=== PATIENT | male | born 1965 | race Caucasian/White ===

== ENCOUNTER 2017-08-07 13:47 | Inpatient (IN) | payer OTHER ==
[2017-08-07 13:54] VITALS: BMI 30.1
--- NOTE | 2017-08-07 14:32 | PDOC ---
History of Present Illness - General Chief Complaint: Wound Stated Complaint: LT LEG INFECTION (PRE-SURG) Time Seen by Provider: 08/07/17 14:30 - History of Present Illness Initial Comments: 08/07/17 14:42 The patient is a 51 year old male with a history of HTN, HLD, DM, PVD who presents for admission for a left foot wound. The patient reports a long history of a left heel wound for which he has been followed by Dr. Carmona. He notes that he was found to have severe PVD and Dr. Carmona sent the patient for admission prior to operative management of the foot. The patient reports pain and numbness to the left foot, but otherwise denies fevers, chills, SOB, chest pain, abdominal pain, nausea, vomiting, or changes with urination or bowel movements. Past History - Past Medical History Allergies/Adverse Reactions: Allergies Allergy/AdvReac Type Severity Reaction Status Date / Time codeine [Codeine] Allergy Verified 08/07/17 13:51 Home Medications: Ambulatory Orders Glipizide [Glucotrol Xl] 5 mg PO DAILY 06/19/12 metFORMIN HCL [Glucophage] 1,000 mg PO BID 06/19/12 Losartan/Hydrochlorothiazide [Losartan-Hctz 100-25 mg Tab] 1 tab PO DAILY Oxycodone HCl/Acetaminophen [Percocet 5-325 mg Tablet] 1 tab PO TID 07/24/17 Pantoprazole Sodium [Protonix] 1 tab PO DAILY 07/24/17 Silver Sulfadiazine [Silvadene] 1 applic TID 07/24/17 Nortriptyline HCl [Pamelor -] 1 cap PO DAILY 07/28/17 Atorvastatin Ca [Lipitor] 20 mg PO HS 08/07/17 Diclofenac Sodium [Voltaren -] 75 mg PO BID 08/07/17 Glipizide [Glucotrol -] 10 mg PO BID 08/07/17 Asthma: No Cardiac Disorders: Yes CVA: No COPD: No CHF: No Diabetes: Yes (niddm) HTN: Yes Hypercholesterolemia: Yes - Surgical History Orthopedic Surgery: Yes (Cervical spine sx, L. Rotator cuff) - Suicide/Smoking/Psychosocial Hx Smoking Status: Yes Smoking History: Current every day smoker Have you smoked in the past 12 months: Yes Number of Cigarettes Smoked Daily: 20 Information on smoking cessation initiated: Yes 'Breaking Loose' booklet given: 08/07/17 Hx Alcohol Use: No Drug/Substance Use Hx: No Substance Use Type: None Hx Substance Use Treatment: No Review of Systems - Review of Systems Comments:: 08/07/17 14:45 Constitutional: No fevers, chills, fatigue, malaise HEENT: No Rhinorrhea, nasal congestion, visual changes Cardiovascular: No chest pain, syncope, palpitations, lightheadedness Respiratory: No Cough, SOB, Hemoptysis, Gastrointestinal: No Abdominal pain, Nausea, Vomiting, Constipation, Diarrhea, Melena Genitourinary: No Dysuria, Frequency, Urgency, Hesitancy, Hematuria, Flank pain Musculoskeletal: Left Foot wound. No Myalgia, arthralgia Skin: No rashes, itching, bruising, pallor Neurologic: No Headache, Dizziness, Numbness, Weakness, or Tingling Psychiatric: No Hallucinations. No SI or HI *Physical Exam - Vital Signs Last Vital Signs Temp Pulse Resp BP Pulse Ox 97.3 F L 96 H 18 136/79 100 08/07/17 13:51 08/07/17 13:51 08/07/17 13:51 08/07/17 13:51 08/07/17 13:51 - Physical Exam Comments: 08/07/17 14:46 General Appearance: Nourished. No Apparent Distress HEENT: EOMI, FILIPE. No Pharyngeal Erythema, Tonsillar Exudate, Tonsillar Erythema Neck: No Cervical Lymphadenopathy Respiratory/Chest: Lungs Clear, Normal Breath Sounds. No Crackles, Rales, Rhonchi, Wheezing Cardiovascular: Regular Rhythm, Regular Rate. No Murmur, Gallops, Rubs Gastrointestinal/Abdominal: Normal Bowel Sounds, Soft. No Guarding, Rebound, Tenderness Musculoskeletal: No CVA Tenderness Extremity: Diminished dp pulses to the left foot with a wound to the medial aspect of the left heel with some purulent drainage. Normal Capillary Refill Integumentary: Normal Color, Dry, Warm Neurologic: Fully Oriented, Alert, Normal Mood/Affect, Normal Response, ED Treatment Course - LABORATORY CBC & Chemistry Diagram: 08/07/17 15:05 08/07/17 15:05 Medical Decision Making - Medical Decision Making 08/07/17 14:49 The patient is a 51 year old male with a history of HTN, HLD, DM, PVD who presents for admission for a left foot wound. Given the patient's history and physical exam, we will obtain a cbc, cmp, lactate, blood cultures, ekg, plain films of the foot to evaluate further. The patient will require admission for further management per Dr. Carmona. We will treat with vanc and zosyn here in the ED and continue to monitor and reassess. 08/07/17 18:28 CBC, cmp are unremarkable. Lactate is elevated to 4.3. We will treat the patient with iv fluids. We discussed the case with the hospitalist team who accepted the patient for admission. *DC/Admit/Observation/Transfer Diagnosis at time of Disposition: Diabetic foot ulcer Qualifiers: Diabetic foot ulcer location: heel Diabetes mellitus type: other specified ( including MACK) Laterality: left Non-pressure ulcer stage: unspecified non- pressure ulcer stage Qualified Code(s): E13.621 - Other specified diabetes mellitus with foot ulcer - Discharge Dispostion Condition at time of disposition: Stable Admit: Yes - Referrals - Patient Instructions - Post Discharge Activity
[2017-08-07] MEDS ORDERED: PIPERACILLIN/TAZOB 3.375 GM 3.375 GM in DEXTROSE 5%-WATER - 50 ML IVPB ONE ×2 (14:39→21:00)
[2017-08-07] MEDS ORDERED: VANCOMYCIN 1,000 MG in DEXTROSE 5%-WATER - 250 ML IVPB ONE (14:39)
[2017-08-07] MEDS ORDERED: VANCOMYCIN 1 GRAM (PRE-DOCKED) 1,000 MG/250 ML BAG IVPB ONE (15:15)
[2017-08-07 15:16] LABS: BASO % 1.1 % (0-2.0); EOS % 0.9 % (0-4.5); HEMATOCRIT 46.5 % (35.4-49); HEMOGLOBIN 16.2 GM/dL (11.7-16.9); LYMPH % 36.7 % (8-40); MCH 31.4 pg (25.7-33.7); MCHC 34.9 g/dl (32.0-35.9); MEAN CELL VOLUME 90.1 fl (80-96); MEAN PLT VOLUME 6.8 fl (7.5-11.1); MONO % 5.8 % (3.8-10.2); NEUT % 55.5 % (42.8-82.8); PLATELET COUNT 464 K/MM3 (134-434); RBC 5.16 M/mm3 (4.00-5.60); RDW 13.9 % (11.9-15.9); WHITE BLOOD COUNT 10.5 K/mm3 (4.0-10.0)
[2017-08-07] MEDS ORDERED: PIPERACILLIN/TAZOB 3.375 GM 3.375 GM/50 ML BAG IVPB ONE (15:16)
[2017-08-07 15:38] LABS: ALBUMIN 3.7 g/dl (3.4-5.0); ALK PHOS 96 U/L (45-117); ANION GAP 14 (8-16); BILIRUBIN,TOTAL 0.3 mg/dL (0.2-1.0); BLOOD UREA NITROGEN 16 mg/dL (7-18); CALCIUM 9.6 mg/dL (8.5-10.1); CHLORIDE 100 mmol/L (98-107); CO2 24 mmol/L (21-32); CREATININE 0.9 mg/dL (0.7-1.3); GLUCOSE,RANDOM 148 mg/dL (74-106); SGOT/AST 14 U/L (15-37); SGPT/ALT 23 U/L (12-78); SODIUM 138 mmol/L (136-145); TOT PROT 7.3 g/dl (6.4-8.2)
[2017-08-07] MEDS ORDERED: SODIUM CHLORIDE 1,000 ML IV STA (15:44)
--- NOTE | 2017-08-07 17:22 | HP ---
CHIEF COMPLAINT: PVD with non healing ulcer with discharge PCP: Dr valenzuela HISTORY OF PRESENT ILLNESS: The patient is a 51 year old male with a history of HTN, HLD, DM, PVD He reports that he was found to have severe PVD and Dr. Carmona sent the patient for admission prior to operative management of the foot. He states that two months ago he noticed a black discoloration on lateral aspect of his little toe, which was shaved by his bellows tester, which never got better and was started on antibiotics. One month ago he noticed a discharge from his old healed scar and was started on antibiotics, discharge is serous and no foul smell, didnt get better with antibiotics, till now has been treated on august antibiotics. He also reports increase in claudication from walking 300ft to pain during rest, also complaints numbness in left foot, also noticed a discoloration of foot one month ago and which is same since then. 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 Also reports his DM is uncontrolled Recently started walking with cane. Denies SOB, chest pain, abdominal pain, nausea, vomiting, or changes with urination or bowel movements. 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 Social History: Smokin pack year history, current smoker Alcohol: no Drugs: no Family History: not relevant Allergies codeine [Codeine] Allergy (Verified 08/07/17 13:51) HOME MEDICATIONS: Home Medications Medication Instructions Recorded Glipizide [Glucotrol Xl] 5 mg PO DAILY 06/19/12 Simvastatin [Zocor] 40 mg PO HS 06/19/12 metFORMIN HCL [Glucophage] 1,000 mg PO BID 06/19/12 Losartan/Hydrochlorothiazide 1 tab PO DAILY 07/24/17 [Losartan-Hctz 100-25 mg Tab] Oxycodone HCl/Acetaminophen 1 tab PO TID 07/24/17 [Percocet 5-325 mg Tablet] Pantoprazole Sodium [Protonix] 1 tab PO DAILY 07/24/17 Silver Sulfadiazine [Silvadene] 1 applic TID 07/24/17 Nortriptyline HCl [Pamelor -] 1 cap PO DAILY 07/28/17 REVIEW OF SYSTEMS CONSTITUTIONAL: Absent: fever, chills, diaphoresis, generalized weakness, malaise, loss of appetite, weight change HEENT: Absent: rhinorrhea, nasal congestion, throat pain, throat swelling, difficulty swallowing, CARDIOVASCULAR: Absent: chest pain, syncope, palpitations, irregular heart rate, lightheadedness , peripheral edema RESPIRATORY: Absent: cough, shortness of breath, dyspnea with exertion, orthopnea, wheezing, stridor, hemoptysis GASTROINTESTINAL: Absent: abdominal pain, abdominal distension, nausea, vomiting, diarrhea, GENITOURINARY: Absent: dysuria, frequency, urgency, hesitancy, hematuria, flank pain, genital pain MUSCULOSKELETAL: as above SKIN: as above HEMATOLOGIC/IMMUNOLOGIC: Absent: easy bleeding, easy bruising, lymphadenopathy, frequent infections ENDOCRINE: Absent: unexplained weight gain,heat intolerance, cold intolerance NEUROLOGIC: Absent: headache, focal weakness or paresthesias, dizziness, PSYCHIATRIC: Absent: anxiety, depression, PHYSICAL EXAMINATION Vital Signs - 24 hr 08/07/17 13:51 Temperature 97.3 F L Pulse Rate 96 H Respiratory 18 Rate Blood Pressure 136/79 O2 Sat by Pulse 100 Oximetry (%) GENERAL: Awake, alert, and fully oriented, in no acute distress. HEAD: Normal with no signs of trauma. EARS, NOSE, THROAT: Moist mucous membranes. NECK: Normal range of motion, supple without lymphadenopathy, JVD, or masses. LUNGS: Breath sounds equal, clear to auscultation bilaterally. No wheezes, and no crackles. No accessory muscle use. HEART: Regular rate and rhythm, normal S1 and S2 without murmur, ABDOMEN: Soft, nontender, not distended, normoactive bowel sounds, no guarding, no rebound, no masses. . UPPER EXTREMITIES: 2+ pulses, warm, well-perfused. No cyanosis. No clubbing. No peripheral edema. LOWER EXTREMITIES:b/l calf muscle atrophy ( congenital), mild skin discoloration of left foot as compare to right, dry ulcer on lateral aspect of little toe, met skin with degloving between 4th and 5th toe, crusted serous discharge presnt in helaed scar on medial aspect of foot, temp b/l equal, pulses not palpable, decreases sensations to touch on left side, capillary refill normal, loss hair both legs, NEUROLOGICAL: Cranial nerves II-XII intact. Normal speech. PSYCHIATRIC: Cooperative. Good eye contact. Appropriate mood and affect. SKIN: Warm, dry, Laboratory Results - last 24 hr 08/07/17 08/07/17 08/07/17 14:42 15:05 15:05 WBC 10.5 H RBC 5.16 Hgb 16.2 Hct 46.5 MCV 90.1 MCH 31.4 MCHC 34.9 RDW 13.9 Plt Count 464 H MPV 6.8 L Neutrophils % 55.5 Lymphocytes % 36.7 Monocytes % 5.8 Eosinophils % 0.9 Basophils % 1.1 Sodium 138 Potassium 4.0 Chloride 100 Carbon Dioxide 24 Anion Gap 14 BUN 16 Creatinine 0.9 Creat Clearance w eGFR > 60 Random Glucose 148 H Lactic Acid 4.3 H* Calcium 9.6 Total Bilirubin 0.3 AST 14 L ALT 23 D Alkaline Phosphatase 96 Creatine Kinase Troponin I C-Reactive Protein Total Protein 7.3 Albumin 3.7 08/07/17 08/07/17 15:05 16:14 WBC RBC Hgb Hct MCV MCH MCHC RDW Plt Count MPV Neutrophils % Lymphocytes % Monocytes % Eosinophils % Basophils % Sodium Potassium Chloride Carbon Dioxide Anion Gap BUN Creatinine Creat Clearance w eGFR Random Glucose Lactic Acid Calcium Total Bilirubin AST ALT Alkaline Phosphatase Creatine Kinase 67 Troponin I < 0.02 C-Reactive Protein 0.9 H Total Protein Albumin ASSESSMENT/PLAN: The patient is a 51 year old male with a history of HTN, HLD, DM, PVD came for non healing ulcer and discharge on left foot. PVD with non healing ulcer with discharge. IV antibiotics zosyn and vanco. daily dressing of wound' keep area between fingers dry. CRP 0.9, ESR pending XRay pending. Follow wound and blood culture. arterial doppler from 07/25 severe arterial insufficiency on left side. Vascular surgery and ID consult. continue nortriptiline has been treated on levaquin last week, on augmentin since 08/05 avoid scd and limb elevation. Latic acidosis: likely type b from metformin. Doesn't meet criteria for sepsis. Trend lactic acid. hold metformin IV fluid HTN continue losartan hold hydrochlorthiazide HLD atorvastatin 20 home dose DM BGM novalog sliding scale HBa1c diabetic diet hold oral hypoglycemic Smoking needs to be counseled for smoking cessation. start nicotine patch. fluid: NS 100ml/hr electrolyte: repeat in am nutrition: diabetic diet dvt pro: heparin sq, will get one dose at 10pm. Start him back depending upon a plan from vascular surgery. gi pro: pantoprazole 40 daily home dose dispo: med surg Visit type - Emergency Visit Emergency Visit: Yes ED Registration Date: 08/07/17 Care time: The patient presented to the Emergency Department on the above date and was hospitalized for further evaluation of their emergent condition. - New Patient This patient is new to me today: Yes Date on this admission: 08/07/17 - Critical Care Critical Care patient: No
[2017-08-07] MEDS ORDERED: ENOXAPARIN NA (PORCINE) 40 MG/0.4 ML DISP.SYRIN SQ SCH (17:59)
--- NOTE | 2017-08-07 18:12 | HP ---
CHIEF COMPLAINT: Pain in the foot PCP: Dr. Dalton HISTORY OF PRESENT ILLNESS: The patient is a 51 yo m w/ PMH HTN, DM, PVD who was ent to the ED by Dr. Carmona for pre-op management of a nonhealing, infected left foot ulcer. The patient states that he has experienced pain, numbness and drainage from 2 sites on his foot over the past few months. He went to see a french weaver several times while experiencing this and has tried multiple antibiotics (augmentin, levaquin) as well as silvedine cream which did not help. His french weaver referred him to Dr. Carmona, who sent him to the ED. The patient also endorses worsening pain in both legs over the same period of time. The pain was originally only when walking, but became progressively worse to the point where he feels this pain even at rest. The patient endorses subjective fevers and chills over the past few weeks. Patient also endorses dysuria as well as burning around the head of his penis while urinating. The patient washed the area well while in the shower, but states that the inside of his foreskin sometimes brakes down because he urinates so frequently. Patient denies chest pain, SOB, abdominal pain, sick contacts. ER course was notable for: (1) Lactic acid 4.3 (2) Vancomycin, zosyn (3) XR of the foot Recent Travel: none PAST MEDICAL HISTORY: HLD, HTN, DM, PVD PAST SURGICAL HISTORY: 2010- cervical spine surgery s/p trauma at work - Left rotator cuff surgery Social History: Smoking: Smokes 20 cigarettes/day for the past 40 yrs Alcohol: denies Drugs: denies Family History: non-contributory Allergies codeine [Codeine] Allergy (Verified 08/07/17 13:51) HOME MEDICATIONS: Home Medications Medication Instructions Recorded Glipizide [Glucotrol Xl] 5 mg PO DAILY 06/19/12 metFORMIN HCL [Glucophage] 1,000 mg PO BID 06/19/12 Losartan/Hydrochlorothiazide 1 tab PO DAILY 07/24/17 [Losartan-Hctz 100-25 mg Tab] Oxycodone HCl/Acetaminophen 1 tab PO TID 07/24/17 [Percocet 5-325 mg Tablet] Pantoprazole Sodium [Protonix] 1 tab PO DAILY 07/24/17 Silver Sulfadiazine [Silvadene] 1 applic TID 07/24/17 Nortriptyline HCl [Pamelor -] 1 cap PO DAILY 07/28/17 Atorvastatin Ca [Lipitor] 20 mg PO HS 08/07/17 Diclofenac Sodium [Voltaren -] 75 mg PO BID 08/07/17 Glipizide [Glucotrol -] 10 mg PO BID 08/07/17 REVIEW OF SYSTEMS CONSTITUTIONAL: Absent: diaphoresis, generalized weakness, malaise, loss of appetite, weight change HEENT: Absent: rhinorrhea, nasal congestion, throat pain, throat swelling, difficulty swallowing, mouth swelling, ear pain, eye pain, visual changes CARDIOVASCULAR: Absent: chest pain, syncope, palpitations, irregular heart rate, lightheadedness , peripheral edema RESPIRATORY: Absent: cough, shortness of breath, dyspnea with exertion, orthopnea, wheezing, stridor, hemoptysis GASTROINTESTINAL: Absent: abdominal pain, abdominal distension, nausea, vomiting, diarrhea, constipation, melena, hematochezia GENITOURINARY: Absent: frequency, urgency, hesitancy, hematuria, flank pain, genital pain MUSCULOSKELETAL: Absent: myalgia, arthralgia, joint swelling, back pain, neck pain SKIN: Absent: rash, itching HEMATOLOGIC/IMMUNOLOGIC: Absent: easy bleeding, easy bruising, lymphadenopathy, frequent infections ENDOCRINE: Absent: unexplained weight gain, unexplained weight loss, heat intolerance, cold intolerance NEUROLOGIC: Absent: headache, focal weakness, dizziness, unsteady gait, seizure, mental status changes, bladder or bowel incontinence PSYCHIATRIC: Absent: anxiety, depression, suicidal or homicidal ideation, hallucinations. PHYSICAL EXAMINATION Vital Signs - 24 hr 08/07/17 08/07/17 13:51 17:36 Temperature 97.3 F L 97.8 F Pulse Rate 96 H Pulse Rate [ 92 H Radial] Respiratory 18 18 Rate Blood Pressure 136/79 Blood Pressure 135/74 [Left Arm] O2 Sat by Pulse 100 97 Oximetry (%) GENERAL: Awake, alert, and fully oriented, in no acute distress. HEAD: Normal with no signs of trauma. EYES: Pupils equal, round and reactive to light, extraocular movements intact, sclera anicteric, conjunctiva clear. No lid lag. EARS, NOSE, THROAT: nares patent, oropharynx clear without exudates. Moist mucous membranes. NECK: Normal range of motion, supple without lymphadenopathy, JVD, or masses. LUNGS: Breath sounds equal, clear to auscultation bilaterally. No wheezes, and no crackles. No accessory muscle use. HEART: Regular rate and rhythm, normal S1 and S2 without murmur, rub or gallop. ABDOMEN: Soft, nontender, not distended, normoactive bowel sounds, no guarding, no rebound, no masses. No hepatomegaly or splenomegaly. MUSCULOSKELETAL: Normal range of motion at all joints. No bony deformities or tenderness. No CVA tenderness. LOWER EXTREMITIES: Pulses absent b/l, warm. No calf tenderness. No peripheral edema. The left foot is of abnormal shape with an ulcer on the pad of the pinkie toe and an area of abnormal healing on the medial side. Both areas are tender to palpation. There is evidence of dried serous drainage on the medial wound. The pinkie toe wound is dry. The left foot is slightly more erythematous than the right foot. Both lower extremities are of equal temperature. NEUROLOGICAL: Cranial nerves II-X intact. Normal speech. Normal gait. Sensation is diminished over the dorsum and planar surface of the foot. Sensation is also diminished over the lateral aspect of the lower leg. Pressure sense intact throughout. PSYCHIATRIC: Cooperative. Good eye contact. Appropriate mood and affect. SKIN: Warm, dry, normal turgor, normal capillary refill. GENITALIA: The patient is uncircumcised. There are areas at the tip of the foreskin where there is a white substance. The head of the penis is retracted behind the foreskin and is erythematous. No tenderness to palpation. no signs or symptoms of phimosis Laboratory Results - last 24 hr 08/07/17 08/07/17 08/07/17 14:42 15:05 15:05 WBC 10.5 H RBC 5.16 Hgb 16.2 Hct 46.5 MCV 90.1 MCH 31.4 MCHC 34.9 RDW 13.9 Plt Count 464 H MPV 6.8 L Neutrophils % 55.5 Lymphocytes % 36.7 Monocytes % 5.8 Eosinophils % 0.9 Basophils % 1.1 ESR Sodium 138 Potassium 4.0 Chloride 100 Carbon Dioxide 24 Anion Gap 14 BUN 16 Creatinine 0.9 Creat Clearance w eGFR > 60 Random Glucose 148 H Lactic Acid 4.3 H* Calcium 9.6 Total Bilirubin 0.3 AST 14 L ALT 23 D Alkaline Phosphatase 96 Creatine Kinase Troponin I C-Reactive Protein Total Protein 7.3 Albumin 3.7 08/07/17 08/07/17 08/07/17 15:05 16:14 16:14 WBC RBC Hgb Hct MCV MCH MCHC RDW Plt Count MPV Neutrophils % Lymphocytes % Monocytes % Eosinophils % Basophils % ESR 14 Sodium Potassium Chloride Carbon Dioxide Anion Gap BUN Creatinine Creat Clearance w eGFR Random Glucose Lactic Acid Calcium Total Bilirubin AST ALT Alkaline Phosphatase Creatine Kinase 67 Troponin I < 0.02 C-Reactive Protein 0.9 H Total Protein Albumin ASSESSMENT/PLAN: The patient is a 51 yo m w/ PMH DM, HTN, HLD, PVD who is admitted for further workup and management of a non-healing foot wound. #Foot wound 2/2 uncontrolled DM vs PVD -Patient describes claudication symptoms -Vascular surgery consult -NS @ 100 -Vancomycin 1g daily -Zosyn 3.375g IV Q6H -ESR, CRP -AM preop labs -Pt has lactic acidosis to 4.3, will trend q2 -MRI of left foot r/o osteo -ID consult -f/u foot XR from ED #Dysuria -UA r/o UTI as source -patient uncircumcised. -neosporin cream after washing with lukewarm water. #HTN -will hold home HCTZ -c/w home losartan 100mg daily #DM -holding home oral hypoglycemics -BGM ACHS -ISS ACHS -A1c in AM #HLD -c/w home atorvastatin 20mg daily #Prophylaxis -Hep SQ 5ku TID (1 dose, held for possible surgery in AM) #FEN -NS @ 100 -monitor lytes -Diabetic diet; NPO past midnight #Dispo -admit to inpatient med surg -possible surgery in AM Visit type - Emergency Visit Emergency Visit: Yes ED Registration Date: 08/07/17 Care time: The patient presented to the Emergency Department on the above date and was hospitalized for further evaluation of their emergent condition. - New Patient This patient is new to me today: Yes Date on this admission: 08/07/17 - Critical Care Critical Care patient: No Hospitalist Screening - Colonoscopy Questionnaire Colonoscopy Questionnaire: Colonoscopy Questionnaire - Patient: 50 - 75 years old and never had a screening colonoscopy: Unknown History of colon or rectal polyps, or CA: Unknown History of IBD, Crohn's disease or UC: Unknown History of abdominal radiation therapy as a child: Unknown - Relative: 1 with colon or rectal CA, or polyps at age 60 or younger: Unknown Colon or rectal CA diagnosed at age 45 or younger: Unknown Multiple relatives with colon or rectal CA: Unknown - Outcome: Screening Result: Negative Screen
[2017-08-07] MEDS: SODIUM CHLORIDE 1,000 ML IV SCH (18:57)
[2017-08-07] MEDS ORDERED: DEXTROSE 5%-WATER - 50 ML IVPB ONE (21:14)
[2017-08-07] MEDS ORDERED: PIPERACILLIN/TAZOBACTAM 3.375 GM VIAL IVPB ONE (21:14)
[2017-08-07 21:17] LABS: URINE APPEARANCE CLEAR; URINE BILIRUBIN NEGATIVE (<2.0 mg/dL); URINE COLOR STRAW; URINE GLUCOSE (UA) 3+ (NEGATIVE); URINE KETONE NEGATIVE (NEGATIVE); URINE LEUK ESTERASE NEGATIVE (NEGATIVE); URINE NITRITE NEGATIVE (NEGATIVE); URINE PROTEIN NEGATIVE (NEGATIVE)
[2017-08-07] MEDS: NICOTINE 21 MG/24 HOURS TOPICAL PATCH TD SCH (21:31)
[2017-08-07] MEDS: PIPERACILLIN/TAZOB 3.375 GM 3.375 GM in DEXTROSE 5%-WATER - 50 ML IVPB SCH (21:31)
[2017-08-07] MEDS: INSULIN SLIDING SCALE (NOVOLOG) 1 VIAL SQ SCH (21:32)
[2017-08-07] MEDS: NEOMYCIN/POLYMYXIN/BACITRACIN (TRIPLE ANTIBIOTIC) 28 GM OINTMENT TP SCH (21:36)
[2017-08-07] MEDS: ACETAMINOPHEN 325 MG TABLET (FP) PO PRN (21:42)
[2017-08-07] MEDS ORDERED: ATORVASTATIN CA 20 MG TABLET (FP) PO SCH (22:00)
[2017-08-07] MEDS ORDERED: HEPARIN NA (PORCINE) 5,000 UNITS/ML 1ML VIAL SQ SCH ×2 (22:00)
[2017-08-08] MEDS ORDERED: PIPERACILLIN/TAZOBACTAM 3.375 GM VIAL IVPB ONE ×2 (02:34→09:59)
[2017-08-08] MEDS ORDERED: DEXTROSE 5%-WATER - 50 ML IVPB ONE ×2 (02:35→10:00)
[2017-08-08] MEDS ORDERED: PIPERACILLIN/TAZOB 3.375 GM 3.375 GM in DEXTROSE 5%-WATER - 50 ML IVPB ONE ×2 (03:00→09:00)
[2017-08-08] MEDS: PIPERACILLIN/TAZOB 3.375 GM 3.375 GM in DEXTROSE 5%-WATER - 50 ML IVPB SCH ×2 (03:00→10:16)
[2017-08-08] MEDS: SODIUM CHLORIDE 1,000 ML IV SCH ×2 (05:55→17:29)
[2017-08-08] MEDS: INSULIN SLIDING SCALE (NOVOLOG) 1 VIAL SQ SCH ×4 (06:13→21:47)
[2017-08-08] MEDS: ACETAMINOPHEN 325 MG TABLET (FP) PO PRN ×2 (06:33→18:58)
[2017-08-08 07:51] LABS: BASO % 0.7 % (0-2.0); EOS % 1.7 % (0-4.5); HEMATOCRIT 44.6 % (35.4-49); HEMOGLOBIN 15.2 GM/dL (11.7-16.9); LYMPH % 40.3 % (8-40); MCH 30.8 pg (25.7-33.7); MCHC 34.1 g/dl (32.0-35.9); MEAN CELL VOLUME 90.3 fl (80-96); MEAN PLT VOLUME 6.7 fl (7.5-11.1); MONO % 6.9 % (3.8-10.2); NEUT % 50.4 % (42.8-82.8); PLATELET COUNT 406 K/MM3 (134-434); RBC 4.94 M/mm3 (4.00-5.60); RDW 13.9 % (11.9-15.9); WHITE BLOOD COUNT 7.7 K/mm3 (4.0-10.0)
[2017-08-08] MEDS ORDERED: VANCOMYCIN 1,000 MG in DEXTROSE 5%-WATER - 250 ML IVPB ONE ×2 (07:54→10:00)
--- NOTE | 2017-08-08 07:56 | PN ---
Teaching Attending Note Name of Resident: Yoni Jhaveri ATTENDING PHYSICIAN STATEMENT I saw and evaluated the patient. I reviewed the resident's note and discussed the case with the resident. I agree with the resident's findings and plan as documented. CC: L foot drainage and pain HPI: 51 y/o man with h/o uncontrolled DM, HLP, HTN, PVD, foot deformities s/p multiple sx, polio , who presented with drainage of L foot wound. 3 weeks ago he started having occasional chills at night. last week he felt very warm to touch but did not check his temp. 2.5 months ago, he developed black discoloration of L 5th toe which was debrided by his motion picture set grip , and since then he received multiple courses of Abx including levaquin ( other unknown Abx ). 3 days ago, he developed drainage form L foot an openig on medial aspect of L heel near a skin flap. with pain in that area. he saw hispodiatrist and was prescribed Augmentin for it. recently he was refered by his motion picture set grip to see Dr. esqueda for vascular evaluation and arterial doppler was done ( mild arterial insufficiency in R, and severe arterial insufficiency in L. ocluded mid L superficial femoral artery, 20-49 % stenosis of mid/distal popliteal , and possible infra popliteal disease present ) He reports severe dysuria x 3 days . but was told his UA( taken on Monday ) was clean today ( by PCP ). he reports poor diabetes control with A1c of 10 as out pt. OBJECTIVE: NAD , AAOx3. dry MM. no JVD. EOMI, round equal pupils . no facial droop. CV: RRR, no MRG Lungs: CTAB Abd: soft, NT, ND , NL BS , no renal artery bruits. Ext: muscle atrophy in both legs , loss of leg hair in lower legs . R foot with noedema , has no erythema , and DP 2+ , PT 2+ L foot with mild edema on dorsal aspect. deformities. L 5th toe with a dry ulcer but wet medial aspect, no discharge seen . tenderness over 5th toe. medial heal skin flap with dry greenish secretions . no secretions expressed when squeezed. DP on left side 1+ , PT 2+ . slight increase in warmth over L dorsal foot. no crepitus felt Neuro : EOMI, round equal pupils , no facial droop. strength 5/5 in upper nad lwoer ext proximally and distally, . sensation to light touch decreased in L leg and foot . ASSESSMENT AND PLAN: 51 y/o man with h/o uncontrolled DM, HLP, HTN, PVD, foot deformities s/p multiple sx, polio , who presented with drainage of L foot woundx 3 days . with subjective fever /chills 3 weeks . He was found to have lactic acidosis . 1- L foot infection: need to r/o deep collection and OM. I do not suspect acute ischemia but vascular disease might be contributing - wound cx - blood cx - given zosyn and vanco in ER , might be reasonable to continue, as there is no previous cx in out system. Will d/w ID the possibility of resistant organism due to multiple Abx use. ? meropenem - foot MRI - arterial doppler on 07/28 ( mild arterial insufficiency in R, and severe arterial insufficiency in L. ocluded mid L superficial femoral artery, 20-49 % stenosis of mid/distal popliteal , and possible infra popliteal disease present ) - Dr. esqueda consult. - IVF - repeat lactic 2- dysuria : need UA and if positive Urine cx, as UTI coulld be the cause of his lactic acidosis , and fever /chills 3- Dm : per him last A1c 10 . - will repeat a1c . - if > 10 will d/w him the need for out pt insulin - SSI here 4- HTN: cont ARB . hold HCTZ while hydrating. 5- HLP , cont statin and check Lipid panel . last LDL in 2012 above goal dispo : HLOC
[2017-08-08 08:02] LABS: INR 0.93 (0.82-1.09); PROTHROMBIN TIME (PATIENT) 10.5 SEC (9.7-13.0)
[2017-08-08 08:10] LABS: CHLORIDE 106 mmol/L (98-107); POTASSIUM 4.2 mmol/L (3.5-5.1); SODIUM 140 mmol/L (136-145)
[2017-08-08 08:19] LABS: ALBUMIN 3.3 g/dl (3.4-5.0); ALK PHOS 79 U/L (45-117); ANION GAP 10 (8-16); BILIRUBIN,TOTAL 0.3 mg/dL (0.2-1.0); BLOOD UREA NITROGEN 14 mg/dL (7-18); CALCIUM 8.9 mg/dL (8.5-10.1); CO2 24 mmol/L (21-32); CREATININE 0.6 mg/dL (0.7-1.3); GLUCOSE,RANDOM 127 mg/dL (74-106); MAGNESIUM 2.3 mg/dL (1.8-2.4); PHOSPHOROUS 3.5 mg/dL (2.5-4.9); SGOT/AST 12 U/L (15-37); SGPT/ALT 18 U/L (12-78); TOT PROT 6.5 g/dl (6.4-8.2)
--- NOTE | 2017-08-08 09:47 | PN ---
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 s/p surgery to both feet in [facility] as a child the left foot got infected and he spent 7 months int hospital in [facility] at age 10 he ended up with a flap on the heel of the left foot and a chronic plantar callus he has been seeing Dr Kumar for podiatry for last 5 years the callus is periodically shaved as well as an area near the flap 2 months ago he developed a painful fifth toe -treated by concrete crusher loader operator- ?drainage , now dry last weekend he had some drainage from near the flap no fevers still smokes PMD dr phillips Kitchen Stewardess- dr kumar diabetic foot infection r/o osteomyelitis of the fifth toe multiple outpt abx PAD left leg agree with MRI vanco/zosyn podiatry/vascular to see Problem List - Problems (1) Diabetic foot ulcer Code(s): E11.621 - TYPE 2 DIABETES MELLITUS WITH FOOT ULCER; L97.509 - NON- PRESSURE CHRONIC ULCER OTH PRT UNSP FOOT W UNSP SEVERITY Qualifiers: Diabetic foot ulcer location: heel Diabetes mellitus type: other specified (including MACK) Laterality: left Non-pressure ulcer stage: unspecified non- pressure ulcer stage Qualified Code(s): E13.621 - Other specified diabetes mellitus with foot ulcer; L97.429 - Non-pressure chronic ulcer of left heel and midfoot with unspecified severity; L97.429 - Non-pressure chronic ulcer of left heel and midfoot with unspecified severity; L97.429 - Non-pressure chronic ulcer of left heel and midfoot with unspecified severity; L97.429 - Non- pressure chronic ulcer of left heel and midfoot with unspecified severity (2) PAD (peripheral artery disease) Code(s): I73.9 - PERIPHERAL VASCULAR DISEASE, UNSPECIFIED
[2017-08-08] MEDS ORDERED: NORTRIPTYLINE HCL 25 MG CAPSULE PO SCH (10:00)
[2017-08-08] MEDS ORDERED: VANCOMYCIN 1 GM PREMIX - 1 GM/200 ML BAG IVPB ONE (10:00)
[2017-08-08] MEDS ORDERED: PANTOPRAZOLE 40 MG TABLET (FP) PO SCH (10:00)
--- NOTE | 2017-08-08 10:18 | EKG ---
Test Reason : Blood Pressure : / mmHG Vent. Rate : 093 BPM Atrial Rate : 093 BPM P-R Int : 192 ms QRS Dur : 086 ms QT Int : 358 ms P-R-T Axes : 045 201 023 degrees QTc Int : 445 ms NORMAL SINUS RHYTHM RIGHT SUPERIOR AXIS DEVIATION INFERIOR INFARCT (CITED ON OR BEFORE 19-JUN-2012) ABNORMAL ECG WHEN COMPARED WITH ECG OF 20-JUN-2012 08:23, NO SIGNIFICANT CHANGE WAS FOUND Confirmed by MD DEJON, MARLEN ([id number]) on 08/08/2017 10:17:59 AM Referred By: Confirmed By:MARLEN ASHFORD MD
[2017-08-08] MEDS ORDERED: DEXTROSE 5%-WATER 100 ML IVPB ONE ×2 (10:21→18:29)
[2017-08-08] MEDS ORDERED: PIPERACILLIN/TAZOBACTAM 4.5 GM VIAL IVPB ONE ×2 (10:21→18:29)
--- NOTE | 2017-08-08 10:31 | CONS ---
INFECTIOUS DISEASE CONSULTATION DATE OF CONSULTATION: DATE OF DICTATION: 08/08/2017 REQUESTING PHYSICIAN: The hospitalist service. This is a 51-year-old man with a 10-year history of diabetes. As well, he had clubbed feet as a child and had surgery as a child in [place]. Subsequently , the left foot got infected. He was hospitalized for 7 months in [place], [place] , at the age of 10, requiring a flap for the heel of his left foot. About 2 months ago, he developed a left 5th digit infection. It was drained by the camp dining room attendant, which apparently he had some pus drained from that area. Subsequently, it has been dry. He has been on a variety of antibiotics including Augmentin and Levaquin. He subsequently, over the weekend, noted he had some drainage from near the edge of the flap on his foot. He has been seen by Dr. Carmona as an outpatient as well and undergone studies of his leg, that show severe arterial insufficiency in the left lower extremity. Given the new drainage from near the flap, he was advised admission for further evaluation. He ambulates with a cane. He actively smokes, and he has been on a variety of oral antibiotics including Augmentin and Levaquin. There has been no history of fevers or chills. ALLERGIES: He is allergic to CODEINE. There has been no recent travel. PAST MEDICAL HISTORY: Notable for hyperlipidemia, hypertension, diabetes, and PAD (peripheral arterial disease). SURGICAL HISTORY: In 2009, he had a cervical spine surgery. He has had left rotator cuff surgery, and he has had surgery on his feet as a child for clubbed foot. FAMILY HISTORY: Noncontributory. SOCIAL HISTORY: He is . He lives at home with his . He is not working. He ambulates with a cane. He smokes 20 cigarettes a day. There is no history of any alcohol or substance use. MEDICATIONS AT HOME: Include glipizide, metformin, losartan/hydrochlorothiazide , Percocet, Protonix, Pamelor, Lipitor, and Voltaren. REVIEW OF SYSTEMS: He notes that he has not had drainage from the 5th toe. It is dry. He has a plantar callus on his foot, that he says he has had since the surgery at age 10, and he says that the drainage, which is currently dry, from near the flap towards the heel of his left foot is new and started on Monday. Currently, it is dry and crusted. There is no cough. There is no nausea or vomiting, diarrhea, or dysuria. He denies abdominal pain, chest pain. He has had no fevers or chills. PHYSICAL EXAMINATION: General: He is awake and alert. Vital Signs: Temperature is 97.9. Pulse is 77. Blood pressure 136/73. Respiratory rate is 20. He is saturating 98%. HEENT: Normocephalic. His eyes are anicteric. Neck: Supple. Lungs: Clear to auscultation. Heart: Regular rate and rhythm. Abdomen: Soft, nontender. Extremities: Notable for a dry callus and misshapened 5th little toe. There is no erythema. There is an open area on that toe. He has a dry callus on the plantar surface. His foot is misshapen, and he has an area of what looks like a prior flap towards the heel with dried serous drainage at the edge. LABORATORY DATA: His labs are notable for a white count on admission of 10.5, today 7.7; hemoglobin is 15.2; platelets are 406. Sedimentation rate is 14. INR is 0.93. BUN is 14 and creatinine 0.6. Glucose 127. CRP is 0.9. Urinalysis is negative. Blood cultures, cultures from the heel of the foot are pending. X-ray shows mild hallux valgus of the 1st metatarsal joint. He has suggestion of a flat foot and suggestion of a fusion of the cuboid with the cuneiform bones. There is no gross bony destruction noted, with some mild soft tissue swelling. In summary, this is a 51-year-old man with prior club foot, prior surgery to the left foot as a child, admitted with diabetic foot infection, possible osteomyelitis of the 5th toe, multiple outpatient antibiotics, and severe peripheral arterial disease of the left leg. Would agree with MRI, vancomycin with Zosyn, and Podiatry and Vascular to see for further evaluation. Further recommendations to follow. Nahid [id number] MTDRaji
[2017-08-08] MEDS: PANTOPRAZOLE 40 MG TABLET (FP) PO SCH (10:35)
[2017-08-08] MEDS: LOSARTAN POTASSIUM 50 MG TABLET (FP) PO SCH (10:36)
[2017-08-08] MEDS: NICOTINE 21 MG/24 HOURS TOPICAL PATCH TD SCH (10:37)
[2017-08-08] MEDS: NORTRIPTYLINE HCL 25 MG CAPSULE PO SCH (10:38)
[2017-08-08] MEDS: PIPERACILLIN/TAZOB 4.5 GM 4.5 GM in DEXTROSE 5%-WATER 100 ML IVPB SCH ×2 (10:39→18:57)
[2017-08-08] MEDS: NEOMYCIN/POLYMYXIN/BACITRACIN (TRIPLE ANTIBIOTIC) 28 GM OINTMENT TP SCH ×2 (10:45→21:11)
[2017-08-08] MEDS: SILVER SULFADIAZINE 1% TOP CREAM 50 GM JAR TP SCH (11:55)
[2017-08-08 13:18] LABS: CHOLESTEROL 134 mg/dL (50-200)
[2017-08-08 13:21] LABS: HDL CHOLESTEROL 25 mg/dL (40-60); TRIGLYCERIDES 241 mg/dL (35-160)
--- NOTE | 2017-08-08 13:22 | CONSULT ---
- Consultation REQUESTING PROVIDER: CONSULT REQUEST: We have been asked to surgically evaluate this patient for left fot wound. PCP:Hamzah Hammond HISTORY OF PRESENT ILLNESS: The patient is a 51 yo male with a who has been followed by Dr. Bazzi for his left foot care. He recently had the callous to his left foot shaved and there was concern that it might be infected because of some pus that was draining. He has been treated with several oral antiotics for his foot. He was also seeing Dr. Carmona as an outpt and had a angiogram schedule for this week as an outpt of his LLE. He was admitted to the hospital for infection of his left foot. PMHx: HLD, HTN, DM, PVD PAST SURGICAL HISTORY: 2009- cervical spine surgery s/p trauma at work - Left rotator cuff surgery, b/l club foot as child with operations including a left foot flap. Home Medications Medication Instructions Recorded Glipizide [Glucotrol Xl] 5 mg PO DAILY 06/19/12 metFORMIN HCL [Glucophage] 1,000 mg PO BID 06/19/12 Losartan/Hydrochlorothiazide 1 tab PO DAILY 07/24/17 [Losartan-Hctz 100-25 mg Tab] Oxycodone HCl/Acetaminophen 1 tab PO TID 07/24/17 [Percocet 5-325 mg Tablet] Pantoprazole Sodium [Protonix] 1 tab PO DAILY 07/24/17 Silver Sulfadiazine [Silvadene] 1 applic TID 07/24/17 Nortriptyline HCl [Pamelor -] 1 cap PO DAILY 07/28/17 Atorvastatin Ca [Lipitor] 20 mg PO HS 08/07/17 Diclofenac Sodium [Voltaren -] 75 mg PO BID 08/07/17 Glipizide [Glucotrol -] 10 mg PO BID 08/07/17 Allergies Allergy/AdvReac Type Severity Reaction Status Date / Time codeine [Codeine] Allergy Verified 08/07/17 13:51 REVIEW OF SYSTEMS: CONSTITUTIONAL: Present: fever, chills CARDIOVASCULAR: Absent: chest pain, syncope, palpitations RESPIRATORY: Absent: cough, shortness of breath GASTROINTESTINAL: Absent: abdominal pain, abdominal distension GENITOURINARY: Present: dysuria PHYSICAL EXAM: GENERAL: Awake, alert, and fully oriented, in no acute distress. HEAD: Normal with no signs of trauma. LOWER EXTREMITIES: warm to touch b/l, left leg with foot contracture, medial aspect of heel with linear callous, no erythema or drainage. No plantar surface pain with palpation. Left 5th toe without erythema/drainage. Dry callous. NEUROLOGICAL: Normal speech, gait not observed. PSYCH: Cooperative. Good eye contact. Appropriate mood and affect. Vital Signs Temperature 97.9 F 08/08/17 06:00 Pulse Rate 77 08/08/17 06:00 Respiratory Rate 20 08/08/17 06:00 Blood Pressure 136/73 08/08/17 06:00 O2 Sat by Pulse Oximetry (%) 98 08/07/17 21:00 Lab Results WBC 7.7 K/mm3 (4.0-10.0) 08/08/17 06:30 RBC 4.94 M/mm3 (4.00-5.60) 08/08/17 06:30 Hgb 15.2 GM/dL (11.7-16.9) 08/08/17 06:30 Hct 44.6 % (35.4-49) 08/08/17 06:30 MCV 90.3 fl (80-96) 08/08/17 06:30 MCHC 34.1 g/dl (32.0-35.9) 08/08/17 06:30 RDW 13.9 % (11.9-15.9) 08/08/17 06:30 Plt Count 406 K/MM3 (134-434) 08/08/17 06:30 Sodium 140 mmol/L (136-145) 08/08/17 06:30 Potassium 4.2 mmol/L (3.5-5.1) 08/08/17 06:30 Chloride 106 mmol/L (98-107) 08/08/17 06:30 Carbon Dioxide 24 mmol/L (21-32) 08/08/17 06:30 Anion Gap 10 (8-16) 08/08/17 06:30 BUN 14 mg/dL (7-18) 08/08/17 06:30 Creatinine 0.6 mg/dL (0.7-1.3) L D 08/08/17 06:30 Random Glucose 127 mg/dL (74-106) H 08/08/17 06:30 Calcium 8.9 mg/dL (8.5-10.1) 08/08/17 06:30 INR 0.93 (0.82-1.09) 08/08/17 06:30 Problem List - Problems (1) Diabetic foot ulcer Assessment/Plan: Plan for MRI to r/o chronic infection IV antibiotics vanco/zosyn Will continue to follow the patient, please clear the patient for an angio on thrusday Local wound care ordered, will continue kathy D/w Dr. Carmona Code(s): E11.621 - TYPE 2 DIABETES MELLITUS WITH FOOT ULCER; L97.509 - NON- PRESSURE CHRONIC ULCER OTH PRT UNSP FOOT W UNSP SEVERITY Qualifiers: Diabetic foot ulcer location: heel Diabetes mellitus type: other specified (including MACK) Laterality: left Non-pressure ulcer stage: unspecified non- pressure ulcer stage Qualified Code(s): E13.621 - Other specified diabetes mellitus with foot ulcer; L97.429 - Non-pressure chronic ulcer of left heel and midfoot with unspecified severity; L97.429 - Non-pressure chronic ulcer of left heel and midfoot with unspecified severity; L97.429 - Non-pressure chronic ulcer of left heel and midfoot with unspecified severity; L97.429 - Non- pressure chronic ulcer of left heel and midfoot with unspecified severity Visit type - Case Type Case Type: ED Admission - Emergency Emergency Visit: Yes ED Registration Date: 08/07/17 Care time: The patient presented to the Emergency Department on the above date and was hospitalized for further evaluation of their emergent condition. - New patient This patient is new to me today: Yes Date on this admission: 08/08/17
--- NOTE | 2017-08-08 13:22 | CONSULT ---
- Consultation REQUESTING PROVIDER: CONSULT REQUEST: We have been asked to surgically evaluate this patient for ( specify). PCP:Hamzah Hammond HISTORY OF PRESENT ILLNESS: PMHx: PSHx: Home Medications Medication Instructions Recorded Glipizide [Glucotrol Xl] 5 mg PO DAILY 06/19/12 metFORMIN HCL [Glucophage] 1,000 mg PO BID 06/19/12 Losartan/Hydrochlorothiazide 1 tab PO DAILY 07/24/17 [Losartan-Hctz 100-25 mg Tab] Oxycodone HCl/Acetaminophen 1 tab PO TID 07/24/17 [Percocet 5-325 mg Tablet] Pantoprazole Sodium [Protonix] 1 tab PO DAILY 07/24/17 Silver Sulfadiazine [Silvadene] 1 applic TID 07/24/17 Nortriptyline HCl [Pamelor -] 1 cap PO DAILY 07/28/17 Atorvastatin Ca [Lipitor] 20 mg PO HS 08/07/17 Diclofenac Sodium [Voltaren -] 75 mg PO BID 08/07/17 Glipizide [Glucotrol -] 10 mg PO BID 08/07/17 Allergies Allergy/AdvReac Type Severity Reaction Status Date / Time codeine [Codeine] Allergy Verified 08/07/17 13:51 REVIEW OF SYSTEMS: CONSTITUTIONAL: Absent: fever, chills, diaphoresis, generalized weakness, malaise, loss of appetite, weight change CARDIOVASCULAR: Absent: chest pain, syncope, palpitations, irregular heart rate, lightheadedness , peripheral edema RESPIRATORY: Absent: cough, shortness of breath, dyspnea with exertion, wheezing, stridor, hemoptysis GASTROINTESTINAL: Absent: abdominal pain, abdominal distension, nausea, vomiting, diarrhea, constipation, melena, hematochezia GENITOURINARY: Absent: dysuria, frequency, urgency, hesitancy, hematuria, flank pain, genital pain MUSCULOSKELETAL: Absent: myalgia, arthralgia, joint swelling, back pain, neck pain SKIN: Absent: rash, itching, pallor HEMATOLOGIC/IMMUNOLOGIC: Absent: easy bleeding, easy bruising, lymphadenopathy NEUROLOGIC: Absent: headache, focal weakness, paresthesias, dizziness, unsteady gait, seizure, mental status changes, bladder or bowel incontinence PSYCHIATRIC: Absent: anxiety, depression, suicidal or homicidal ideation, hallucinations. PHYSICAL EXAM: GENERAL: Awake, alert, and fully oriented, in no acute distress. HEAD: Normal with no signs of trauma. EYES: PERRL, sclera anicteric, conjunctiva clear. NECK: Normal ROM, supple without lymphadenopathy, JVD, or masses. LUNGS: Clear to auscultation bilat anteriorly. No wheezes, and no crackles. No accessory muscle use. HEART: Regular rate and rhythm. No murmurs ABDOMEN: Soft, nontender, not distended, normoactive bowel sounds, no guarding, no rebound, no masses. No organomegaly. MUSCULOSKELETAL: Normal ROM at all joints. No bony deformities or tenderness. No CVA tenderness. UPPER EXTREMITIES: 2+ pulses, warm, well-perfused. No cyanosis. Cap refill <2 seconds. No peripheral edema. LOWER EXTREMITIES: 2+ pulses, warm, well-perfused. No calf tenderness. No peripheral edema. NEUROLOGICAL: Normal speech, gait not observed. PSYCH: Cooperative. Good eye contact. Appropriate mood and affect. SKIN: Warm, dry, normal turgor, no rashes or lesions noted. Vital Signs Temperature 97.9 F 08/08/17 06:00 Pulse Rate 77 08/08/17 06:00 Respiratory Rate 20 08/08/17 06:00 Blood Pressure 136/73 08/08/17 06:00 O2 Sat by Pulse Oximetry (%) 98 08/07/17 21:00 Lab Results WBC 7.7 K/mm3 (4.0-10.0) 08/08/17 06:30 RBC 4.94 M/mm3 (4.00-5.60) 08/08/17 06:30 Hgb 15.2 GM/dL (11.7-16.9) 08/08/17 06:30 Hct 44.6 % (35.4-49) 08/08/17 06:30 MCV 90.3 fl (80-96) 08/08/17 06:30 MCHC 34.1 g/dl (32.0-35.9) 08/08/17 06:30 RDW 13.9 % (11.9-15.9) 08/08/17 06:30 Plt Count 406 K/MM3 (134-434) 08/08/17 06:30 Sodium 140 mmol/L (136-145) 08/08/17 06:30 Potassium 4.2 mmol/L (3.5-5.1) 08/08/17 06:30 Chloride 106 mmol/L (98-107) 08/08/17 06:30 Carbon Dioxide 24 mmol/L (21-32) 08/08/17 06:30 Anion Gap 10 (8-16) 08/08/17 06:30 BUN 14 mg/dL (7-18) 08/08/17 06:30 Creatinine 0.6 mg/dL (0.7-1.3) L D 08/08/17 06:30 Random Glucose 127 mg/dL (74-106) H 08/08/17 06:30 Calcium 8.9 mg/dL (8.5-10.1) 08/08/17 06:30 INR 0.93 (0.82-1.09) 08/08/17 06:30
--- NOTE | 2017-08-08 18:27 | PN ---
Teaching Attending Note Name of Resident: Yoni Jhaveri ATTENDING PHYSICIAN STATEMENT I saw and evaluated the patient. I reviewed the resident's note and discussed the case with the resident. I agree with the resident's findings and plan as documented. SUBJECTIVE: No fever or chills. pain in foot is better today. no SOB or CP. OBJECTIVE: NAD, AAOx3. CV: RRR, no MRG Lungs: CTAB Ext: muscle atrophy in both legs, loss of leg hair in lower legs. R foot with no edema , has no erythema , and DP 2+ , PT 2+ L foot with mild edema on dorsal aspect. deformities. L 5th toe with a dry ulcer but wet medial aspect, no discharge seen. tenderness over 5th toe. medial heal skin flap with dry yellow secretions. no secretions expressed when squeezed. DP on left side 1+, PT 2+ . ASSESSMENT AND PLAN: 51 y/o man with h/o uncontrolled DM, HLP, HTN, PVD, foot deformities s/p multiple sx, polio , who presented with drainage of L foot woundx 3 days . with subjective fever /chills 3 weeks . He was found to have lactic acidosis . 1- L foot infection: - wound cx and blood cx pending - cont Abx , vanc and zosyn - foot MRI - arterial doppler on 07/28 severe arterial insufficiency in L side. For angiogram on . - IVF . Lactic normalized - repeat lactic 2- DM : A1c 9.5 . due to the severe PVD , tighter control of sugar is required. will offer pt insulin treatment as outpt. if he agrees will start , otherwise will adjust out pt regimen 4- HTN: cont ARB . hold HCTZ while hydrating. 5- HLP ,LDL above goal. increase lipitor dispo : HLOC
--- NOTE | 2017-08-08 20:13 | PN ---
Physical Exam: SUBJECTIVE: Patient seen and examined at bedside. No new complaints. He states that his pain is better today. OBJECTIVE: Vital Signs Period Temp Pulse Resp BP Sys/Mills Pulse Ox Last 24 Hr 97.8 F-99.1 F 73-89 18-21 106-140/73-80 95-98 GENERAL: Awake, alert, and fully oriented, in no acute distress. HEAD: Normal with no signs of trauma. NECK: Normal range of motion, supple without lymphadenopathy, JVD, or masses. LUNGS: Breath sounds equal, clear to auscultation bilaterally. No wheezes, and no crackles. No accessory muscle use. HEART: Regular rate and rhythm, normal S1 and S2 without murmur, rub or gallop. ABDOMEN: Soft, nontender, not distended, normoactive bowel sounds, no guarding, no rebound, no masses. No hepatomegaly or splenomegaly. MUSCULOSKELETAL: Normal range of motion at all joints. No bony deformities or tenderness. No CVA tenderness. LOWER EXTREMITIES: 1+ pulses felt b/l, warm. No calf tenderness. No peripheral edema. Erythema of left foot improved today. no active drainage seen. NEUROLOGICAL: Cranial nerves II-X intact. Normal speech. Normal gait. Sensation is diminished over the dorsum and planar surface of the foot. Sensation is also diminished over the lateral aspect of the lower leg. Pressure sense intact throughout. PSYCHIATRIC: Cooperative. Good eye contact. Appropriate mood and affect. SKIN: Warm, dry, normal turgor, normal capillary refill. GENITALIA: The patient is uncircumcised. The head of the penis is more eythematous today. There is more white exudate seen between the foreskin and the head of the penis. No discharge from the urethra. Laboratory Results - last 24 hr 08/07/17 08/07/17 08/07/17 18:30 20:54 21:00 WBC RBC Hgb Hct MCV MCH MCHC RDW Plt Count MPV Neutrophils % Lymphocytes % Monocytes % Eosinophils % Basophils % PT with INR INR PTT (Actin FS) Sodium Potassium Chloride Carbon Dioxide Anion Gap BUN Creatinine Creat Clearance w eGFR POC Glucometer 168 Random Glucose Hemoglobin A1c % Lactic Acid 2.0 Calcium Phosphorus Magnesium Total Bilirubin AST ALT Alkaline Phosphatase Total Protein Albumin Triglycerides Cholesterol Total LDL Cholesterol HDL Cholesterol Urine Color Straw Urine Appearance Clear Urine pH 5.0 Ur Specific [place] 1.021 Urine Protein Negative Urine Glucose (UA) 3+ H Urine Ketones Negative Urine Blood Negative Urine Nitrite Negative Urine Bilirubin Negative Urine Urobilinogen 2.0 Ur Leukocyte Esterase Negative 08/08/17 08/08/17 08/08/17 05:57 06:30 06:30 WBC 7.7 RBC 4.94 Hgb 15.2 Hct 44.6 MCV 90.3 MCH 30.8 MCHC 34.1 RDW 13.9 Plt Count 406 MPV 6.7 L Neutrophils % 50.4 Lymphocytes % 40.3 H Monocytes % 6.9 Eosinophils % 1.7 D Basophils % 0.7 PT with INR 10.50 INR 0.93 PTT (Actin FS) 34.0 Sodium Potassium Chloride Carbon Dioxide Anion Gap BUN Creatinine Creat Clearance w eGFR POC Glucometer 212 Random Glucose Hemoglobin A1c % Lactic Acid Calcium Phosphorus Magnesium Total Bilirubin AST ALT Alkaline Phosphatase Total Protein Albumin Triglycerides Cholesterol Total LDL Cholesterol HDL Cholesterol Urine Color Urine Appearance Urine pH Ur Specific [place] Urine Protein Urine Glucose (UA) Urine Ketones Urine Blood Urine Nitrite Urine Bilirubin Urine Urobilinogen Ur Leukocyte Esterase 08/08/17 08/08/17 08/08/17 06:30 06:30 06:30 WBC RBC Hgb Hct MCV MCH MCHC RDW Plt Count MPV Neutrophils % Lymphocytes % Monocytes % Eosinophils % Basophils % PT with INR INR PTT (Actin FS) Sodium 140 Potassium 4.2 Chloride 106 Carbon Dioxide 24 Anion Gap 10 BUN 14 Creatinine 0.6 L D Creat Clearance w eGFR > 60 POC Glucometer Random Glucose 127 H Hemoglobin A1c % 9.5 H Lactic Acid Calcium 8.9 Phosphorus 3.5 Magnesium 2.3 Total Bilirubin 0.3 AST 12 L ALT 18 D Alkaline Phosphatase 79 Total Protein 6.5 Albumin 3.3 L Triglycerides 241 H D Cholesterol 134 D Total LDL Cholesterol 89 HDL Cholesterol 25 L Urine Color Urine Appearance Urine pH Ur Specific [place] Urine Protein Urine Glucose (UA) Urine Ketones Urine Blood Urine Nitrite Urine Bilirubin Urine Urobilinogen Ur Leukocyte Esterase 08/08/17 08/08/17 11:54 17:23 WBC RBC Hgb Hct MCV MCH MCHC RDW Plt Count MPV Neutrophils % Lymphocytes % Monocytes % Eosinophils % Basophils % PT with INR INR PTT (Actin FS) Sodium Potassium Chloride Carbon Dioxide Anion Gap BUN Creatinine Creat Clearance w eGFR POC Glucometer 132 231 Random Glucose Hemoglobin A1c % Lactic Acid Calcium Phosphorus Magnesium Total Bilirubin AST ALT Alkaline Phosphatase Total Protein Albumin Triglycerides Cholesterol Total LDL Cholesterol HDL Cholesterol Urine Color Urine Appearance Urine pH Ur Specific [place] Urine Protein Urine Glucose (UA) Urine Ketones Urine Blood Urine Nitrite Urine Bilirubin Urine Urobilinogen Ur Leukocyte Esterase Active Medications Generic Name Dose Route Start Last Admin Trade Name Nathanielq PRN Reason Stop Dose Admin Acetaminophen 650 mg 08/07/17 17:15 08/08/17 18:58 Tylenol - PO 650 mg Q4H PRN Administration PAIN LEVEL 6-10 Atorvastatin Calcium 40 mg 08/08/17 22:00 Lipitor - PO HS PATTI Sodium Chloride 1,000 mls @ 100 mls/hr 08/07/17 17:15 08/08/17 17:29 Normal Saline - IV Not Given ASDIR PATTI Piperacillin Sod/Tazobactam 100 mls @ 200 mls/hr 08/08/17 10:15 08/08/17 18: 57 Sod 4.5 gm/ Dextrose IVPB 200 mls/hr Q8H-IV PATTI Administration Protocol Vancomycin HCl 1 gm in 200 mls @ 133.333 mls/hr 08/08/17 22:00 Vancomycin 1 Gm Premix - IVPB BID PATTI Protocol Insulin Aspart 1 vial 08/07/17 22:00 08/08/17 17:28 Novolog Vial Sliding Scale - SQ 4 units ACHS PATTI Administration Protocol Losartan Potassium 100 mg 08/08/17 10:00 08/08/17 10:36 Cozaar - PO 100 mg DAILY PATTI Administration Neomycin/Polymyxin/Bacitracin 1 applic 08/07/17 22:00 08/08/17 10:45 Neosporin Topical Ointment - TP 1 applic BID PATTI Administration Nicotine 21 mg 08/07/17 18:45 08/08/17 10:37 Nicoderm Patch - TD 21 mg DAILY PATTI Administration Nortriptyline HCl 25 mg 08/08/17 10:00 08/08/17 10:38 Pamelor - PO 25 mg DAILY PATTI Administration Nystatin 1 applic 08/08/17 22:00 Mycostatin Cream - TP BID PATTI Pantoprazole Sodium 40 mg 08/08/17 10:00 08/08/17 10:35 Protonix - PO 40 mg DAILY PATTI Administration Silver Sulfadiazine 1 applic 08/08/17 10:49 08/08/17 11:55 Silvadene - TP 1 applic DAILY PATTI Administration ASSESSMENT/PLAN: The patient is a 51 yo m w/ PMH DM, HTN, HLD, PVD who is admitted for further workup and management of a non-healing foot wound. #Foot wound 2/2 uncontrolled DM vs PVD -Patient for angio 06/12 -IVF -ESR WNL -CRP elevated to .9 -lactic acidosis resolved -MRI of left foot r/o osteo -ID consult -Vancomycin 1g daily (day 2) -Zosyn 3.375g IV Q6H (day 2) -f/u foot XR shows chronic changes, no gas and no evidence of OM #Dysuria likley 2/2 candidiasis of the penis and foreskin. -UA WNL -patient uncircumcised. -neosporin cream after washing with lukewarm water. -Added topical nystatin #HTN -will hold home HCTZ -c/w home losartan 100mg daily #DM -holding home oral hypoglycemics -BGM ACHS -ISS ACHS -A1c in AM #HLD -c/w home atorvastatin 20mg daily #Prophylaxis -Hep SQ 5ku TID (will hold past midnight ) #FEN -NS @ 100 -monitor lytes -Diabetic diet; NPO past midnight #Dispo -admit to inpatient med surg -possible surgery in AM Visit type - Emergency Visit Emergency Visit: Yes ED Registration Date: 08/07/17 Care time: The patient presented to the Emergency Department on the above date and was hospitalized for further evaluation of their emergent condition. - New Patient This patient is new to me today: No - Critical Care Critical Care patient: No
[2017-08-08] MEDS: VANCOMYCIN 1 GM PREMIX - 1 GM/200 ML BAG IVPB SCH (21:10)
[2017-08-08] MEDS: HEPARIN NA (PORCINE) 5,000 UNITS/ML 1ML VIAL SQ SCH (21:10)
[2017-08-08] MEDS: ATORVASTATIN CA 40 MG TABLET (FP) PO SCH (21:10)
[2017-08-08] MEDS: NYSTATIN 100,000 UNIT/GM TOPICAL CREAM 15 GM TUBE TP SCH (21:46)
[2017-08-08] MEDS ORDERED: HEPARIN NA (PORCINE) 5,000 UNITS/ML 1ML VIAL SQ SCH (22:00)
[2017-08-09] MEDS: PIPERACILLIN/TAZOB 4.5 GM 4.5 GM in DEXTROSE 5%-WATER 100 ML IVPB SCH ×3 (02:41→17:40)
[2017-08-09] MEDS: HEPARIN NA (PORCINE) 5,000 UNITS/ML 1ML VIAL SQ SCH ×3 (06:00→21:42)
[2017-08-09] MEDS: ACETAMINOPHEN 325 MG TABLET (FP) PO PRN ×3 (06:07→21:44)
[2017-08-09] MEDS: INSULIN SLIDING SCALE (NOVOLOG) 1 VIAL SQ SCH ×4 (06:08→21:42)
[2017-08-09 08:05] LABS: MCH 30.6 pg (25.7-33.7); MEAN PLT VOLUME 6.6 fl (7.5-11.1); PLATELET COUNT 413 K/MM3 (134-434); RDW 13.9 % (11.9-15.9); WHITE BLOOD COUNT 7.4 K/mm3 (4.0-10.0)
[2017-08-09 08:24] LABS: ANION GAP 10 (8-16); BLOOD UREA NITROGEN 11 mg/dL (7-18); CALCIUM 8.8 mg/dL (8.5-10.1); CHLORIDE 106 mmol/L (98-107); CO2 24 mmol/L (21-32); CREATININE 0.7 mg/dL (0.7-1.3); GLUCOSE,RANDOM 122 mg/dL (74-106); POTASSIUM 4.4 mmol/L (3.5-5.1); SODIUM 140 mmol/L (136-145)
[2017-08-09] MEDS ORDERED: PIPERACILLIN/TAZOBACTAM 4.5 GM VIAL IVPB ONE ×2 (09:17→16:45)
[2017-08-09] MEDS ORDERED: DEXTROSE 5%-WATER 100 ML IVPB ONE ×2 (09:17→16:45)
--- NOTE | 2017-08-09 09:24 | PN ---
Progress Note (short form) - Note Progress Note: Vascular surgery Pt for left lower ext angiogram teresa. NPO past midngiht. Sonido Carmona DO
[2017-08-09] MEDS: NICOTINE 21 MG/24 HOURS TOPICAL PATCH TD SCH (09:25)
[2017-08-09] MEDS: LOSARTAN POTASSIUM 50 MG TABLET (FP) PO SCH (09:25)
[2017-08-09] MEDS: PANTOPRAZOLE 40 MG TABLET (FP) PO SCH (09:25)
[2017-08-09] MEDS: NORTRIPTYLINE HCL 25 MG CAPSULE PO SCH (09:26)
[2017-08-09] MEDS: VANCOMYCIN 1 GM PREMIX - 1 GM/200 ML BAG IVPB SCH ×2 (09:26→21:42)
[2017-08-09] MEDS: NYSTATIN 100,000 UNIT/GM TOPICAL CREAM 15 GM TUBE TP SCH ×2 (09:29→21:50)
[2017-08-09] MEDS: SILVER SULFADIAZINE 1% TOP CREAM 50 GM JAR TP SCH (09:29)
[2017-08-09] MEDS: NEOMYCIN/POLYMYXIN/BACITRACIN (TRIPLE ANTIBIOTIC) 28 GM OINTMENT TP SCH ×2 (09:29→21:49)
[2017-08-09] MEDS ORDERED: INSULIN (NOVOLOG) ASPART 100 UNITS/ML 10ML VIAL ONE ×2 (11:00→21:37)
--- NOTE | 2017-08-09 12:58 | PN ---
Teaching Attending Note Name of Resident: Yoni Jhaveri ATTENDING PHYSICIAN STATEMENT I saw and evaluated the patient. I reviewed the resident's note and discussed the case with the resident. I agree with the resident's findings and plan as documented. SUBJECTIVE: No complaints. OBJECTIVE: Vital Signs Period Temp Pulse Resp BP Sys/Mills Pulse Ox Last 24 Hr 97.8 F-98.5 F 73-89 20-21 106-123/73-78 95-97 HEART: S1S2, RRR LUNGS: Clear ABDOMEN: Soft, non-tender, non-distended, normal BS EXTREMITIES: No edema. No erythema or drainage from left foot Laboratory Results - last 24 hr 08/08/17 08/08/17 08/08/17 06:30 17:23 21:36 WBC RBC Hgb Hct MCV MCH MCHC RDW Plt Count MPV Sodium Potassium Chloride Carbon Dioxide Anion Gap BUN Creatinine POC Glucometer 231 210 Random Glucose Calcium Triglycerides 241 H D Cholesterol 134 D Total LDL Cholesterol 89 HDL Cholesterol 25 L 08/09/17 08/09/17 08/09/17 05:51 07:40 07:40 WBC 7.4 RBC 4.90 Hgb 15.0 Hct 44.0 MCV 90.0 MCH 30.6 MCHC 34.0 RDW 13.9 Plt Count 413 MPV 6.6 L Sodium 140 Potassium 4.4 Chloride 106 Carbon Dioxide 24 Anion Gap 10 BUN 11 D Creatinine 0.7 POC Glucometer 159 Random Glucose 122 H Calcium 8.8 Triglycerides Cholesterol Total LDL Cholesterol HDL Cholesterol 08/09/17 10:11 WBC RBC Hgb Hct MCV MCH MCHC RDW Plt Count MPV Sodium Potassium Chloride Carbon Dioxide Anion Gap BUN Creatinine POC Glucometer 238 Random Glucose Calcium Triglycerides Cholesterol Total LDL Cholesterol HDL Cholesterol Current Medications Generic Name Dose Route Start Last Admin Trade Name Freq PRN Reason Stop Dose Admin Acetaminophen 650 mg 08/07/17 17:15 08/09/17 06:07 Tylenol - PO 650 mg Q4H PRN Administration PAIN LEVEL 6-10 Atorvastatin Calcium 40 mg 08/08/17 22:00 08/08/17 21:10 Lipitor - PO 40 mg HS PATTI Administration Heparin Sodium (Porcine) 5,000 unit 08/08/17 20:02 08/09/17 06:00 Heparin - SQ 5,000 unit TID PATTI Administration Sodium Chloride 1,000 mls @ 100 mls/hr 08/07/17 17:15 04/24/18 17:29 Normal Saline - IV Not Given ASDIR PATTI Piperacillin Sod/Tazobactam 100 mls @ 200 mls/hr 08/08/17 10:15 08/09/17 09: 25 Sod 4.5 gm/ Dextrose IVPB 200 mls/hr Q8H-IV PATTI Administration Protocol Vancomycin HCl 1 gm in 200 mls @ 133.333 mls/hr 08/08/17 22:00 08/09/17 09:26 Vancomycin 1 Gm Premix - IVPB 133.333 mls/hr BID PATTI Administration Protocol Insulin Aspart 1 vial 08/07/17 22:00 08/09/17 11:10 Novolog Vial Sliding Scale - SQ 4 units ACHS PATTI Administration Protocol Losartan Potassium 100 mg 08/08/17 10:00 08/09/17 09:25 Cozaar - PO 100 mg DAILY PATTI Administration Neomycin/Polymyxin/Bacitracin 1 applic 08/07/17 22:00 08/09/17 09:29 Neosporin Topical Ointment - TP 1 applic BID PATTI Administration Nicotine 21 mg 08/07/17 18:45 08/09/17 09:25 Nicoderm Patch - TD 21 mg DAILY PATTI Administration Nortriptyline HCl 25 mg 08/08/17 10:00 08/09/17 09:26 Pamelor - PO 25 mg DAILY PATTI Administration Nystatin 1 applic 08/08/17 22:00 08/09/17 09:29 Mycostatin Cream - TP 1 applic BID PATTI Administration Pantoprazole Sodium 40 mg 08/08/17 10:00 08/09/17 09:25 Protonix - PO 40 mg DAILY PATTI Administration Silver Sulfadiazine 1 applic 08/08/17 10:49 08/09/17 09:29 Silvadene - TP 1 applic DAILY PATTI Administration ASSESSMENT AND PLAN: This is a 51 year old man with a history of type 2 DM, HTN, hyperlipidemia, PAD , polio, who presented to the ED with drainage from a left foot wound. 1. Osteomyelitis of left 5th toe - Continue Zosyn, Vancomycin 2. PAD - CHRISTINE showed severe arterial insufficiency in LLE and mild aterial insufficiency in RLE - Plan for LLE angiogram tomorrow - Continue Lipitor 3. Type 2 DM - Continue Novolog sliding scale 4. HTN - Continue Cozaar - HCTZ held 5. Hyperlipidemia - Continue Lipitor 6. Polio
--- NOTE | 2017-08-09 13:12 | PN ---
Progress Note (short form) - Note Progress Note: feels better less foot pain Vital Signs Period Temp Pulse Resp BP Sys/Mills Pulse Ox Last 24 Hr 97.8 F-98.5 F 73-89 20-21 106-123/73-78 95-97 cor-rrr lungs clear abd soft,nt foot is dry, no drainage, less swelling fifth toe CBC, BMP 08/09/17 07:40 08/09/17 07:40 Laboratory Tests 08/07/17 08/07/17 16:14 16:14 ESR 14 C-Reactive Protein 0.9 H Microbiology 08/07/17 16:16 Foot - Left Heel Gram Stain - Final 08/07/17 16:16 Foot - Left Heel Wound Culture - Preliminary Staphylococcus Coagulase Neg 08/07/17 14:42 Blood - Peripheral Venous Blood Culture - Preliminary NO GROWTH OBTAINED AFTER 24 HOURS, INCUBATION TO CONTINUE FOR 4 DAYS. 08/07/17 14:42 Blood - Peripheral Venous Blood Culture - Preliminary NO GROWTH OBTAINED AFTER 24 HOURS, INCUBATION TO CONTINUE FOR 4 DAYS. mri with bone marrow uptake fifth toe c/w fifth toe osteomyelitis a/p diabetic foot infection osteomyelitis of the fifth toe multiple outpt abx PAD left leg for angiogram in am continue antibiotics vancomycin/zosyn Problem List - Problems (1) Diabetic foot ulcer Code(s): E11.621 - TYPE 2 DIABETES MELLITUS WITH FOOT ULCER; L97.509 - NON- PRESSURE CHRONIC ULCER OTH PRT UNSP FOOT W UNSP SEVERITY Qualifiers: Diabetic foot ulcer location: heel Diabetes mellitus type: other specified (including MACK) Laterality: left Non-pressure ulcer stage: unspecified non- pressure ulcer stage Qualified Code(s): E13.621 - Other specified diabetes mellitus with foot ulcer; L97.429 - Non-pressure chronic ulcer of left heel and midfoot with unspecified severity; L97.429 - Non-pressure chronic ulcer of left heel and midfoot with unspecified severity; L97.429 - Non-pressure chronic ulcer of left heel and midfoot with unspecified severity; L97.429 - Non- pressure chronic ulcer of left heel and midfoot with unspecified severity (2) PAD (peripheral artery disease) Code(s): I73.9 - PERIPHERAL VASCULAR DISEASE, UNSPECIFIED
[2017-08-09] MEDS ORDERED: BENZOCAINE/MENTH/CETYLPYRD CL 1 EACH LOZENGE MM PRN (13:16)
[2017-08-09] MEDS: SODIUM CHLORIDE 1,000 ML IV SCH (16:40)
--- NOTE | 2017-08-09 20:48 | PN ---
Physical Exam: SUBJECTIVE: Patient seen and examined at bedside. No new complaints. No events overnight. OBJECTIVE: Vital Signs Period Temp Pulse Resp BP Sys/Mills Pulse Ox Last 24 Hr 98.2 F-99.0 F 76-76 18-20 120-142/73-83 95-96 GENERAL: Awake, alert, and fully oriented, in no acute distress. HEAD: Normal with no signs of trauma. NECK: Normal range of motion, supple without lymphadenopathy, JVD, or masses. LUNGS: Breath sounds equal, clear to auscultation bilaterally. No wheezes, and no crackles. No accessory muscle use. HEART: Regular rate and rhythm, normal S1 and S2 without murmur, rub or gallop. ABDOMEN: Soft, nontender, not distended, normoactive bowel sounds, no guarding, no rebound, no masses. No hepatomegaly or splenomegaly. MUSCULOSKELETAL: Normal range of motion at all joints. No bony deformities or tenderness. No CVA tenderness. LOWER EXTREMITIES: 1+ pulses felt b/l, warm. No calf tenderness. No peripheral edema. Erythema of left foot improved today. no active drainage seen. NEUROLOGICAL: Cranial nerves II-X intact. Normal speech. Normal gait. Sensation is diminished over the dorsum and planar surface of the foot. Sensation is also diminished over the lateral aspect of the lower leg. Pressure sense intact throughout. PSYCHIATRIC: Cooperative. Good eye contact. Appropriate mood and affect. SKIN: Warm, dry, normal turgor, normal capillary refill. Laboratory Results - last 24 hr 08/08/17 08/09/17 08/09/17 21:36 05:51 07:40 WBC 7.4 RBC 4.90 Hgb 15.0 Hct 44.0 MCV 90.0 MCH 30.6 MCHC 34.0 RDW 13.9 Plt Count 413 MPV 6.6 L Sodium Potassium Chloride Carbon Dioxide Anion Gap BUN Creatinine POC Glucometer 210 159 Random Glucose Calcium 08/09/17 08/09/17 08/09/17 07:40 10:11 16:28 WBC RBC Hgb Hct MCV MCH MCHC RDW Plt Count MPV Sodium 140 Potassium 4.4 Chloride 106 Carbon Dioxide 24 Anion Gap 10 BUN 11 D Creatinine 0.7 POC Glucometer 238 219 Random Glucose 122 H Calcium 8.8 Active Medications Generic Name Dose Route Start Last Admin Trade Name Freq PRN Reason Stop Dose Admin Acetaminophen 650 mg 08/07/17 17:15 08/09/17 13:41 Tylenol - PO 650 mg Q4H PRN Administration PAIN LEVEL 6-10 Atorvastatin Calcium 40 mg 08/08/17 22:00 08/08/17 21:10 Lipitor - PO 40 mg HS PATTI Administration Benzocaine/Menthol 1 each 08/09/17 13:16 08/09/17 14:24 Cepacol Lozenge - MM 1 each PRN PRN Administration SORE THROAT Heparin Sodium (Porcine) 5,000 unit 08/08/17 20:02 08/09/17 14:24 Heparin - SQ 5,000 unit TID PATTI Administration Sodium Chloride 1,000 mls @ 100 mls/hr 08/07/17 17:15 08/09/17 16:40 Normal Saline - IV 100 mls/hr ASDIR PATTI Administration Piperacillin Sod/Tazobactam 100 mls @ 200 mls/hr 08/08/17 10:15 08/09/17 17: 40 Sod 4.5 gm/ Dextrose IVPB 200 mls/hr Q8H-IV PATTI Administration Protocol Vancomycin HCl 1 gm in 200 mls @ 133.333 mls/hr 08/08/17 22:00 08/09/17 09:26 Vancomycin 1 Gm Premix - IVPB 133.333 mls/hr BID PATTI Administration Protocol Insulin Aspart 1 vial 08/07/17 22:00 08/09/17 16:38 Novolog Vial Sliding Scale - SQ 4 units ACHS PATTI Administration Protocol Losartan Potassium 100 mg 08/08/17 10:00 08/09/17 09:25 Cozaar - PO 100 mg DAILY PATTI Administration Neomycin/Polymyxin/Bacitracin 1 applic 08/07/17 22:00 08/09/17 09:29 Neosporin Topical Ointment - TP 1 applic BID PATTI Administration Nicotine 21 mg 08/07/17 18:45 08/09/17 09:25 Nicoderm Patch - TD 21 mg DAILY PATTI Administration Nortriptyline HCl 25 mg 08/08/17 10:00 08/09/17 09:26 Pamelor - PO 25 mg DAILY PATTI Administration Nystatin 1 applic 08/08/17 22:00 08/09/17 09:29 Mycostatin Cream - TP 1 applic BID PATTI Administration Pantoprazole Sodium 40 mg 08/08/17 10:00 08/09/17 09:25 Protonix - PO 40 mg DAILY PATTI Administration Silver Sulfadiazine 1 applic 08/08/17 10:49 08/09/17 09:29 Silvadene - TP 1 applic DAILY PATTI Administration ASSESSMENT/PLAN: The patient is a 51 yo m w/ PMH DM, HTN, HLD, PVD who is admitted for further workup and management of a non-healing foot wound. #Foot wound 2/2 uncontrolled DM vs PVD -Patient for angio tomorrow -IVF -ESR WNL -CRP elevated to .9 -lactic acidosis resolved -MRI of left foot shows osteo -ID consult -Vancomycin 1g daily (day 3) -Zosyn 3.375g IV Q6H (day 3) #Dysuria likley 2/2 candidiasis of the penis and foreskin. -neosporin cream after washing with lukewarm water. -c/w topical nystatin #HTN -holding home HCTZ -c/w home losartan 100mg daily #DM -holding home oral hypoglycemics -BGM ACHS -ISS ACHS -A1c in AM #HLD -c/w home atorvastatin 20mg daily #Prophylaxis -Hep SQ 5ku TID (will hold past midnight ) #FEN -NS @ 100 -monitor lytes -Diabetic diet; NPO past midnight #Dispo -admit to inpatient med surg Visit type - Emergency Visit Emergency Visit: Yes ED Registration Date: 08/07/17 Care time: The patient presented to the Emergency Department on the above date and was hospitalized for further evaluation of their emergent condition. - New Patient This patient is new to me today: No - Critical Care Critical Care patient: No
[2017-08-09] MEDS ORDERED: PT OWN MED DRAWER 7, Y5N ONE (21:38)
[2017-08-09] MEDS: ATORVASTATIN CA 40 MG TABLET (FP) PO SCH (21:42)
[2017-08-10] MEDS ORDERED: PT OWN MED DRAWER 7, Y5N ONE (00:24)
[2017-08-10] MEDS: PIPERACILLIN/TAZOB 4.5 GM 4.5 GM in DEXTROSE 5%-WATER 100 ML IVPB SCH ×3 (02:13→17:20)
[2017-08-10] MEDS: INSULIN SLIDING SCALE (NOVOLOG) 1 VIAL SQ SCH ×4 (06:10→21:22)
[2017-08-10 08:29] LABS: HEMATOCRIT 44.4 % (35.4-49); HEMOGLOBIN 15.1 GM/dL (11.7-16.9); MCH 30.7 pg (25.7-33.7); MCHC 33.9 g/dl (32.0-35.9); MEAN CELL VOLUME 90.5 fl (80-96); MEAN PLT VOLUME 6.8 fl (7.5-11.1); PLATELET COUNT 402 K/MM3 (134-434); RDW 14.1 % (11.9-15.9)
[2017-08-10 08:56] LABS: INR 0.88 (0.82-1.09)
[2017-08-10 08:59] LABS: ANION GAP 5 (8-16); BLOOD UREA NITROGEN 15 mg/dL (7-18); CALCIUM 8.3 mg/dL (8.5-10.1); CHLORIDE 110 mmol/L (98-107); CO2 25 mmol/L (21-32); CREATININE 0.7 mg/dL (0.7-1.3); GLUCOSE,RANDOM 144 mg/dL (74-106); POTASSIUM 4.6 mmol/L (3.5-5.1); SODIUM 140 mmol/L (136-145)
[2017-08-10] MEDS: VANCOMYCIN 1 GM PREMIX - 1 GM/200 ML BAG IVPB SCH ×2 (09:14→21:23)
[2017-08-10] MEDS ORDERED: DEXTROSE 5%-WATER 100 ML IVPB ONE ×2 (09:16→17:01)
[2017-08-10] MEDS ORDERED: PIPERACILLIN/TAZOBACTAM 4.5 GM VIAL IVPB ONE ×2 (09:16→17:01)
[2017-08-10] MEDS: NICOTINE 21 MG/24 HOURS TOPICAL PATCH TD SCH (09:17)
[2017-08-10] MEDS: LOSARTAN POTASSIUM 50 MG TABLET (FP) PO SCH (09:17)
[2017-08-10] MEDS: PANTOPRAZOLE 40 MG TABLET (FP) PO SCH (09:17)
[2017-08-10] MEDS: NORTRIPTYLINE HCL 25 MG CAPSULE PO SCH (09:17)
[2017-08-10] MEDS: SODIUM CHLORIDE 1,000 ML IV SCH (09:18)
[2017-08-10] MEDS: NEOMYCIN/POLYMYXIN/BACITRACIN (TRIPLE ANTIBIOTIC) 28 GM OINTMENT TP SCH ×2 (09:24→21:17)
[2017-08-10] MEDS: SILVER SULFADIAZINE 1% TOP CREAM 50 GM JAR TP SCH (09:24)
[2017-08-10] MEDS: NYSTATIN 100,000 UNIT/GM TOPICAL CREAM 15 GM TUBE TP SCH ×2 (09:24→21:17)
[2017-08-10] MEDS ORDERED: LIDOCAINE HCL 1%, 10 MG/ML (20ML VIAL) ONE (10:20)
[2017-08-10] MEDS ORDERED: HEPARIN NA (PORCINE) 5,000 UNITS/ML 1ML VIAL ONE (10:20)
[2017-08-10] MEDS ORDERED: PROPOFOL 20 ML ONE ×6 (10:49→10:51)
[2017-08-10] MEDS ORDERED: MIDAZOLAM HCL 2 MG/2 ML SINGLE DOSE VIAL ONE ×2 (10:51→10:52)
[2017-08-10] MEDS ORDERED: ceFAZolin SODIUM 1 GM VIAL IVPB ONE (10:57)
[2017-08-10] MEDS ORDERED: LIDOCAINE HCL 1%, 10 MG/ML (20ML VIAL) NR ONE (11:06)
[2017-08-10] MEDS ORDERED: methylPREDNISolone NA SUCC 125 MG/2 ML VIAL ONE (11:22)
--- NOTE | 2017-08-10 12:09 | OP ---
Operative Note - Note: Operative Date: 08/10/17 Pre-Operative Diagnosis: left fifth toe ulcer. Operation: Aortogram, LLE angiogram, SFA atherectomy, SFA DCB angioplasty , SFA stent placement Findings: SFA occlusion for 15 cm Post-Operative Diagnosis: Same as Pre-op Surgeon: Sonido Carmona Anesthesia: Fractional Estimated Blood Loss (mls): 50 Operative Report Dictated: Yes
[2017-08-10] MEDS ORDERED: ONDANSETRON 4 MG/2 ML VIAL IVPUSH PRN (12:14)
[2017-08-10] MEDS ORDERED: PROMETHAZINE HCL 25 MG/1 ML VIAL IVPUSH PRN (12:14)
--- NOTE | 2017-08-10 12:15 | PN ---
Progress Note (short form) - Note Progress Note: Vascular surgery S/P atherectomy with left sfa stent. Pt with two vessel runoff into foot. MRI showed osteo. Can treat with antibiotics. Pt will benefit from HBO as well as outpt to salvage toe. Pt started on plavix and should go home on plavix. Sonido Carmona DO
[2017-08-10] MEDS: CLOPIDOGREL BISULFATE 75 MG TABLET (FP) PO SCH (12:35)
[2017-08-10] MEDS ORDERED: CLOPIDOGREL BISULFATE 75 MG TABLET (FP) ONE (12:39)
[2017-08-10] MEDS: oxyCODONE HCL 5 MG TABLET PO PRN ×2 (14:00→18:31)
[2017-08-10] MEDS: LACTATED RINGERS SOLUTION 1,000 ML IV SCH (14:01)
[2017-08-10] MEDS ORDERED: INSULIN (NOVOLOG) ASPART 100 UNITS/ML 10ML VIAL ONE (17:22)
--- NOTE | 2017-08-10 18:48 | PN ---
Teaching Attending Note Name of Resident: Yoni Jhaveri ATTENDING PHYSICIAN STATEMENT I saw and evaluated the patient. I reviewed the resident's note and discussed the case with the resident. I agree with the resident's findings and plan as documented. SUBJECTIVE: No complaints. OBJECTIVE: Vital Signs Period Temp Pulse Resp BP Sys/Mills Pulse Ox Last 24 Hr 97.7 F-98.1 F 54-73 16-20 125-159/70-85 95-98 HEART: S1S2, RRR LUNGS: Clear ABDOMEN: Soft, non-tender, non-distended, normal BS EXTREMITIES: No edema or erythema of left foot Laboratory Results - last 24 hr 08/09/17 08/10/17 08/10/17 21:26 05:49 07:00 WBC 9.0 RBC 4.90 Hgb 15.1 Hct 44.4 MCV 90.5 MCH 30.7 MCHC 33.9 RDW 14.1 Plt Count 402 MPV 6.8 L PT with INR INR Sodium Potassium Chloride Carbon Dioxide Anion Gap BUN Creatinine POC Glucometer 160 156 Random Glucose Calcium 08/10/17 08/10/17 08/10/17 07:00 07:00 16:55 WBC RBC Hgb Hct MCV MCH MCHC RDW Plt Count MPV PT with INR 10.00 INR 0.88 Sodium 140 Potassium 4.6 Chloride 110 H Carbon Dioxide 25 Anion Gap 5 L BUN 15 D Creatinine 0.7 POC Glucometer 243 Random Glucose 144 H Calcium 8.3 L Current Medications Generic Name Dose Route Start Last Admin Trade Name Freq PRN Reason Stop Dose Admin Acetaminophen 650 mg 08/07/17 17:15 08/09/17 21:44 Tylenol - PO 650 mg Q4H PRN Administration PAIN LEVEL 6-10 Atorvastatin Calcium 40 mg 08/08/17 22:00 08/09/17 21:42 Lipitor - PO 40 mg HS PATTI Administration Benzocaine/Menthol 1 each 08/09/17 13:16 08/09/17 14:24 Cepacol Lozenge - MM 1 each PRN PRN Administration SORE THROAT Clopidogrel Bisulfate 75 mg 08/10/17 12:30 08/10/17 12:35 Plavix - PO 75 mg DAILY PATTI Administration Fentanyl 25 mcg 08/10/17 12:14 Sublimaze Injection - IVPUSH [id number] PRN PAIN-PACU ORDER X 4 DOSES ONLY Heparin Sodium (Porcine) 5,000 unit 08/08/17 20:02 08/09/17 21:42 Heparin - SQ 5,000 unit TID PATTI Administration Sodium Chloride 1,000 mls @ 100 mls/hr 08/07/17 17:15 08/10/17 09:18 Normal Saline - IV 100 mls/hr ASDIR PATTI Administration Piperacillin Sod/Tazobactam 100 mls @ 200 mls/hr 08/08/17 10:15 08/10/17 17: 20 Sod 4.5 gm/ Dextrose IVPB 200 mls/hr Q8H-IV PATTI Administration Protocol Vancomycin HCl 1 gm in 200 mls @ 133.333 mls/hr 08/08/17 22:00 08/10/17 09:14 Vancomycin 1 Gm Premix - IVPB 133.333 mls/hr BID PATTI Administration Protocol Lactated Ringer's 1,000 mls @ 75 mls/hr 08/10/17 12:15 08/10/17 14:01 Lactated Ringers Solution IV Not Given ASDIR PATTI Insulin Aspart 1 vial 08/07/17 22:00 08/10/17 17:22 Novolog Vial Sliding Scale - SQ 4 units ACHS PATTI Administration Protocol Losartan Potassium 100 mg 08/08/17 10:00 08/10/17 09:17 Cozaar - PO 100 mg DAILY PATTI Administration Neomycin/Polymyxin/Bacitracin 1 applic 08/07/17 22:00 08/10/17 09:24 Neosporin Topical Ointment - TP 1 applic BID PATTI Administration Nicotine 21 mg 08/07/17 18:45 08/10/17 09:17 Nicoderm Patch - TD 21 mg DAILY PATTI Administration Nortriptyline HCl 25 mg 08/08/17 10:00 08/10/17 09:17 Pamelor - PO Not Given DAILY PATTI Nystatin 1 applic 08/08/17 22:00 08/10/17 09:24 Mycostatin Cream - TP 1 applic BID PATTI Administration Ondansetron HCl 4 mg 08/10/17 12:14 Zofran Injection IVPUSH Q6H PRN NAUSEA AND/OR VOMITING Oxycodone HCl 10 mg 08/10/17 12:14 08/10/17 18:31 Roxicodone - PO 08/11/17 12:13 10 mg Q4H PRN Administration PAIN LEVEL 6-10 Pantoprazole Sodium 40 mg 08/08/17 10:00 08/10/17 09:17 Protonix - PO Not Given DAILY PATTI Promethazine HCl 12.5 mg 08/10/17 12:14 Phenergan Injection - IVPUSH 08/11/17 12:13 Q6H PRN NAUSEA-FOR RESCUE AFTER 15 MIN Silver Sulfadiazine 1 applic 08/08/17 10:49 08/10/17 09:24 Silvadene - TP 1 applic DAILY PATTI Administration ASSESSMENT AND PLAN: This is a 51 year old man with a history of type 2 DM, HTN, hyperlipidemia, PAD , polio, who presented to the ED with drainage from a left foot wound. 1. Osteomyelitis of left 5th toe - Continue Zosyn, Vancomycin 2. PAD - CHRISTINE showed severe arterial insufficiency in LLE and mild aterial insufficiency in RLE - LLE angiogram showed SFA occlusion and 2 vessel runoff into foot - s/p SFA atherectomy, angioplasty, and stent placement today - Continue Lipitor - Plavix started 3. Type 2 DM - Continue Novolog sliding scale 4. HTN - Continue Cozaar - HCTZ held 5. Hyperlipidemia - Continue Lipitor 6. History of polio
--- NOTE | 2017-08-10 20:21 | PN ---
Physical Exam: SUBJECTIVE: Patient seen and examined at bedside. No new complaints, no events overnight. OBJECTIVE: Vital Signs Period Temp Pulse Resp BP Sys/Mills Pulse Ox Last 24 Hr 97.7 F-98.1 F 54-73 16-20 125-159/70-85 95-98 GENERAL: Awake, alert, and fully oriented, in no acute distress. HEAD: Normal with no signs of trauma. NECK: Normal range of motion, supple without lymphadenopathy, JVD, or masses. LUNGS: Breath sounds equal, clear to auscultation bilaterally. No wheezes, and no crackles. No accessory muscle use. HEART: Regular rate and rhythm, normal S1 and S2 without murmur, rub or gallop. ABDOMEN: Soft, nontender, not distended, normoactive bowel sounds, no guarding, no rebound, no masses. No hepatomegaly or splenomegaly. MUSCULOSKELETAL: Normal range of motion at all joints. No bony deformities or tenderness. No CVA tenderness. LOWER EXTREMITIES: 1+ pulses felt b/l, warm. No calf tenderness. No peripheral edema. no active drainage seen. left 5th digit tender to palpation. NEUROLOGICAL: Cranial nerves II-X intact. Normal speech. Normal gait. PSYCHIATRIC: Cooperative. Good eye contact. Appropriate mood and affect. SKIN: Warm, dry, normal turgor, normal capillary refill. Laboratory Results - last 24 hr 08/09/17 08/10/17 08/10/17 21:26 05:49 07:00 WBC 9.0 RBC 4.90 Hgb 15.1 Hct 44.4 MCV 90.5 MCH 30.7 MCHC 33.9 RDW 14.1 Plt Count 402 MPV 6.8 L PT with INR INR Sodium Potassium Chloride Carbon Dioxide Anion Gap BUN Creatinine POC Glucometer 160 156 Random Glucose Calcium 08/10/17 08/10/17 08/10/17 07:00 07:00 16:55 WBC RBC Hgb Hct MCV MCH MCHC RDW Plt Count MPV PT with INR 10.00 INR 0.88 Sodium 140 Potassium 4.6 Chloride 110 H Carbon Dioxide 25 Anion Gap 5 L BUN 15 D Creatinine 0.7 POC Glucometer 243 Random Glucose 144 H Calcium 8.3 L Active Medications Generic Name Dose Route Start Last Admin Trade Name Freq PRN Reason Stop Dose Admin Acetaminophen 650 mg 08/07/17 17:15 04/25/18 21:44 Tylenol - PO 650 mg Q4H PRN Administration PAIN LEVEL 6-10 Atorvastatin Calcium 40 mg 08/08/17 22:00 08/09/17 21:42 Lipitor - PO 40 mg HS PATTI Administration Benzocaine/Menthol 1 each 08/09/17 13:16 08/09/17 14:24 Cepacol Lozenge - MM 1 each PRN PRN Administration SORE THROAT Clopidogrel Bisulfate 75 mg 08/10/17 12:30 08/10/17 12:35 Plavix - PO 75 mg DAILY PATTI Administration Fentanyl 25 mcg 08/10/17 12:14 Sublimaze Injection - IVPUSH [id number] PRN PAIN-PACU ORDER X 4 DOSES ONLY Heparin Sodium (Porcine) 5,000 unit 08/08/17 20:02 08/09/17 21:42 Heparin - SQ 5,000 unit TID PATTI Administration Sodium Chloride 1,000 mls @ 100 mls/hr 08/07/17 17:15 08/10/17 09:18 Normal Saline - IV 100 mls/hr ASDIR PATTI Administration Piperacillin Sod/Tazobactam 100 mls @ 200 mls/hr 08/08/17 10:15 08/10/17 17: 20 Sod 4.5 gm/ Dextrose IVPB 200 mls/hr Q8H-IV PATTI Administration Protocol Vancomycin HCl 1 gm in 200 mls @ 133.333 mls/hr 08/08/17 22:00 08/10/17 09:14 Vancomycin 1 Gm Premix - IVPB 133.333 mls/hr BID PATTI Administration Protocol Lactated Ringer's 1,000 mls @ 75 mls/hr 08/10/17 12:15 08/10/17 14:01 Lactated Ringers Solution IV Not Given ASDIR PATTI Insulin Aspart 1 vial 08/07/17 22:00 08/10/17 17:22 Novolog Vial Sliding Scale - SQ 4 units ACHS PATTI Administration Protocol Losartan Potassium 100 mg 08/08/17 10:00 08/10/17 09:17 Cozaar - PO 100 mg DAILY PATTI Administration Methylprednisolone Sodium Succinate 60 mg 08/10/17 21:00 Solu-Medrol - IVPUSH Q6H-IV PATTI Neomycin/Polymyxin/Bacitracin 1 applic 08/07/17 22:00 08/10/17 09:24 Neosporin Topical Ointment - TP 1 applic BID PATTI Administration Nicotine 21 mg 08/07/17 18:45 08/10/17 09:17 Nicoderm Patch - TD 21 mg DAILY PATTI Administration Nortriptyline HCl 25 mg 08/08/17 10:00 08/10/17 09:17 Pamelor - PO Not Given DAILY PATTI Nystatin 1 applic 08/08/17 22:00 08/10/17 09:24 Mycostatin Cream - TP 1 applic BID PATTI Administration Ondansetron HCl 4 mg 08/10/17 12:14 Zofran Injection IVPUSH Q6H PRN NAUSEA AND/OR VOMITING Oxycodone HCl 10 mg 08/10/17 12:14 08/10/17 18:31 Roxicodone - PO 08/11/17 12:13 10 mg Q4H PRN Administration PAIN LEVEL 6-10 Pantoprazole Sodium 40 mg 08/08/17 10:00 08/10/17 09:17 Protonix - PO Not Given DAILY PATTI Promethazine HCl 12.5 mg 08/10/17 12:14 Phenergan Injection - IVPUSH 08/11/17 12:13 Q6H PRN NAUSEA-FOR RESCUE AFTER 15 MIN Silver Sulfadiazine 1 applic 08/08/17 10:49 08/10/17 09:24 Silvadene - TP 1 applic DAILY PATTI Administration ASSESSMENT/PLAN: The patient is a 51 yo m w/ PMH DM, HTN, HLD, PVD who is admitted for further workup and management of a non-healing foot wound. #POD 0 atheroectomy with stent placement w/ Dr. Carmona -patient started on Plavix 75mg -pain control #Foot wound 2/2 uncontrolled DM vs PVD -IVF -ESR WNL -CRP elevated to .9 -lactic acidosis resolved -MRI of left foot shows osteo -ID consult -Vancomycin 1g daily (day 4) -Zosyn 3.375g IV Q6H (day 4) #Dysuria likley 2/2 candidiasis of the penis and foreskin. -neosporin cream after washing with lukewarm water. -c/w topical nystatin #HTN -holding home HCTZ -c/w home losartan 100mg daily #DM -holding home oral hypoglycemics -BGM ACHS -ISS ACHS -A1c in AM #HLD -c/w home atorvastatin 20mg daily #Prophylaxis -Hep SQ 5ku TID #FEN -NS @ 100 -monitor lytes -Diabetic diet #Dispo -admit to inpatient med surg Visit type - Emergency Visit Emergency Visit: Yes ED Registration Date: 08/07/17 Care time: The patient presented to the Emergency Department on the above date and was hospitalized for further evaluation of their emergent condition. - New Patient This patient is new to me today: No - Critical Care Critical Care patient: No
[2017-08-10] MEDS: ATORVASTATIN CA 40 MG TABLET (FP) PO SCH (21:16)
[2017-08-10] MEDS: methylPREDNISolone NA SUCC 40 MG/1 ML VIAL IVPUSH SCH (21:16)
[2017-08-11] MEDS: SODIUM CHLORIDE 1,000 ML IV SCH ×3 (00:19→21:32)
[2017-08-11] MEDS ORDERED: PIPERACILLIN/TAZOBACTAM 4.5 GM VIAL IVPB ONE ×3 (00:49→18:03)
[2017-08-11] MEDS ORDERED: DEXTROSE 5%-WATER 100 ML IVPB ONE ×3 (00:49→18:03)
[2017-08-11] MEDS: PIPERACILLIN/TAZOB 4.5 GM 4.5 GM in DEXTROSE 5%-WATER 100 ML IVPB SCH ×3 (01:10→18:04)
[2017-08-11] MEDS: methylPREDNISolone NA SUCC 40 MG/1 ML VIAL IVPUSH SCH ×4 (02:13→21:25)
[2017-08-11] MEDS: HEPARIN NA (PORCINE) 5,000 UNITS/ML 1ML VIAL SQ SCH ×3 (06:14→21:25)
[2017-08-11] MEDS: INSULIN SLIDING SCALE (NOVOLOG) 1 VIAL SQ SCH ×4 (06:24→21:33)
[2017-08-11] MEDS: oxyCODONE HCL 5 MG TABLET PO PRN (08:49)
[2017-08-11 08:55] LABS: BASO % 0.1 % (0-2.0); HEMATOCRIT 42.7 % (35.4-49); HEMOGLOBIN 14.5 GM/dL (11.7-16.9); LYMPH % 11.6 % (8-40); MCH 30.5 pg (25.7-33.7); MCHC 33.9 g/dl (32.0-35.9); MEAN CELL VOLUME 90.2 fl (80-96); MEAN PLT VOLUME 6.7 fl (7.5-11.1); NEUT % 87.3 % (42.8-82.8); PLATELET COUNT 428 K/MM3 (134-434); RBC 4.74 M/mm3 (4.00-5.60); RDW 14.1 % (11.9-15.9); WHITE BLOOD COUNT 11.7 K/mm3 (4.0-10.0)
[2017-08-11] MEDS: SILVER SULFADIAZINE 1% TOP CREAM 50 GM JAR TP SCH (08:59)
[2017-08-11] MEDS: NYSTATIN 100,000 UNIT/GM TOPICAL CREAM 15 GM TUBE TP SCH ×2 (08:59→21:24)
[2017-08-11] MEDS: NEOMYCIN/POLYMYXIN/BACITRACIN (TRIPLE ANTIBIOTIC) 28 GM OINTMENT TP SCH ×2 (08:59→21:24)
[2017-08-11 09:24] LABS: ANION GAP 10 (8-16); BLOOD UREA NITROGEN 16 mg/dL (7-18); CALCIUM 9.1 mg/dL (8.5-10.1); CHLORIDE 106 mmol/L (98-107); CO2 23 mmol/L (21-32); CREATININE 0.8 mg/dL (0.7-1.3); GLUCOSE,RANDOM 196 mg/dL (74-106); POTASSIUM 4.3 mmol/L (3.5-5.1); SODIUM 139 mmol/L (136-145)
[2017-08-11] MEDS ORDERED: PT OWN MED DRAWER 7, Y5N ONE (10:45)
[2017-08-11] MEDS: LOSARTAN POTASSIUM 50 MG TABLET (FP) PO SCH (10:48)
[2017-08-11] MEDS: CLOPIDOGREL BISULFATE 75 MG TABLET (FP) PO SCH (10:48)
[2017-08-11] MEDS: NICOTINE 21 MG/24 HOURS TOPICAL PATCH TD SCH (10:48)
[2017-08-11] MEDS: NORTRIPTYLINE HCL 25 MG CAPSULE PO SCH (10:48)
[2017-08-11] MEDS: PANTOPRAZOLE 40 MG TABLET (FP) PO SCH (10:48)
[2017-08-11] MEDS: VANCOMYCIN 1 GM PREMIX - 1 GM/200 ML BAG IVPB SCH ×2 (10:57→21:30)
[2017-08-11] MEDS ORDERED: INSULIN (NOVOLOG) ASPART 100 UNITS/ML 10ML VIAL ONE ×3 (11:05→21:29)
--- NOTE | 2017-08-11 11:43 | PN ---
Progress Note (short form) - Note Progress Note: POD #1 Alert. No acute events since surgery. Doing well. Pain managed well via PRN meds. Last Vital Signs Temp Pulse Resp BP Pulse Ox 98.2 F 74 20 130/66 96 08/11/17 10:14 08/11/17 10:14 08/11/17 10:14 08/11/17 10:14 08/11/17 09:00 PE Gen: nad Problem List - Problems (1) PAD (peripheral artery disease) Assessment/Plan: POD #1 s/p Aortogram, LLE angiogram, SFA atherectomy, SFA DCB angioplasty , SFA stent placement - has 2 vessel runoff into foot. MRI: + osteo Can treat with antibiotics. Could benefit from HBO therapy dc home on Plavix No further vascular intervention On behalf of Dr. Carmona, thank you for the opportunity to participate in your patient's care. Code(s): I73.9 - PERIPHERAL VASCULAR DISEASE, UNSPECIFIED
--- NOTE | 2017-08-11 15:40 | PN ---
Progress Note (short form) - Note Progress Note: s/p revascularization no foot pain Vital Signs Period Temp Pulse Resp BP Sys/Mills Pulse Ox Last 24 Hr 97.8 F-98.5 F 68-85 20-20 130-159/66-85 96-98 cor-rrr lungs clear abd soft,nt fifth toe with callus and ulcer, a bit wet CBC, BMP 08/11/17 08:00 08/11/17 08:00 mri with bone marrow uptake fifth toe c/w fifth toe osteomyelitis a/p diabetic foot infection osteomyelitis of the fifth toe multiple outpt abx PAD left leg day #4 antibiotics will need picc line- empiric vanco 1 q 12h/cefepime 2 q12h vancomycin trough ordered for am-may need to adjust vancomycin dose he can f/u in our office with Dr Pollock he needs podiatry f/u as well Problem List - Problems (1) Diabetic foot ulcer Code(s): E11.621 - TYPE 2 DIABETES MELLITUS WITH FOOT ULCER; L97.509 - NON- PRESSURE CHRONIC ULCER OTH PRT UNSP FOOT W UNSP SEVERITY Qualifiers: Diabetic foot ulcer location: heel Diabetes mellitus type: other specified (including MACK) Laterality: left Non-pressure ulcer stage: unspecified non- pressure ulcer stage Qualified Code(s): E13.621 - Other specified diabetes mellitus with foot ulcer; L97.429 - Non-pressure chronic ulcer of left heel and midfoot with unspecified severity; L97.429 - Non-pressure chronic ulcer of left heel and midfoot with unspecified severity; L97.429 - Non-pressure chronic ulcer of left heel and midfoot with unspecified severity; L97.429 - Non- pressure chronic ulcer of left heel and midfoot with unspecified severity (2) PAD (peripheral artery disease) Code(s): I73.9 - PERIPHERAL VASCULAR DISEASE, UNSPECIFIED
[2017-08-11] MEDS: LACTATED RINGERS SOLUTION 1,000 ML IV SCH (17:10)
--- NOTE | 2017-08-11 19:02 | PN ---
Teaching Attending Note Name of Resident: Yoni Jhaveri ATTENDING PHYSICIAN STATEMENT I saw and evaluated the patient. I reviewed the resident's note and discussed the case with the resident. I agree with the resident's findings and plan as documented. SUBJECTIVE: Patient is feeling well today, up and ambulating in the halls, continues antibiotics for osteo OBJECTIVE: Last Vital Signs Temp Pulse Resp BP Pulse Ox 98.0 F 74 20 130/66 96 08/11/17 14:00 08/11/17 10:14 08/11/17 10:14 08/11/17 10:14 08/11/17 09:00 Afebrile, appears well chest clear heart rr no M abd soft NT extrem old deformities from polio L 5th toe with darker appearance, no open wound on toe, no drainage healing ulcers of L foot without signs of infection Laboratory Results - last 24 hr 08/10/17 08/11/17 08/11/17 21:20 05:29 08:00 WBC 11.7 H RBC 4.74 Hgb 14.5 Hct 42.7 MCV 90.2 MCH 30.5 MCHC 33.9 RDW 14.1 Plt Count 428 MPV 6.7 L Neutrophils % 87.3 H D Lymphocytes % 11.6 D Monocytes % 1.0 L D Eosinophils % 0.0 D Basophils % 0.1 Sodium Potassium Chloride Carbon Dioxide Anion Gap BUN Creatinine POC Glucometer 205 238 Random Glucose Calcium 08/11/17 08/11/17 08/11/17 08:00 11:03 15:20 WBC RBC Hgb Hct MCV MCH MCHC RDW Plt Count MPV Neutrophils % Lymphocytes % Monocytes % Eosinophils % Basophils % Sodium 139 Potassium 4.3 Chloride 106 Carbon Dioxide 23 Anion Gap 10 BUN 16 Creatinine 0.8 POC Glucometer 356 300 Random Glucose 196 H D Calcium 9.1 Current Medications Generic Name Dose Route Start Last Admin Trade Name Freq PRN Reason Stop Dose Admin Acetaminophen 650 mg 08/07/17 17:15 08/09/17 21:44 Tylenol - PO 650 mg Q4H PRN Administration PAIN LEVEL 6-10 Atorvastatin Calcium 40 mg 08/08/17 22:00 08/10/17 21:16 Lipitor - PO 40 mg HS PATTI Administration Benzocaine/Menthol 1 each 08/09/17 13:16 08/09/17 14:24 Cepacol Lozenge - MM 1 each PRN PRN Administration SORE THROAT Clopidogrel Bisulfate 75 mg 08/10/17 12:30 08/11/17 10:48 Plavix - PO 75 mg DAILY PATTI Administration Heparin Sodium (Porcine) 5,000 unit 08/08/17 20:02 08/11/17 13:51 Heparin - SQ 5,000 unit TID PATTI Administration Sodium Chloride 1,000 mls @ 100 mls/hr 08/07/17 17:15 08/11/17 11:24 Normal Saline - IV 100 mls/hr ASDIR PATTI Administration Piperacillin Sod/Tazobactam 100 mls @ 200 mls/hr 08/08/17 10:15 08/11/17 18: 04 Sod 4.5 gm/ Dextrose IVPB 200 mls/hr Q8H-IV PATTI Administration Protocol Vancomycin HCl 1 gm in 200 mls @ 133.333 mls/hr 08/08/17 22:00 08/11/17 10:57 Vancomycin 1 Gm Premix - IVPB 133.333 mls/hr BID PATTI Administration Protocol Lactated Ringer's 1,000 mls @ 75 mls/hr 08/10/17 12:15 08/11/17 17:10 Lactated Ringers Solution IV Not Given ASDIR PATTI Insulin Aspart 1 vial 08/07/17 22:00 08/11/17 17:09 Novolog Vial Sliding Scale - SQ 6 units ACHS PATTI Administration Protocol Losartan Potassium 100 mg 08/08/17 10:00 08/11/17 10:48 Cozaar - PO 100 mg DAILY PATTI Administration Methylprednisolone Sodium Succinate 60 mg 08/10/17 21:00 08/11/17 15:01 Solu-Medrol - IVPUSH 60 mg Q6H-IV PATTI Administration Neomycin/Polymyxin/Bacitracin 1 applic 08/07/17 22:00 08/11/17 08:59 Neosporin Topical Ointment - TP 1 applic BID PATTI Administration Nicotine 21 mg 08/07/17 18:45 08/11/17 10:48 Nicoderm Patch - TD 21 mg DAILY PATTI Administration Nortriptyline HCl 25 mg 08/08/17 10:00 08/11/17 10:48 Pamelor - PO 25 mg DAILY PATTI Administration Nystatin 1 applic 08/08/17 22:00 08/11/17 08:59 Mycostatin Cream - TP 1 applic BID PATTI Administration Ondansetron HCl 4 mg 08/10/17 12:14 Zofran Injection IVPUSH Q6H PRN NAUSEA AND/OR VOMITING Pantoprazole Sodium 40 mg 08/08/17 10:00 08/11/17 10:48 Protonix - PO 40 mg DAILY PATTI Administration Silver Sulfadiazine 1 applic 08/08/17 10:49 08/11/17 08:59 Silvadene - TP 1 applic DAILY PATTI Administration ASSESSMENT AND PLAN: 51 year old man iwth DM2 HTN HLD PAD polio admitted with left foot diabetic foot infection with osteo of the L 5th toe 1. Osteo oeft 5th toe continue vanco and zosy discuss with ID if patient will be a candidate for intermodal dispatcher antibiotics at the infusion center follow CRP weekly 2. PAD s/p stherectomy and angioplasty with stent yesterday on plavix and lipitor 3. DM2 sliding scale novolog 4. HTN cozaar HCTZ held 5. HLD on lipitor 6. Hx of polio 7. PPX heparin SQ 8. Disposition pending plan for intermodal dispatcher antibiotics
[2017-08-11] MEDS: ACETAMINOPHEN 325 MG TABLET (FP) PO PRN (19:51)
--- NOTE | 2017-08-11 21:16 | PN ---
Physical Exam: SUBJECTIVE: Patient seen and examined at bedside. No new complaints. OBJECTIVE: Vital Signs Period Temp Pulse Resp BP Sys/Mills Pulse Ox Last 24 Hr 97.8 F-98.8 F 68-85 20-20 130-159/66-85 96 GENERAL: Awake, alert, and fully oriented, in no acute distress. HEAD: Normal with no signs of trauma. NECK: Normal range of motion, supple without lymphadenopathy, JVD, or masses. LUNGS: Breath sounds equal, clear to auscultation bilaterally. No wheezes, and no crackles. No accessory muscle use. HEART: Regular rate and rhythm, normal S1 and S2 without murmur, rub or gallop. ABDOMEN: Soft, nontender, not distended, normoactive bowel sounds, no guarding, no rebound, no masses. No hepatomegaly or splenomegaly. MUSCULOSKELETAL: Normal range of motion at all joints. No bony deformities or tenderness. No CVA tenderness. LOWER EXTREMITIES: 2+ pulses felt b/l, warm. No calf tenderness. No peripheral edema. no active drainage seen. left 5th digit tender to palpation. NEUROLOGICAL: Cranial nerves II-X intact. Normal speech. Normal gait. PSYCHIATRIC: Cooperative. Good eye contact. Appropriate mood and affect. SKIN: Warm, dry, normal turgor, normal capillary refill. Laboratory Results - last 24 hr 08/10/17 08/11/17 08/11/17 21:20 05:29 08:00 WBC 11.7 H RBC 4.74 Hgb 14.5 Hct 42.7 MCV 90.2 MCH 30.5 MCHC 33.9 RDW 14.1 Plt Count 428 MPV 6.7 L Neutrophils % 87.3 H D Lymphocytes % 11.6 D Monocytes % 1.0 L D Eosinophils % 0.0 D Basophils % 0.1 Sodium Potassium Chloride Carbon Dioxide Anion Gap BUN Creatinine POC Glucometer 205 238 Random Glucose Calcium 08/11/17 08/11/17 08/11/17 08:00 11:03 15:20 WBC RBC Hgb Hct MCV MCH MCHC RDW Plt Count MPV Neutrophils % Lymphocytes % Monocytes % Eosinophils % Basophils % Sodium 139 Potassium 4.3 Chloride 106 Carbon Dioxide 23 Anion Gap 10 BUN 16 Creatinine 0.8 POC Glucometer 356 300 Random Glucose 196 H D Calcium 9.1 Active Medications Generic Name Dose Route Start Last Admin Trade Name Freq PRN Reason Stop Dose Admin Acetaminophen 650 mg 08/07/17 17:15 08/11/17 19:51 Tylenol - PO 650 mg Q4H PRN Administration PAIN LEVEL 6-10 Atorvastatin Calcium 40 mg 08/08/17 22:00 08/10/17 21:16 Lipitor - PO 40 mg HS PATTI Administration Benzocaine/Menthol 1 each 08/09/17 13:16 08/09/17 14:24 Cepacol Lozenge - MM 1 each PRN PRN Administration SORE THROAT Clopidogrel Bisulfate 75 mg 08/10/17 12:30 08/11/17 10:48 Plavix - PO 75 mg DAILY PATTI Administration Heparin Sodium (Porcine) 5,000 unit 08/08/17 20:02 08/11/17 13:51 Heparin - SQ 5,000 unit TID PATTI Administration Sodium Chloride 1,000 mls @ 100 mls/hr 08/07/17 17:15 08/11/17 11:24 Normal Saline - IV 100 mls/hr ASDIR PATTI Administration Piperacillin Sod/Tazobactam 100 mls @ 200 mls/hr 08/08/17 10:15 08/11/17 18: 04 Sod 4.5 gm/ Dextrose IVPB 200 mls/hr Q8H-IV PATTI Administration Protocol Vancomycin HCl 1 gm in 200 mls @ 133.333 mls/hr 08/08/17 22:00 08/11/17 10:57 Vancomycin 1 Gm Premix - IVPB 133.333 mls/hr BID PATTI Administration Protocol Lactated Ringer's 1,000 mls @ 75 mls/hr 08/10/17 12:15 08/11/17 17:10 Lactated Ringers Solution IV Not Given ASDIR PATTI Insulin Aspart 1 vial 08/07/17 22:00 08/11/17 17:09 Novolog Vial Sliding Scale - SQ 6 units ACHS PATTI Administration Protocol Losartan Potassium 100 mg 08/08/17 10:00 08/11/17 10:48 Cozaar - PO 100 mg DAILY PATTI Administration Methylprednisolone Sodium Succinate 60 mg 08/10/17 21:00 08/11/17 15:01 Solu-Medrol - IVPUSH 60 mg Q6H-IV PATTI Administration Neomycin/Polymyxin/Bacitracin 1 applic 08/07/17 22:00 08/11/17 08:59 Neosporin Topical Ointment - TP 1 applic BID PATTI Administration Nicotine 21 mg 08/07/17 18:45 08/11/17 10:48 Nicoderm Patch - TD 21 mg DAILY PATTI Administration Nortriptyline HCl 25 mg 08/08/17 10:00 08/11/17 10:48 Pamelor - PO 25 mg DAILY PATTI Administration Nystatin 1 applic 08/08/17 22:00 08/11/17 08:59 Mycostatin Cream - TP 1 applic BID PATTI Administration Ondansetron HCl 4 mg 08/10/17 12:14 Zofran Injection IVPUSH Q6H PRN NAUSEA AND/OR VOMITING Pantoprazole Sodium 40 mg 08/08/17 10:00 08/11/17 10:48 Protonix - PO 40 mg DAILY PATTI Administration Silver Sulfadiazine 1 applic 08/08/17 10:49 08/11/17 08:59 Silvadene - TP 1 applic DAILY PATTI Administration ASSESSMENT/PLAN: The patient is a 51 yo m w/ PMH DM, HTN, HLD, PVD who is admitted for further workup and management of a non-healing foot wound. #POD 1 atheroectomy with stent placement w/ Dr. Carmona -patient started on Plavix 75mg -pain control #Foot wound 2/2 uncontrolled DM vs PVD -IVF -ESR WNL -CRP elevated to .9 -lactic acidosis resolved -MRI of left foot shows osteo -ID consult -Vancomycin 1g daily (day 5) -Zosyn 3.375g IV Q6H (day 5) #Dysuria likley 2/2 candidiasis of the penis and foreskin. - improved -neosporin cream after washing with lukewarm water. -c/w topical nystatin #HTN -holding home HCTZ -c/w home losartan 100mg daily #DM -holding home oral hypoglycemics -BGM ACHS -ISS ACHS -A1c in AM #HLD -c/w home atorvastatin 20mg daily #Prophylaxis -Hep SQ 5ku TID #FEN -NS @ 100 -monitor lytes -Diabetic diet #Dispo -admit to inpatient med surg Visit type - Emergency Visit Emergency Visit: Yes ED Registration Date: 08/07/17 Care time: The patient presented to the Emergency Department on the above date and was hospitalized for further evaluation of their emergent condition. - New Patient This patient is new to me today: No - Critical Care Critical Care patient: No
[2017-08-11] MEDS: ATORVASTATIN CA 40 MG TABLET (FP) PO SCH (21:25)
[2017-08-12] MEDS: ACETAMINOPHEN 325 MG TABLET (FP) PO PRN ×4 (00:36→20:00)
[2017-08-12] MEDS ORDERED: PIPERACILLIN/TAZOBACTAM 4.5 GM VIAL IVPB ONE ×3 (02:29→17:38)
[2017-08-12] MEDS: methylPREDNISolone NA SUCC 40 MG/1 ML VIAL IVPUSH SCH ×4 (02:39→21:50)
[2017-08-12] MEDS: PIPERACILLIN/TAZOB 4.5 GM 4.5 GM in DEXTROSE 5%-WATER 100 ML IVPB SCH ×3 (02:39→17:45)
[2017-08-12] MEDS: HEPARIN NA (PORCINE) 5,000 UNITS/ML 1ML VIAL SQ SCH ×3 (06:24→21:50)
[2017-08-12] MEDS: INSULIN SLIDING SCALE (NOVOLOG) 1 VIAL SQ SCH ×4 (06:26→21:54)
[2017-08-12 08:21] LABS: HEMATOCRIT 39.5 % (35.4-49); HEMOGLOBIN 13.2 GM/dL (11.7-16.9); MCH 30.5 pg (25.7-33.7); MCHC 33.4 g/dl (32.0-35.9); MEAN CELL VOLUME 91.2 fl (80-96); MEAN PLT VOLUME 6.6 fl (7.5-11.1); PLATELET COUNT 394 K/MM3 (134-434); RBC 4.33 M/mm3 (4.00-5.60); WHITE BLOOD COUNT 18.5 K/mm3 (4.0-10.0)
[2017-08-12] MEDS ORDERED: DEXTROSE 5%-WATER 100 ML IVPB ONE ×2 (09:05→17:38)
[2017-08-12] MEDS ORDERED: PT OWN MED DRAWER 7, Y5N ONE (09:07)
[2017-08-12] MEDS: PANTOPRAZOLE 40 MG TABLET (FP) PO SCH (09:11)
[2017-08-12] MEDS: NICOTINE 21 MG/24 HOURS TOPICAL PATCH TD SCH (09:11)
[2017-08-12] MEDS: NORTRIPTYLINE HCL 25 MG CAPSULE PO SCH (09:11)
[2017-08-12] MEDS: CLOPIDOGREL BISULFATE 75 MG TABLET (FP) PO SCH (09:11)
[2017-08-12] MEDS: LOSARTAN POTASSIUM 50 MG TABLET (FP) PO SCH (09:11)
[2017-08-12] MEDS: NYSTATIN 100,000 UNIT/GM TOPICAL CREAM 15 GM TUBE TP SCH ×2 (09:15→21:57)
[2017-08-12] MEDS: SILVER SULFADIAZINE 1% TOP CREAM 50 GM JAR TP SCH (09:15)
[2017-08-12] MEDS: NEOMYCIN/POLYMYXIN/BACITRACIN (TRIPLE ANTIBIOTIC) 28 GM OINTMENT TP SCH ×2 (09:15→21:57)
[2017-08-12] MEDS: SODIUM CHLORIDE 1,000 ML IV SCH ×3 (09:17→21:58)
--- NOTE | 2017-08-12 09:43 | PN ---
Physical Exam: SUBJECTIVE: Patient seen and examined Patient is feeling better with no acute distress. OBJECTIVE: Vital Signs Temperature 98.8 F 08/11/17 18:00 Pulse Rate 80 08/11/17 18:00 Respiratory Rate 20 08/11/17 18:00 Blood Pressure 137/74 08/11/17 18:00 O2 Sat by Pulse Oximetry (%) 96 08/11/17 21:00 GENERAL: The patient is awake, alert, and fully oriented, in no acute distress. HEAD: Normal with no signs of trauma. EYES: PERRL, extraocular movements intact, sclera anicteric, conjunctiva clear. No ptosis. ENT: Ears normal, nares patent, oropharynx clear without exudates, moist mucous membranes. NECK: Trachea midline, full range of motion, supple. LUNGS: Breath sounds equal, clear to auscultation bilaterally, no wheezes, no crackles, no accessory muscle use. HEART: Regular rate and rhythm, S1, S2 without murmur, rub or gallop. ABDOMEN: Soft, nontender, nondistended, normoactive bowel sounds, no guarding, no rebound, no hepatosplenomegaly, no masses. EXTREMITIES: 2+ pulses, warm, well-perfused, no edema. NEUROLOGICAL: Cranial nerves II through XII grossly intact. Normal speech, gait not observed. PSYCH: Normal mood, normal affect. SKIN: Warm, dry, normal turgor, no rashes or lesions noted Active Medications Generic Name Dose Route Start Last Admin Trade Name Freq PRN Reason Stop Dose Admin Acetaminophen 650 mg 08/07/17 17:15 08/12/17 06:39 Tylenol - PO 650 mg Q4H PRN Administration PAIN LEVEL 6-10 Atorvastatin Calcium 40 mg 08/08/17 22:00 08/11/17 21:25 Lipitor - PO 40 mg HS PATTI Administration Benzocaine/Menthol 1 each 08/09/17 13:16 08/09/17 14:24 Cepacol Lozenge - MM 1 each PRN PRN Administration SORE THROAT Clopidogrel Bisulfate 75 mg 08/10/17 12:30 08/12/17 09:11 Plavix - PO 75 mg DAILY PATTI Administration Heparin Sodium (Porcine) 5,000 unit 08/08/17 20:02 08/12/17 06:24 Heparin - SQ 5,000 unit TID PATTI Administration Sodium Chloride 1,000 mls @ 100 mls/hr 08/07/17 17:15 08/12/17 09:17 Normal Saline - IV 100 mls/hr ASDIR PATTI Administration Piperacillin Sod/Tazobactam 100 mls @ 200 mls/hr 08/08/17 10:15 08/12/17 09: 16 Sod 4.5 gm/ Dextrose IVPB 200 mls/hr Q8H-IV PATTI Administration Protocol Vancomycin HCl 1 gm in 200 mls @ 133.333 mls/hr 08/08/17 22:00 08/11/17 21:30 Vancomycin 1 Gm Premix - IVPB 133.333 mls/hr BID PATTI Administration Protocol Lactated Ringer's 1,000 mls @ 75 mls/hr 08/10/17 12:15 08/11/17 17:10 Lactated Ringers Solution IV Not Given ASDIR PATTI Insulin Aspart 1 vial 08/07/17 22:00 08/12/17 06:26 Novolog Vial Sliding Scale - SQ 4 units ACHS PATTI Administration Protocol Losartan Potassium 100 mg 08/08/17 10:00 08/12/17 09:11 Cozaar - PO 100 mg DAILY PATTI Administration Methylprednisolone Sodium Succinate 60 mg 08/10/17 21:00 08/12/17 09:11 Solu-Medrol - IVPUSH 60 mg Q6H-IV PATTI Administration Neomycin/Polymyxin/Bacitracin 1 applic 08/07/17 22:00 08/12/17 09:15 Neosporin Topical Ointment - TP 1 applic BID PATTI Administration Nicotine 21 mg 08/07/17 18:45 08/12/17 09:11 Nicoderm Patch - TD 21 mg DAILY PATTI Administration Nortriptyline HCl 25 mg 08/08/17 10:00 08/12/17 09:11 Pamelor - PO 25 mg DAILY PATTI Administration Nystatin 1 applic 08/08/17 22:00 08/12/17 09:15 Mycostatin Cream - TP 1 applic BID PATTI Administration Ondansetron HCl 4 mg 08/10/17 12:14 Zofran Injection IVPUSH Q6H PRN NAUSEA AND/OR VOMITING Pantoprazole Sodium 40 mg 08/08/17 10:00 08/12/17 09:11 Protonix - PO 40 mg DAILY PATTI Administration Silver Sulfadiazine 1 applic 08/08/17 10:49 08/12/17 09:15 Silvadene - TP 1 applic DAILY PATTI Administration Home Medications Medication Instructions Recorded Glipizide [Glucotrol Xl] 5 mg PO DAILY 06/19/12 metFORMIN HCL [Glucophage] 1,000 mg PO BID 06/19/12 Losartan/Hydrochlorothiazide 1 tab PO DAILY 07/24/17 [Losartan-Hctz 100-25 mg Tab] Oxycodone HCl/Acetaminophen 1 tab PO TID 07/24/17 [Percocet 5-325 mg Tablet] Pantoprazole Sodium [Protonix] 1 tab PO DAILY 07/24/17 Silver Sulfadiazine [Silvadene] 1 applic TID 07/24/17 Nortriptyline HCl [Pamelor -] 1 cap PO DAILY 07/28/17 Atorvastatin Ca [Lipitor] 20 mg PO HS 08/07/17 Diclofenac Sodium [Voltaren -] 75 mg PO BID 08/07/17 Glipizide [Glucotrol -] 10 mg PO BID 08/07/17 ASSESSMENT/PLAN: Patient is a 51 year old man with Hx of DM2, HTN, HLD, PAD and polio, admitted with left diabetic foot infection and was found to have osteo of the L 5th toe # Acute Osteo of left 5th toe on vanco and zosyn, will follow CRP, will check with ID the length of the treatment. # PAD s/p angioplasty with stent placement on plavix and lipitor continue # DM2 sliding scale novolog # HTN on cozaar and HCTZ continue # HLD on lipitor continue # Hx of polio DVT PPX: heparin SQ Visit type - Emergency Visit Emergency Visit: Yes ED Registration Date: 08/07/17 Care time: The patient presented to the Emergency Department on the above date and was hospitalized for further evaluation of their emergent condition. - New Patient This patient is new to me today: Yes Date on this admission: 08/13/17 - Critical Care Critical Care patient: No - Discharge Referral Referred to [facility] No
[2017-08-12] MEDS: VANCOMYCIN 1 GM PREMIX - 1 GM/200 ML BAG IVPB SCH ×2 (10:53→21:50)
[2017-08-12] MEDS: LACTATED RINGERS SOLUTION 1,000 ML IV SCH (12:24)
[2017-08-12] MEDS ORDERED: INSULIN (NOVOLOG) ASPART 100 UNITS/ML 10ML VIAL ONE (16:23)
[2017-08-12] MEDS: ATORVASTATIN CA 40 MG TABLET (FP) PO SCH (21:50)
[2017-08-13] MEDS ORDERED: PT OWN MED DRAWER 7, Y5N ONE ×2 (01:46→10:25)
[2017-08-13] MEDS ORDERED: DEXTROSE 5%-WATER 100 ML IVPB ONE ×3 (02:02→16:09)
[2017-08-13] MEDS ORDERED: PIPERACILLIN/TAZOBACTAM 4.5 GM VIAL IVPB ONE ×3 (02:02→16:08)
[2017-08-13] MEDS: methylPREDNISolone NA SUCC 40 MG/1 ML VIAL IVPUSH SCH ×2 (02:14→10:27)
[2017-08-13] MEDS: PIPERACILLIN/TAZOB 4.5 GM 4.5 GM in DEXTROSE 5%-WATER 100 ML IVPB SCH ×3 (02:14→16:59)
[2017-08-13] MEDS: HEPARIN NA (PORCINE) 5,000 UNITS/ML 1ML VIAL SQ SCH ×3 (05:55→22:10)
[2017-08-13] MEDS: INSULIN SLIDING SCALE (NOVOLOG) 1 VIAL SQ SCH ×4 (06:41→22:24)
[2017-08-13] MEDS ORDERED: INSULIN (NOVOLOG) ASPART 100 UNITS/ML 10ML VIAL ONE ×2 (07:24→22:23)
[2017-08-13] MEDS: PANTOPRAZOLE 40 MG TABLET (FP) PO SCH (10:28)
[2017-08-13] MEDS: CLOPIDOGREL BISULFATE 75 MG TABLET (FP) PO SCH (10:28)
[2017-08-13] MEDS: LOSARTAN POTASSIUM 50 MG TABLET (FP) PO SCH (10:28)
[2017-08-13] MEDS: NICOTINE 21 MG/24 HOURS TOPICAL PATCH TD SCH (10:31)
[2017-08-13] MEDS: NEOMYCIN/POLYMYXIN/BACITRACIN (TRIPLE ANTIBIOTIC) 28 GM OINTMENT TP SCH ×2 (10:32→22:17)
[2017-08-13] MEDS: NYSTATIN 100,000 UNIT/GM TOPICAL CREAM 15 GM TUBE TP SCH ×2 (10:32→22:16)
[2017-08-13] MEDS: NORTRIPTYLINE HCL 25 MG CAPSULE PO SCH (10:33)
[2017-08-13] MEDS: SILVER SULFADIAZINE 1% TOP CREAM 50 GM JAR TP SCH (10:33)
[2017-08-13] MEDS: SODIUM CHLORIDE 1,000 ML IV SCH ×2 (10:43→22:11)
[2017-08-13] MEDS: ACETAMINOPHEN 325 MG TABLET (FP) PO PRN ×2 (10:43→18:16)
[2017-08-13] MEDS: VANCOMYCIN 1 GM PREMIX - 1 GM/200 ML BAG IVPB SCH ×2 (11:31→22:24)
[2017-08-13] MEDS: LACTATED RINGERS SOLUTION 1,000 ML IV SCH (11:55)
[2017-08-13 13:25] LABS: BASO % 0.1 % (0-2.0); HEMATOCRIT 39.7 % (35.4-49); HEMOGLOBIN 13.2 GM/dL (11.7-16.9); LYMPH % 10.6 % (8-40); MCH 30.5 pg (25.7-33.7); MCHC 33.3 g/dl (32.0-35.9); MEAN CELL VOLUME 91.6 fl (80-96); MONO % 4.9 % (3.8-10.2); NEUT % 84.4 % (42.8-82.8); PLATELET COUNT 374 K/MM3 (134-434); RBC 4.34 M/mm3 (4.00-5.60); RDW 14.5 % (11.9-15.9); WHITE BLOOD COUNT 11.7 K/mm3 (4.0-10.0)
[2017-08-13 13:33] LABS: ANION GAP 5 (8-16); BLOOD UREA NITROGEN 19 mg/dL (7-18); CALCIUM 8.5 mg/dL (8.5-10.1); CHLORIDE 107 mmol/L (98-107); CO2 25 mmol/L (21-32); CREATININE 0.9 mg/dL (0.7-1.3); GLUCOSE,RANDOM 293 mg/dL (74-106); POTASSIUM 4.5 mmol/L (3.5-5.1); SODIUM 137 mmol/L (136-145)
--- NOTE | 2017-08-13 18:38 | PN ---
Progress Note (short form) - Note Progress Note: Patient is comfortable with no acute distress. Vital Signs Temperature 97.9 F 08/13/17 14:34 Pulse Rate 70 08/13/17 14:34 Respiratory Rate 18 08/13/17 14:34 Blood Pressure 146/79 08/13/17 14:34 O2 Sat by Pulse Oximetry (%) 96 08/13/17 08:57 GENERAL: The patient is awake, alert, and fully oriented, in no acute distress. HEAD: Normal with no signs of trauma. EYES: PERRL, extraocular movements intact, sclera anicteric, conjunctiva clear. ENT: Ears normal, oropharynx clear without exudates, moist mucous membranes. NECK: Trachea midline, full range of motion, supple. LUNGS: Breath sounds equal, clear to auscultation bilaterally, no wheezes, no crackles, no accessory muscle use. HEART: Regular rate and rhythm, S1, S2 without murmur, rub or gallop. ABDOMEN: Soft, nontender, nondistended, normoactive bowel sounds, no guarding, no rebound, no masses. EXTREMITIES: 2+ pulses, warm, well-perfused, no edema. , Osteo of left 5th toe NEUROLOGICAL: Cranial nerves II through XII grossly intact. Normal speech, gait not observed. PSYCH: Normal mood, normal affect. SKIN: Warm, dry, normal turgor, no rashes or lesions noted CBCD WBC 11.7 K/mm3 (4.0-10.0) H D 08/13/17 12:42 RBC 4.34 M/mm3 (4.00-5.60) 08/13/17 12:42 Hgb 13.2 GM/dL (11.7-16.9) 08/13/17 12:42 Hct 39.7 % (35.4-49) 08/13/17 12:42 MCV 91.6 fl (80-96) 08/13/17 12:42 MCHC 33.3 g/dl (32.0-35.9) 08/13/17 12:42 RDW 14.5 % (11.9-15.9) 08/13/17 12:42 Plt Count 374 K/MM3 (134-434) 08/13/17 12:42 MPV 7.0 fl (7.5-11.1) L 08/13/17 12:42 CMP Sodium 137 mmol/L (136-145) 08/13/17 12:42 Potassium 4.5 mmol/L (3.5-5.1) 08/13/17 12:42 Chloride 107 mmol/L (98-107) 08/13/17 12:42 Carbon Dioxide 25 mmol/L (21-32) 08/13/17 12:42 Anion Gap 5 (8-16) L 08/13/17 12:42 BUN 19 mg/dL (7-18) H 08/13/17 12:42 Creatinine 0.9 mg/dL (0.7-1.3) 08/13/17 12:42 Creat Clearance w eGFR > 60 (>60) 08/08/17 06:30 Random Glucose 293 mg/dL (74-106) H D 08/13/17 12:42 Calcium 8.5 mg/dL (8.5-10.1) 08/13/17 12:42 Total Bilirubin 0.3 mg/dL (0.2-1.0) 08/08/17 06:30 AST 12 U/L (15-37) L 08/08/17 06:30 ALT 18 U/L (12-78) D 08/08/17 06:30 Alkaline Phosphatase 79 U/L (45-117) 08/08/17 06:30 Total Protein 6.5 g/dl (6.4-8.2) 08/08/17 06:30 Albumin 3.3 g/dl (3.4-5.0) L 08/08/17 06:30 CARDIAC ENZYMES Creatine Kinase 67 IU/L (39-308) 08/07/17 15:05 Troponin I < 0.02 ng/ml (0.00-0.05) 08/07/17 15:05 Current Medications Generic Name Dose Route Start Last Admin Trade Name Freq PRN Reason Stop Dose Admin Acetaminophen 650 mg 08/07/17 17:15 08/13/17 18:16 Tylenol - PO 650 mg Q4H PRN Administration PAIN LEVEL 6-10 Atorvastatin Calcium 40 mg 08/08/17 22:00 08/12/17 21:50 Lipitor - PO 40 mg HS PATTI Administration Benzocaine/Menthol 1 each 08/09/17 13:16 08/09/17 14:24 Cepacol Lozenge - MM 1 each PRN PRN Administration SORE THROAT Clopidogrel Bisulfate 75 mg 08/10/17 12:30 08/13/17 10:28 Plavix - PO 75 mg DAILY PATTI Administration Heparin Sodium (Porcine) 5,000 unit 08/08/17 20:02 08/13/17 14:32 Heparin - SQ 5,000 unit TID PATTI Administration Sodium Chloride 1,000 mls @ 100 mls/hr 08/07/17 17:15 08/13/17 10:43 Normal Saline - IV 100 mls/hr ASDIR PATTI Administration Piperacillin Sod/Tazobactam 100 mls @ 200 mls/hr 08/08/17 10:15 08/13/17 16: 59 Sod 4.5 gm/ Dextrose IVPB 200 mls/hr Q8H-IV PATTI Administration Protocol Vancomycin HCl 1 gm in 200 mls @ 133.333 mls/hr 08/08/17 22:00 08/13/17 11:31 Vancomycin 1 Gm Premix - IVPB 133.333 mls/hr BID PATTI Administration Protocol Lactated Ringer's 1,000 mls @ 75 mls/hr 08/10/17 12:15 08/13/17 11:55 Lactated Ringers Solution IV Not Given ASDIR PATTI Insulin Aspart 1 vial 08/07/17 22:00 08/13/17 16:57 Novolog Vial Sliding Scale - SQ 6 units ACHS PATTI Administration Protocol Losartan Potassium 100 mg 08/08/17 10:00 08/13/17 10:28 Cozaar - PO 100 mg DAILY PATTI Administration Neomycin/Polymyxin/Bacitracin 1 applic 08/07/17 22:00 08/13/17 10:32 Neosporin Topical Ointment - TP 1 applic BID PATTI Administration Nicotine 21 mg 08/07/17 18:45 08/13/17 10:31 Nicoderm Patch - TD 21 mg DAILY PATTI Administration Nortriptyline HCl 25 mg 08/08/17 10:00 08/13/17 10:33 Pamelor - PO 25 mg DAILY PATTI Administration Nystatin 1 applic 08/08/17 22:00 08/13/17 10:32 Mycostatin Cream - TP 1 applic BID PATTI Administration Ondansetron HCl 4 mg 08/10/17 12:14 Zofran Injection IVPUSH Q6H PRN NAUSEA AND/OR VOMITING Pantoprazole Sodium 40 mg 04/24/18 10:00 08/13/17 10:28 Protonix - PO 40 mg DAILY PATTI Administration Prednisone 40 mg 08/13/17 22:00 Deltasone - PO 08/13/17 22:01 ONCE ONE Prednisone 40 mg 08/14/17 10:00 Deltasone - PO 08/15/17 09:59 DAILY PATTI Silver Sulfadiazine 1 applic 08/08/17 10:49 08/13/17 10:33 Silvadene - TP 1 applic DAILY PATTI Administration Home Medications Medication Instructions Recorded Glipizide [Glucotrol Xl] 5 mg PO DAILY 06/19/12 metFORMIN HCL [Glucophage] 1,000 mg PO BID 06/19/12 Losartan/Hydrochlorothiazide 1 tab PO DAILY 07/24/17 [Losartan-Hctz 100-25 mg Tab] Oxycodone HCl/Acetaminophen 1 tab PO TID 07/24/17 [Percocet 5-325 mg Tablet] Pantoprazole Sodium [Protonix] 1 tab PO DAILY 07/24/17 Silver Sulfadiazine [Silvadene] 1 applic TID 07/24/17 Nortriptyline HCl [Pamelor -] 1 cap PO DAILY 07/28/17 Atorvastatin Ca [Lipitor] 20 mg PO HS 08/07/17 Diclofenac Sodium [Voltaren -] 75 mg PO BID 08/07/17 Glipizide [Glucotrol -] 10 mg PO BID 08/07/17 ASSESSMENT/PLAN: Patient is a 51 year old man with Hx of DM2, HTN, HLD, PAD and polio, admitted with left diabetic foot infection and was found to have osteo of the L 5th toe # Acute Osteo of left 5th toe continue IV vanco and zosyn, will follow CRP, will check with ID the length of the treatment. # PAD s/p angioplasty with stent placement on plavix and lipitor continue # DM2 sliding scale novolog continue # HTN on cozaar and HCTZ continue # HLD on lipitor continue # Hx of polio DVT PPX: heparin SQ Visit type - Emergency Visit Emergency Visit: Yes ED Registration Date: 08/07/17 Care time: The patient presented to the Emergency Department on the above date and was hospitalized for further evaluation of their emergent condition. - New Patient This patient is new to me today: No - Critical Care Critical Care patient: No - Discharge Referral Referred to [facility] Med P.C.: No
[2017-08-13] MEDS ORDERED: predniSONE 20 MG TABLET (UD) PO ONE (22:00)
[2017-08-13] MEDS ORDERED: methylPREDNISolone NA SUCC 40 MG/1 ML VIAL IVPUSH SCH (22:00)
[2017-08-13] MEDS: ATORVASTATIN CA 40 MG TABLET (FP) PO SCH (22:10)
[2017-08-14] MEDS ORDERED: PIPERACILLIN/TAZOBACTAM 4.5 GM VIAL IVPB ONE ×2 (01:18→09:18)
[2017-08-14] MEDS ORDERED: DEXTROSE 5%-WATER 100 ML IVPB ONE ×2 (01:18→09:19)
[2017-08-14] MEDS: PIPERACILLIN/TAZOB 4.5 GM 4.5 GM in DEXTROSE 5%-WATER 100 ML IVPB SCH (01:32)
[2017-08-14] MEDS: ACETAMINOPHEN 325 MG TABLET (FP) PO PRN ×3 (01:33→17:49)
[2017-08-14] MEDS: HEPARIN NA (PORCINE) 5,000 UNITS/ML 1ML VIAL SQ SCH ×3 (06:10→21:17)
[2017-08-14] MEDS: INSULIN SLIDING SCALE (NOVOLOG) 1 VIAL SQ SCH ×4 (06:12→21:17)
[2017-08-14] MEDS ORDERED: BENZOCAINE/MENTH/CETYLPYRD CL 1 EACH LOZENGE MM PRN (08:31)
[2017-08-14] MEDS ORDERED: PT OWN MED DRAWER 7, Y5N ONE ×2 (09:18→13:31)
[2017-08-14] MEDS: SODIUM CHLORIDE 1,000 ML IV SCH ×2 (09:22→14:22)
[2017-08-14] MEDS: PANTOPRAZOLE 40 MG TABLET (FP) PO SCH (09:25)
[2017-08-14] MEDS: LOSARTAN POTASSIUM 50 MG TABLET (FP) PO SCH (09:25)
[2017-08-14] MEDS: NORTRIPTYLINE HCL 25 MG CAPSULE PO SCH (09:26)
[2017-08-14] MEDS: SILVER SULFADIAZINE 1% TOP CREAM 50 GM JAR TP SCH (09:27)
[2017-08-14] MEDS: NEOMYCIN/POLYMYXIN/BACITRACIN (TRIPLE ANTIBIOTIC) 28 GM OINTMENT TP SCH ×2 (09:28→21:18)
[2017-08-14] MEDS: NYSTATIN 100,000 UNIT/GM TOPICAL CREAM 15 GM TUBE TP SCH ×2 (09:28→21:18)
[2017-08-14] MEDS: NICOTINE 21 MG/24 HOURS TOPICAL PATCH TD SCH (09:30)
[2017-08-14] MEDS ORDERED: predniSONE 20 MG TABLET (UD) PO SCH (10:00)
[2017-08-14] MEDS ORDERED: PIPERACILLIN/TAZOB 4.5 GM 4.5 GM in DEXTROSE 5%-WATER 100 ML IVPB SCH (10:00)
[2017-08-14] MEDS ORDERED: predniSONE 10 MG TABLET (UD) PO SCH (10:00)
[2017-08-14] MEDS: VANCOMYCIN 1 GM PREMIX - 1 GM/200 ML BAG IVPB SCH ×2 (11:01→23:49)
[2017-08-14] MEDS ORDERED: INSULIN (NOVOLOG) ASPART 100 UNITS/ML 10ML VIAL ONE (11:10)
--- NOTE | 2017-08-14 11:38 | PN ---
Progress Note (short form) - Note Progress Note: s/p revascularization no foot pain no complaints Vital Signs Period Temp Pulse Resp BP Sys/Mills Pulse Ox Last 24 Hr 97.6 F-98.1 F 65-71 18-20 139-151/72-85 96-97 cor-rrr lungs clear abd soft,nt ext no edema little toe unchanged CBC, BMP 08/13/17 12:42 08/13/17 12:42 mri with bone marrow uptake fifth toe c/w fifth toe osteomyelitis a/p diabetic foot infection osteomyelitis of the fifth toe multiple outpt abx PAD left leg day #4 antibiotics will need picc line- empiric vanco 1 q 12h/cefepime 2 q12h scripts for labs/antibiotics for 5 weeks (has completed one week) vancomycin trough ordered for am-may need to adjust vancomycin dose he can f/u in our office with Dr Pollock in 2 weeks [phone] he needs podiatry f/u as well Problem List - Problems (1) Diabetic foot ulcer Code(s): E11.621 - TYPE 2 DIABETES MELLITUS WITH FOOT ULCER; L97.509 - NON- PRESSURE CHRONIC ULCER OTH PRT UNSP FOOT W UNSP SEVERITY Qualifiers: Diabetic foot ulcer location: heel Diabetes mellitus type: other specified (including MACK) Laterality: left Non-pressure ulcer stage: unspecified non- pressure ulcer stage Qualified Code(s): E13.621 - Other specified diabetes mellitus with foot ulcer; L97.429 - Non-pressure chronic ulcer of left heel and midfoot with unspecified severity; L97.429 - Non-pressure chronic ulcer of left heel and midfoot with unspecified severity; L97.429 - Non-pressure chronic ulcer of left heel and midfoot with unspecified severity; L97.429 - Non- pressure chronic ulcer of left heel and midfoot with unspecified severity (2) PAD (peripheral artery disease) Code(s): I73.9 - PERIPHERAL VASCULAR DISEASE, UNSPECIFIED
[2017-08-14] MEDS: LACTATED RINGERS SOLUTION 1,000 ML IV SCH (13:11)
[2017-08-14] MEDS: CLOPIDOGREL BISULFATE 75 MG TABLET (FP) PO SCH (13:33)
--- NOTE | 2017-08-14 14:43 | PN ---
<Yoni Jhaveri - Last Filed: 08/14/17 16:16> Physical Exam: SUBJECTIVE: Patient seen and examined at bedside. Pain controlled. Patient c/o "pins and needles" feeling in left leg when he stands up. OBJECTIVE: Vital Signs Period Temp Pulse Resp BP Sys/Mills Pulse Ox Last 24 Hr 97.6 F-98.1 F 65-71 18-20 139-151/72-85 96-97 GENERAL: Awake, alert, and fully oriented, in no acute distress. HEAD: Normal with no signs of trauma. NECK: Normal range of motion, supple without lymphadenopathy, JVD, or masses. LUNGS: Breath sounds equal, clear to auscultation bilaterally. No wheezes, and no crackles. No accessory muscle use. HEART: Regular rate and rhythm, normal S1 and S2 without murmur, rub or gallop. ABDOMEN: Soft, nontender, not distended, normoactive bowel sounds, no guarding, no rebound, no masses. No hepatomegaly or splenomegaly. MUSCULOSKELETAL: Normal range of motion at all joints. No bony deformities or tenderness. No CVA tenderness. LOWER EXTREMITIES: 2+ pulses felt b/l, warm. No calf tenderness. No peripheral edema. NEUROLOGICAL: Cranial nerves II-X intact. Normal speech. Normal gait. PSYCHIATRIC: Cooperative. Good eye contact. Appropriate mood and affect. SKIN: Warm, dry, normal turgor, normal capillary refill. Bruising seen over left lower extremity as well as arm and abdomen. No tenderness to palpation. Laboratory Results - last 24 hr 08/13/17 08/13/17 08/14/17 16:56 20:52 05:25 POC Glucometer 254 326 281 08/14/17 11:34 POC Glucometer 236 Active Medications Generic Name Dose Route Start Last Admin Trade Name Freq PRN Reason Stop Dose Admin Acetaminophen 650 mg 08/14/17 08:29 08/14/17 09:42 Tylenol - PO 650 mg Q4H PRN Administration PAIN LEVEL 6-10 Atorvastatin Calcium 40 mg 08/14/17 22:00 Lipitor - PO HS PATTI Benzocaine/Menthol 1 each 08/14/17 08:31 Cepacol Lozenge - MM PRN PRN SORE THROAT Clopidogrel Bisulfate 75 mg 08/10/17 12:30 08/14/17 13:33 Plavix - PO 75 mg DAILY PATTI Administration Heparin Sodium (Porcine) 5,000 unit 08/14/17 14:00 08/14/17 13:34 Heparin - SQ 5,000 unit TID PATTI Administration Lactated Ringer's 1,000 mls @ 75 mls/hr 08/10/17 12:15 08/14/17 13:11 Lactated Ringers Solution IV Not Given ASDIR PATTI Sodium Chloride 1,000 mls @ 100 mls/hr 08/14/17 09:00 08/14/17 14:22 Normal Saline - IV 100 mls/hr ASDIR PATTI Administration Vancomycin HCl 1 gm in 200 mls @ 133.333 mls/hr 08/14/17 10:00 08/14/17 11:01 Vancomycin 1 Gm Premix - IVPB 133.333 mls/hr BID PATTI Administration Protocol Cefepime HCl 2 gm/ Dextrose 100 mls @ 200 mls/hr 08/14/17 22:00 IVPB BID PATTI Insulin Aspart 1 vial 08/14/17 11:00 08/14/17 11:36 Novolog Vial Sliding Scale - SQ 4 unit ACHS PATTI Administration Protocol Losartan Potassium 100 mg 08/14/17 10:00 08/14/17 09:25 Cozaar - PO 100 mg DAILY PATTI Administration Neomycin/Polymyxin/Bacitracin 1 applic 08/14/17 10:00 08/14/17 09:28 Neosporin Topical Ointment - TP 1 applic BID PATTI Administration Nicotine 21 mg 08/14/17 10:00 08/14/17 09:30 Nicoderm Patch - TD 21 mg DAILY PATTI Administration Nortriptyline HCl 25 mg 08/14/17 10:00 08/14/17 09:26 Pamelor - PO 25 mg DAILY PATTI Administration Nystatin 1 applic 08/14/17 10:00 08/14/17 09:28 Mycostatin Cream - TP 1 applic BID PATTI Administration Ondansetron HCl 4 mg 08/10/17 12:14 Zofran Injection IVPUSH Q6H PRN NAUSEA AND/OR VOMITING Pantoprazole Sodium 40 mg 08/14/17 10:00 08/14/17 09:25 Protonix - PO 40 mg DAILY PATTI Administration Prednisone 30 mg 08/14/17 10:00 08/14/17 11:01 Deltasone - PO 08/15/17 09:59 30 mg DAILY PATTI Administration Silver Sulfadiazine 1 applic 08/14/17 10:00 08/14/17 09:27 Silvadene - TP 1 applic DAILY PATTI Administration ASSESSMENT/PLAN: The patient is a 51 yo m w/ PMH DM, HTN, HLD, PVD who is admitted for further workup and management of a non-healing foot wound. #POD 4 atheroectomy with stent placement w/ Dr. Carmona -patient started on Plavix 75mg -pain control #Foot wound 2/2 uncontrolled DM vs PVD -MRI of left foot shows osteo -ID consult -Vancomycin 1g daily (day 8) -Zosyn 3.375g IV Q6H (completed 8 days) -Cefepime 2g Q12h started today -Will complete 5 more weeks of Cefepime/Vanco via PICC on discharge -awaiting PICC placement. #Dysuria likley 2/2 candidiasis of the penis and foreskin. - improved -neosporin cream after washing with lukewarm water. -c/w topical nystatin #HTN -holding home HCTZ -c/w home losartan 100mg daily #DM -holding home oral hypoglycemics -BGM ACHS -ISS ACHS #HLD -c/w home atorvastatin 20mg daily #Prophylaxis -Hep SQ 5ku TID #FEN -no fluids indicated -monitor lytes -Diabetic diet #Dispo -admit to inpatient med surg -will DC after picc placement in AM Visit type - Emergency Visit Emergency Visit: Yes ED Registration Date: 08/07/17 Care time: The patient presented to the Emergency Department on the above date and was hospitalized for further evaluation of their emergent condition. - New Patient This patient is new to me today: No - Critical Care Critical Care patient: No - Discharge Referral Referred to [facility] Med P.C.: No <Briseida Euceda - Last Filed: 08/14/17 19:59> Physical Exam: Patient will discharged home in am post PICC line
[2017-08-14] MEDS: oxyCODONE HCL 5 MG TABLET PO PRN (17:48)
[2017-08-14] MEDS: DOCUSATE SODIUM 100 MG CAPSULE (FP) PO SCH (17:48)
[2017-08-14] MEDS ORDERED: CEFEPIME HCL/D5W 2 GM/50 ML BAG IVPB SCH (22:00)
[2017-08-14] MEDS ORDERED: ATORVASTATIN CA 40 MG TABLET (FP) PO SCH (22:00)
[2017-08-14] MEDS: CEFEPIME 2 GM in DEXTROSE 5%-WATER 100 ML IVPB SCH (23:07)
[2017-08-15] MEDS: oxyCODONE HCL 5 MG TABLET PO PRN ×2 (01:16→10:30)
[2017-08-15] MEDS: SODIUM CHLORIDE 1,000 ML IV SCH (02:30)
[2017-08-15] MEDS: HEPARIN NA (PORCINE) 5,000 UNITS/ML 1ML VIAL SQ SCH (05:48)
[2017-08-15 06:08] VITALS: BP 147/75; PULSE 62; TEMP 98
[2017-08-15] MEDS: INSULIN SLIDING SCALE (NOVOLOG) 1 VIAL SQ SCH ×2 (06:33→11:10)
[2017-08-15] MEDS ORDERED: INSULIN (NOVOLOG) ASPART 100 UNITS/ML 10ML VIAL ONE (06:48)
--- NOTE | 2017-08-15 08:41 | CONSULT ---
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 Denies F/V/N/C/SOB/CP. Noted to have discharge from the toe at home. Notes having peripheral vascular disease requiring surgery with Dr. Carmona during this admission. Currently afebrile. PMHx: IDDM, HLP, HTN, PVD, h/o congenital clubfoot s/p reconstruction, active smoker Meds: noted ALL: codeine DEEP: L foot: pedal pulses non-palpable, foot is warm and well perfused. There is a plantar lateral diabetic ulcer with hyperkeratotic borders, probes about 0.5 cm , no purulent drainage, no fluctuance, no periwound erythema, no streaking cellulitis, no soft tissue crepitus, no signs of active infection. Minimal tenderness to palpation. There is contracture of the fifth digit at the level of the IPJ. MRI L foot: hazy bone marrow edema middle and distal phalanges of fifth toe suggestive of osteomyelitis Imp: 51 year old DM M with L 5th digit ulcer, osteomyelitis 1. Discussed case with patient, including treatment options. Wants to treat with IV abx in hopes to salvage the toe. 2. Discussed with Infectious Disease, will treat with IV abx for treatment of osteomyelitis 3. Continue present local wound care Rx 4. May benefit from hammer toe arthroplasty to alleviate pressure from fifth toe. 5. Can f/u as outpatient in wound healing center upon discharge. Thank you for the courtesy of this consultation. Faby Bee DPM
[2017-08-15] MEDS ORDERED: PT OWN MED DRAWER 7, Y5N ONE (10:00)
[2017-08-15] MEDS: CEFEPIME 2 GM in DEXTROSE 5%-WATER 100 ML IVPB SCH (10:03)
[2017-08-15] MEDS: LOSARTAN POTASSIUM 50 MG TABLET (FP) PO SCH (10:04)
[2017-08-15] MEDS: PANTOPRAZOLE 40 MG TABLET (FP) PO SCH (10:04)
[2017-08-15] MEDS: NORTRIPTYLINE HCL 25 MG CAPSULE PO SCH (10:04)
[2017-08-15] MEDS: DOCUSATE SODIUM 100 MG CAPSULE (FP) PO SCH (10:04)
[2017-08-15] MEDS: NICOTINE 21 MG/24 HOURS TOPICAL PATCH TD SCH (10:04)
[2017-08-15] MEDS: CLOPIDOGREL BISULFATE 75 MG TABLET (FP) PO SCH (10:07)
[2017-08-15] MEDS: SILVER SULFADIAZINE 1% TOP CREAM 50 GM JAR TP SCH (10:12)
[2017-08-15] MEDS: NYSTATIN 100,000 UNIT/GM TOPICAL CREAM 15 GM TUBE TP SCH (10:13)
[2017-08-15] MEDS: NEOMYCIN/POLYMYXIN/BACITRACIN (TRIPLE ANTIBIOTIC) 28 GM OINTMENT TP SCH (10:13)
[2017-08-15] MEDS: VANCOMYCIN 1 GM PREMIX - 1 GM/200 ML BAG IVPB SCH (10:25)
--- NOTE | 2017-08-15 15:44 | DS ---
Physical Exam: Patient is s/p Picc line , getting discharged home with home infusion Vancomycin and Cefepime , weekly Labs.Follow with Vital Signs Temperature 98.0 F 08/15/17 06:07 Pulse Rate 62 08/15/17 06:07 Respiratory Rate 16 08/15/17 09:00 Blood Pressure 147/75 08/15/17 06:07 O2 Sat by Pulse Oximetry (%) 97 08/15/17 09:00 CBCD WBC 11.7 K/mm3 (4.0-10.0) H D 08/13/17 12:42 RBC 4.34 M/mm3 (4.00-5.60) 08/13/17 12:42 Hgb 13.2 GM/dL (11.7-16.9) 08/13/17 12:42 Hct 39.7 % (35.4-49) 08/13/17 12:42 MCV 91.6 fl (80-96) 08/13/17 12:42 MCHC 33.3 g/dl (32.0-35.9) 08/13/17 12:42 RDW 14.5 % (11.9-15.9) 08/13/17 12:42 Plt Count 374 K/MM3 (134-434) 08/13/17 12:42 MPV 7.0 fl (7.5-11.1) L 08/13/17 12:42 CMP Sodium 137 mmol/L (136-145) 08/13/17 12:42 Potassium 4.5 mmol/L (3.5-5.1) 08/13/17 12:42 Chloride 107 mmol/L (98-107) 08/13/17 12:42 Carbon Dioxide 25 mmol/L (21-32) 08/13/17 12:42 Anion Gap 5 (8-16) L 08/13/17 12:42 BUN 19 mg/dL (7-18) H 08/13/17 12:42 Creatinine 0.9 mg/dL (0.7-1.3) 08/13/17 12:42 Creat Clearance w eGFR > 60 (>60) 08/08/17 06:30 Random Glucose 293 mg/dL (74-106) H D 08/13/17 12:42 Calcium 8.5 mg/dL (8.5-10.1) 08/13/17 12:42 Total Bilirubin 0.3 mg/dL (0.2-1.0) 08/08/17 06:30 AST 12 U/L (15-37) L 08/08/17 06:30 ALT 18 U/L (12-78) D 08/08/17 06:30 Alkaline Phosphatase 79 U/L (45-117) 08/08/17 06:30 Total Protein 6.5 g/dl (6.4-8.2) 08/08/17 06:30 Albumin 3.3 g/dl (3.4-5.0) L 08/08/17 06:30 CARDIAC ENZYMES Creatine Kinase 67 IU/L (39-308) 08/07/17 15:05 Troponin I < 0.02 ng/ml (0.00-0.05) 08/07/17 15:05 Home Medications Medication Instructions Recorded Glipizide [Glucotrol Xl] 5 mg PO DAILY 06/19/12 metFORMIN HCL [Glucophage] 1,000 mg PO BID 06/19/12 Losartan/Hydrochlorothiazide 1 tab PO DAILY 07/24/17 [Losartan-Hctz 100-25 mg Tab] Oxycodone HCl/Acetaminophen 1 tab PO TID 07/24/17 [Percocet 5-325 mg Tablet] Pantoprazole Sodium [Protonix] 1 tab PO DAILY 07/24/17 Silver Sulfadiazine [Silvadene] 1 applic TID 07/24/17 Nortriptyline HCl [Pamelor -] 1 cap PO DAILY 07/28/17 Atorvastatin Ca [Lipitor] 20 mg PO HS 08/07/17 Diclofenac Sodium [Voltaren -] 75 mg PO BID 08/07/17 Glipizide [Glucotrol -] 10 mg PO BID 08/07/17 Cefepime [Maxipime (Restricted To 2 gm IVPB BID vial 08/14/17 Id) -] Clopidogrel Bisulfate [Plavix -] 75 mg PO DAILY #30 tablet 08/14/17 Neomy Sulf/Bacitrac Zn/Poly 1 applic TP BID #1 tube 08/14/17 [Neosporin Top Ointment -] Nystatin Cream [Mycostatin Cream -] 1 applic TP BID #1 tube 08/14/17 Silver Sulfadiazine 1% Top Cr 1 applic TP DAILY #1 jar 08/14/17 [Silvadene -] Vancomycin 1,250 mg IV BID #1 vial 08/14/17 Nicotine [Nicotine Patch 21 mg/24 1 each TD DAILY #30 patch.td24 08/15/17 hr] <Briseida Eucdea - Last Filed: 08/15/17 17:29> Physical Exam: SUBJECTIVE: Patient seen and examined at bedside. No new complaints. for PICC insertion and DC today. OBJECTIVE: Vital Signs Period Temp Pulse Resp BP Sys/Mills Pulse Ox Last 24 Hr 98.0 F-98.1 F 62-77 16-20 147-153/75-84 97-97 PHYSICAL EXAM GENERAL: Awake, alert, and fully oriented, in no acute distress. HEAD: Normal with no signs of trauma. NECK: Normal range of motion, supple without lymphadenopathy, JVD, or masses. LUNGS: Breath sounds equal, clear to auscultation bilaterally. No wheezes, and no crackles. No accessory muscle use. HEART: Regular rate and rhythm, normal S1 and S2 without murmur, rub or gallop. ABDOMEN: Soft, nontender, not distended, normoactive bowel sounds, no guarding, no rebound, no masses. No hepatomegaly or splenomegaly. MUSCULOSKELETAL: Normal range of motion at all joints. No bony deformities or tenderness. No CVA tenderness. LOWER EXTREMITIES: 2+ pulses felt b/l, warm. No calf tenderness. No peripheral edema. no active drainage seen. left 5th toe tender to palpation. NEUROLOGICAL: Cranial nerves II-X intact. Normal speech. Normal gait. PSYCHIATRIC: Cooperative. Good eye contact. Appropriate mood and affect. SKIN: Warm, dry, normal turgor, normal capillary refill. Bruising seen over left lower extremity as well as arm and abdomen. No tenderness to palpation. LABS Laboratory Results - last 24 hr 08/14/17 08/14/17 08/15/17 16:26 21:04 05:35 POC Glucometer 279 342 236 08/15/17 11:05 POC Glucometer 325 HOSPITAL COURSE: Date of Admission:08/07/17 The patient is a 51 yo m w/ PMH HTN, DM, PVD who was sent to the ED by Dr. Carmona for pre-op management of a nonhealing, infected left foot ulcer. The patient states that he has experienced pain, numbness and drainage from 2 sites on his foot over the past few months. He went to see a scanning supervisor several times while experiencing this and has tried multiple antibiotics (augmentin, levaquin ) as well as silvedine cream which did not help. His scanning supervisor referred him to Dr. Carmona, who sent him to the ED. In the ED, he was found to have a WBC count to 10.5 and a heart rate of 96. The patient's left foot showed areas of previous drainage on the medial side as well as a callused, open wound on the 5th toe. Pulses were 1+ b/l. The patient was admitted for further workup and treatment. Infectious disease was consulted. Podiatry was consulted. Vascular surgery was consulted. Outpatient arterial Doppler showed arterial insufficiency in both lower limbs in addition to a left superficial femoral artery occlusion. An xray of the foot showed chronic changes in the foot, but was not diagnostic of osteomyelitis. An MRI of the left foot showed osteomyelitis. Wound cultures grew normal skin porsha. The patient was treated with Vancomycin, Zosyn, an insulin sliding scale and sulfadiazine cream. The patient underwent angiogram with stenting of occluded arteries on the left with Dr. Carmona on 08/10. The patient tolerated the procedure well and was placed on Plavix 75mg daily post procedure. Candidiasis of the foreskin and penile head was incidentally found during admission and was treated with neosporin and nystatin cream. A PICC line was placed under US guidance prior to discharge. The patient was discharged with prescriptions for Plavix, neosporin, nystatin cream, sulfadiazine, vancomcyin and cefepime for an additional 5 weeks. The patient was instructed to follow up with his primary care physician within one week of discharge home. He was informed that he would need a weekly CBC and CMP while on antibiotics. He was also instructed to follow up with the wound care clinic to set up hyperbaric oxygen treatment as an outpatient. He was given a referral to podiatry for further follow up on his calluses as well as dressing changes. He was instructed to follow up with an infectious disease specialist in 2 weeks to monitor his osteomyelitis treatment. Finally, he was referred to a urologist for an elective circumcision. Date of Discharge: 08/15/17 Minutes to complete discharge: 63 <Yoni Jhaveri - Last Filed: 08/15/17 20:59> Discharge Summary - Home Medications Comprehensive Discharge Medication List: Ambulatory Orders Glipizide [Glucotrol Xl] 5 mg PO DAILY 06/19/12 metFORMIN HCL [Glucophage] 1,000 mg PO BID 06/19/12 Losartan/Hydrochlorothiazide [Losartan-Hctz 100-25 mg Tab] 1 tab PO DAILY Oxycodone HCl/Acetaminophen [Percocet 5-325 mg Tablet] 1 tab PO TID 07/24/17 Pantoprazole Sodium [Protonix] 1 tab PO DAILY 07/24/17 Silver Sulfadiazine [Silvadene] 1 applic TID 07/24/17 Nortriptyline HCl [Pamelor -] 1 cap PO DAILY 07/28/17 Atorvastatin Ca [Lipitor] 20 mg PO HS 08/07/17 Diclofenac Sodium [Voltaren -] 75 mg PO BID 08/07/17 Glipizide [Glucotrol -] 10 mg PO BID 08/07/17 Cefepime [Maxipime (Restricted To Id) -] 2 gm IVPB BID vial 08/14/17 Clopidogrel Bisulfate [Plavix -] 75 mg PO DAILY #30 tablet 08/14/17 Neomy Sulf/Bacitrac Zn/Poly [Neosporin Top Ointment -] 1 applic TP BID #1 tube 08/14/17 Nystatin Cream [Mycostatin Cream -] 1 applic TP BID #1 tube 08/14/17 Silver Sulfadiazine 1% Top Cr [Silvadene -] 1 applic TP DAILY #1 jar 08/14/17 Vancomycin 1,250 mg IV BID #1 vial 08/14/17 Nicotine [Nicotine Patch 21 mg/24 hr] 1 each TD DAILY #30 patch.td24 08/15/17 <Briseida Euceda - Last Filed: 08/15/17 17:29> Reason For Visit: DIABETIC FOOT ULCER - Home Medications Comprehensive Discharge Medication List: Ambulatory Orders Glipizide [Glucotrol Xl] 5 mg PO DAILY 06/19/12 metFORMIN HCL [Glucophage] 1,000 mg PO BID 06/19/12 Losartan/Hydrochlorothiazide [Losartan-Hctz 100-25 mg Tab] 1 tab PO DAILY Oxycodone HCl/Acetaminophen [Percocet 5-325 mg Tablet] 1 tab PO TID 07/24/17 Pantoprazole Sodium [Protonix] 1 tab PO DAILY 07/24/17 Silver Sulfadiazine [Silvadene] 1 applic TID 07/24/17 Nortriptyline HCl [Pamelor -] 1 cap PO DAILY 07/28/17 Atorvastatin Ca [Lipitor] 20 mg PO HS 08/07/17 Diclofenac Sodium [Voltaren -] 75 mg PO BID 08/07/17 Glipizide [Glucotrol -] 10 mg PO BID 08/07/17 Cefepime [Maxipime (Restricted To Id) -] 2 gm IVPB BID vial 08/14/17 Clopidogrel Bisulfate [Plavix -] 75 mg PO DAILY #30 tablet 08/14/17 Neomy Sulf/Bacitrac Zn/Poly [Neosporin Top Ointment -] 1 applic TP BID #1 tube 08/14/17 Nystatin Cream [Mycostatin Cream -] 1 applic TP BID #1 tube 08/14/17 Silver Sulfadiazine 1% Top Cr [Silvadene -] 1 applic TP DAILY #1 jar 08/14/17 Vancomycin 1,250 mg IV BID #1 vial 08/14/17 Nicotine [Nicotine Patch 21 mg/24 hr] 1 each TD DAILY #30 patch.td24 08/15/17 <Yoni Jhaveri - Last Filed: 08/15/17 20:59> Condition: Improved - Instructions Diet, Activity, Other Instructions: You were admitted for low blood flow to your left foot and for a foot ulcer. You underwent a stent placement with Dr. Carmona to improve the blood flow to your foot. You were also found to have osteomyelitis in your left small toe, an infection in your bone. Follow-up: 1. Dr. Dalton, your primary care physician in one week for post-hospital evaluation, weekly labs. CBC, CMP. 2. Dr. Munoz, an infectious disease doctor, within 2 weeks of going home to check up on your bone infection. 3. Dr. Carmona, your vascular surgeon, within one week of discharge home for follow up of your stent 4. Dr. Bee, a scanning supervisor who saw you here in the hospital, for a wound dressing change. You can also visit your scanning supervisor for this. 5. Dr. Valdovinos, a urologist You will be receiving Vancomycin 1250 mg twice a day for 5 weeks and Cefepime 2g twice a day for 5 weeks. You will need weekly lab draws on . Prescriptions have been written for you by Alexander. We have also provided some cream for your penile infection. Please follow up with a urologist for a circumcision. contact information has been provided for you. Please call to make an appointment We are starting you on a new medication to help thin your blood and prevent clots in your stent. This medication is called Plavix. You should take 75mg of this medication daily. It it very important that you take this medication and not miss any doses. Keep your PICC line site clean and dry at all times. If you notice redness or pain around the PICC line or develop fevers, please call your doctor immediately. If you begin to experience chest pain, shortness of breath, fevers, chills or if any of your symptoms get worse, please call your doctor or return to the emergency department. Referrals: Talib Bee MD [Staff Physician] - Marcos Shirley MD [Primary Care Provider] - Fidencio Valdovinos MD [Staff Physician] - Honey Munoz MD [Staff Physician] - Sonido Carmona MD [Staff Physician] - Disposition: HOME This patient is new to me today: No Emergency Visit: Yes ED Registration Date: 08/07/17 Care time: The patient presented to the Emergency Department on the above date and was hospitalized for further evaluation of their emergent condition. Critical Care patient: No - Discharge Referral Referred to [facility] Yes Physician Referral: Marcos Dalton MD ([facility]) <Yoni Jhaveri - Last Filed: 08/15/17 20:59>
--- NOTE | 2017-08-16 16:36 | OP ---
DATE OF OPERATION: 08/10/2017 PREOPERATIVE DIAGNOSIS: Left 5th toe ulcer. POSTOPERATIVE DIAGNOSIS: Left 5th toe ulcer. PROCEDURE: Aortogram, left lower extremity angiogram, superficial femoral artery atherectomy, superficial femoral artery drug-coated balloon angioplasty, superficial femoral artery stent placement. FINDINGS: SFA occlusion for 15 cm. SURGEON: Sonido Hood DO ANESTHESIA: Fractional. BLOOD LOSS: 50 mL. The patient is a 51-year-old male who has a left 5th toe ulcer. MRI was done on the left foot, showing that he has osteomyelitis due to exposed bone. He does not have a palpable DP pulse. He had a CTA preoperatively performed, showing that he has SFA occlusion and needs an angiogram in order to help his ulcer heal. The patient was consented for the procedure, understanding all risks, benefits, and alternatives. He was then taken to the operating room. Once in the operating room, he was laid on the operating table in supine manner. The area of the right and left groin were prepped and draped in sterile surgical manner. We then went ahead and injected 10 mL of lidocaine 1% over the right common femoral artery. We then took our micropuncture needle and punctured the right common femoral artery. Micropuncture wire was inserted, micropuncture sheath was inserted. We then inserted a traditional 5-Serbian sheath. We then placed a 0.035 floppy guidewire up into the aorta followed by an Omni Flush catheter. We then shot an aortogram via hand injection, showing that the aorta and the iliac arteries were without any disease. We then went up and over, using our 0.035 guidewire, we went up and over to the left common femoral artery and Omni Flush catheter followed. We then shot an angiogram of the left lower extremity, showing that the profunda and the common femoral artery were patent, the proximal SFA was patent, but the mid to distal aspect was occluded for 15 cm, popliteal artery was patent and patient had 2-vessel runoff into the foot. At this point, we decided that patient would need intervention. We went ahead and placed a 0.035 stiff guidewire into the SFA and we removed our Omni Flush catheter and placed a 6 x 45 crossover sheath. Then 5000 units of IV heparin were administered to the patient. We then followed that using a Quick-Cross catheter and we were able to selectively cross our 15 cm occlusion and placed a wire into the anterior tibial artery. We then exchanged the wire for a Viper wire. We then performed atherectomy of the occluded and stenosed segment. Atherectomy was performed with 2 passes using a CSI orbital atherectomy. We then went ahead and used a 5 x 10 drug-coated Lutonix balloon and performed angioplasty of the area. Completion angiogram showed that there was an area of dissection and a 6 x 6 LifeStent was placed. Completion angiogram now showed that the SFA was patent, there was good brisk flow, there was 2-vessel runoff of PT and anterior tibial artery into the foot. Patient had good palpable DP pulse now, no more intervention was needed. Crossover sheath was brought up and over and StarClose device was successfully deployed in the right common femoral artery. Pressure was held for 5 minutes. After there was no more bleeding, the area was wet and dried, and Dermabond was placed. Patient tolerated procedure, no complications. Patient was transferred to PACU in stable condition. SONIDO HOOD DO [id number]
== END 2017-08-15 12:42 | disposition home or self-care (01) | DRG 271 ==
LOC: JER 13:47 → JERBED 16:16 → J6S 17:55
PROVIDERS: ADMIT Internal Medicine; ATTEND Internal Medicine
PROC: 047L3DZ Dilation of Left Femoral Artery with Intraluminal Device, Percutaneous Approach (ICD-10-PCS; 2017-08-10)
PROC: B41DYZZ Fluoroscopy of Aorta and Bilateral Lower Extremity Arteries using Other Contrast (ICD-10-PCS; 2017-08-10)
PROC: B40GYZZ Plain Radiography of Left Lower Extremity Arteries using Other Contrast (ICD-10-PCS; 2017-08-10)
PROC: 04CL3ZZ Extirpation of Matter from Left Femoral Artery, Percutaneous Approach (ICD-10-PCS; principal; 2017-08-10 13:00)
DX: E11.51 Type 2 diabetes mellitus with diabetic peripheral angiopathy without gangrene (principal); E87.2 Acidosis; M86.8X7 Other osteomyelitis, ankle and foot; B37.49 Other urogenital candidiasis; E11.621 Type 2 diabetes mellitus with foot ulcer; I10 Essential (primary) hypertension; E78.5 Hyperlipidemia, unspecified; Z79.84 Long term (current) use of oral hypoglycemic drugs; F17.210 Nicotine dependence, cigarettes, uncomplicated; Z86.12 Personal history of poliomyelitis; L97.529 Non-pressure chronic ulcer of other part of left foot with unspecified severity; E11.65 Type 2 diabetes mellitus with hyperglycemia; R30.0 Dysuria; E11.69 Type 2 diabetes mellitus with other specified complication
CPT/HCPCS: 36415; 36569; 73630-TC-LT; 73718-LT; 76000-TC-FY; 77001-TC-FY; 80048; 80053; 80061; 81003; 82550; 82962; 83036; 83605; 83721; 83735; 84100; 84484; 85025; 85027; 85610; 85651; 85730; 86140; 87040; 87070; 87077; 87205; 93005; 93010; 94760; 97116-GP; 97162-GP; 99283-25; C1751; G0480; J1644; J7030

== ENCOUNTER 2017-10-19 13:07 | Inpatient (IN) | payer OTHER ==
--- NOTE | 2017-10-19 14:09 | PDOC ---
History of Present Illness - General Chief Complaint: Wound Stated Complaint: LT TOE INFECTION (PCP SENT) Time Seen by Provider: 10/19/17 13:46 History Source: Patient Exam Limitations: No Limitations - History of Present Illness Initial Comments: This is a 52 YOM with h/o NIDDM, nonhealing left 5th toe wound (follows with wound care and podiatry, thought to be 2/2 DM versus PVD), osteomyelitis of the same toe (tx with vancomycin via PICC line until the beginning of September 2017), chronic smoker (20 cigarettes/day for 40 years), HTN, HLD, BPH, and GERD sent by his turning lathe tender (Dr. Jacobson who is covering for Dr. Diaz) for purulent drainage from a chronic wound on the distal portion of the left 5th toe. He was initially seen for this initially in May 2017 and it has been debrided multiple times since then, Dr. Carmona did an angioplasty to the LLE, and the patient was having hyperbaric oxygen therapy prior to planning any further surgical intervention for the toe. The patient notes 6/10 constant, sharp, non- radiating pain to the area, but no significant swelling, fever, chills, nausea, vomiting, diarrhea, chest pain, SOB, or other symptoms. He has not noticed any active drainage from the wound at home. Past History - Past Medical History Allergies/Adverse Reactions: Allergies Allergy/AdvReac Type Severity Reaction Status Date / Time codeine [Codeine] Allergy Verified 10/19/17 13:29 Home Medications: Ambulatory Orders Glipizide [Glucotrol Xl] 5 mg PO DAILY 06/19/12 metFORMIN HCL [Glucophage] 1,000 mg PO BID 06/19/12 Losartan/Hydrochlorothiazide [Losartan-Hctz 100-25 mg Tab] 1 tab PO DAILY Oxycodone HCl/Acetaminophen [Percocet 5-325 mg Tablet] 1 tab PO TID 07/24/17 Pantoprazole Sodium [Protonix] 1 tab PO DAILY 07/24/17 Silver Sulfadiazine [Silvadene] 1 applic TID 07/24/17 Nortriptyline HCl [Pamelor -] 1 cap PO DAILY 07/28/17 Atorvastatin Ca [Lipitor] 20 mg PO HS 08/07/17 Diclofenac Sodium [Voltaren -] 75 mg PO BID 08/07/17 Glipizide [Glucotrol -] 10 mg PO BID 08/07/17 Clopidogrel Bisulfate [Plavix -] 75 mg PO DAILY #30 tablet 08/14/17 Neomy Sulf/Bacitrac Zn/Poly [Neosporin Top Ointment -] 1 applic TP BID #1 tube 08/14/17 Nystatin Cream [Mycostatin Cream -] 1 applic TP BID #1 tube 08/14/17 Silver Sulfadiazine 1% Top Cr [Silvadene -] 1 applic TP DAILY #1 jar 08/14/17 Vancomycin 1,250 mg IV BID #1 vial 08/14/17 Nicotine [Nicotine Patch 21 mg/24 hr] 1 each TD DAILY #30 patch.td24 08/15/17 Asthma: No Cardiac Disorders: Yes CVA: No COPD: No CHF: No Diabetes: Yes (niddm) HTN: Yes Hypercholesterolemia: Yes - Surgical History Orthopedic Surgery: Yes (Cervical spine sx, L. Rotator cuff) - Suicide/Smoking/Psychosocial Hx Smoking Status: Yes Smoking History: Current every day smoker Have you smoked in the past 12 months: Yes Number of Cigarettes Smoked Daily: 10 Information on smoking cessation initiated: Yes 'Breaking Loose' booklet given: 08/07/17 Hx Alcohol Use: No Drug/Substance Use Hx: No Substance Use Type: None Hx Substance Use Treatment: No Review of Systems - Review of Systems Able to Perform ROS?: Yes Constitutional: No: Chills, Fever, Unexplained wgt Loss HEENTM: No: Nose Congestion, Throat Pain Respiratory: No: Cough, Shortness of Breath Cardiac (ROS): No: Chest Pain, Palpitations ABD/GI: No: Constipated, Diarrhea, Nausea, Vomiting : No: Burning, Dysuria Musculoskeletal: No: Back Pain, Neck Pain Integumentary: Yes: Other (nonhealing left 5th toe ulcer and pain). No: Bruising, Rash Neurological: No: Headache, Numbness, Tingling, Weakness, Dizziness Endocrine: No: Unexplained Weight Gain, Unexplained Weight Loss *Physical Exam - Vital Signs Last Vital Signs Temp Pulse Resp BP Pulse Ox 98.4 F 112 H 14 132/72 99 10/19/17 13:20 10/19/17 13:20 10/19/17 13:20 10/19/17 13:20 10/19/17 13:20 - Physical Exam General Appearance: Yes: Nourished, Appropriately Dressed, Other (nontoxic and well appearing, comfortable, answering questions appropriately, pleasant Pakistani -speaking adult male). No: Apparent Distress HEENT: positive: EOMI, FILIPE, Normal ENT Inspection, Normal Voice, Hearing Grossly Normal. negative: Scleral Icterus (R), Scleral Icterus (L), Nasal Congestion Neck: positive: Trachea midline, Supple. negative: Tender, Rigid Respiratory/Chest: positive: Lungs Clear, Normal Breath Sounds. negative: Respiratory Distress, Crackles, Rhonchi, Stridor, Wheezing Cardiovascular: positive: Regular Rhythm, Regular Rate, S1, S2. negative: Edema , JVD, Murmur Gastrointestinal/Abdominal: positive: Normal Bowel Sounds, Flat, Soft. negative : Tender, Organomegaly, Pulsatile Mass, Guarding Musculoskeletal: positive: Normal Inspection. negative: Decreased Range of Motion, Vertebral Tenderness Extremity: positive: Normal Capillary Refill, Normal Inspection, Normal Range of Motion. negative: Tender, Cyanosis Integumentary: positive: Normal Color, Dry, Warm, Other (left 5th toe with chronic-appearing callus'ed ulcer without active drainage, no exposed bone, no nearby erythema or warmth or induration, no streaking erythema). negative: Erythema, Rash, Bruising Neurologic: positive: federal air marshal II-XII NML intact (grossly), Fully Oriented, Alert, Normal Mood/Affect, Normal Response, Motor Strength 5/5 Heart Score/ECG Review #1 10/19/17 14:52 NSR rate 93 with normal axis and intervals, incomplete RBBB, deep Q waves and flipped T waves in III. ED Treatment Course - LABORATORY CBC & Chemistry Diagram: 10/19/17 15:50 10/19/17 15:50 - RADIOLOGY Radiology Studies Ordered: Category Date Time Status CXRPORT [CHEST X-RAY PORTABLE*] [RAD] Stat Radiology 10/19/17 14:03 Ordered FOOT-LEFT [RAD] Stat Radiology 10/19/17 14:02 Ordered TOE(S) LEFT [RAD] Stat Radiology 10/19/17 14:02 Ordered Medical Decision Making - Medical Decision Making 10/19/17 15:53 Pt with NIDDM p/w LLE 5th toe chronic wound with drainage detected at his turning lathe tender's office today. Initial Vital Signs Temp Pulse Resp BP Pulse Ox 98.4 F 112 H 14 132/72 99 10/19/17 13:20 10/19/17 13:20 10/19/17 13:20 10/19/17 13:20 10/19/17 13:20 Exam: Results as noted in Physical Exam section. DDX IBNLT: infected toe wound, cellulitis, abscess, osteomyelitis, necrotizing soft tissue infection, sepsis, DVT, superficial venous thrombosis, CHF exacerbation, PVD, pulmonary HTN, etc W/U ordered: CBCD CMP Mg Phos Lactate BCx Coags T&S EKG CXR and X-ray leg to r/ o gas. TX ordered: vancomycin, Zosyn, IVF EKG: Reviewed; results as noted in ECG Review section. CXR: Foot/Toe XR: Laboratory Tests 10/19/17 10/19/17 10/19/17 15:50 15:50 15:50 WBC 9.2 RBC 4.72 Hgb 14.2 Hct 42.6 MCV 90.4 MCH 30.0 MCHC 33.2 RDW 14.7 Plt Count 418 MPV 6.8 L Absolute Neuts (auto) 5.4 Neutrophils % 58.7 D Lymphocytes % 32.7 D Monocytes % 7.0 Eosinophils % 1.2 D Basophils % 0.4 D Nucleated RBC % 0 ESR 17 PT with INR INR PTT (Actin FS) Sodium 137 Potassium 3.7 Chloride 100 Carbon Dioxide 28 Anion Gap 9 BUN 8 Creatinine 0.9 Creat Clearance w eGFR > 60 Random Glucose 215 H D Lactic Acid Calcium 9.4 Total Bilirubin 0.4 AST 12 L ALT 20 Alkaline Phosphatase 104 Total Protein 7.3 Albumin 3.8 10/19/17 10/19/17 15:50 15:50 WBC RBC Hgb Hct MCV MCH MCHC RDW Plt Count MPV Absolute Neuts (auto) Neutrophils % Lymphocytes % Monocytes % Eosinophils % Basophils % Nucleated RBC % ESR PT with INR 10.80 INR 0.96 PTT (Actin FS) 42.7 H Sodium Potassium Chloride Carbon Dioxide Anion Gap BUN Creatinine Creat Clearance w eGFR Random Glucose Lactic Acid 2.8 H* Calcium Total Bilirubin AST ALT Alkaline Phosphatase Total Protein Albumin Reassessment: Repeat VS: ADMIT The Pt is unsafe for discharge at this time. They require further hospital observation, workup, and treatment. Microblog sent to [facility] for admission. Spoke with Pedrohossein, in agreement Pt to be admitted to IP Med/Surg. Decision to Admit order placed to covering attending Dr. Pa. Consult order placed to Dr. Diaz (partner Dr. Jacobson sent patient in). *DC/Admit/Observation/Transfer Diagnosis at time of Disposition: Lactic acid blood increased Toe ulcer Qualifiers: Laterality: left Non-pressure ulcer stage: unspecified non-pressure ulcer stage Qualified Code(s): L97.529 - Non-pressure chronic ulcer of other part of left foot with unspecified severity Diabetes mellitus Qualifiers: Diabetes mellitus type: type 2 Diabetes mellitus computer terminal operator insulin use: without computer terminal operator use Diabetes mellitus complication status: with unspecified complications Qualified Code(s): E11.8 - Type 2 diabetes mellitus with unspecified complications - Discharge Dispostion Condition at time of disposition: Guarded Decision to Admit order: Yes - Referrals Referrals: Marcos Shirley MD [Primary Care Provider] - - Patient Instructions - Post Discharge Activity
[2017-10-19] MEDS ORDERED: VANCOMYCIN 1,500 MG in DEXTROSE 5%-WATER - 250 ML IVPB ONE (15:51)
[2017-10-19] MEDS ORDERED: PIPERACILLIN/TAZOB 4.5 GM 4.5 GM in DEXTROSE 5%-WATER 100 ML IVPB ONE (15:57)
--- NOTE | 2017-10-19 15:58 | PDOC ---
Attending Attestation - HPI HPI: 10/19/17 15:59 52 YOM with significant PMH of NIDDM, nonhealing left 5th toe wound (follows with wound care and podiatry, thought to be 2/2 DM versus PVD), chronic smoker ( 20 cigarettes/day for 40 years), HTN, HLD, BPH, and GERD sent by his personnel monitor (Dr. Jacobson - covering for Dr. Diaz) for purulent drainage from the distal posItion of the left 5th toe. Patient describes the left 5th toe pain as a 6/10 in severity, that is constant, sharp, and non-radiating. Patient states he was seen for this in May at which time it was debrided. Dr. Carmona ( vascular surgery) has also done an angioplasty and has been receiving hyperbaric oxygen prior to further intervention. Patient was told he had callus and was prescribed vancomycin through a PICC line which was removed on September 18. Patient ambulates with a cane at baseline. The patient denies chest pain, shortness of breath, headache and dizziness. Denies fever, chills, nausea, vomit, diarrhea and constipation. Denies dysuria, frequency, urgency and hematuria. Allergies: codeine Past surgical history: None reported Social history: No reported alcohol, drug, or cigarette use. PCP: Dr. Dalton - Physicial Exam PE: 10/19/17 15:59 General: Well appearing, awake and alert, NAD. HEENT: NCAT, PERRL, EOMI, clear conjunctiva, anicteric, Neck: neck supple, FROM, Lungs: normal and even respirations, no respiratory distress Heart: 2+ peripheral pulses throughout, no peripheral edema Abdomen: soft, NTND, no peritoneal signs. No CVAT MSK: no edema, OWENS x4, ROM intact. No clubbing or cyanosis. normal bulk and tone. +left pinky toe with hard callus, nontender, no purulence or erythema or fluctuance. Neuro: alert, oriented appropriately; no focal neurologic deficits. SILT, 5/5 distal and prox strength in all extrem. plantar and dorsiflexion intact. Skin: warm and well perfused, cap refill <2 sec, normal color; no rash <Aline Wright - Last Filed: 10/19/17 16:07> - Resident Resident Name: Jolly,Shantell - Medical Decision Making 10/19/17 15:56 52 YOM with h/o NIDDM, nonhealing left 5th toe wound (follows with wound care and podiatry, thought to be 2/2 DM versus PVD), osteomyelitis of the same toe ( tx with vancomycin via PICC line until the beginning of September 2017), chronic smoker (20 cigarettes/day for 40 years), HTN, HLD, BPH, and GERD presenting with purulence from left pinky toe today at podiatry clinic. VS reviewed, mild tachy from pain vs fever. afebrile rectally, VS improved with treatment labs_ wnl, +lactic acid (high previously), CBC and lytes wnl. XR of chest normal call out to Dr. Jacobson, no call back admit for IV vancomycin/zosyn, wound care and infection workup given prior complicated course. blood cx pending, no drainage from wound to collect. 10/19/17 20:18 10/19/17 20:19 <Marley Pizano - Last Filed: 10/19/17 20:19> Heart Score/ECG Review - ECG Intrepretation Rhythm: Regular Rhythm - [place]: Normal - ECG Impressions Tachycardia: Sinus (poor R-wave progression, nonspecific ormalities in inferior leads, nonischemic) <Marley Pizano - Last Filed: 10/19/17 20:19>
[2017-10-19] MEDS ORDERED: PIPERACILLIN/TAZOB 4.5 GM 4.5 GM/100 ML BAG IVPB ONE (16:00)
[2017-10-19] MEDS ORDERED: VANCOMYCIN 1 GRAM (PRE-DOCKED) 1,000 MG/250 ML BAG IVPB ONE (16:00)
[2017-10-19 16:27] LABS: BASO % 0.4 % (0-2.0); EOS % 1.2 % (0-4.5); HEMATOCRIT 42.6 % (35.4-49); HEMOGLOBIN 14.2 GM/dL (11.7-16.9); LYMPH % 32.7 % (8-40); MCHC 33.2 g/dl (32.0-35.9); MEAN CELL VOLUME 90.4 fl (80-96); MEAN PLT VOLUME 6.8 fl (7.5-11.1); NEUT % 58.7 % (42.8-82.8); PLATELET COUNT 418 K/MM3 (134-434); RBC 4.72 M/mm3 (4.00-5.60); RDW 14.7 % (11.9-15.9); WHITE BLOOD COUNT 9.2 K/mm3 (4.0-10.0)
[2017-10-19 16:37] LABS: INR 0.96 (0.82-1.09); PROTHROMBIN TIME (PATIENT) 10.8 SEC (9.7-13.0)
[2017-10-19 16:40] LABS: ACTIVATED PTT 42.7 SECONDS (25.2-36.5)
[2017-10-19] MEDS ORDERED: VANCOMYCIN 1,500 MG in DEXTROSE 5%-WATER - 500 ML IVPB ONE (16:44)
[2017-10-19 16:50] LABS: ALBUMIN 3.8 g/dl (3.4-5.0); ANION GAP 9 (8-16); BILIRUBIN,TOTAL 0.4 mg/dL (0.2-1.0); BLOOD UREA NITROGEN 8 mg/dL (7-18); CALCIUM 9.4 mg/dL (8.5-10.1); CHLORIDE 100 mmol/L (98-107); CO2 28 mmol/L (21-32); CREATININE 0.9 mg/dL (0.7-1.3); GLUCOSE,RANDOM 215 mg/dL (74-106); POTASSIUM 3.7 mmol/L (3.5-5.1); SGOT/AST 12 U/L (15-37); SGPT/ALT 20 U/L (12-78); SODIUM 137 mmol/L (136-145); TOT PROT 7.3 g/dl (6.4-8.2)
[2017-10-19 16:51] LABS: ALK PHOS 104 U/L (45-117)
[2017-10-19] MEDS ORDERED: SODIUM CHLORIDE 0.9% 500 ML INFUS.BAG IV ONE (18:11)
--- NOTE | 2017-10-19 20:21 | PN ---
Teaching Attending Note Name of Resident: Maurice Sanford ATTENDING PHYSICIAN STATEMENT I saw and evaluated the patient. I reviewed the resident's note and discussed the case with the resident. I agree with the resident's findings and plan as documented. SUBJECTIVE: Patient is a 48 year old man with history of NIDDM, nonhealing left 5th toe wound, heavy tobacco use, HTN, Hyperlipidemia, BPH, and GERD sent by his gas leak tester (Dr. Jacobson - covering for Dr. Diaz) for purulent drainage from the distal posItion of the left 5th toe. Patient describes the left 5th toe pain as a 6/10 in severity, constant, sharp, and non-radiating. He was evaluated in May 2017 at which time the wound was debrided. Dr. Carmona ( vascular surgery) has also done an angioplasty and patient has been receiving hyperbaric oxygen therapy prior to further intervention. Patient was told he had callus and was prescribed vancomycin through a PICC line which was removed on September 18. OBJECTIVE: Alert and in no acute distress. Vital Signs Period Temp Pulse Resp BP Sys/Mills Pulse Ox Last 24 Hr 97.6 F-98.4 F 85-112 14-16 127-132/72-78 99-99 HEENT: No Jaundice, eye redness or discharge, PERRLA, EOMI. Normocephalic, atraumatic. External ears are normal and hearing is grossly intact. No nasal discharge. Neck: Supple, nontender. No palpable adenopathy or thyromegaly. No JVD Chest: Good effort. Clear to auscultation and percussion. Heart: Regular. No S3, rub or murmur Abdomen: Not distended, soft, nontender and no HSM. No rebound or guarding. Normoactive bowel sounds. Ext: Very thin legs. 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 Erythematous, swollen left 5th toe. No leg edema. Skin: Warm and dry. No petechiae, rash or ecchymosis. Neuro: Alert. Oriented x3. CN 2-12 grossly intact. Sensation grossly intact in all four extremities and DTR are symmetric. Home Medications Medication Instructions Recorded metFORMIN HCL [Glucophage] 1,000 mg PO BID 06/19/12 Losartan/Hydrochlorothiazide 1 tab PO DAILY 07/24/17 [Losartan-Hctz 100-25 mg Tab] Oxycodone HCl/Acetaminophen 1 tab PO TID 07/24/17 [Percocet 5-325 mg Tablet] Pantoprazole Sodium [Protonix] 1 tab PO DAILY 07/24/17 Nortriptyline HCl [Pamelor -] 1 cap PO DAILY 07/28/17 Atorvastatin Ca [Lipitor] 20 mg PO HS 08/07/17 Clopidogrel Bisulfate [Plavix -] 75 mg PO DAILY #30 tablet 08/14/17 Abnormal Lab Results 10/19/17 10/19/17 10/19/17 15:50 15:50 15:50 MPV 6.8 L PTT (Actin FS) 42.7 H Random Glucose 215 H D Lactic Acid AST 12 L 10/19/17 15:50 MPV PTT (Actin FS) Random Glucose Lactic Acid 2.8 H* AST ASSESSMENT AND PLAN: 1. Infected diabetic foot ulcer - Foot xray is pending. Will continue IV vancomycin pending wound culture report. Consult ID and Podiatry. 2. DM - Lactic acidosis likely due to metformin. Will give IV fluids slowly, trend lactic acid and hold his usual diabetes drugs and implement sliding scale insulin regimen. Provide comprehensive diabetes care with patient teaching and counseling about the importance of euglycemia, eye care and foot care. 3. Tobacco Use We will provide patient all the necessary assistance to facilitate smoking cessation and prescribe Nicotine patch. 4. DVT prophylaxis - Lovenox 40 mg SQ q 24 hours. 5. Advance directives - Full code
--- NOTE | 2017-10-19 23:27 | HP ---
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 Jacobson for infected L 5th toe ulcer. Pt was recently admitted for IV abx 2017 and was sent home with a PICC (removed September 18). Pt has had recent debriedment by podiatry and has had previous angioplast of LLE by Dr. Sonido Carmona. At this time, pt complains of pain and swelling of the left 5th toe. Denies fever, chills, n/v/d. ER course was notable for: (1) LA 2.8 -> 1.8 (2) CXR wnl (3) given Vanc in ED ID & podiatry consulted Recent Travel: denies PAST MEDICAL HISTORY: as above PAST SURGICAL HISTORY: noted above Social History: Smoking: active Alcohol: denies Drugs: denies Family History: denies Allergies codeine [Codeine] Allergy (Verified 10/19/17 13:29) HOME MEDICATIONS: Home Medications Medication Instructions Recorded metFORMIN HCL [Glucophage] 1,000 mg PO BID 06/19/12 Losartan/Hydrochlorothiazide 1 tab PO DAILY 07/24/17 [Losartan-Hctz 100-25 mg Tab] Oxycodone HCl/Acetaminophen 1 tab PO TID 07/24/17 [Percocet 5-325 mg Tablet] Pantoprazole Sodium [Protonix] 1 tab PO DAILY 07/24/17 Nortriptyline HCl [Pamelor -] 1 cap PO DAILY 07/28/17 Atorvastatin Ca [Lipitor] 20 mg PO HS 08/07/17 Clopidogrel Bisulfate [Plavix -] 75 mg PO DAILY #30 tablet 08/14/17 REVIEW OF SYSTEMS CONSTITUTIONAL: Absent: fever, chills, diaphoresis, generalized weakness, malaise, loss of appetite, weight change HEENT: Absent: rhinorrhea, nasal congestion, throat pain, throat swelling, difficulty swallowing, mouth swelling, ear pain, eye pain, visual changes CARDIOVASCULAR: Absent: chest pain, syncope, palpitations, irregular heart rate, lightheadedness , peripheral edema RESPIRATORY: Absent: cough, shortness of breath, dyspnea with exertion, orthopnea, wheezing, stridor, hemoptysis GASTROINTESTINAL: Absent: abdominal pain, abdominal distension, nausea, vomiting, diarrhea, constipation, melena, hematochezia GENITOURINARY: Absent: dysuria, frequency, urgency, hesitancy, hematuria, flank pain, genital pain MUSCULOSKELETAL: Absent: myalgia, arthralgia, joint swelling, back pain, neck pain SKIN: L 5th toe ulcer Absent: rash, itching, pallor HEMATOLOGIC/IMMUNOLOGIC: Absent: easy bleeding, easy bruising, lymphadenopathy, frequent infections ENDOCRINE: Absent: unexplained weight gain, unexplained weight loss, heat intolerance, cold intolerance NEUROLOGIC: Absent: headache, focal weakness or paresthesias, dizziness, unsteady gait, seizure, mental status changes, bladder or bowel incontinence PSYCHIATRIC: Absent: anxiety, depression, suicidal or homicidal ideation, hallucinations. PHYSICAL EXAMINATION Vital Signs - 24 hr 10/19/17 10/19/17 10/19/17 13:20 17:50 20:50 Temperature 98.4 F 97.6 F Pulse Rate 112 H Pulse Rate [ 85 71 Apical] Respiratory 14 16 18 Rate Blood Pressure 132/72 Blood Pressure 127/78 135/71 [Right] O2 Sat by Pulse 99 99 100 Oximetry (%) 10/19/17 10/19/17 22:15 23:04 Temperature 97.6 F Pulse Rate 83 Pulse Rate [ Apical] Respiratory 19 19 Rate Blood Pressure 122/73 Blood Pressure [Right] O2 Sat by Pulse 99 Oximetry (%) Gen: in NAD, lying in bed HEENT: NCAT, PERRL, EOMI Neck: supple, no jvd Cardio: rrr, ns1s2, no mrg Pulm: cta b/l abd: soft nontender ext: congential deformity b/l LE. 2+ pulses, no edema. L 5th toe ulcer. not draining. Mildly tender. decreased sensation to brush b/l soles of feet. Laboratory Results - last 24 hr 10/19/17 10/19/17 10/19/17 15:50 15:50 15:50 WBC 9.2 RBC 4.72 Hgb 14.2 Hct 42.6 MCV 90.4 MCH 30.0 MCHC 33.2 RDW 14.7 Plt Count 418 MPV 6.8 L Absolute Neuts (auto) 5.4 Neutrophils % 58.7 D Lymphocytes % 32.7 D Monocytes % 7.0 Eosinophils % 1.2 D Basophils % 0.4 D Nucleated RBC % 0 ESR 17 PT with INR INR PTT (Actin FS) Sodium 137 Potassium 3.7 Chloride 100 Carbon Dioxide 28 Anion Gap 9 BUN 8 Creatinine 0.9 Creat Clearance w eGFR > 60 Random Glucose 215 H D Lactic Acid Calcium 9.4 Total Bilirubin 0.4 AST 12 L ALT 20 Alkaline Phosphatase 104 Total Protein 7.3 Albumin 3.8 Blood Type Antibody Screen 10/19/17 10/19/17 10/19/17 15:50 15:50 15:50 WBC RBC Hgb Hct MCV MCH MCHC RDW Plt Count MPV Absolute Neuts (auto) Neutrophils % Lymphocytes % Monocytes % Eosinophils % Basophils % Nucleated RBC % ESR PT with INR 10.80 INR 0.96 PTT (Actin FS) 42.7 H Sodium Potassium Chloride Carbon Dioxide Anion Gap BUN Creatinine Creat Clearance w eGFR Random Glucose Lactic Acid 2.8 H* Calcium Total Bilirubin AST ALT Alkaline Phosphatase Total Protein Albumin Blood Type O POSITIVE Antibody Screen Negative 10/19/17 10/19/17 20:46 20:46 WBC RBC Hgb Hct MCV MCH MCHC RDW Plt Count MPV Absolute Neuts (auto) Neutrophils % Lymphocytes % Monocytes % Eosinophils % Basophils % Nucleated RBC % ESR PT with INR INR PTT (Actin FS) Sodium Potassium Chloride Carbon Dioxide Anion Gap BUN Creatinine Creat Clearance w eGFR Random Glucose Lactic Acid 1.8 Calcium Total Bilirubin AST ALT Alkaline Phosphatase Total Protein Albumin Blood Type O POSITIVE Antibody Screen ASSESSMENT/PLAN: Pt is a 52 y/o M with PMH DM with ulcer, HLD, HTN, 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 Jacobson for infected L 5th toe ulcer. Pt admitted for toe ulcer, to r/o OM. #5th toe ulcer -Podiatry consulted -ID consulted -f/u wound cx -f/u BCx -f/u XR #Lactic acidosis -resolved #DM -BGM -ISS #Smoking -nicotine patch #FEN -not on fluids -lytes wnl -dm diet #PPx -hep sub Q #Dispo -admit to med surg Maurice Sanford MD PGY-2 IM Visit type - Emergency Visit Emergency Visit: Yes ED Registration Date: 10/19/17 Care time: The patient presented to the Emergency Department on the above date and was hospitalized for further evaluation of their emergent condition. - New Patient This patient is new to me today: Yes Date on this admission: 10/19/17 - Critical Care Critical Care patient: No Hospitalist Screening - Colonoscopy Questionnaire Colonoscopy Questionnaire: Colonoscopy Questionnaire - Patient: 50 - 75 years old and never had a screening colonoscopy: Unknown History of colon or rectal polyps, or CA: Unknown History of IBD, Crohn's disease or UC: Unknown History of abdominal radiation therapy as a child: Unknown - Relative: 1 with colon or rectal CA, or polyps at age 60 or younger: Unknown Colon or rectal CA diagnosed at age 45 or younger: Unknown Multiple relatives with colon or rectal CA: Unknown - Outcome: Screening Result: Negative Screen
[2017-10-20] MEDS: HEPARIN NA (PORCINE) 5,000 UNITS/ML 1ML VIAL SQ SCH ×4 (01:51→21:38)
[2017-10-20] MEDS ORDERED: PNEUMOC 13-VAL CONJ-DIP CRM/PF 0.5 ML DISP.SYRIN IM ONE (02:11)
[2017-10-20] MEDS ORDERED: VANCOMYCIN 1,000 MG in DEXTROSE 5%-WATER - 250 ML IVPB ONE (05:00)
[2017-10-20 06:45] LABS: BASO % 0.8 % (0-2.0); EOS % 1.9 % (0-4.5); HEMATOCRIT 40.3 % (35.4-49); HEMOGLOBIN 13.6 GM/dL (11.7-16.9); LYMPH % 32.9 % (8-40); MCH 30.7 pg (25.7-33.7); MCHC 33.8 g/dl (32.0-35.9); MEAN CELL VOLUME 90.7 fl (80-96); MEAN PLT VOLUME 6.4 fl (7.5-11.1); MONO % 7.3 % (3.8-10.2); NEUT % 57.1 % (42.8-82.8); PLATELET COUNT 354 K/MM3 (134-434); RBC 4.44 M/mm3 (4.00-5.60); RDW 14.2 % (11.9-15.9); WHITE BLOOD COUNT 6.7 K/mm3 (4.0-10.0)
[2017-10-20] MEDS: INSULIN SLIDING SCALE (NOVOLOG) 1 VIAL SQ SCH ×4 (06:48→21:38)
[2017-10-20 07:26] LABS: CHLORIDE 103 mmol/L (98-107); SODIUM 139 mmol/L (136-145)
[2017-10-20 07:42] LABS: ALBUMIN 3.4 g/dl (3.4-5.0); ALK PHOS 89 U/L (45-117); ANION GAP 7 (8-16); BILIRUBIN,TOTAL 0.4 mg/dL (0.2-1.0); BLOOD UREA NITROGEN 8 mg/dL (7-18); CALCIUM 8.9 mg/dL (8.5-10.1); CO2 29 mmol/L (21-32); CREATININE 0.7 mg/dL (0.7-1.3); GLUCOSE,RANDOM 197 mg/dL (74-106); PHOSPHOROUS 3.3 mg/dL (2.5-4.9); SGOT/AST 9 U/L (15-37); SGPT/ALT 19 U/L (12-78); TOT PROT 6.7 g/dl (6.4-8.2)
[2017-10-20 08:17] VITALS: BMI 29.7
--- NOTE | 2017-10-20 08:49 | CONSULT ---
Consult - text type - Consultation Consultation Note: Patient is known to me. Sent to ER from podiatry clinic. Have had multiple conversations about removing his 5th toe prevent further admissions and morbidity. VSS, Tmax 97.8 vsgi, +draining 5th toe left yesterday, +cellulitis, deformed ht 5 left r/o om ulceration 5 Discussed tx for toe with patient. Spoke to his today. They will decide what they would like to do. Will order MRI and will re-evaluate. Other option is hbo, IVABX and wound care. Will follow. Allie to 5th toe left.
[2017-10-20] MEDS ORDERED: PT OWN MED DRAWER 7, Y5N ONE (09:14)
[2017-10-20] MEDS: CLOPIDOGREL BISULFATE 75 MG TABLET (FP) PO SCH (09:15)
[2017-10-20] MEDS: NORTRIPTYLINE HCL 25 MG CAPSULE PO SCH (09:15)
[2017-10-20] MEDS: NICOTINE 7 MG/24 HOURS TOPICAL PATCH TD SCH (09:15)
[2017-10-20] MEDS: LOSARTAN POTASSIUM 50 MG TABLET (FP) PO SCH (09:15)
[2017-10-20] MEDS: HYDROCHLOROTHIAZIDE 25 MG TABLET (FP) PO SCH (09:15)
[2017-10-20] MEDS ORDERED: PIPERACILLIN/TAZOB 3.375 GM 3.375 GM in DEXTROSE 5%-WATER - 50 ML IVPB ONE (09:21)
--- NOTE | 2017-10-20 09:35 | EKG ---
Test Reason : Blood Pressure : / mmHG Vent. 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
--- NOTE | 2017-10-20 09:50 | PN ---
Progress Note (short form) - Note Progress Note: ID consult dictated imp/reccd 52 year old man sent to ED by his prosthetics assistant- he has chronic callus of the fifth toe- gets it shaved by the prosthetics assistant- had some drainage when it was shaved and sent to ed he as treated from 08/07 to 09/18 for presumed osteomyelitis of the toe with vanco/ cefepime- he never folowed up in our office he had a circumcision on 09/26 at [facility] with Dr Johnson and ryan been on keflex tid since that time skin swab sent last night- no drainage noted by RN no fevers no erythema of the foot vanco/zosyn seen by podiatry who advises MRI and possible amputation of the toe chronic callus fifth toe- mechanical ?chronic osteo of the toe no signs of active infection at this time would d/c antibiotics and review imaging do not think empiric antibiotics are indicated or would be useful at this time amputation has been offered of the fifth toe- if this is not done and medical treatment is planned would consider bone biopsy as prior empiric therapy was not successful Problem List - Problems (1) Chronic ulcer of toe of left foot Code(s): L97.529 - NON-PRESSURE CHRONIC ULCER OTH PRT LEFT FOOT W UNSP SEVERITY (2) Chronic osteomyelitis Code(s): M86.60 - OTHER CHRONIC OSTEOMYELITIS, UNSPECIFIED SITE
[2017-10-20] MEDS ORDERED: PATIENT'S OWN MEDICATION (NON-FORMULARY) (Losartan/Hydrochlorothiazide [Losartan-Hctz 100- PO SCH (10:00)
[2017-10-20] MEDS ORDERED: PNEUMOCOCCAL 23 VACCINE 0.5 ML VIAL IM ONE (10:00)
--- NOTE | 2017-10-20 11:57 | CONS ---
DATE OF CONSULTATION: DATE OF DICTATION: 10/20/2017 REQUESTING PHYSICIAN: The hospitalist service. HISTORY OF PRESENT ILLNESS: This is a 52-year-old man who was treated for presumed osteomyelitis, history of diabetes, history of pes planus both his feet, chronic 5th toe ulcer, was treated in July through early September for presumed osteo of the 5th toe. He had had a chronic callus on that toe that had had some intermittent purulent discharge. He was treated with vancomycin and cefepime empirically, followed up with Podiatry, and never returned to our office for any kind of followup. He has also recently had circumcision the week after he completed his antibiotics in early September and has been on Keflex since that time 500 mg t.i.d. which he took until yesterday. He was seen by a horticultural specialty grower field yesterday and was noted to have some drainage again from the callus and was sent to the emergency room. He has no fevers or chills. The foot is now dry with no more drainage. He is also status post angioplasty of the leg and has been having hyperbaric treatment. He, at home, has not had any drainage. He is frustrating because he is requiring repeating shavings of the callus. He is up on his feet and walking daily without any difficulty. ALLERGIES: He is allergic to CODEINE. MEDICATIONS: At home include glipizide, metformin, losartan, hydrochlorothiazide, oxycodone, Protonix, Silvadene, Pamelor, atorvastatin, Voltaren, Plavix, nystatin. He completed vancomycin and cefepime in early September. PAST MEDICAL HISTORY: Notable for coronary artery disease, [id number] diabetes, hypertension, hypercholesterolemia. SURGICAL HISTORY: For cervical spine surgery. As well, he has had surgery for club feet as a child in [place], and he has had left rotator cuff surgery. He has a history of peripheral arterial disease, as well, and has recently had a stent. FAMILY HISTORY: Noncontributory. SOCIAL HISTORY: He is an active smoker. He is . He lives with his . He ambulates with a cane. REVIEW OF SYSTEMS: He has had no fevers or chills. He has essentially been on continued antibiotics, given Keflex that was prescribed post circumcision, which he took until yesterday. Review of systems is unremarkable. PHYSICAL EXAMINATION Vital signs: He is afebrile, he feels well, temperature is 97.8; pulse is 76, blood pressure is 135/74, respiratory rate 20. HEENT: He is normocephalic. His eyes are anicteric. Neck: Supple. Lungs: Clear to auscultation. Heart: Regular rate and rhythm. Abdomen: Soft, nontender. Extremities: He has the back of his foot with well-healed plantar incision. There is a callus on the back of his foot as well that is dry. On the 5th toe of his left foot, he has a dry callus with no drainage. There is no surrounding erythema. He notes that his foot is a little bit more swollen than the other foot. DIAGNOSTIC DATA: His white count is normal at 6.7. Sedimentation rate is normal at 17. BUN 8, creatinine 0.7. LFTs are normal. Lactic acid was on admission, repeat was 1.8. Blood cultures and wound culture, nurse reports there was no drainage, and she saw essentially it was a swab of the skin of his big toe that was obtained. X-ray was done, which we will review as there is no mention of a 5th toe, and he has been seen by Podiatry who has ordered a MRI, and he received vancomycin and Zosyn in the emergency room. SUMMARY: This is a 52-year-old man who has a chronic callus on his 5th toe, possible chronic. I suspect the callus is mechanical due to his shoes and the way he walks. He has possibly a chronic osteo of the toe. No signs of any active infection at this time. There is no drainage. He has no erythema. I would stop his antibiotics and review his imaging. I do not think empiric antibiotics are indicated. If, indeed, a plan is made for him that would include antibiotics, would prefer he had a bone biopsy prior to initiating antibiotics. Further recommendations to follow. COREY WEBB M.D. [id number]
[2017-10-20] MEDS: ACETAMINOPHEN 325 MG TABLET (FP) PO PRN ×2 (16:28→21:38)
[2017-10-20] MEDS ORDERED: ACETAMINOPHEN 325 MG TABLET (FP) PO PRN (17:07)
[2017-10-20] MEDS ORDERED: oxyCODONE HCL 5 MG TABLET PO PRN (17:07)
--- NOTE | 2017-10-20 18:22 | PN ---
Teaching Attending Note Name of Resident: Jeannie Mejia ATTENDING PHYSICIAN STATEMENT I saw and evaluated the patient. I reviewed the resident's note and discussed the case with the resident. I agree with the resident's findings and plan as documented with exceptions below. SUBJECTIVE: Patient seen and examined. left 5th toe pain, but no new fevers, chills or concerns. OBJECTIVE: Vital Signs Period Temp Pulse Resp BP Sys/Mills Pulse Ox Last 24 Hr 97.5 F-97.8 F 71-83 18-20 122-147/71-76 98-100 Intake & Output 10/17/17 10/18/17 10/19/17 10/20/17 23:59 23:59 23:59 23:59 Intake Total 620 Balance 620 Weight 168 lb 3.2 oz General: sitting in bed in no acute distress Extremities: left fifth toe swelling, with ulcer on tip of plantar aspect with no active discharge or pus when attempt to express, tenderness over the area with mild erythema vs chronic skin discoloration, Positive Left DP pulses Home Medications Medication Instructions Recorded metFORMIN HCL [Glucophage] 1,000 mg PO BID 06/19/12 Losartan/Hydrochlorothiazide 1 tab PO DAILY 07/24/17 [Losartan-Hctz 100-25 mg Tab] Oxycodone HCl/Acetaminophen 1 tab PO TID 07/24/17 [Percocet 5-325 mg Tablet] Pantoprazole Sodium [Protonix] 1 tab PO DAILY 07/24/17 Nortriptyline HCl [Pamelor -] 1 cap PO DAILY 07/28/17 Atorvastatin Ca [Lipitor] 20 mg PO HS 08/07/17 Clopidogrel Bisulfate [Plavix -] 75 mg PO DAILY #30 tablet 08/14/17 Glipizide 10 mg PO BID 10/20/17 Active Medications Acetaminophen (Tylenol -) 650 mg PO Q4H PRN PRN Reason: PAIN LEVEL 1-5 Last Admin: 10/20/17 16:28 Dose: 650 mg Atorvastatin Calcium (Lipitor -) 20 mg PO HS [facility] Clopidogrel Bisulfate (Plavix -) 75 mg PO DAILY [facility] Last Admin: 10/20/17 09:15 Dose: 75 mg Heparin Sodium (Porcine) (Heparin -) 5,000 unit SQ TID [facility] Last Admin: 10/20/17 13:13 Dose: 5,000 unit Hydrochlorothiazide (Hctz -) 25 mg PO DAILY [facility] Last Admin: 10/20/17 09:15 Dose: 25 mg Insulin Aspart (Novolog Vial Sliding Scale -) 1 vial SQ ACHS [facility]; Protocol Last Admin: 10/20/17 17:08 Dose: 6 units Losartan Potassium (Cozaar -) 100 mg PO DAILY [facility] Last Admin: 10/20/17 09:15 Dose: 100 mg Nicotine (Nicoderm Patch -) 7 mg TD DAILY [facility] Last Admin: 10/20/17 09:15 Dose: 7 mg Nortriptyline HCl (Pamelor -) 25 mg PO DAILY [facility] Last Admin: 10/20/17 09:15 Dose: 25 mg Laboratory Results - last 24 hr 10/19/17 10/19/17 10/20/17 20:46 20:46 06:00 WBC 6.7 RBC 4.44 Hgb 13.6 Hct 40.3 MCV 90.7 MCH 30.7 MCHC 33.8 RDW 14.2 Plt Count 354 MPV 6.4 L Absolute Neuts (auto) 3.8 Neutrophils % 57.1 Lymphocytes % 32.9 Monocytes % 7.3 Eosinophils % 1.9 Basophils % 0.8 Nucleated RBC % 0 Sodium Potassium Chloride Carbon Dioxide Anion Gap BUN Creatinine Creat Clearance w eGFR POC Glucometer Random Glucose Lactic Acid 1.8 Calcium Phosphorus Magnesium Total Bilirubin AST ALT Alkaline Phosphatase Total Protein Albumin Blood Type O POSITIVE 10/20/17 10/20/17 10/20/17 06:00 06:44 12:09 WBC RBC Hgb Hct MCV MCH MCHC RDW Plt Count MPV Absolute Neuts (auto) Neutrophils % Lymphocytes % Monocytes % Eosinophils % Basophils % Nucleated RBC % Sodium 139 Potassium 4.0 Chloride 103 Carbon Dioxide 29 Anion Gap 7 L BUN 8 Creatinine 0.7 Creat Clearance w eGFR > 60 POC Glucometer 213 138 Random Glucose 197 H Lactic Acid Calcium 8.9 Phosphorus 3.3 Magnesium 2.0 Total Bilirubin 0.4 AST 9 L D ALT 19 Alkaline Phosphatase 89 D Total Protein 6.7 Albumin 3.4 Blood Type 10/20/17 16:46 WBC RBC Hgb Hct MCV MCH MCHC RDW Plt Count MPV Absolute Neuts (auto) Neutrophils % Lymphocytes % Monocytes % Eosinophils % Basophils % Nucleated RBC % Sodium Potassium Chloride Carbon Dioxide Anion Gap BUN Creatinine Creat Clearance w eGFR POC Glucometer 293 Random Glucose Lactic Acid Calcium Phosphorus Magnesium Total Bilirubin AST ALT Alkaline Phosphatase Total Protein Albumin Blood Type Microbiology 10/19/17 15:50 Blood - Peripheral Venous Blood Culture - Preliminary NO GROWTH OBTAINED AFTER 24 HOURS, INCUBATION TO CONTINUE FOR 4 DAYS. 10/19/17 15:50 Blood - Peripheral Venous Blood Culture - Preliminary NO GROWTH OBTAINED AFTER 24 HOURS, INCUBATION TO CONTINUE FOR 4 DAYS. 10/20/17 03:00 Ulcer Gram Stain - Final ASSESSMENT AND PLAN: 52 yom with PMHx of NIDDM, nonhealing left 5th toe wound with osteomyelitis s/ p 5-6 weeks of Cefepime/vancomycin (finished 09/19/2017, heavy tobacco use, HTN, Hyperlipidemia, BPH, and GERD, PAD s/p LLE stent, sent in with discharge from left toe wound by podiatry -Left 5th toe non healing wound with likely superimposed cellulitis/ Osteomyelitis -PAD -NIDDM -Lactic acidosis, resolved -HTN -HLD -BPH -GERD Plan: ID/podiatry input noted. MRI noted. Discuss with podiatry, ?Amputation (given failure of recent long course of broad spectrum abx) vs bone biopsy. Monitor for new fevers or rising WBC, abx per ID. IVF. ISS, diabetic diet. Losartan/HCTZ. Plavix/Statin DVTPPX Dispo pending clinical improvement. Plan discussed with patient in detail, all questions answered.
--- NOTE | 2017-10-20 19:22 | PN ---
Physical Exam: SUBJECTIVE: Patient seen and examined at bedside. Patient says the wound on his 5th left toe was debrided yesterday. Today he feels pain to palpation of his 5th left toe only. Denies fevers, chills, chest pain, SOB, nausea, vomiting, diarrhea, constipation. OBJECTIVE: Vital Signs Period Temp Pulse Resp BP Sys/Mills Pulse Ox Last 24 Hr 97.5 F-97.8 F 71-83 18-20 122-147/71-76 98-100 GENERAL: The patient is awake, alert, and fully oriented, in no acute distress. LUNGS: Breath sounds equal, clear to auscultation bilaterally, no wheezes HEART: Regular rate and rhythm, S1, S2 without murmur, rub or gallop. ABDOMEN: Soft, nontender, nondistended, normoactive bowel sounds EXTREMITIES: Wound on the dorsal aspect of the Left 5th toe, Nonerythematous, without active drainage, accompanied by tenderness, 2+ Dorsalis pedis pulse Laboratory Results - last 24 hr 10/19/17 10/19/17 10/19/17 15:50 20:46 20:46 WBC RBC Hgb Hct MCV MCH MCHC RDW Plt Count MPV Absolute Neuts (auto) Neutrophils % Lymphocytes % Monocytes % Eosinophils % Basophils % Nucleated RBC % Sodium Potassium Chloride Carbon Dioxide Anion Gap BUN Creatinine Creat Clearance w eGFR POC Glucometer Random Glucose Lactic Acid 1.8 Calcium Phosphorus Magnesium Total Bilirubin AST ALT Alkaline Phosphatase C-Reactive Protein 3.0 H Total Protein Albumin Blood Type O POSITIVE 10/20/17 10/20/17 10/20/17 06:00 06:00 06:44 WBC 6.7 RBC 4.44 Hgb 13.6 Hct 40.3 MCV 90.7 MCH 30.7 MCHC 33.8 RDW 14.2 Plt Count 354 MPV 6.4 L Absolute Neuts (auto) 3.8 Neutrophils % 57.1 Lymphocytes % 32.9 Monocytes % 7.3 Eosinophils % 1.9 Basophils % 0.8 Nucleated RBC % 0 Sodium 139 Potassium 4.0 Chloride 103 Carbon Dioxide 29 Anion Gap 7 L BUN 8 Creatinine 0.7 Creat Clearance w eGFR > 60 POC Glucometer 213 Random Glucose 197 H Lactic Acid Calcium 8.9 Phosphorus 3.3 Magnesium 2.0 Total Bilirubin 0.4 AST 9 L D ALT 19 Alkaline Phosphatase 89 D C-Reactive Protein Total Protein 6.7 Albumin 3.4 Blood Type 10/20/17 10/20/17 12:09 16:46 WBC RBC Hgb Hct MCV MCH MCHC RDW Plt Count MPV Absolute Neuts (auto) Neutrophils % Lymphocytes % Monocytes % Eosinophils % Basophils % Nucleated RBC % Sodium Potassium Chloride Carbon Dioxide Anion Gap BUN Creatinine Creat Clearance w eGFR POC Glucometer 138 293 Random Glucose Lactic Acid Calcium Phosphorus Magnesium Total Bilirubin AST ALT Alkaline Phosphatase C-Reactive Protein Total Protein Albumin Blood Type Active Medications Acetaminophen (Tylenol -) 650 mg PO Q4H PRN PRN Reason: PAIN LEVEL 1-5 Last Admin: 10/20/17 16:28 Dose: 650 mg Atorvastatin Calcium (Lipitor -) 20 mg PO HS [facility] Clopidogrel Bisulfate (Plavix -) 75 mg PO DAILY [facility] Last Admin: 10/20/17 09:15 Dose: 75 mg Heparin Sodium (Porcine) (Heparin -) 5,000 unit SQ TID [facility] Last Admin: 10/20/17 13:13 Dose: 5,000 unit Hydrochlorothiazide (Hctz -) 25 mg PO DAILY [facility] Last Admin: 10/20/17 09:15 Dose: 25 mg Insulin Aspart (Novolog Vial Sliding Scale -) 1 vial SQ ACHS [facility]; Protocol Last Admin: 10/20/17 17:08 Dose: 6 units Losartan Potassium (Cozaar -) 100 mg PO DAILY [facility] Last Admin: 10/20/17 09:15 Dose: 100 mg Nicotine (Nicoderm Patch -) 7 mg TD DAILY [facility] Last Admin: 10/20/17 09:15 Dose: 7 mg Nortriptyline HCl (Pamelor -) 25 mg PO DAILY [facility] Last Admin: 10/20/17 09:15 Dose: 25 mg ASSESSMENT/PLAN: 52 y/o M with PMHx of DM with Ulcer, HLD, HTN, osteomyelitis s/p 5-6 weeks of Cefepime/Vancomycin (course completed 09/19/17), PAD s/p LLE stent who was sent to ED by his trauma coordinator Dr. Jacobson for infected L 5th toe ulcer. Pt admitted for toe ulcer, to r/o OM. 1. Left 5th toe ulcer - Podiatry consulted, appreciate rec's, Will discuss new MRI Results for next steps - ID consulted, appreciate rec's - Wound cx: Pending - Blood cx: No growth after 24 hours - XRay ankle foot: Abnormal foot - MRI: Soft tissue swelling of the foot. Bone marrow edema of the distal phalanx of the fifth toe and possibly the middle phalanx which in the setting of an adjacent soft tissue infectious process is consistent with osteomyelitis. 2. DM - BGM ACHS - Continue Insulin Aspart 1 vial SQ ACHS [facility] 3. HTN - Continue Hydrochlorothiazide 25 mg PO DAILY [facility] - Continue Losartan Potassium 100 mg PO DAILY [facility] 4. Lactic aciosis - resolved 5. PAD s/p LLE stent - Continue Clopidogrel Bisulfate 75 mg PO DAILY [facility] 6. HLD - Continue Atorvastatin Calcium 20 mg PO HS [facility] 7. Smoking - COntinue nicotine patch 8. FEN - Fluids not indicated - lytes wnl - DM diet 9. PPx - Continue Heparin 5,000 unit SQ TID [facility] Visit type - Emergency Visit Emergency Visit: No - New Patient This patient is new to me today: Yes Date on this admission: 10/20/17 - Critical Care Critical Care patient: No
[2017-10-20] MEDS ORDERED: INSULIN (NOVOLOG) ASPART 100 UNITS/ML 10ML VIAL ONE (21:09)
[2017-10-20] MEDS: ATORVASTATIN CA 20 MG TABLET (FP) PO SCH (21:38)
[2017-10-21] MEDS: HEPARIN NA (PORCINE) 5,000 UNITS/ML 1ML VIAL SQ SCH ×3 (06:22→22:01)
[2017-10-21] MEDS: ACETAMINOPHEN 325 MG TABLET (FP) PO PRN ×2 (06:22→12:18)
[2017-10-21] MEDS: INSULIN SLIDING SCALE (NOVOLOG) 1 VIAL SQ SCH ×4 (06:22→22:00)
[2017-10-21] MEDS ORDERED: INSULIN (NOVOLOG) ASPART 100 UNITS/ML 10ML VIAL ONE ×2 (07:03→11:58)
--- NOTE | 2017-10-21 08:00 | PN ---
Progress Note (short form) - Note Progress Note: Pt seen walking [address]. No pain. VSS Tmax 97.6 +om on mri, -drainage toe, om Due to patient hx of this toe and continued infection I have recommended amputation. However, patient can opt for IVBX and HBO and WCC to manage. Will follow. Vascular consult ordered. Wants to visit his mother in two weeks in [place].
--- NOTE | 2017-10-21 09:34 | PN ---
Physical Exam: SUBJECTIVE: Patient seen and examined at bedside. Lengthy discussion with pt regarding amputation vs. medical treatment. However, pt remains frustrated and undecided. He insists on going home and on a planned vocation despite being explained the risks of leaving the hospital with an active chronic bone infection. OBJECTIVE: Vital Signs Period Temp Pulse Resp BP Sys/Mills Pulse Ox Last 24 Hr 97.5 F-98.1 F 71-87 17-20 129-147/62-77 98 GENERAL:AAO x 3, NAD LUNGS: CTAB HEART: RRR, S1, S2 without murmur, rub or gallop. ABDOMEN: +bs, nd, nt EXTREMITIES: non-draining wound of L 5th toe, non-erythematous, +peripheral pulses Laboratory Results - last 24 hr 10/19/17 10/20/17 10/20/17 15:50 12:09 16:46 POC Glucometer 138 293 Hemoglobin A1c % C-Reactive Protein 3.0 H 10/20/17 10/21/17 10/21/17 21:34 06:13 06:20 POC Glucometer 156 224 Hemoglobin A1c % 8.6 H D C-Reactive Protein ASSESSMENT/PLAN: 52 yo M h/o NIDDM admitted to med-surg for osteomyelitis in the L 5th toe. Osteomyelitis in L 5th toe: complicated with DM and failed empiric abx tx of ( cefepime + vanco ) x 5-6 weeks. Pt still undecided over bone bx + abx vs. amputation. PAD: cont. plavix and pamelor NIDDM: cont. BGM and ISS HTN: cont. lorsatan and hctz HLD: cont. lipitor Dispo: pt appears amenable to medical advice. tx plan on hold pending pt's decision on amputation vs. superintendent terminal abx vs. AMA Sunny Jose PGY3 [phone] Visit type - Emergency Visit Emergency Visit: No - New Patient This patient is new to me today: Yes Date on this admission: 10/23/17 - Critical Care Critical Care patient: No
[2017-10-21] MEDS ORDERED: PT OWN MED DRAWER 7, Y5N ONE (10:11)
[2017-10-21] MEDS: HYDROCHLOROTHIAZIDE 25 MG TABLET (FP) PO SCH (10:12)
[2017-10-21] MEDS: LOSARTAN POTASSIUM 50 MG TABLET (FP) PO SCH (10:12)
[2017-10-21] MEDS: NORTRIPTYLINE HCL 25 MG CAPSULE PO SCH (10:13)
[2017-10-21] MEDS: NICOTINE 7 MG/24 HOURS TOPICAL PATCH TD SCH (10:13)
[2017-10-21] MEDS: CLOPIDOGREL BISULFATE 75 MG TABLET (FP) PO SCH (10:14)
--- NOTE | 2017-10-21 13:38 | PN ---
Teaching Attending Note Name of Resident: Sunny Jose ATTENDING PHYSICIAN STATEMENT I saw and evaluated the patient. I reviewed the resident's note and discussed the case with the resident. I agree with the resident's findings and plan as documented with exceptions below. SUBJECTIVE: Patient seen and examined. Upset that has been recommended surgery and wants to go to [place] soon. No new fevers, chills or worsening pain. OBJECTIVE: Vital Signs Period Temp Pulse Resp BP Sys/Mills Pulse Ox Last 24 Hr 97.5 F-98.1 F 71-87 17-20 129-156/62-89 98 Intake & Output 10/18/17 10/19/17 10/20/17 10/21/17 23:59 23:59 23:59 23:59 Intake Total 620 350 Balance 620 350 Weight 168 lb 3.2 oz General: sitting in bed in no acute distress Chest: CTAB, no rales or wheezing Abdomen:soft, NT Extremities: left 5th toe with swelling/erythema/tenderness unchanged Laboratory Results - last 24 hr 10/19/17 10/20/17 10/20/17 15:50 16:46 21:34 POC Glucometer 293 156 Hemoglobin A1c % C-Reactive Protein 3.0 H 10/21/17 10/21/17 10/21/17 06:13 06:20 12:06 POC Glucometer 224 191 Hemoglobin A1c % 8.6 H D C-Reactive Protein ASSESSMENT AND PLAN: 52 yom with PMHx of NIDDM, nonhealing left 5th toe wound with osteomyelitis s/p 5-6 weeks of Cefepime/vancomycin (finished 09/19/2017, heavy tobacco use, HTN, Hyperlipidemia, BPH, and GERD, PAD s/p LLE stent, sent in with discharge from left toe wound by podiatry -Left 5th toe non healing wound with likely superimposed cellulitis/ Osteomyelitis -PAD -NIDDM -Lactic acidosis, resolved -HTN -HLD -BPH -GERD Plan: Discussed with Dr. Diaz, patient offered amputation and possible surgical plan on Monday or Monday if patient agreable. Discussed with patient, upset that would not be able to go to [place] if gets surgery. Discussed with in detail on phone with patient. Will follow up on final decision. ANtibiotic plan for surgical plans. Follow up withID> IVF. ISS, diabetic diet. Losartan/HCTZ. Plavix/Statin DVTPPX Dispo pending clinical improvement and surgical plans. Plan discussed with patient in detail, all questions answered.
[2017-10-21] MEDS: ATORVASTATIN CA 20 MG TABLET (FP) PO SCH (22:01)
[2017-10-22] MEDS: HEPARIN NA (PORCINE) 5,000 UNITS/ML 1ML VIAL SQ SCH (06:51)
[2017-10-22] MEDS: INSULIN SLIDING SCALE (NOVOLOG) 1 VIAL SQ SCH (06:52)
[2017-10-22 08:53] VITALS: TEMP 97.4
[2017-10-22] MEDS: ACETAMINOPHEN 325 MG TABLET (FP) PO PRN (08:53)
--- NOTE | 2017-10-22 09:34 | PN ---
Progress Note (short form) - Note Progress Note: Vascular Surgery Pt seen and examiend. Left foot -- Palpable DP pulse. Left fifth toe looks good. Pt had SFA stent placed a month ago and recent US done shows patent stent with Marisol of .89. Pt had MRI in past that showed Osteo, pt was treated with PICC line for 6 weeks and then did HBO. Spoke to ID -- will treat with bactrim to supress infection. Pt does not want amputation at this time. Will try antibiotic therapy, and will follow up in wound care clinic. Sonido Carmona DO
[2017-10-22] MEDS ORDERED: PT OWN MED DRAWER 7, Y5N ONE (09:36)
[2017-10-22 09:40] VITALS: BP 151/77; PULSE 72
[2017-10-22] MEDS: HYDROCHLOROTHIAZIDE 25 MG TABLET (FP) PO SCH (09:40)
[2017-10-22] MEDS: CLOPIDOGREL BISULFATE 75 MG TABLET (FP) PO SCH (09:40)
[2017-10-22] MEDS: LOSARTAN POTASSIUM 50 MG TABLET (FP) PO SCH (09:40)
[2017-10-22] MEDS: NORTRIPTYLINE HCL 25 MG CAPSULE PO SCH (09:41)
[2017-10-22] MEDS: NICOTINE 7 MG/24 HOURS TOPICAL PATCH TD SCH (09:41)
--- NOTE | 2017-10-22 10:39 | DS ---
Physical Exam: SUBJECTIVE: Patient seen and examined, no new pain, fevers, chills, discharge or concerns on left toe. OBJECTIVE: Vital Signs Period Temp Pulse Resp BP Sys/Mills Pulse Ox Last 24 Hr 97.4 F-97.9 F 68-74 16-20 121-151/75-80 99 PHYSICAL EXAM GENERAL:sitting in bed in no acute distress Chest: CTAB, no rales or wheezing Abdomen:Soft, NT, ND, positive bowel sounds Extremities: left 5th toe no tenderness or discharge today, positive DP pulses LABS Laboratory Results - last 24 hr 10/21/17 10/21/17 10/21/17 12:06 17:12 21:59 POC Glucometer 191 153 236 10/22/17 06:50 POC Glucometer 186 Laboratory Tests 10/19/17 10/19/17 10/19/17 15:50 15:50 15:50 WBC 9.2 RBC 4.72 Hgb 14.2 Hct 42.6 MCV 90.4 MCH 30.0 MCHC 33.2 RDW 14.7 Plt Count 418 MPV 6.8 L Absolute Neuts (auto) 5.4 Neutrophils % 58.7 D Lymphocytes % 32.7 D Monocytes % 7.0 Eosinophils % 1.2 D Basophils % 0.4 D Nucleated RBC % 0 ESR PT with INR INR PTT (Actin FS) Sodium 137 Potassium 3.7 Chloride 100 Carbon Dioxide 28 Anion Gap 9 BUN 8 Creatinine 0.9 Creat Clearance w eGFR > 60 POC Glucometer Random Glucose 215 H D Hemoglobin A1c % Lactic Acid Calcium 9.4 Phosphorus Magnesium Total Bilirubin 0.4 AST 12 L ALT 20 Alkaline Phosphatase 104 C-Reactive Protein 3.0 H Total Protein 7.3 Albumin 3.8 Blood Type Antibody Screen 10/19/17 10/19/17 10/19/17 15:50 15:50 15:50 WBC RBC Hgb Hct MCV MCH MCHC RDW Plt Count MPV Absolute Neuts (auto) Neutrophils % Lymphocytes % Monocytes % Eosinophils % Basophils % Nucleated RBC % ESR 17 PT with INR 10.80 INR 0.96 PTT (Actin FS) 42.7 H Sodium Potassium Chloride Carbon Dioxide Anion Gap BUN Creatinine Creat Clearance w eGFR POC Glucometer Random Glucose Hemoglobin A1c % Lactic Acid Calcium Phosphorus Magnesium Total Bilirubin AST ALT Alkaline Phosphatase C-Reactive Protein Total Protein Albumin Blood Type O POSITIVE Antibody Screen Negative 10/19/17 10/19/17 10/19/17 15:50 20:46 20:46 WBC RBC Hgb Hct MCV MCH MCHC RDW Plt Count MPV Absolute Neuts (auto) Neutrophils % Lymphocytes % Monocytes % Eosinophils % Basophils % Nucleated RBC % ESR PT with INR INR PTT (Actin FS) Sodium Potassium Chloride Carbon Dioxide Anion Gap BUN Creatinine Creat Clearance w eGFR POC Glucometer Random Glucose Hemoglobin A1c % Lactic Acid 2.8 H* 1.8 Calcium Phosphorus Magnesium Total Bilirubin AST ALT Alkaline Phosphatase C-Reactive Protein Total Protein Albumin Blood Type O POSITIVE Antibody Screen 10/20/17 10/20/17 10/20/17 06:00 06:00 06:44 WBC 6.7 RBC 4.44 Hgb 13.6 Hct 40.3 MCV 90.7 MCH 30.7 MCHC 33.8 RDW 14.2 Plt Count 354 MPV 6.4 L Absolute Neuts (auto) 3.8 Neutrophils % 57.1 Lymphocytes % 32.9 Monocytes % 7.3 Eosinophils % 1.9 Basophils % 0.8 Nucleated RBC % 0 ESR PT with INR INR PTT (Actin FS) Sodium 139 Potassium 4.0 Chloride 103 Carbon Dioxide 29 Anion Gap 7 L BUN 8 Creatinine 0.7 Creat Clearance w eGFR > 60 POC Glucometer 213 Random Glucose 197 H Hemoglobin A1c % Lactic Acid Calcium 8.9 Phosphorus 3.3 Magnesium 2.0 Total Bilirubin 0.4 AST 9 L D ALT 19 Alkaline Phosphatase 89 D C-Reactive Protein Total Protein 6.7 Albumin 3.4 Blood Type Antibody Screen 10/20/17 10/20/17 10/20/17 12:09 16:46 21:34 WBC RBC Hgb Hct MCV MCH MCHC RDW Plt Count MPV Absolute Neuts (auto) Neutrophils % Lymphocytes % Monocytes % Eosinophils % Basophils % Nucleated RBC % ESR PT with INR INR PTT (Actin FS) Sodium Potassium Chloride Carbon Dioxide Anion Gap BUN Creatinine Creat Clearance w eGFR POC Glucometer 138 293 156 Random Glucose Hemoglobin A1c % Lactic Acid Calcium Phosphorus Magnesium Total Bilirubin AST ALT Alkaline Phosphatase C-Reactive Protein Total Protein Albumin Blood Type Antibody Screen 10/21/17 10/21/17 10/21/17 06:13 06:20 12:06 WBC RBC Hgb Hct MCV MCH MCHC RDW Plt Count MPV Absolute Neuts (auto) Neutrophils % Lymphocytes % Monocytes % Eosinophils % Basophils % Nucleated RBC % ESR PT with INR INR PTT (Actin FS) Sodium Potassium Chloride Carbon Dioxide Anion Gap BUN Creatinine Creat Clearance w eGFR POC Glucometer 224 191 Random Glucose Hemoglobin A1c % 8.6 H D Lactic Acid Calcium Phosphorus Magnesium Total Bilirubin AST ALT Alkaline Phosphatase C-Reactive Protein Total Protein Albumin Blood Type Antibody Screen 10/21/17 10/21/17 10/22/17 17:12 21:59 06:50 WBC RBC Hgb Hct MCV MCH MCHC RDW Plt Count MPV Absolute Neuts (auto) Neutrophils % Lymphocytes % Monocytes % Eosinophils % Basophils % Nucleated RBC % ESR PT with INR INR PTT (Actin FS) Sodium Potassium Chloride Carbon Dioxide Anion Gap BUN Creatinine Creat Clearance w eGFR POC Glucometer 153 236 186 Random Glucose Hemoglobin A1c % Lactic Acid Calcium Phosphorus Magnesium Total Bilirubin AST ALT Alkaline Phosphatase C-Reactive Protein Total Protein Albumin Blood Type Antibody Screen Microbiology 10/20/17 03:00 Ulcer Gram Stain - Final 10/20/17 03:00 Ulcer Wound Culture - Final Staphylococcus Coagulase Neg 10/19/17 15:50 Blood - Peripheral Venous Blood Culture - Preliminary NO GROWTH OBTAINED AFTER 48 HOURS, INCUBATION TO CONTINUE FOR 3 DAYS. 10/19/17 15:50 Blood - Peripheral Venous Blood Culture - Preliminary NO GROWTH OBTAINED AFTER 48 HOURS, INCUBATION TO CONTINUE FOR 3 DAYS. HOSPITAL COURSE: Date of Admission:10/19/17 Date of Discharge: 10/22/17 Minutes to complete discharge: 40 Discharge Summary Reason For Visit: DIABETES MELLITIS/ULCER OF TOE Current Active Problems Chronic osteomyelitis (Acute) Chronic osteomyelitis (Acute) Chronic ulcer of toe of left foot (Acute) Diabetes mellitus (Acute) Lactic acid blood increased (Acute) Toe ulcer (Acute) Hospital Course: Patient was monitored off antibiotics. He received a repeat MRI with podiatry that was unchanged from prior with osteomyelitis and edema. He was initially offered amputation. 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 Patient and were in agreement with the plan. Per ID Dr. Quinones, he was placed on bactrim DS once daily suppressive therapy with outpatient wound care follow up. His A1c was noted 8.6. He was counseled on dietary and medication compliance, home glucose monitoring and need for close follow up. Condition: Good - Instructions Diet, Activity, Other Instructions: You are advised jail suppressive antibiotics for your bone infection. Take below antibiotic as directed: Bactrim DS 1 tablet daily, You are being given a 2 week supply, please discuss with Dr. Carmona for need for additional antibiotics, when you seen him in wound care clinic in 2 weeks. Do not stop the antibiotic without discussion with your doctor. Please follow up with Dr. Carmona in wound care clinic in 2 weeks as advised. Continue antibiotics till then. You will need a longer course of antibiotics, but further duration will be determined on the next visit. Your blood tests indicate that your diabetes is not very well controlled. Strongly recommend to check your blood sugars before meals and at bedtime and maintain a diary. notify your doctor if persistently > 120. Good blood sugar control is very essential for your wound healing. While on this antibiotic, please ensure to drink plenty of fluids and maintain adequate hydration. It is advised to have your potassium levels and kidney function monitored on this antibiotic in 1 week with your doctor. Blood test BMP (Basic Metabolic Panel) in 1 week with your doctor. Notify your doctor if any new rash or decreased urination. Call 911 or come to ED if any fevers, chills, tongue or mouth swelling, increased discharge or pain from foot, or any new concerns. Referrals: Marcos Shirley MD [Primary Care Provider] - Honey Munoz MD [Staff Physician] - 2 Weeks Sonido Carmona MD [Non Staff, Medical] - 2 Weeks Sheila Diaz DPM [Staff Physician] - 1 Week Disposition: HOME - Home Medications Comprehensive Discharge Medication List: Ambulatory Orders metFORMIN HCL [Glucophage] 1,000 mg PO BID 06/19/12 Losartan/Hydrochlorothiazide [Losartan-Hctz 100-25 mg Tab] 1 tab PO DAILY Pantoprazole Sodium [Protonix] 1 tab PO DAILY 07/24/17 Nortriptyline HCl [Pamelor -] 1 cap PO DAILY 07/28/17 Atorvastatin Ca [Lipitor] 20 mg PO HS 08/07/17 Clopidogrel Bisulfate [Plavix -] 75 mg PO DAILY #30 tablet 08/14/17 Glipizide 10 mg PO BID 10/20/17 Sulfamethoxazole/Trimethoprim [Bactrim Ds -] 1 tab PO DAILY #15 tablet 10/22/17 This patient is new to me today: No Emergency Visit: Yes ED Registration Date: 10/19/17 Care time: The patient presented to the Emergency Department on the above date and was hospitalized for further evaluation of their emergent condition. Critical Care patient: No - Discharge Referral Referred to [facility] No
--- NOTE | 2017-10-22 10:49 | PN ---
Physical Exam: SUBJECTIVE: Patient seen and examined,l no complaints, no fevers/chills, pain or new concerns. OBJECTIVE: Vital Signs Period Temp Pulse Resp BP Sys/Mills Pulse Ox Last 24 Hr 97.4 F-97.9 F 68-74 16-20 121-151/75-80 99 GENERAL:sitting in bed in no acute distress Chest: CTAB, no rales or wheezing Abdomen:Soft, NT, ND, positive bowel sounds Extremities: left 5th toe no tenderness or discharge today, positive DP pulses Laboratory Results - last 24 hr 10/21/17 10/21/17 10/21/17 12:06 17:12 21:59 POC Glucometer 191 153 236 10/22/17 06:50 POC Glucometer 186 Active Medications Generic Name Dose Route Start Last Admin Trade Name Freq PRN Reason Stop Dose Admin Acetaminophen 650 mg 10/20/17 16:16 10/22/17 08:53 Tylenol - PO 650 mg Q4H PRN Administration PAIN LEVEL 1-5 Atorvastatin Calcium 20 mg 10/20/17 22:00 10/21/17 22:01 Lipitor - PO 20 mg HS PATTI Administration Clopidogrel Bisulfate 75 mg 10/20/17 10:00 10/22/17 09:40 Plavix - PO 75 mg DAILY PATTI Administration Heparin Sodium (Porcine) 5,000 unit 10/19/17 23:00 10/22/17 06:51 Heparin - SQ 5,000 unit TID PATTI Administration Hydrochlorothiazide 25 mg 10/20/17 10:00 10/22/17 09:40 Hctz - PO 25 mg DAILY PATTI Administration Insulin Aspart 1 vial 10/20/17 07:00 10/22/17 06:52 Novolog Vial Sliding Scale - SQ 2 units ACHS PATTI Administration Protocol Losartan Potassium 100 mg 10/20/17 10:00 10/22/17 09:40 Cozaar - PO 100 mg DAILY PATTI Administration Nicotine 7 mg 10/20/17 10:00 10/22/17 09:41 Nicoderm Patch - TD 7 mg DAILY PATTI Administration Nortriptyline HCl 25 mg 10/20/17 10:00 10/22/17 09:41 Pamelor - PO 25 mg DAILY PATTI Administration ASSESSMENT/PLAN: 52 yom with PMHx of NIDDM, nonhealing left 5th toe wound with osteomyelitis s/p 5-6 weeks of Cefepime/vancomycin (finished 09/19/2017, heavy tobacco use, HTN, Hyperlipidemia, BPH, and GERD, PAD s/p LLE stent, sent in with discharge from left toe wound by podiatry -Left 5th toe non healing wound with likely superimposed cellulitis/ Osteomyelitis -PAD -NIDDM -Lactic acidosis, resolved -HTN -HLD -BPH -GERD Plan: Patient seen with Dr. Carmona, repeat MRI of ?unclear significance. Recommends oral suppressive therapy with outpatient wound care clinic follow up in 2 weeks and to address amputation later if fails to improve. Discussed with Dr. Quinones, recommends Bactrim DS 1 tablet daily suppressive therapy with outpatient follow up. Patient agreable and in favor of the plan. Bactrim counseling and need to drink plenty of fluids and have renal function/ potassium levels monitored discussed. Patient relays understanding. IVF. ISS, diabetic diet. Losartan/HCTZ. Plavix/Statin [id number] Dispo dc home with oral bactrim once daily with outpatient wound care clinic follow up in 2 weeks. Plan discussed with patient and on speaker phone by Dr. Carmona and myself in detail, all questions answered. patient and relay full understanding and agree to comply. . Visit type - Emergency Visit Emergency Visit: Yes ED Registration Date: 10/19/17 Care time: The patient presented to the Emergency Department on the above date and was hospitalized for further evaluation of their emergent condition. - New Patient This patient is new to me today: No - Critical Care Critical Care patient: No - Discharge Referral Referred to [facility] Med [facility].C[facility] No
== END 2017-10-22 11:57 | disposition home or self-care (01) | DRG 638 ==
LOC: JER 13:07 → JERBED 18:11 → J5S 23:16
PROVIDERS: ADMIT Hospitalist; ATTEND Hospitalist
DX: E11.621 Type 2 diabetes mellitus with foot ulcer (principal); E87.2 Acidosis; M86.672 Other chronic osteomyelitis, left ankle and foot; L97.529 Non-pressure chronic ulcer of other part of left foot with unspecified severity; E78.5 Hyperlipidemia, unspecified; I10 Essential (primary) hypertension; E11.69 Type 2 diabetes mellitus with other specified complication; L03.032 Cellulitis of left toe; N40.0 Benign prostatic hyperplasia without lower urinary tract symptoms; K21.9 Gastro-esophageal reflux disease without esophagitis; F17.210 Nicotine dependence, cigarettes, uncomplicated; T38.3X5A Adverse effect of insulin and oral hypoglycemic [antidiabetic] drugs, initial encounter
CPT/HCPCS: 36415; 71045-TC-FY; 73610-TC-LT-FY; 73630-TC-LT; 73718-LT; 80053; 82962; 83036; 83605; 83735; 84100; 85025; 85610; 85651; 85730; 86140; 86850; 86900; 86901; 87040; 87070; 87077; 87205; 90732; 93005; 93010; 99283-25; G0009; J1644

== ENCOUNTER 2018-05-24 10:59 | Day surgery (SDC) | payer OTHER ==
[2018-05-22 14:47] VITALS: BMI 33.6
[~2018-05-24 10:59] MED LIST: ceFAZolin SODIUM 1 GM VIAL IVPB ONE
[2018-05-24] MEDS ORDERED: HEPARIN NA (PORCINE) 5,000 UNITS/ML 1ML VIAL ONE (12:14)
[2018-05-24] MEDS ORDERED: LIDOCAINE HCL 1%, 10 MG/ML (20ML VIAL) ONE (12:14)
[2018-05-24] MEDS ORDERED: MIDAZOLAM HCL 2 MG/2 ML SINGLE DOSE VIAL ONE (13:39)
[2018-05-24] MEDS ORDERED: PROPOFOL 20 ML ONE ×3 (13:39→15:01)
[2018-05-24] MEDS ORDERED: ceFAZolin SODIUM 1 GM VIAL IVPB ONE (13:54)
[2018-05-24] MEDS ORDERED: LIDOCAINE HCL 1%, 10 MG/ML (50 mL VIAL) IJ ONE ×2 (14:01)
--- NOTE | 2018-05-24 15:35 | HP ---
Admitting History and Physical - Admission Chief Complaint: LLE claudication Limitations to Obtaining History: No Limitations - Past Medical History Cardiovascular: Yes: HTN, Hyperlipdemia Endocrine: Yes: Diabetes Mellitus - Smoking History Smoking history: Current every day smoker Have you smoked in the past 12 months: Yes Aproximately how many cigarettes per day: 10 - Alcohol/Substance Use Hx Alcohol Use: No Home Medications - Allergies Allergies/Adverse Reactions: Allergies Allergy/AdvReac Type Severity Reaction Status Date / Time codeine [Codeine] Allergy Verified 10/19/17 13:29 - Home Medications Home Medications: Ambulatory Orders metFORMIN HCL [Glucophage] 1,000 mg PO BID 06/19/12 Losartan/Hydrochlorothiazide [Losartan-Hctz 100-25 mg Tab] 1 tab PO DAILY Pantoprazole Sodium [Protonix] 1 tab PO DAILY 07/24/17 Atorvastatin Ca [Lipitor] 20 mg PO HS 08/07/17 Glipizide 10 mg PO BID 10/20/17 Clopidogrel Bisulfate [Plavix] 75 mg PO DAILY #30 tablet 10/25/17 Amlodipine Besylate [Norvasc -] 5 mg PO DAILY 05/22/18 Aspirin [Aspirin EC] 81 mg PO DAILY 05/22/18 Ibuprofen [Advil -] 400 mg PO PRN 05/24/18 Tamsulosin HCl [Flomax] 0.4 mg PO DAILY 05/24/18 Review of Systems - Review of Systems Constitutional: reports: No Symptoms Eyes: reports: No Symptoms HENT: reports: No Symptoms Neck: reports: No Symptoms Cardiovascular: reports: No Symptoms Respiratory: reports: No Symptoms Gastrointestinal: reports: No Symptoms Genitourinary: reports: No Symptoms Breasts: reports: No Symptoms Reported Musculoskeletal: reports: No Symptoms Integumentary: reports: No Symptoms Neurological: reports: No Symptoms Endocrine: reports: No Symptoms Hematology/Lymphatic: reports: No Symptoms Psychiatric: reports: No Symptoms Physical Examination Vital Signs: Vital Signs Temperature 98.0 F 05/24/18 11:36 Pulse Rate 84 05/24/18 11:36 Respiratory Rate 18 05/24/18 11:36 Blood Pressure 117/76 05/24/18 11:36 O2 Sat by Pulse Oximetry (%) 96 05/24/18 11:36 Constitutional: Yes: Well Nourished, No Distress, Calm Eyes: Yes: WNL, Conjunctiva Clear, EOM Intact HENT: Yes: WNL, Atraumatic, Normocephalic Neck: Yes: WNL, Supple, Trachea Midline Cardiovascular: Yes: WNL, Regular Rate and Rhythm Respiratory: Yes: WNL, Regular, CTA Bilaterally Gastrointestinal: Yes: WNL, Normal Bowel Sounds Musculoskeletal: Yes: WNL Extremities: Yes: WNL Edema: No Peripheral Pulses WNL: No Integumentary: Yes: WNL Neurological: Yes: WNL, Alert, Oriented ...Motor Strength: WNL Psychiatric: Yes: WNL Problem List - Problems (1) Claudication of left lower extremity Assessment/Plan: For angiogram today . Code(s): I73.9 - PERIPHERAL VASCULAR DISEASE, UNSPECIFIED
[2018-05-24] MEDS ORDERED: ONDANSETRON 4 MG/2 ML VIAL IVPUSH PRN (15:36)
[2018-05-24] MEDS ORDERED: oxyCODONE HCL 5 MG TABLET PO PRN (15:36)
--- NOTE | 2018-05-24 15:38 | OP ---
Operative Note - Note: Operative Date: 05/24/18 Pre-Operative Diagnosis: LLE claudication Operation: Aortogram, LLE angiogram, SFA angioplasty with sfa stent Findings: SFA occlusion Post-Operative Diagnosis: Same as Pre-op Surgeon: Sonido Carmona Anesthesia: Fractional Estimated Blood Loss (mls): 50 Operative Report Dictated: Yes
[2018-05-24] MEDS ORDERED: CLOPIDOGREL BISULFATE 75 MG TABLET (FP) PO ONE ×2 (15:41→16:21)
[2018-05-24] MEDS ORDERED: CLOPIDOGREL BISULFATE 75 MG TABLET (FP) ONE (15:48)
[2018-05-24 16:51] VITALS: TEMP 97.9
[2018-05-24] MEDS ORDERED: oxyCODONE HCL 5 MG TABLET ONE (17:09)
[2018-05-24 17:30] VITALS: BP 131/74; PULSE 74
--- NOTE | 2018-05-31 08:46 | OP ---
DATE OF OPERATION: 05/24/2018 PREOPERATIVE DIAGNOSIS: Left lower extremity claudication. POSTOPERATIVE DIAGNOSIS: Left lower extremity claudication. PROCEDURE: Aortogram, left lower extremity angiogram, superficial femoral artery angioplasty with superficial femoral artery stent placement. FINDING: Left SFA occlusion. SURGEON: Sonido Hood DO ANESTHESIA: Fractional. BLOOD LOSS: 50 mL The patient is a 52-year-old male who is complaining of left lower extremity claudication. He had a preoperative ultrasound showing that the SFA stents placed 4 or 5 months ago where now occluded. It was decided that he would need an angiogram. Patient came in through Ambulatory Surgery. Patient was consented for the procedure, understanding all risks, benefits, and alternatives and was then brought to the operating room. Once in the operating room, he was laid on the operating table in supine manner. The areas of the right and left groins were prepped and draped in a sterile surgical manner. We then injected 10 mL of lidocaine 1% over the right common femoral artery. We then used our micropuncture needle, punctured the right common femoral artery. Micropuncture wire was inserted and micropuncture sheath was inserted and a traditional 5-Uzbek sheath was inserted. We then placed a 0.035 floppy guidewire p into the aorta, followed by Omni Flush catheter. We then went ahead and shot an aortogram by hand injection, showing that the aorta and iliac arteries were without any disease. We then placed our 0.035 floppy guidewire up and over to the left common femoral artery. We then shot an angiogram of the left lower extremity, showing that the common femoral artery and the profunda were patent. The SFA was occluded from its origin all the way down to the mid SFA where the stent was present, where it was occluded there as well, and the flow came back, reconstituted after the stent in the adductor canal. Patient had 2-vessel runoff into the foot. Popliteal artery was patent. At this point, we placed a 0.035 stiff guidewire and selectively cannulated into the SFA. We removed the Omni Flush catheter. We placed a 6 x 45 crossover sheath, and 5000 units of IV heparin were administered to the patient. We then followed a Quick-Cross catheter onto the wire, and we were able to selectively cross our occlusion and placed a wire down into the popliteal artery. We then went ahead and used a 5 x 150 balloon and performed angioplasty of the SFA stents in the proximal SFA. We then went ahead and shot a completion angiogram, showing that the proximal SFA was still stenosed, and we went ahead and placed a 6 x 150 stent, overlapping it with our old stent. We then ballooned the stents in place using a 5 x 150 balloon. Completion angiogram now showed that the SFA was patent. The stents were patent, there was good brisk flow down into the popliteal artery, and there was 2-vessel runoff into the foot. At this point, no other intervention was needed. We brought our sheath up and over. StarClose device was successfully deployed in the right common femoral artery. Pressure was held for 5 minutes. After there was no more bleeding, area was wet and dried, and Dermabond was placed. The patient tolerated the procedure. No complications. Patient transferred to PACU in stable condition. SONIDO HOOD DO [id number]
== END 2018-05-24 17:50 | disposition home or self-care (01) ==
LOC: JASU-SURG 10:59
PROVIDERS: ATTEND Surgery Vascular Surgery
PROC: 047L3D6 (ICD-10-PCS; principal; 2018-05-24 13:30)
DX: I70.212 Atherosclerosis of native arteries of extremities with intermittent claudication, left leg (principal); I10 Essential (primary) hypertension; E11.9 Type 2 diabetes mellitus without complications; Z79.84 Long term (current) use of oral hypoglycemic drugs
CPT/HCPCS: 37226; C1877; 76000-TC-FY; 82962; 94760; J1644

== ENCOUNTER 2018-05-26 22:30 | Emergency (ER) | payer OTHER ==
[2018-05-26 22:38] VITALS: BP 144/82; PULSE 88; TEMP 97.8; BMI 33.6
--- NOTE | 2018-05-26 22:59 | PDOC ---
History of Present Illness - General Chief Complaint: Pain, Acute Stated Complaint: LEG PAIN (REC.SURGERY) SENT BY PCP Time Seen by Provider: 05/26/18 22:59 - History of Present Illness Initial Comments: 05/26/18 23:09 Mr. Blank is a 52 yo male w/ pmh of HTN, HLD, DM, PVD on clopidegrel, BPH who presents for evaluation of left lower leg pain radiating from his left groin all the way down his leg. Of note, patient had a LLE angiogram, aortogram , SFA angioplasty with sfa stent 2 days ago for SFA occulsion. Patient had been an every day smoker until this procedures. Patient denies any other associated symptoms however presents as pain has increased throughout the day. Patient's vascular surgeon was Dr. Sonido Carmona. The patient denies chest pain, shortness of breath, headache and dizziness. Denies fever, chills, nausea, vomit, diarrhea and constipation. Denies dysuria, frequency, urgency and hematuria. Past History - Past Medical History Allergies/Adverse Reactions: Allergies Allergy/AdvReac Type Severity Reaction Status Date / Time codeine [Codeine] Allergy Verified 05/26/18 22:38 Home Medications: Ambulatory Orders metFORMIN HCL [Glucophage] 1,000 mg PO BID 06/19/12 Losartan/Hydrochlorothiazide [Losartan-Hctz 100-25 mg Tab] 1 tab PO DAILY Pantoprazole Sodium [Protonix] 1 tab PO DAILY 07/24/17 Atorvastatin Ca [Lipitor] 20 mg PO HS 08/07/17 Glipizide 10 mg PO BID 10/20/17 Clopidogrel Bisulfate [Plavix] 75 mg PO DAILY #30 tablet 10/25/17 Amlodipine Besylate [Norvasc -] 5 mg PO DAILY 05/22/18 Aspirin [Aspirin EC] 81 mg PO DAILY 05/22/18 Ibuprofen [Advil -] 400 mg PO PRN 05/24/18 Tamsulosin HCl [Flomax] 0.4 mg PO DAILY 05/24/18 Anemia: No Asthma: No Cancer: No Cardiac Disorders: Yes CVA: No COPD: No CHF: No Dementia: No Diabetes: Yes (niddm) GI Disorders: No Disorders: No HTN: Yes Hypercholesterolemia: Yes Liver Disease: No Seizures: No Thyroid Disease: No - Surgical History Abdominal Surgery: No Appendectomy: No Cardiac Surgery: No Cholecystectomy: No Lung Surgery: No Neurologic Surgery: No Orthopedic Surgery: Yes (Cervical spine sx, L. Rotator cuff) - Suicide/Smoking/Psychosocial Hx Smoking Status: Yes Smoking History: Never smoked Have you smoked in the past 12 months: Yes Number of Cigarettes Smoked Daily: 10 'Breaking Loose' booklet given: 10/19/17 Hx Alcohol Use: No Drug/Substance Use Hx: No Substance Use Type: None Hx Substance Use Treatment: No Review of Systems - Review of Systems Comments:: 05/26/18 23:12 GENERAL/CONSTITUTIONAL: No fever or chills. No weakness. HEAD, EYES, EARS, NOSE AND THROAT: No change in vision. No ear pain or discharge. No sore throat. CARDIOVASCULAR: No chest pain or shortness of breath RESPIRATORY: No cough, wheezing, or hemoptysis. GASTROINTESTINAL: No nausea, vomiting, diarrhea or constipation. GENITOURINARY: No dysuria, frequency, or change in urination. MUSCULOSKELETAL: +LLE pain as described SKIN: No rash NEUROLOGIC: No headache, vertigo, loss of consciousness, or change in strength/ sensation. ENDOCRINE: No increased thirst. No abnormal weight change HEMATOLOGIC/LYMPHATIC: No anemia, easy bleeding, or history of blood clots. ALLERGIC/IMMUNOLOGIC: No hives or skin allergy. *Physical Exam - Vital Signs Last Vital Signs Temp Pulse Resp BP Pulse Ox 97.8 F 88 18 144/82 98 05/26/18 22:37 05/26/18 22:37 05/26/18 22:37 05/26/18 22:37 05/26/18 22:37 - Physical Exam Comments: 05/26/18 23:12 GENERAL: Awake, alert, and fully oriented, in no acute distress HEAD: No signs of trauma, normocephalic, atraumatic EYES: PERRLA, EOMI, sclera anicteric, conjunctiva clear ENT: Auricles normal inspection, hearing grossly normal, nares patent, oropharynx clear without exudates. Moist mucosa NECK: Normal ROM, supple, no lymphadenopathy, JVD, or masses LUNGS: No distress, speaks full sentences, clear to auscultation bilaterally HEART: Regular rate and rhythm, normal S1 and S2, no murmurs, rubs or gallops, peripheral pulses normal and equal bilaterally. ABDOMEN: Soft, nontender, normoactive bowel sounds. No guarding, no rebound. No masses EXTREMITIES: +Lower extremities atrophic bilaterally. Distal pulses intact. Extremity warm. Normal range of motion, no edema. No clubbing or cyanosis. NEUROLOGICAL: Cranial nerves II through XII grossly intact. Normal speech, normal gait, no focal sensorimotor deficits SKIN: Warm, Dry, normal turgor, no rashes or lesions noted. Moderate Sedation - Procedure Monitoring Vital Signs: Procedure Monitoring Vital Signs Temperature 97.8 F 05/26/18 22:37 Pulse Rate 88 05/26/18 22:37 Respiratory Rate 18 05/26/18 22:37 Blood Pressure 144/82 05/26/18 22:37 O2 Sat by Pulse Oximetry (%) 98 05/26/18 22:37 ED Treatment Course - LABORATORY CBC & Chemistry Diagram: 05/26/18 23:30 05/26/18 23:30 Medical Decision Making - Medical Decision Making 05/26/18 23:34 Mr. Blank is a 52 yo male w/ pmh as described who presents for evaluation of symptoms concerning for stent problem/occlusion vs. post-op pain given recent SFA stent placement. Patient will be evaluated with doppler US as well as pre- op labs. Patient given ultram for symptomatic relief. Plan to contact vascular surgeon following results from above tests. 05/26/18 23:44 Patient signed out to Dr. Braajas for further evaluation. *DC/Admit/Observation/Transfer Diagnosis at time of Disposition: Leg pain Qualifiers: Laterality: left Qualified Code(s): M79.605 - Pain in left leg - Referrals - Patient Instructions - Post Discharge Activity
--- NOTE | 2018-05-26 23:15 | PDOC ---
Attending Attestation - Resident Resident Name: Jordin Pineda - ED Attending Attestation I have performed the following: I have examined & evaluated the patient, The case was reviewed & discussed with the resident, I agree w/resident's findings & plan, Exceptions are as noted - HPI HPI: 05/26/18 23:14 - Physicial Exam PE: 05/26/18 23:30 General: no acute distress Extremity: atrophied LE b/l, cap refill deminished b/l approx 2 seconds, wram to touch, DP pulses intact, R inguinal vascular access site slightly ecchymotic , no masses Card: rrr, no mrg Pulm: cta b/l - Medical Decision Making 05/26/18 23:29 52y M hx of htn, hl, dm, pvd sp angioplasty sp stenting () prsents with LLE pain from groin radiating down to the leg, onset of pain this morning worsens when he ambulates, but notes a chronic mild pain in his thigh that radiates down his leg, ipmroves with rest. denies any other sypmtmos including fever/chils, cp, back pain, abd pain, n/v, new numbness/tingling. ddx - ?claudication vs graft occlusion, exam with dp pulses but with b/l deminished cap refill will treat pain will obtain us duplex to evaluate perfusion ekg to screen for afib will reassess 05/27/18 02:18 duplex reviewed case dw dr. esqueda by dr. marie recommends outpatient follow up as flow intact pain likely post op will treat with tramadol return preautions were discussed
[2018-05-26] MEDS ORDERED: traMADol HCL 50 MG TABLET PO ONE (23:30)
[2018-05-26] MEDS ORDERED: traMADol HCL 50 MG TABLET ONE (23:36)
[2018-05-26 23:40] LABS: BASO % 1.1 % (0-2.0); HEMATOCRIT 48.2 % (35.4-49); HEMOGLOBIN 16.4 GM/dL (11.7-16.9); LYMPH % 26.6 % (8-40); MCH 30.7 pg (25.7-33.7); MEAN CELL VOLUME 90.3 fl (80-96); MEAN PLT VOLUME 6.9 fl (7.5-11.1); MONO % 11.9 % (3.8-10.2); NEUT % 59.4 % (42.8-82.8); PLATELET COUNT 358 K/MM3 (134-434); RBC 5.34 M/mm3 (4.00-5.60); RDW 14.7 % (11.9-15.9); WHITE BLOOD COUNT 14.3 K/mm3 (4.0-10.0)
[2018-05-26 23:53] LABS: INR 0.96 (0.83-1.09); PROTHROMBIN TIME (PATIENT) 11.3 SEC (9.7-13.0)
[2018-05-26 23:56] LABS: ACTIVATED PTT 34.9 SECONDS (25.2-36.5)
[2018-05-27 00:11] LABS: ALBUMIN 3.8 g/dl (3.4-5.0); ALK PHOS 101 U/L (45-117); ANION GAP 10 MMOL/L (8-16); BILIRUBIN,TOTAL 0.5 mg/dL (0.2-1); BLOOD UREA NITROGEN 17 mg/dL (7-18); CALCIUM 9.7 mg/dL (8.5-10.1); CHLORIDE 100 mmol/L (98-107); CO2 24 mmol/L (21-32); CREATININE 0.9 mg/dL (0.55-1.3); GLUCOSE,RANDOM 169 mg/dL (74-106); POTASSIUM 4.1 mmol/L (3.5-5.1); SGOT/AST 16 U/L (15-37); SGPT/ALT 17 U/L (13-61); SODIUM 134 mmol/L (136-145); TOT PROT 7.8 g/dl (6.4-8.2)
--- NOTE | 2018-05-27 01:17 | PDOC ---
*Physical Exam - Vital Signs Last Vital Signs Temp Pulse Resp BP Pulse Ox 97.8 F 88 18 144/82 98 05/26/18 22:37 05/26/18 22:37 05/26/18 22:37 05/26/18 22:37 05/26/18 22:37 - Physical Exam Comments: General: Uncomfortable but in no acute distress HEENT: PERRL, EOMI, MMM, voice normal, normal neck ROM, no LAD Cards: RRR, no murmur appreciated Pulm: Comfortable on room air, clear to auscultation bilaterally Abd: Soft, nontender, nondistended Ext: Atraumatic. No LE edema. ROM intact. Strength 5/5 and equal bilaterally. B/ l calves notably atrophied Vasc: Extremities WWP. LLE with palpable DP and PT Skin: Normal color, no rashes or lesions Neuro: A&Ox3, CN grossly intact, normal speech, motor/sensory grossly intact and symmetric Psych: Mood appropriate to situation ED Treatment Course - LABORATORY CBC & Chemistry Diagram: 05/26/18 23:30 05/26/18 23:30 - ADDITIONAL ORDERS Additional order review: Laboratory Results 05/26/18 05/26/18 23:30 23:30 PT with INR 11.30 INR 0.96 PTT (Actin FS) 34.9 Sodium 134 L Potassium 4.1 Chloride 100 Carbon Dioxide 24 Anion Gap 10 BUN 17 Creatinine 0.9 Creat Clearance w eGFR > 60 Random Glucose 169 H Calcium 9.7 Total Bilirubin 0.5 AST 16 ALT 17 Alkaline Phosphatase 101 Total Protein 7.8 Albumin 3.8 05/26/18 23:30 RBC 5.34 MCV 90.3 MCHC 34.0 RDW 14.7 MPV 6.9 L Neutrophils % 59.4 Lymphocytes % 26.6 D Monocytes % 11.9 H D Eosinophils % 1.0 Basophils % 1.1 - Medications Given in the ED: ED Medications Discontinued Medications Generic Name Dose Route Start Last Admin Trade Name Freq PRN Reason Stop Dose Admin Tramadol HCl 50 mg 05/26/18 23:30 05/26/18 23:39 Ultram - PO 05/26/18 23:31 50 mg ONCE ONE Administration Medical Decision Making - Medical Decision Making Colton Rosamaria is a 52yo man with a PMH of HTn, HLD, DM, PAD, POD #2 s/p LLE SFA angioplasty w/ stent placement (Dr Carmona) who presented to the ED tonight for worsening LLE that prevents him from ambulating. ED course so far: - Preop labs ordered - Per Kiran Aguilera and Miriam, LLE arterial duplex ordered to evaluate flow - Tramadol given for pain control Update: - Re-examined pt. Mr Blank reports that his pain is not similar to the claudication/ischemic pain he experienced prior to his angio; this is more severe and feels more similar to a pulled muscle. However, he is concerned and feels unable to walk. No red flag symptoms - DP and PT strongly palpable, LLE warm to touch. Pain related to weight bearing, not ambulating. Pain does not worsen with limb elevation or improve with dangling leg. 05/27/18 01:17 - Arterial duplex completed. Patent vasculature throughout LLE. - Spoke to Dr Carmona. Agrees that pain is likely secondary to inflammation/ irritation from recently angio. Will prescribe pain meds to use at home for several days until pain resolves - Discussed with Mr Blank and his , understand and agree with plan. Requesting crutches. Advised that Mr Blank needs to continue using his leg while healing, and they understand this. Discussed with Dr Aguilera. Melva Barajas PGY1 05/27/18 05:36 *DC/Admit/Observation/Transfer Diagnosis at time of Disposition: Postoperative pain Leg pain Qualifiers: Laterality: left Qualified Code(s): M79.605 - Pain in left leg - Discharge Dispostion Disposition: HOME Condition at time of disposition: Stable Decision to Admit order: No - Prescriptions Prescriptions: Tramadol HCl 50 mg PO QID PRN #12 tablet MDD 4 PRN Reason: Pain - Referrals Referrals: Sonido Carmona MD [Non Staff, Medical] - - Patient Instructions Printed Discharge Instructions: DI for Angiography Additional Instructions: Discharge Instructions: - You were seen in the emergency department for pain after a recent angiogram and stent placement. You had an ultrasound to make sure that your left leg arteries were still open, and the ultrasound showed that there is not any new blockage. - Your pain is most likely from irritation and inflammation from the surgical procedure, and it will improve over the next few days. - You have been prescribed a pain medication called tramadol to take at home. This may be taken along with acetaminophen (Tylenol) for pain. Make sure that you DO NOT take more than 4000mg of acetaminophen per day as this can cause liver damage. - Make sure that you use and stretch your left leg as much as you can tolerate while you are healing. The best thing you can do to help with healing and growth of new blood vessels is to start a walking program such as 15 minutes of walking per day. This does not need to be all at once; it counts if you walk 5 minutes several times per day. - Make an appointment to follow up with Dr Carmona within the next week. - Seek immediate medical care if you have worsening of your pain, your leg feels cold or numb/tingling, you have bleeding/swelling/increased redness near your incision site, or you have any medical emergency including chest pain or shortness of breath. - Post Discharge Activity
--- NOTE | 2018-05-27 09:27 | EKG ---
Test Reason : Blood Pressure : / mmHG Vent. Rate : 092 BPM Atrial Rate : 092 BPM P-R Int : 178 ms QRS Dur : 100 ms QT Int : 366 ms P-R-T Axes : 044 055 015 degrees QTc Int : 452 ms NORMAL SINUS RHYTHM RSR' OR QR PATTERN IN V1 SUGGESTS RIGHT VENTRICULAR CONDUCTION DELAY INFERIOR INFARCT (CITED ON OR BEFORE 19-JUN-2012) CANNOT RULE OUT ANTERIOR INFARCT , AGE UNDETERMINED ABNORMAL ECG WHEN COMPARED WITH ECG OF 19-OCT-2017 14:44, NO SIGNIFICANT CHANGE WAS FOUND Confirmed by Bill Wong MD ([id number]) on 05/27/2018 9:27:12 AM Referred By: Confirmed By:Bill Wong MD
== END 2018-05-27 02:16 | disposition home or self-care (01) ==
LOC: JER 22:30
DX: G89.18 Other acute postprocedural pain (principal); M79.605 Pain in left leg; I73.89 Other specified peripheral vascular diseases; Z95.820 Peripheral vascular angioplasty status with implants and grafts; I10 Essential (primary) hypertension; E78.5 Hyperlipidemia, unspecified; E11.9 Type 2 diabetes mellitus without complications; Z79.84 Long term (current) use of oral hypoglycemic drugs
CPT/HCPCS: 36415; 80053; 85025; 85610; 85730; 86850; 86900; 86901; 93005; 93010; 93926-TC; 99283-25

== ENCOUNTER 2019-05-30 13:04 | Day surgery (SDC) | payer OTHER ==
[2019-05-29 17:42] VITALS: BMI 30.8
--- NOTE | 2019-05-30 16:53 | HP ---
Admitting History and Physical - Admission Chief Complaint: LLE claudication one block Limitations to Obtaining History: No Limitations - Past Medical History Cardiovascular: Yes: HTN, Hyperlipdemia Endocrine: Yes: Diabetes Mellitus - Smoking History Smoking history: Current every day smoker Have you smoked in the past 12 months: Yes Aproximately how many cigarettes per day: 5 - Alcohol/Substance Use Hx Alcohol Use: No Home Medications - Allergies Allergies/Adverse Reactions: Allergies Allergy/AdvReac Type Severity Reaction Status Date / Time codeine [Codeine] Allergy Verified 05/29/19 17:33 - Home Medications Home Medications: Ambulatory Orders metFORMIN HCL [Glucophage] 1,000 mg PO BID 06/19/12 Atorvastatin Ca [Lipitor] 80 mg PO HS 08/07/17 Glipizide 10 mg PO BID 10/20/17 Amlodipine Besylate [Norvasc -] 5 mg PO DAILY 05/22/18 Aspirin [Aspirin EC] 81 mg PO DAILY 05/22/18 Clopidogrel Bisulfate [Plavix -] 75 mg PO DAILY #30 tablet 03/21/19 Metoprolol Succinate 1 tab PO DAILY 05/06/19 Review of Systems - Review of Systems Constitutional: reports: No Symptoms Eyes: reports: No Symptoms HENT: reports: No Symptoms Neck: reports: No Symptoms Cardiovascular: reports: No Symptoms Respiratory: reports: No Symptoms Gastrointestinal: reports: No Symptoms Genitourinary: reports: No Symptoms Musculoskeletal: reports: No Symptoms Integumentary: reports: No Symptoms Neurological: reports: No Symptoms Endocrine: reports: No Symptoms Hematology/Lymphatic: reports: No Symptoms Psychiatric: reports: No Symptoms Physical Examination Vital Signs: Vital Signs Temperature 97.7 F 05/30/19 13:46 Pulse Rate 77 05/30/19 13:46 Respiratory Rate 16 05/30/19 13:46 Blood Pressure 158/87 05/30/19 13:46 O2 Sat by Pulse Oximetry (%) 94 L 05/30/19 13:46 Constitutional: Yes: Well Nourished, No Distress, Calm Eyes: Yes: WNL, Conjunctiva Clear, EOM Intact HENT: Yes: WNL, Atraumatic, Normocephalic Neck: Yes: WNL, Supple, Trachea Midline Cardiovascular: Yes: WNL, Regular Rate and Rhythm Respiratory: Yes: WNL, Regular, CTA Bilaterally Gastrointestinal: Yes: WNL, Normal Bowel Sounds Musculoskeletal: Yes: WNL Extremities: Yes: WNL Edema: No Peripheral Pulses WNL: No Integumentary: Yes: WNL Neurological: Yes: WNL, Alert, Oriented ...Motor Strength: WNL Psychiatric: Yes: WNL Problem List - Problems (1) Claudication of left lower extremity Assessment/Plan: for angiogram today Code(s): I73.9 - PERIPHERAL VASCULAR DISEASE, UNSPECIFIED
[2019-05-30] MEDS ORDERED: ONDANSETRON 4 MG/2 ML VIAL IVPUSH PRN (17:04)
[2019-05-30] MEDS ORDERED: MIDAZOLAM HCL 2 MG/2 ML SINGLE DOSE VIAL ONE ×2 (17:06)
[2019-05-30] MEDS ORDERED: ceFAZolin SODIUM 1 GM VIAL ONE ×2 (17:10→17:13)
[2019-05-30] MEDS ORDERED: HEPARIN NA (PORCINE) 5,000 UNITS/ML 1ML VIAL ONE (17:13)
[2019-05-30] MEDS ORDERED: ceFAZolin SODIUM 1 GM VIAL IVPB ONE (17:15)
[2019-05-30] MEDS ORDERED: LIDOCAINE HCL 1%, 10 MG/ML (20ML VIAL) NR ONE ×3 (17:21→17:27)
--- NOTE | 2019-05-30 18:33 | OP ---
Operative Note - Note: Operative Date: 05/30/19 Pre-Operative Diagnosis: left lower ext claudication Operation: Aortogram, LLE angiogram, SFA atherectomy with angioplasty Findings: SFA instent stenosis Post-Operative Diagnosis: Same as Pre-op Surgeon: Sonido Carmona Anesthesia: Fractional Estimated Blood Loss (mls): 50 Operative Report Dictated: Yes
[2019-05-30] MEDS ORDERED: CLOPIDOGREL BISULFATE 75 MG TABLET (FP) PO ONE (18:34)
[2019-05-30] MEDS ORDERED: CLOPIDOGREL BISULFATE 75 MG TABLET (FP) ONE (18:57)
[2019-05-30 19:19] VITALS: TEMP 98.9
[2019-05-30 19:49] VITALS: BP 140/79; PULSE 64
--- NOTE | 2019-06-11 14:10 | OP ---
DATE OF OPERATION: 05/30/2019 PREOPERATIVE DIAGNOSIS: Left lower extremity claudication. POSTOPERATIVE DIAGNOSIS: Left lower extremity claudication. PROCEDURE: Aortogram, left lower extremity angiogram, superficial femoral artery atherectomy with angioplasty. FINDINGS: SFA in-stent stenosis. SURGEON: Sonido Hood DO ANESTHESIA: Fractional. BLOOD LOSS: 50 mL. INDICATIONS: Patient is a 53-year-old male that complains of left lower extremity claudication less than 1 block. Preoperative ultrasound showed that he has severe stenosis in his left SFA stent. Patient was cleared by medicine and cardiology. Patient then came in through ambulatory surgery. Patient was then consented for the procedure understanding all risks, benefits, alternatives and was then taken to the operating room. DESCRIPTION OF PROCEDURE: Once in the operating room, was laid on the operating room table in supine manner, and the area of the right and left groin were prepped and draped in a sterile surgical manner. We then injected 10 mL of lidocaine 1% over the right common femoral artery. We then took our micropuncture needle. Punctured the right common femoral artery. Micropuncture wire inserted. Micropuncture sheath was inserted, and a traditional 5-Amharic sheath was inserted. We then placed a 0.035 floppy guidewire up into the aorta followed by Omni Flush catheter. We then shot an aortogram via hand injection showing that the aorta and the iliac arteries were without any disease. We then placed a 0.035 floppy guidewire up and over to the common femoral artery, and our Omni Flush catheter followed. We then shot an angiogram of the left lower extremity showing that the common femoral artery and the profunda were patent. The SFA stent that starts at the origin of the SFA was patent but severely stenotic. The rest of the stent had some mild flow but was also stenotic and almost occluded. The stent went to the above-knee popliteal artery. The behind-knee popliteal artery and the below-knee popliteal artery was patent. Patient had 2-vessel runoff into the foot. At this point, we placed a 0.035 stiff guidewire and directed it into the SFA stent. We then removed our Omni Flush catheter. We placed a 6 x 45 crossover sheath; 5000 units of IV heparin were administered to the patient. We used a Quick-Cross catheter, and we got our 0.035 stiff guidewire down all the way through the stent and down into the below-knee popliteal artery in exchange for a ViperWire. We then went ahead and used a Tank Top TV orbital atherectomy device and performed orbital atherectomy of the proximal SFA stent under low and medium. We then went ahead band used a 6 x 200 Ultraverse balloon and performed angioplasty of the entire SFA stent. Completion angiogram now showed that the SFA stent was patent. There was good, brisk flow all the way into the foot. The patient had a palpable DP pulse. At this point when no more intervention was needed, we brought our sheath up and over, and StarClose device was successfully deployed in the right common femoral artery. Pressure was held for 5 minutes. After there was no more bleeding, the area was wet and dried, and Dermabond was placed. Patient tolerated the procedure with no complications. Patient transferred to the PACU in stable condition. SONIDO HOOD DO [id number]
== END 2019-05-30 19:50 | disposition home or self-care (01) ==
LOC: JASU-SURG 13:04
PROVIDERS: ATTEND Surgery Vascular Surgery
PROC: 047L3ZZ Dilation of Left Femoral Artery, Percutaneous Approach (ICD-10-PCS; principal; 2019-05-30 15:00)
DX: I70.212 Atherosclerosis of native arteries of extremities with intermittent claudication, left leg (principal); I10 Essential (primary) hypertension; E11.9 Type 2 diabetes mellitus without complications; Z79.84 Long term (current) use of oral hypoglycemic drugs
CPT/HCPCS: 37225; C1885; 82962; 94760; J1644

== ENCOUNTER 2020-01-21 20:42 | Inpatient (IN) | payer OTHER ==
--- NOTE | 2020-01-21 20:52 | PDOC ---
Rapid Medical Evaluation Time Seen by Provider: 01/21/20 20:48 Medical Evaluation: Allergies Allergy/AdvReac Type Severity Reaction Status Date / Time codeine [Codeine] Allergy Verified 05/29/19 17:33 01/21/20 20:48 Pt with PMH of diabetes, PAD presents for evaluation of a foot wound on the L lower foot for three weeks. He also has a new tattoo on the L upper leg which he says hurts? Pt sees Dr. Carmona for stenting of his L leg in the past Exam: cellulitis to the arch of the L foot. Orders: labs, IV, EKG Pt to proceed to the ER for further evaluation Discharge Disposition - Diagnosis Diabetes mellitus, Diabetic foot ulcer - Referrals - Patient Instructions - Post Discharge Activity
[2020-01-21 20:55] VITALS: BMI 30.4
--- OUTSIDE RECORDS SUMMARY | 2020-01-21 21:01 | XMS ---
:1965 Author Organization [facility] Care Team Providers Name Role Phone Chumaceiro, Marcos Unavailable Unavailable Chumaceiro, Marcos Unavailable Unavailable Chumaceiro, Marcos Unavailable Unavailable Chumaceiro, Marcos Unavailable Unavailable Chumaceiro, Marcos Unavailable Unavailable Chumaceiro, Marcos Unavailable Unavailable Chumaceiro, Marcos Unavailable Unavailable Chumaceiro, Marcos Unavailable Unavailable Re-disclosure Warning The records that you are about to access may contain information from federally- assisted alcohol or drug abuse programs. If such information is present, then the following federally mandated warning applies: This information has been disclosed to you from records protected by federal confidentiality rules (42 CFR part 2). The federal rules prohibit you from making any further disclosure of this information unless further disclosure is expressly permitted by the written consent of the person to whom it pertains or as otherwise permitted by 42 CFR part 2. A general authorization for the release of medical or other information is NOT sufficient for this purpose. The Federal rules restrict any use of the information to criminally investigate or prosecute any alcohol or drug abuse patient.The records that you are about to access may contain highly sensitive health information, the redisclosure of which is protected by Article 27-F of the [facility] Public Health law. If you continue you may haveaccess to information: Regarding HIV / AIDS; Provided by facilities licensed or operated by the [facility] Office of Mental Health; or Provided by the [facility] Office for People With Developmental Disabilities. If such information is present, then the following [facility] mandated warning applies: This information has been disclosed to you from confidential records which are protected by state law. State law prohibits you from making any further disclosure of this information without the specific written consent of the person to whom it pertains, or as otherwise permitted by law. Any unauthorized further disclosure in violation of state law may result in a fine or care home sentence or both. A general authorization for the release of medical or other information is NOT sufficient authorization for further disclosure. Encounters Encounter Providers Location Date Indications Data Source(s ) Attender: Marcos 10/25/2019 [facility] ([facility] 12:[facility]:00 [facility]) EDT Office Attender: Marcos 10/25/2019 12:00:00 AM EDT [facility] ([facility], ) Office Immunizations Vaccine Date Status Description Data Source(s) pneumococcal 01/29/2018 completed [facility] ([facility] polysaccharide PPV23 12:00:00 AM EDT [facility], PC) New in 2011. IIV4 01/29/2018 completed [facility] (S t [facility] 12:00:00 AM EDT Medical, ) New in 2011. IIV4 02/27/2017 completed [facility] (S t [facility] 12:00:00 AM [facility], PC) Medications Medication Brand Start Product Dose Route Administrative Pharmacy [facility] Indications Reaction Description Data Name Date Form Instructions Instructions Source(s) Losartan LOSART 08/01/ TABLET 30 complet LOSARTA N [facility] (St Potassium AN:979 2017 ed [facility] 25 MG Oral 485 12:00: Medical , Tablet 00 AM PC) LOSARTAN:97 EDT 9485 Glipizide GLIPIZ 17/ TABLET 30 complet GLIPIZ FIDE [facility] (St 10 MG Oral FIDE:31 2017 ed [facility] Tablet 0488 12:00: Medical, GLIPIZIDE:3 00 AM PC) 37070 EDT Aspirin 81 ASPIRI 08/01/ TABLET 30 complet ASPIR IN [facility] (St MG Oral N:2436 2017 ed [facility] Tablet 70 12:00: Medical, ASPIRIN:243 00 AM PC) 670 EDT pantoprazol PANTOP 08/01/ DELAYED 30 complet TOPETE TOPRAZOLE [facility] (St e 40 MG RAZOLE 2017 RELEASE ed [facility] Delayed :88180 12:00: TABLET Medica l, Release 0 00 AM PC) Oral Tablet EDT PANTOPRAZOL E:[id number] tramadol TRAMAD 08/01/ TABLET 30 complet TRAMADO L [facility] (St hydrochlori OL:835 2017 ed Sherrill de 50 MG 603 12:00: Medical, Oral Tablet 00 AM PC) TRAMADOL:83 EDT 5603 Metformin METFOR 08/01/ TABLET 30 complet METFOR MIN [facility] (St hydrochlori MIN:86 2017 ed Sherrill de 1000 MG 1004 12:00: Medical , Oral Tablet 00 AM PC) METFORMIN:8 EDT 59365 Insurance Providers Payer name Policy type Policy ID Covered Covered green party's Policy P azael / Coverage green party ID relationship to Niño Inf ormation type niño HIP MEDICARE [id number] SP [id number] VIP [facility] [id number] [place] [id number] [facility] [id number] VIP (O) HIP MEDICARE [id number] SP [id number] VIP HIP MEDICARE [id number] SP [id number] VIP HIP MEDICARE [id number] SP [id number] [facility] Problems, Conditions, and Diagnoses Code Display Name Description Problem Effective Data Type Dates Source(s) Z01.818 Encounter for ENCOUNTER FOR OTHER Problem 05/24/2019 ME [facility] (St other PREPROCEDURAL 12:00:00 AM [facility] preprocedural EXAMINATION EST Medical, P C) examination Z23 Encounter for ENCOUNTER FOR Problem 01/29/2018 [facility] ( St immunization IMMUNIZATION 12:00:00 AM [facility] T Medical, ) M79.675 Pain in left PAIN IN LEFT TOE(S) Problem 10/19/2017 [facility] (St toe(s) 12:00:00 AM [facility], PC) E08.621 Diabetes mellitus DIABETES MELLITUS DUE TO Problem 08/2017 [facility] (St due to underlying UNDERLYING CONDITION 12:00:00 AM [facility] condition with WITH FOOT ULCER EDT Medic al, PC) foot ulcer L84 Corns and CORNS AND CALLOSITIES Problem 10/04/2017 MED [facility] (St callosities 12:00:00 AM [facility], PC) M79.672 Pain in left foot PAIN IN LEFT FOOT Problem 10/04/2017 [facility] (St 12:00:00 AM [facility], ) M20.42 Other hammer OTHER HAMMER TOE(S) Problem 10/04/2017 MED [facility] (St toe(s) (ACQUIRED), LEFT FOOT 12:00:00 AM [facility] (acquired), left EDT Medical, ) foot E11.40 Type 2 diabetes TYPE 2 DIABETES MELLITUS Problem 2017 [facility] ([address] mellitus with WITH DIABETIC 12:00:00 AM [facility] diabetic NEUROPATHY, UNSPECIFIED EDT [facility], ) neuropathy, unspecified R30.0 Dysuria DYSURIA Problem 08/03/2017 [facility] (St 12:00:00 AM [facility], ) E11.621 Type 2 diabetes TYPE 2 DIABETES MELLITUS Problem 2017 [facility] ([address] mellitus with WITH FOOT ULCER 12:00:00 AM [facility] foot ulcer EDT Medical, ) E11.69 Type 2 diabetes TYPE 2 DIABETES MELLITUS Problem 2017 [facility] (St mellitus with WITH OTHER SPECIFIED 12:00:00 AM [facility] other specified COMPLICATION EDT Medical , ) complication E78.00 Pure PURE Problem 08/01/2016 [facility] (St hypercholesterole HYPERCHOLESTEROLEMIA 12:00:00 AM [facility] nelida, unspecified EDT Medical, ) I10 Essential ESSENTIAL (PRIMARY) Problem 08/01/2016 MED[facility] N (St (primary) HYPERTENSION 12:00:00 AM [facility] hypertension T [facility], ) E11.9 Type 2 diabetes TYPE 2 DIABETES MELLITUS Problem 2016 [facility] (St mellitus without WITHOUT COMPLICATIONS 12:00:00 AM [facility] complications EDT Medical, ) Surgeries/Procedures Procedure Description Date Indications Data Source(s) Documentation of current 10/25/2019 [facility] ([facility] medications (procedure) 12:00:00 AM EDSrinath jose, ) OFFICE OUTPATIENT VISIT 15 10/25/2019 Brock LARA ([facility] MINUTES 12:00:00 AM EDT Medical, ) Documentation of current 08/29/2019 [facility] ([facility] medications (procedure) 12:00:00 AM EDSrinath garcia, ) Documentation of current 08/29/2019 [facility] ([facility] medications (procedure) 12:00:00 AM EDT [facility], ) Documentation of current 08/29/2019 [facility] ([facility] medications (procedure) 12:00:00 AM EDT [facility], ) Documentation of current 08/29/2019 [facility] ([facility] medications (procedure) 12:00:00 AM EDT [facility], ) Documentation of current 08/29/2019 [facility] ([facility] medications (procedure) 12:00:00 AM EDT [facility], ) PHYSICIAN TELEPHONE 08/29/2019 [facility] ( [facility] EVALUATION 5-10 MIN 12:00:00 AM [facility], ) Documentation of current 08/21/2019 [facility] ([facility] medications (procedure) 12:00:00 AM EDT [facility], ) Documentation of current 08/21/2019 [facility] ([facility] medications (procedure) 12:00:00 AM [facility], ) Documentation of current 08/21/2019 [facility] ([facility] medications (procedure) 12:00:00 AM T [facility], ) Documentation of current 08/21/2019 [facility] ([facility] medications (procedure) 12:00:00 AM EDT [facility], ) PHYSICIAN TELEPHONE 08/21/2019 [facility] ( [facility] EVALUATION 11-20 MIN 12:00:00 AM [facility], ) Documentation of current 06/21/2019 [facility] ([facility] medications (procedure) 12:00:00 AM [facility], ) OFFICE OUTPATIENT VISIT 10 06/21/2019 Brock LARA ([facility] MINUTES 12:00:00 AM [facility], ) Documentation of current 05/24/2019 MED [facility] ([facility] medications (procedure) 12:00:00 AM EST [facility], ) Documentation of current 05/24/2019 [facility] ([facility] medications (procedure) 12:00:00 AM EST [facility], ) OFFICE OUTPATIENT VISIT 25 05/24/2019 Brock LARA ([facility] MINUTES 12:00:00 AM [facility], ) ECG ROUTINE ECG W/LEAST 12 05/24/2019 Brock LARA ([facility] LDS W/I&R 12:00:00 AM [facility], ) COLLECTION VENOUS BLOOD 05/24/2019 MED[facility] EN ([facility] VENIPUNCTURE 12:00:00 AM [facility], ) Documentation of current 03/05/2019 MED [facility] ([facility] medications (procedure) 12:00:00 AM [facility], ) OFFICE OUTPATIENT VISIT 10 03/05/2019 Brock LARA ([facility] MINUTES 12:00:00 AM [facility], ) INFLUENZA VACCINE 03/05/2019 [facility] ([facility] 12:00:00 AM [facility], ) IMADM PRQ ID SUBQ/IM NJXS 03/05/2019 ME D[facility] ([facility] 1 VACCINE 12:00:00 AM [facility], ) Documentation of current 12/31/2018 MED [facility] ([facility] medications (procedure) 12:00:00 AM EDT [facility], ) Documentation of current 12/31/2018 [facility] ([facility] medications (procedure) 12:00:00 AM EDT [facility], ) Documentation of current 12/31/2018 [facility] ([facility] medications (procedure) 12:00:00 AM EDT [facility], ) Documentation of current 12/31/2018 [facility] ([facility] medications (procedure) 12:00:00 AM EDT [facility], ) Documentation of current 12/31/2018 MED [facility] ([facility] medications (procedure) 12:00:00 AM EDT [facility], ) OFFICE OUTPATIENT VISIT 15 12/31/2018 Brock LARA ([facility] MINUTES 12:00:00 AM [facility], ) COLLECTION VENOUS BLOOD 12/31/2018 MED[facility] EN ([facility] VENIPUNCTURE 12:00:00 AM [facility], ) Documentation of current 09/27/2018 MED [facility] ([facility] medications (procedure) 12:00:00 AM EDT [facility], ) Documentation of current 09/27/2018 MED [facility] ([facility] medications (procedure) 12:00:00 AM EDT [facility], ) Documentation of current 09/27/2018 [facility] ([facility] medications (procedure) 12:00:00 AM EDT [facility], ) OFFICE OUTPATIENT VISIT 15 09/27/2018 Brock LARA ([facility] MINUTES 12:00:00 AM [facility], ) GLUC BLD GLUC MNTR DEV 09/27/2018 MEDGE N ([facility] CLEARED FDA SPEC HOME USE 12:00:00 AM [facility], ) COLLECTION CAPILLARY BLOOD 09/27/2018 Brock LARA ([facility] SPECIMEN 12:00:00 AM [facility], ) Documentation of current 07/20/2018 [facility] Documentation of current 07/20/2018 [facility] ([facility]procedure) [facility] OFFICE OUTPATIENT VISIT 15 07/20/2018 Brock LARA ([facility] MINUTES 12:00:00 AM [facility], ) GLUC BLD GLUC MNTR DEV 07/20/2018 MEDGE N ([facility] CLEARED FDA SPEC HOME USE 12:00:00 AM [facility], ) COLLECTION CAPILLARY BLOOD 07/20/2018 Brock LARA ([facility] SPECIMEN 12:00:00 AM [facility], ) Documentation of current 06/08/2018 MED [facility] ([facility] medications (procedure) 12:00:00 AM EST [facility], ) OFFICE OUTPATIENT VISIT 15 06/08/2018 Brock LARA ([facility] MINUTES 12:00:00 AM [facility], ) GLUC BLD GLUC MNTR DEV 06/08/2018 MEDGE N ([facility] CLEARED FDA SPEC HOME USE 12:00:00 AM [facility], ) COLLECTION CAPILLARY BLOOD 06/08/2018 Brock LARA ([facility] SPECIMEN 12:00:00 AM [facility], ) COLLECTION VENOUS BLOOD 06/08/2018 MEDG EN ([facility] VENIPUNCTURE 12:00:00 AM [facility], ) Documentation of current 04/02/2018 MED [facility] ([facility] medications (procedure) 12:00:00 AM EST [facility], ) OFFICE OUTPATIENT VISIT 15 04/02/2018 Brock LARA ([facility] MINUTES 12:00:00 AM [facility], ) GLUC BLD GLUC MNTR DEV 04/02/2018 MEDGE N ([facility] CLEARED FDA SPEC HOME USE 12:00:00 AM [facility], ) COLLECTION CAPILLARY BLOOD 04/02/2018 Brock LARA ([facility] SPECIMEN 12:00:00 AM [facility], ) OFFICE OUTPATIENT VISIT 15 01/29/2018 Brock BRUMFIELDLuis Manuel ([facility] MINUTES 12:00:00 AM [facility], ) PNEUMOCOCCAL POLYSAC 01/29/2018 [facility] ([facility] VACCINE 23-V 2 />YR 12:00:00 AM EDT [facility], ) SUBQ/IM INFLUENZA VACCINE 01/29/2018 [facility] ([facility] 12:00:00 AM EDT [facility], ) IMADM PRQ ID SUBQ/IM NJXS 01/29/2018 ME D[facility] ([facility] EA VACCINE 12:00:00 AM [facility], ) IMADM PRQ ID SUBQ/IM NJXS 01/29/2018 ME [facility] ([facility] 1 VACCINE 12:00:00 AM [facility], ) GLUC BLD GLUC MNTR DEV 01/29/2018 MED[facility] N ([facility] CLEARED FDA SPEC HOME USE 12:00:00 AM [facility], ) COLLECTION CAPILLARY BLOOD 01/29/2018 Brock JANE ([facility] SPECIMEN 12:00:00 AM [facility], ) COLLECTION VENOUS BLOOD 01/29/2018 MED[facility] EN ([facility] VENIPUNCTURE 12:00:00 AM [facility], ) Documentation of current 11/29/2017 MED [facility] ([facility] medications (procedure) 12:00:00 AM EDT [facility], ) OFFICE OUTPATIENT VISIT 25 11/29/2017 Brock BRUMFIELDLuis Manuel ([facility] MINUTES 12:00:00 AM [facility], ) GLUC BLD GLUC MNTR DEV 11/29/2017 MEDGE N ([facility] CLEARED FDA SPEC HOME USE 12:00:00 AM [facility], ) COLLECTION CAPILLARY BLOOD 11/29/2017 Brock JANE ([facility] SPECIMEN 12:00:00 AM [facility], ) COLLECTION VENOUS BLOOD 11/29/2017 MED[facility] EN ([facility] VENIPUNCTURE 12:00:00 AM [facility], ) OFFICE OUTPATIENT VISIT 10 10/19/2017 Brock JANE ([facility] MINUTES 12:00:00 AM [facility], ) INCISION & DRAINAGE 10/19/2017 [facility] ( [facility] ABSCESS SIMPLE/SINGLE 12:00:[address] [facility], ) Documentation of current 10/04/2017 MED [facility] ([facility] medications (procedure) 12:00:00 AM EDT [facility], ) OFFICE OUTPATIENT VISIT 15 10/04/2017 Brock LARA ([facility] MINUTES 12:00:00 AM [facility], ) OFFICE OUTPATIENT NEW 30 10/04/2017 MED [facility] ([facility] MINUTES 12:00:00 AM [facility], ) GLUC BLD GLUC MNTR DEV 10/04/2017 MEDGE N ([facility] CLEARED FDA SPEC HOME USE 12:00:00 AM [facility], ) COLLECTION CAPILLARY BLOOD 10/04/2017 Brock LARA ([facility] SPECIMEN 12:00:00 AM [facility], ) Documentation of current 09/18/2017 MED [facility] ([facility] medications (procedure) 12:00:00 AM [facility], ) OFFICE OUTPATIENT VISIT 09/18/2017 Brock LARA ([facility] MINUTES 12:00:00 AM [facility], ) ECG ROUTINE ECG W/LEAST 12 09/18/2017 Brock LARA ([facility] LDS W/I&R 12:00:00 AM [facility], ) GLUC BLD GLUC MNTR DEV 09/18/2017 MED[facility] N ([facility] CLEARED FDA SPEC HOME USE 12:00:00 AM [facility], ) COLLECTION CAPILLARY BLOOD 09/18/2017 Brock LARA ([facility] SPECIMEN 12:00:00 AM [facility], ) COLLECTION VENOUS BLOOD 09/18/2017 MEDG EN ([facility] VENIPUNCTURE 12:00:00 AM [facility], ) Documentation of current 09/08/2017 MED [facility] ([facility] medications (procedure) 12:00:00 AM [facility], ) Documentation of current 09/08/2017 MED [facility] ([facility] medications (procedure) 12:00:00 AM [facility], ) OFFICE OUTPATIENT VISIT 15 09/08/2017 Brock LARA ([facility] MINUTES 12:00:00 AM [facility], ) GLUC BLD GLUC MNTR DEV 09/08/2017 MEDGE N ([facility] CLEARED FDA SPEC HOME USE 12:00:00 AM [facility], ) COLLECTION CAPILLARY BLOOD 09/08/2017 Brock LARA ([facility] SPECIMEN 12:00:00 AM [facility], ) Documentation of current 08/03/2017 MED [facility] ([facility] medications (procedure) 12:00:00 AM EDT [facility], ) OFFICE OUTPATIENT VISIT 15 08/03/2017 Brock LARA ([facility] MINUTES 12:00:00 AM [facility], ) GLUC BLD GLUC MNTR DEV 08/03/2017 MEDGE N ([facility] CLEARED FDA SPEC HOME USE 12:00:00 AM [facility], ) Documentation of current 07/31/2017 MED [facility] ([facility] medications (procedure) 12:00:00 AM EDT [facility], ) Documentation of current 07/31/2017 MED [facility] ([facility] medications (procedure) 12:00:00 AM EDT [facility], ) OFFICE OUTPATIENT VISIT 25 07/31/2017 Brock LARA ([facility] MINUTES 12:00:00 AM [facility], ) ECG ROUTINE ECG W/LEAST 12 07/31/2017 Brock LARA ([facility] LDS W/I&R 12:00:00 AM [facility], ) GLUC BLD GLUC MNTR DEV 07/31/2017 MEDGE N ([facility] CLEARED FDA SPEC HOME USE 12:00:00 AM [facility], ) COLLECTION CAPILLARY BLOOD 07/31/2017 Brock LARA ([facility] SPECIMEN 12:00:00 AM [facility], ) Documentation of current 07/28/2017 MED [facility] ([facility] medications (procedure) 12:00:00 AM EDT [facility], ) OFFICE OUTPATIENT VISIT 25 07/28/2017 Brock LARA ([facility] MINUTES 12:00:00 AM [facility], ) GLUC BLD GLUC MNTR DEV 07/28/2017 MEDGE N ([facility] CLEARED FDA SPEC HOME USE 12:00:00 AM [facility], ) COLLECTION VENOUS BLOOD 07/28/2017 MEDG EN ([facility] VENIPUNCTURE 12:00:00 AM [facility], ) Documentation of current 05/09/2017 MED [facility] ([facility] medications (procedure) 12:00:00 AM EST [facility], ) Documentation of current 05/09/2017 MED [facility] ([facility] medications (procedure) 12:00:00 AM EST [facility], ) OFFICE OUTPATIENT VISIT 15 05/09/2017 Brock JANE ([facility] MINUTES 12:00:00 AM [facility], ) Documentation of current 04/25/2017 MED [facility] ([facility] medications (procedure) 12:00:00 AM [facility], ) Documentation of current 04/25/2017 MED [facility] ([facility] medications (procedure) 12:00:00 AM [facility], ) OFFICE OUTPATIENT VISIT 15 04/25/2017 Brock JANE ([facility] MINUTES 12:00:00 AM [facility], ) GLUC BLD GLUC MNTR DEV 04/25/2017 MEDGE N ([facility] CLEARED FDA SPEC HOME USE 12:00:00 AM [facility], ) Documentation of current 02/27/2017 MED [facility] ([facility] medications (procedure) 12:00:00 AM [facility], ) Documentation of current 02/27/2017 MED [facility] ([facility] medications (procedure) 12:00:00 AM [facility]) Documentation of current 02/27/2017 MED GEN ([facility] medications (procedure) 12:00:00 AM [facility], ) Influenza virus vaccine, 02/27/2017 MED [facility] ([facility] split virus, when 12:00:00 AM [facility] , ) administered to individuals 3 years of age and older, for intramuscular use (flulaval) Administration of 02/27/2017 [facility] ([facility] influenza virus vaccine 12:00:00 AM [facility], ) OFFICE OUTPATIENT VISIT 25 02/27/2017 Brock JANE ([facility] MINUTES 12:00:00 AM [facility], ) GLUC BLD GLUC MNTR DEV 02/27/2017 MEDGE N ([facility] CLEARED FDA SPEC HOME USE 12:00:00 AM [facility], ) COLLECTION VENOUS BLOOD 02/27/2017 MEDG EN ([facility] VENIPUNCTURE 12:00:00 AM [facility], ) OFFICE OUTPATIENT VISIT 15 09/21/2016 Brock LARA ([facility] MINUTES 12:00:00 AM [facility], ) Documentation of current 09/14/2016 MED [facility] ([facility] medications (procedure) 12:00:00 AM EDT [facility], ) Documentation of current 09/14/2016 MED GEN ([facility] medications (procedure) 12:00:00 AM EDT [facility], ) Documentation of current 09/14/2016 MED [facility] ([facility] medications (procedure) 12:00:00 AM EDT [facility], ) Documentation of current 09/14/2016 MED [facility] ([facility] medications (procedure) 12:00:00 AM EDT [facility], ) OFFICE OUTPATIENT VISIT 15 09/14/2016 Brock BRUMFIELDN ([facility] MINUTES 12:00:00 AM [facility], ) Documentation of current 08/01/2016 MED [facility] ([facility] medications (procedure) 12:00:00 AM EDT [facility], ) Documentation of current 08/01/2016 MED GEN ([facility] medications (procedure) 12:00:00 AM EDT [facility], ) OFFICE OUTPATIENT VISIT 25 08/01/2016 Brock OCTAVIANON ([facility] MINUTES 12:00:00 AM [facility], ) COLLECTION VENOUS BLOOD 08/01/2016 MEDG EN ([facility] VENIPUNCTURE 12:00:00 AM [facility], ) Results ID Date Data Source [id number] 12/25/2019 12:00:00 AM [facility] Name Value Range Interpretation Code Description Data Sita rce(s) Supporting Document(s ) 2019-nCoV [facility] RNA XXX EVA+probe- Imp This lab was ordered by [facility] and reported by [employer] ID Date Data Source [id number] 05/24/2019 12:00:00 AM EST [facility], ) Name Value Range Interpretation Description Data Sup porting Code Source(s) Document(s ) Hemoglobin A1c 9.6 % of Above high normal [facility] (St in Blood total Hgb [facility], ) ID Date Data Source [id number] 05/24/2019 12:00:00 AM EST [facility], ) Name Value Range Interpretation Description Data Sup porting Code Source(s) Document(s ) INR 1.0 Ratio Normal (applies [facility] (St to non-numeric [facility] results) Medical, PC) PROTHROMBIN 10.2 Normal (applies [facility] (St TIME Seconds to non-numeric [facility] results) Medical, PC) PTT, ACTIVATED 34 Seconds Normal (applies [facility] ( St to non-numeric [facility] results) Medical, PC) ID Date Data Source [id number] 05/24/2019 12:00:00 AM EST [facility]) Name Value Range Interpretation Description Data Sup porting Code Source(s) Document(s ) Color of Dark Yellow Abnormal [facility] (St Peritoneal (applies to [facility] dialysis fluid non-numeric Medical, results) PC) Appearance of Cloudy Abnormal [facility] (St Abdomen (applies to [facility] non-numeric Medical, results) PC) Specific gravity 1.040 Above high [facility] (St of Pericardial normal [facility] fluid by Medical, Refractometry PC) pH of Lower 5.5 Normal (applies [facility] (St respiratory to non-numeric [facility] specimen results) Medical, PC) Glucose Abnormal [facility] (St [Mass/volume] in (applies to [facility] Urine collected non-numeric Medical, for unspecified results) PC) duration Bilirubin Negative Normal (applies [facility] (St [Presence] in to non-numeric [facility] Peritoneal fluid results) Medical, PC) Ketones Trace Abnormal [facility] (St [Presence] in (applies to [facility] Blood by Tablet non-numeric Medical, results) PC) OCCULT BLOOD Abnormal [facility] (St (applies to [facility] non-numeric Medical, results) PC) Protein Trace Abnormal [facility] (St [Mass/volume] in (applies to [facility] Lower non-numeric Medical, respiratory results) PC) specimen Nitrite Negative Normal (applies [facility] (St [Presence] in to non-numeric [facility] Urine by Test results) Medical, strip PC) Leukocyte Negative Normal (applies MED[facility] (St esterase to non-numeric [facility] [Presence] in results) Medical, Body fluid by PC) Automated test strip WBC None Seen Normal (applies MEDGEN (St to non-numeric [facility] results) [facility], PC) RBC 3-10 Above high [facility] (St normal [facility], [facility]) SQUAMOUS None Seen Normal (applies [facility] (St EPITHELIAL CELLS to non-numeric [facility] results) Medical, PC) Bacteria Few Above high [facility] (St [Presence] in normal [facility] Prostatic fluid Medical, by Light PC) microscopy Calcium oxalate Few Normal (applies [facility] ( St crystals to non-numeric [facility] [Presence] in results) Medical, Urine sediment PC) by Light microscopy Amorphous Many Above high [facility] (St sediment normal [facility] [Presence] in Medical, Urine sediment PC) by Light microscopy HYALINE CAST 6-10 Above high [facility] (St normal [facility], ) ID Date Data Source [id number] 05/24/2019 12:00:00 AM EST [facility] ([facility], ) Name Value Range Interpretation Description Data Sup porting Code Source(s) Document(s ) WBC 9.5 Normal (applies to [facility] (St Thousand/ non-numeric [facility] uL results) Medical, ) RBC 5.36 Normal (applies to [facility] (St Million/u non-numeric [facility] L results) [facility], ) Hemoglobin 16.0 g/dL Normal (applies to [facility] (St [Mass/volume] non-numeric [facility] in Mixed results) Medical, ) venous blood by Oximetry Hematocrit 47.5 % Normal (applies to [facility] (St [Pure volume non-numeric [facility] fraction] of results) Medical, ) Blood by Automated count MCV 88.6 fL Normal (applies to [facility] (St non-numeric [facility] results) Medical, ) MCH 29.9 pg Normal (applies to [facility] (St non-numeric [facility] results) [facility], ) MCHC 33.7 g/dL Normal (applies to [facility] (St non-numeric [facility] results) Medical, ) RDW 13.2 % Normal (applies to [facility] (St non-numeric [facility] results) Medical, ) PLATELET COUNT 397 Normal (applies to [facility] (St Thousand/ non-numeric [facility] uL results) Medical, ) MPV 9.0 fL Normal (applies to [facility] (St non-numeric [facility] results) Medical, ) TOTAL 49.4 % Normal (applies to [facility] (St NEUTROPHILS,% non-numeric [facility] results) Medical, ) TOTAL 41.7 % Normal (applies to [facility] (St LYMPHOCYTES,% non-numeric [facility] results) Medical, ) EOSINOPHILS,% 1.6 % Normal (applies to [facility] (St non-numeric [facility] results) [facility], ) MONOCYTES,% 6.4 % Normal (applies to [facility] (S t non-numeric [facility] results) [facility], ) BASOPHILS,% 0.9 % Normal (applies to [facility] (S t non-numeric [facility] results) [facility], ) NEUTROPHILS,AB 4693 Normal (applies to [facility] (St SOLUTE cells/uL non-numeric [facility] results) [facility], ) LYMPHOCYTES,AB 3962 Above high normal [facility] (St SOLUTE cells/uL [facility], ) MONOCYTES,ABSO 608 Normal (applies to [facility] (St LUTE cells/uL non-numeric [facility] results) [facility], ) EOSINOPHILS,AB 152 Normal (applies to [facility] (St SOLUTE cells/uL non-numeric [facility] results) [facility], ) BASOPHILS,ABSO 86 Normal (applies to [facility] (St LUTE cells/uL non-numeric [facility] results) [facility], ) ID Date Data Source [id number] 05/24/2019 12:00:00 AM EST [facility] ([facility], ) Name Value Range Interpretation Description Data Sup porting Code Source(s) Document(s ) PROTEIN, TOTAL 7.1 g/dL Normal (applies [facility] (S t to non-numeric [facility] results) [facility], ) Microalbumin 4.3 g/dL Normal (applies [facility] (St [Mass/time] in to non-numeric [facility] Urine collected results) [facility], ) for unspecified duration Globulin 2.8 g/dL Normal (applies [facility] (St [Mass/time] in (calc) to non-numeric [facility] 24 hour Urine results) [facility], ) ALBUMIN/GLOBULIN 1.5 Normal (applies [facility] (St RATIO (calc) to non-numeric [facility] results) [facility], ) BILIRUBIN,TOTAL 0.3 Normal (applies [facility] ( St mg/dL to non-numeric [facility] results) [facility], ) BILIRUBIN,DIRECT 0.0 Normal (applies [facility] (St mg/dL to non-numeric [facility] results) [facility], ) Alkaline 92 U/L Normal (applies [facility] (St phosphatase to non-numeric [facility] [Enzymatic results) [facility], ) activity/volume] in Serum, Plasma or Blood AST 12 U/L Normal (applies [facility] (St to non-numeric [facility] results) [facility], ) ALT 19 U/L Normal (applies [facility] (St to non-numeric [facility] results) [facility], ) BILIRUBIN,INDIRE 0.3 Normal (applies [facility] (St CT mg/dL to non-numeric [facility] results) [facility], ) ID Date Data Source [id number] 05/24/2019 12:00:00 AM EST [facility] ([facility], ) Name Value Range Interpretation Description Data Sup porting Code Source(s) Document(s ) Sodium 136 Normal (applies [facility] (St [Moles/volume] mmol/L to non-numeric [facility] in Serum, Plasma results) [facility], ) or Blood Glucose 253 Above high normal [facility] (St [Mass/volume] in mg/dL [facility] Urine collected [facility], ) for unspecified duration Potassium 4.0 Normal (applies [facility] (St [Mass/volume] in mmol/L to non-numeric [facility] Blood results) [facility], ) Chloride 103 Normal (applies [facility] (St [Moles/volume] mmol/L to non-numeric [facility] in Serum, Plasma results) [facility], ) or Blood Carbon dioxide 24 Normal (applies [facility] (S t [VFr/PPres] in mmol/L to non-numeric [facility] Gas delivery results) [facility], ) system Urea nitrogen 11 mg/dL Normal (applies [facility] (St [Moles/volume] to non-numeric [facility] in Blood results) [facility], ) Creatinine 0.75 Normal (applies [facility] (St [Interpretation] mg/dL to non-numeric [facility] in Urine results) [facility], ) BUN/CREATININE NOTE Normal (applies [facility] (S t RATIO to non-numeric [facility] results) [facility], ) Calcium 9.5 Normal (applies [facility] (St [Moles/volume] mg/dL to non-numeric [facility] in Urine results) [facility], ) collected for unspecified duration PROTEIN, TOTAL 7.1 g/dL Normal (applies [facility] (S t to non-numeric [facility] results) [facility], ) Microalbumin 4.3 g/dL Normal (applies [facility] (St [Mass/time] in to non-numeric [facility] Urine collected results) [facility], ) for unspecified duration Globulin 2.8 g/dL Normal (applies [facility] (St [Mass/time] in (calc) to non-numeric [facility] 24 hour Urine results) [facility], ) ALBUMIN/GLOBULIN 1.5 Normal (applies [facility] (St RATIO (calc) to non-numeric [facility] results) [facility], ) BILIRUBIN,TOTAL 0.3 Normal (applies [facility] ( St mg/dL to non-numeric [facility] results) [facility]) Alkaline 92 U/L Normal (applies [facility] (St phosphatase to non-numeric [facility] [Enzymatic results) [facility], ) activity/volume] in Serum, Plasma or Blood ALT 19 U/L Normal (applies [facility] (St to non-numeric [facility] results) [facility]) AST 12 U/L Normal (applies [facility] (St to non-numeric [facility] results) [facility], ) EGFR NON AFR 103 Normal (applies [facility] (St MACANESE mL/min/1 to non-numeric [facility] .73m2 results) [facility], ) EGFR 120 Normal (applies [facility] (St MACANESE mL/min/1 to non-numeric [facility] .73m2 results) [facility], ) ID Date Data Source [id number] 12/31/2018 12:00:00 AM EDT [facility] (St [facility]) Name Value Range Interpretation Description Data Sup porting Code Source(s) Document(s ) Hemoglobin A1c 7.3 % of Above high normal [facility] (St in Blood total [facility]) ID Date Data Source [id number] 12/31/2018 12:00:00 AM EDT [facility] ([facility]) Name Value Range Interpretation Description Data Sup porting Code Source(s) Document(s ) PROTEIN, TOTAL 6.9 g/dL Normal (applies [facility] (S t to non-numeric [facility] results) [facility], ) Microalbumin 4.3 g/dL Normal (applies [facility] (St [Mass/time] in to non-numeric [facility] Urine collected results) [facility], ) for unspecified duration Globulin 2.6 g/dL Normal (applies [facility] (St [Mass/time] in (calc) to non-numeric [facility] 24 hour Urine results) [facility], ) ALBUMIN/GLOBULIN 1.7 Normal (applies [facility] (St RATIO (calc) to non-numeric [facility] results) [facility], ) BILIRUBIN,TOTAL 0.4 Normal (applies [facility] ( St mg/dL to non-numeric [facility] results) [facility]) Alkaline 84 U/L Normal (applies [facility] (St phosphatase to non-numeric [facility] [Enzymatic results) [facility]) activity/volume] in Serum, Plasma or Blood BILIRUBIN,DIRECT 0.1 Normal (applies [facility] (St mg/dL to non-numeric [facility] results) [facility]) AST 14 U/L Normal (applies [facility] (St to non-numeric [facility] results) [facility]) ALT 17 U/L Normal (applies [facility] (St to non-numeric [facility] results) [facility]) BILIRUBIN,INDIRE 0.3 Normal (applies [facility] (St CT mg/dL to non-numeric [facility] results) [facility]) ID Date Data Source [id number] 12/31/2018 12:00:00 AM EDT [facility] [place] Value Range Interpretation Description Data Sup porting Code Source(s) Document(s ) CHOLESTEROL,TOTA 122 Normal (applies [facility] (St L mg/dL to non-numeric [facility] results) [facility]) HDL CHOLESTEROL 28 mg/dL Below low normal [facility] ([facility], ) CHOLESTEROL/HDL 4.4 calc Normal (applies [facility] ( St RATIO to non-numeric [facility] results) [facility]) LDL-CHOLESTEROL 72 mg/dL Normal (applies [facility] ( St (calc) to non-numeric [facility] results) [facility]) TRIGLYCERIDES 132 Normal (applies [facility] (St mg/dL to non-numeric [facility] results) [facility]) NON HDL 94 mg/dL Normal (applies [facility] (St CHOLESTEROL (calc) to non-numeric [facility] results) [facility]) ID Date Data Source [id number] 12/31/2018 12:00:00 AM EDT [facility] ([facility]) Name Value Range Interpretation Description Data Sup porting Code Source(s) Document(s ) Glucose 202 Above high normal [facility] (St [Mass/volume] in mg/dL [facility] Urine collected [facility]) for unspecified duration Sodium 135 Normal (applies [facility] (St [Moles/volume] mmol/L to non-numeric [facility] in Serum, Plasma results) [facility], ) or Blood Potassium 3.7 Normal (applies [facility] (St [Mass/volume] in mmol/L to non-numeric [facility] Blood results) [facility], ) Chloride 102 Normal (applies [facility] (St [Moles/volume] mmol/L to non-numeric [facility] in Serum, Plasma results) [facility], ) or Blood Carbon dioxide 24 Normal (applies [facility] (S t [VFr/PPres] in mmol/L to non-numeric [facility] Gas delivery results) [facility], ) system Urea nitrogen 10 mg/dL Normal (applies [facility] (St [Moles/volume] to non-numeric [facility] in Blood results) [facility]) Creatinine 0.73 Normal (applies [facility] (St [Interpretation] mg/dL to non-numeric [facility] in Urine results) [facility], ) BUN/CREATININE NOTE Normal (applies [facility] (S t RATIO to non-numeric [facility] results) [facility], ) Calcium 9.4 Normal (applies [facility] (St [Moles/volume] mg/dL to non-numeric [facility] in Urine results) [facility], ) collected for unspecified duration PROTEIN, TOTAL 6.9 g/dL Normal (applies [facility] (S t to non-numeric [facility] results) [facility], ) Microalbumin 4.3 g/dL Normal (applies [facility] (St [Mass/time] in to non-numeric [facility] Urine collected results) [facility]) for unspecified duration Globulin 2.6 g/dL Normal (applies [facility] (St [Mass/time] in (calc) to non-numeric [facility] 24 hour Urine results) [facility]) ALBUMIN/GLOBULIN 1.7 Normal (applies [facility] (St RATIO (calc) to non-numeric [facility] results) [facility]) BILIRUBIN,TOTAL 0.4 Normal (applies [facility] ( St mg/dL to non-numeric [facility] results) [facility]) Alkaline 84 U/L Normal (applies [facility] (St phosphatase to non-numeric [facility] [Enzymatic results) [facility]) activity/volume] in Serum, Plasma or Blood AST 14 U/L Normal (applies [facility] (St to non-numeric [facility] results) [facility], ) EGFR NON AFR 104 Normal (applies [facility] (St MACANESE mL/min/1 to non-numeric [facility] .73m2 results) Medical, ) ALT 17 U/L Normal (applies [facility] (St to non-numeric [facility] results) Medical, ) EGFR 121 Normal (applies [facility] (St MACANESE mL/min/1 to non-numeric [facility] .73m2 results) Medical, ) ID Date Data Source [id number] 06/08/2018 12:00:00 AM EST [facility] ([facility], ) Name Value Range Interpretation Code Description Data Sita rce(s) Supporting Document(s ) ID Date Data Source [id number] 06/08/2018 12:00:00 AM EST [facility] ([facility] Name Value Range Interpretation Code Description Data Sita rce(s) Supporting Document(s ) PDF Image . Normal (applies to [facility] (St non-numeric results) [facility], ) ID Date Data Source [id number] 06/08/2018 12:00:00 AM EST [facility] ([facility], ) Name Value Range Interpretation Description Data Sup porting Code Source(s) Document(s ) Vitamin D, 18.5 Below low normal [facility] (St 25-Hydroxy ng/mL [facility], ) ID Date Data Source [id number] 06/08/2018 12:00:00 AM EST [facility] ([facility], ) Name Value Range Interpretation Description Data Sup porting Code Source(s) Document(s ) Hemoglobin 7.9 % Above high normal [facility] (St A1c/Hemoglobin. [facility] total in Blood [facility], ) ID Date Data Source [id number] 06/08/2018 12:00:00 AM EST [facility] ([facility], ) Name Value Range Interpretation Description Data Sup porting Code Source(s) Document(s ) Vitamin B12 561 pg/mL Normal (applies to [facility] (S t non-numeric [facility] results) Medical, ) Folate 14.6 Normal (applies to [facility] (St (Folic ng/mL non-numeric [facility] Acid), Serum results) [facility], ) ID Date Data Source [id number] 06/08/2018 12:00:00 AM EST [facility] ([facility], ) Name Value Range Interpretation Description Data Sup porting Code Source(s) Document(s ) Cholesterol 155 Normal (applies [facility] (St [Mass/volume] in mg/dL to non-numeric [facility] Serum or Plasma results) Medical, ) Triglyceride 252 Above high normal [facility] (S t [Mass/volume] in mg/dL [facility] Serum or Plasma [facility], ) VLDL Cholesterol 50 mg/dL Above high normal [facility] N ([facility], ) HDL Cholesterol 30 mg/dL Below low normal [facility] ([facility], ) LDL Cholesterol 75 mg/dL Normal (applies [facility] ( St Calc to non-numeric [facility] results) [facility], ) ID Date Data Source [id number] 06/08/2018 12:00:00 AM EST [facility] ([facility] Name Value Range Interpretation Description Data Sup porting Code Source(s) Document(s ) Glucose 193 Above high [facility] (St [Mass/volume] in mg/dL normal [facility] Urine collected for Medical, unspecified PC) duration Urea nitrogen 14 mg/dL Normal (applies [facility] (St [Mass/volume] in to non-numeric [facility] Serum or Plasma results) Medical, ) Creatinine 0.77 Normal (applies [facility] (St [Interpretation] in mg/dL to non-numeric [facility] Urine results) [facility], ) eGFR If NonAfricn 103 Normal (applies [facility] (St Am mL/min/1 to non-numeric [facility] .73 results) [facility], ) eGFR If Africn Am 119 Normal (applies [facility] (St mL/min/1 to non-numeric [facility] .73 results) Medical, ) BUN/Creatinine 18 Normal (applies [facility] (S t Ratio to non-numeric [facility] results) Medical, ) Sodium 142 Normal (applies [facility] (St [Moles/volume] in mmol/L to non-numeric [facility] Serum or Plasma results) Medical, ) Chloride 101 Normal (applies [facility] (St [Moles/volume] in mmol/L to non-numeric [facility] Serum or Plasma results) Medical, ) Potassium 4.4 Normal (applies [facility] (St [Mass/volume] in mmol/L to non-numeric [facility] Blood results) Medical, ) Carbon dioxide, 19 Below low normal [facility] (St total mmol/L [facility] [Moles/volume] in Medical, Serum or Plasma PC) Calcium 9.9 Normal (applies [facility] (St [Moles/volume] in mg/dL to non-numeric [facility] Urine collected for results) Medical, unspecified PC) duration Protein 7.6 g/dL Normal (applies [facility] (St [Mass/volume] in to non-numeric [facility] Serum or Plasma results) Medical, ) Microalbumin 4.6 g/dL Normal (applies [facility] (St [Mass/time] in to non-numeric [facility] Urine collected for results) Medical, unspecified PC) duration Globulin, Total 3.0 g/dL Normal (applies [facility] ( St to non-numeric [facility] results) Medical, ) A/G Ratio 1.5 Normal (applies [facility] (St to non-numeric [facility] results) Medical, ) Bilirubin.total <0.2 Normal (applies [facility] ( St [Mass/volume] in to non-numeric [facility] Serum or Plasma results) Medical, ) Alkaline 88 IU/L Normal (applies [facility] (St phosphatase to non-numeric [facility] [Enzymatic results) Medical, activity/volume] in PC) Serum, Plasma or Blood Aspartate 16 IU/L Normal (applies [facility] (St aminotransferase to non-numeric [facility] [Enzymatic results) Medical, activity/volume] in PC) Serum or Plasma Alanine 14 IU/L Normal (applies [facility] (St aminotransferase to non-numeric [facility] [Enzymatic results) Medical, activity/volume] in PC) Serum or Plasma ID Date Data Source [id number] 06/08/2018 12:00:00 AM EST [facility] ([facility], ) Name Value Range Interpretation Description Data Sup porting Code Source(s) Document(s ) Leukocytes 11.3 Above high normal [facility] (St [#/volume] in x10E3/uL [facility] Blood by Medical, ) Automated count Hemoglobin 15.4 Normal (applies [facility] (St [Mass/volume] in g/dL to non-numeric [facility] Blood results) Medical, ) Erythrocytes 5.14 Normal (applies [facility] (St [#/volume] in x10E6/uL to non-numeric [facility] Blood by results) Medical, ) Automated count Hematocrit 45.6 % Normal (applies [facility] (St [Volume to non-numeric [facility] Fraction] of results) [facility], ) Blood by Automated count MCH 30.0 pg Normal (applies [facility] (St to non-numeric [facility] results) [facility], ) MCV 89 fL Normal (applies [facility] (St to non-numeric [facility] results) [facility], ) MCHC 33.8 Normal (applies [facility] (St g/dL to non-numeric [facility] results) [facility], ) RDW 14.4 % Normal (applies [facility] (St to non-numeric [facility] results) [facility], ) Neutrophils [#] 51 % Normal (applies [facility]GEN ( St in Body fluid by to non-numeric [facility] Manual count results) [facility], ) Platelets 405 Above high normal [facility]GEN (St [#/area] in x10E3/uL [facility] Blood by [facility], ) Microscopy high power field Lymphs 40 % Normal (applies [facility] (St to non-numeric [facility] results) [facility], ) Eos 1 % Normal (applies [facility] (St to non-numeric [facility] results) [facility], ) Monocytes 7 % Normal (applies [facility]GEN (St [#/volume] in to non-numeric [facility] Cord blood results) [facility], ) Basos 1 % Normal (applies [facility] (St to non-numeric [facility] results) [facility], ) Lymphs 4.6 Above high normal [facility] (St (Absolute) x10E3/uL [facility], ) Neutrophils 5.8 Normal (applies [facility] (St (Absolute) x10E3/uL to non-numeric [facility] results) [facility], ) Monocytes(Absolu 0.8 Normal (applies MEDGEN (St te) x10E3/uL to non-numeric [facility] results) [facility], ) Eos (Absolute) 0.1 Normal (applies [facility]GEN (S t x10E3/uL to non-numeric [facility] results) [facility], ) Baso (Absolute) 0.1 Normal (applies MEDGEN ( St x10E3/uL to non-numeric [facility] results) [facility], ) Immature 0 % Normal (applies [facility] (St Granulocytes to non-numeric [facility] results) [facility], ) Immature Grans 0.0 Normal (applies [facility]GEN (S t (Abs) x10E3/uL to non-numeric [facility] results) [facility], ) ID Date Data Source [id number] 11/29/2017 12:00:00 AM EDT [facility] ([facility], ) Name Value Range Interpretation Code Description Data Sita rce(s) Supporting Document(s ) ID Date Data Source [id number] 11/29/2017 12:00:00 AM EDT [facility] ([facility], ) Name Value Range Interpretation Code Description Data Sita rce(s) Supporting Document(s ) PDF Image . Normal (applies to MED[facility] (St non-numeric results) [facility], ) ID Date Data Source [id number] 11/29/2017 12:00:00 AM EDT [facility] ([facility], ) Name Value Range Interpretation Description Data Sup porting Code Source(s) Document(s ) Hemoglobin 8.8 % Above high normal [facility] (St A1c/Hemoglobin. [facility] total in Blood [facility], ) ID Date Data Source [id number] 11/29/2017 12:00:00 AM EDT [facility] ([facility], ) Name Value Range Interpretation Description Data Sup porting Code Source(s) Document(s ) Bilirubin.c 0.08 mg/dL Normal (applies to MEDGEN ( St onjugated non-numeric [facility] [Mass/volum results) [facility], ) e] in Serum or Plasma ID Date Data Source [id number] 11/29/2017 12:00:00 AM EDT [facility] ([facility], ) Name Value Range Interpretation Description Data Sup porting Code Source(s) Document(s ) Cholesterol 142 Normal (applies MEDGEN (St [Mass/volume] in mg/dL to non-numeric [facility] Serum or Plasma results) Medical, ) HDL Cholesterol 29 mg/dL Below low normal [facility] ([facility], ) Triglyceride 146 Normal (applies MEDGEN (St [Mass/volume] in mg/dL to non-numeric [facility] Serum or Plasma results) [facility], ) VLDL Cholesterol 29 mg/dL Normal (applies MEDGEN (St Zoie to non-numeric [facility] results) [facility], ) LDL Cholesterol 84 mg/dL Normal (applies MEDGEN ( St Calc to non-numeric [facility] results) [facility], ) ID Date Data Source [id number] 11/29/2017 12:00:00 AM EDT [facility] ([facility] Name Value Range Interpretation Description Data Sup porting Code Source(s) Document(s ) Glucose 254 Above high MEDGEN (St [Mass/volume] in mg/dL normal [facility] Urine collected for Medical, unspecified PC) duration Urea nitrogen 11 mg/dL Normal (applies [facility]GEN (St [Mass/volume] in to non-numeric [facility] Serum or Plasma results) Medical, PC) Creatinine 0.88 Normal (applies MEDGEN (St [Interpretation] in mg/dL to non-numeric [facility] Urine results) Medical, PC) eGFR If NonAfricn 97 Normal (applies MEDGEN (St Am mL/min/1 to non-numeric [facility] .73 results) Medical, PC) eGFR If Africn Am 113 Normal (applies MEDGEN (St mL/min/1 to non-numeric [facility] .73 results) Medical, PC) BUN/Creatinine 13 Normal (applies [facility]GEN (S t Ratio to non-numeric [facility] results) Medical, PC) Sodium 136 Normal (applies [facility]GEN (St [Moles/volume] in mmol/L to non-numeric [facility] Serum or Plasma results) Medical, PC) Potassium 4.3 Normal (applies MEDGEN (St [Mass/volume] in mmol/L to non-numeric [facility] Blood results) Medical, PC) Carbon dioxide, 19 Below low normal MEDGEN (St total mmol/L [facility] [Moles/volume] in Medical, Serum or Plasma PC) Chloride 95 Below low normal [facility]GEN (St [Moles/volume] in mmol/L [facility] Serum or Plasma Medical, PC) Calcium 9.6 Normal (applies [facility]GEN (St [Moles/volume] in mg/dL to non-numeric [facility] Urine collected for results) Medical, unspecified PC) duration Protein 6.8 g/dL Normal (applies [facility]GEN (St [Mass/volume] in to non-numeric [facility] Serum or Plasma results) Medical, PC) Microalbumin 4.3 g/dL Normal (applies [facility] (St [Mass/time] in to non-numeric [facility] Urine collected for results) Medical, unspecified PC) duration Globulin, Total 2.5 g/dL Normal (applies [facility] ( St to non-numeric [facility] results) Medical, ) Bilirubin.total <0.2 Normal (applies [facility] ( St [Mass/volume] in to non-numeric [facility] Serum or Plasma results) Medical, PC) A/G Ratio 1.7 Normal (applies [facility] (St to non-numeric [facility] results) Medical, ) Alkaline 93 IU/L Normal (applies [facility] (St phosphatase to non-numeric [facility] [Enzymatic results) Medical, activity/volume] in PC) Serum, Plasma or Blood Alanine 12 IU/L Normal (applies [facility] (St aminotransferase to non-numeric [facility] [Enzymatic results) Medical, activity/volume] in PC) Serum or Plasma Aspartate 12 IU/L Normal (applies [facility] (St aminotransferase to non-numeric [facility] [Enzymatic results) Medical, activity/volume] in PC) Serum or Plasma ID Date Data Source [id number] 09/18/2017 12:00:00 AM EDT [facility] ([facility], ) Name Value Range Interpretation Code Description Data Sita rce(s) Supporting Document(s ) ID Date Data Source [id number] 09/18/2017 12:00:00 AM EDT [facility] ([facility], ) Name Value Range Interpretation Code Description Data Sita rce(s) Supporting Document(s ) PDF Image . Normal (applies to [facility] (St non-numeric results) [facility], ) ID Date Data Source [id number] 09/18/2017 12:00:00 AM EDT [facility] ([facility], ) Name Value Range Interpretation Description Data Sup porting Code Source(s) Document(s ) INR 0.9 Normal (applies to [facility] (St non-numeric [facility] results) Medical, ) Prothrombin 9.7 sec Normal (applies to [facility] (S t Time non-numeric [facility] results) Medical, ) aPTT 32 sec Normal (applies to [facility] (St non-numeric [facility] results) Medical, ) ID Date Data Source [id number] 09/18/2017 12:00:00 AM EDT [facility] ([facility], ) Name Value Range Interpretation Description Data Sup porting Code Source(s) Document(s ) Specific gravity 1.019 Normal (applies [facility] (St of Pericardial to non-numeric [facility] fluid by results) Medical, Refractometry PC) pH of Lower 5.5 Normal (applies [facility] (St respiratory to non-numeric [facility] specimen results) Medical, PC) Urine-Color Yellow Normal (applies [facility] (St to non-numeric [facility] results) Medical, PC) Appearance of Clear Normal (applies [facility] (St Abdomen to non-numeric [facility] results) Medical, PC) WBC Esterase Negative Normal (applies [facility] (St to non-numeric [facility] results) Medical, PC) Protein Negative Normal (applies [facility] (St [Mass/volume] in to non-numeric [facility] Lower results) Medical, respiratory PC) specimen Ketones Negative Normal (applies [facility] (St [Presence] in to non-numeric [facility] Blood by Tablet results) Medical, ) Glucose Abnormal (applies [facility] (St [Mass/volume] in to non-numeric [facility] Urine collected results) [facility], for unspecified PC) duration Occult Blood Negative Normal (applies [facility] (St to non-numeric [facility] results) Medical, ) Bilirubin Negative Normal (applies [facility] (St [Presence] in to non-numeric [facility] Peritoneal fluid results) Medical, ) Urobilinogen,Robert 0.2 EU/dL Normal (applies [facility] (St i-Qn to non-numeric [facility] results) Medical, ) Nitrite, Urine Negative Normal (applies [facility] (S t to non-numeric [facility] results) Medical, ) ID Date Data Source [id number] 09/18/2017 12:00:00 AM EDT [facility] ([facility], ) Name Value Range Interpretation Description Data Sup porting Code Source(s) Document(s ) Glucose 106 Above high [facility] (St [Mass/volume] in mg/dL normal [facility] Urine collected for Medical, unspecified PC) duration Urea nitrogen 14 mg/dL Normal (applies [facility] (St [Mass/volume] in to non-numeric [facility] Serum or Plasma results) Medical, PC) Creatinine 0.74 Below low normal [facility] (St [Interpretation] in mg/dL [facility] Urine Medical, ) eGFR If NonAfricn 105 Normal (applies [facility] (St Am mL/min/1 to non-numeric [facility] .73 results) Medical, PC) BUN/Creatinine 19 Normal (applies [facility] (S t Ratio to non-numeric [facility] results) Medical, PC) eGFR If Africn Am 121 Normal (applies [facility] (St mL/min/1 to non-numeric [facility] .73 results) Medical, PC) Sodium 138 Normal (applies [facility] (St [Moles/volume] in mmol/L to non-numeric [facility] Serum or Plasma results) Medical, PC) Potassium 4.1 Normal (applies [facility] (St [Mass/volume] in mmol/L to non-numeric [facility] Blood results) Medical, PC) Chloride 98 Normal (applies [facility] (St [Moles/volume] in mmol/L to non-numeric [facility] Serum or Plasma results) Medical, PC) Carbon dioxide, 25 Normal (applies [facility] ( St total mmol/L to non-numeric [facility] [Moles/volume] in results) Medical, Serum or Plasma PC) Calcium 10.3 Above high [facility] (St [Moles/volume] in mg/dL normal [facility] Urine collected for Medical, unspecified PC) duration Microalbumin 4.8 g/dL Normal (applies [facility] (St [Mass/time] in to non-numeric [facility] Urine collected for results) Medical, unspecified PC) duration Protein 7.5 g/dL Normal (applies [facility] (St [Mass/volume] in to non-numeric [facility] Serum or Plasma results) Medical, PC) Globulin, Total 2.7 g/dL Normal (applies [facility] ( St to non-numeric [facility] results) Medical, PC) Bilirubin.total 0.3 Normal (applies [facility] ( St [Mass/volume] in mg/dL to non-numeric [facility] Serum or Plasma results) Medical, PC) A/G Ratio 1.8 Normal (applies [facility] (St to non-numeric [facility] results) Medical, PC) Alkaline 86 IU/L Normal (applies [facility] (St phosphatase to non-numeric [facility] [Enzymatic results) Medical, activity/volume] in PC) Serum, Plasma or Blood Alanine 21 IU/L Normal (applies [facility] (St aminotransferase to non-numeric [facility] [Enzymatic results) Medical, activity/volume] in PC) Serum or Plasma Aspartate 16 IU/L Normal (applies [facility] (St aminotransferase to non-numeric [facility] [Enzymatic results) Medical, activity/volume] in ) Serum or Plasma ID Date Data Source [id number] 09/18/2017 12:00:00 AM EDT [facility] ([facility], ) Name Value Range Interpretation Description Data Sup porting Code Source(s) Document(s ) Leukocytes 8.2 Normal (applies [facility] (St [#/volume] in x10E3/uL to non-numeric [facility] Blood by results) Medical, ) Automated count Hemoglobin 15.6 Normal (applies [facility] (St [Mass/volume] in g/dL to non-numeric [facility] Blood results) Medical, ) Erythrocytes 5.09 Normal (applies [facility] (St [#/volume] in x10E6/uL to non-numeric [facility] Blood by results) [facility], ) Automated count Hematocrit 47.0 % Normal (applies [facility] (St [Volume to non-numeric [facility] Fraction] of results) [facility], ) Blood by Automated count MCH 30.6 pg Normal (applies [facility] (St to non-numeric [facility] results) [facility], ) MCV 92 fL Normal (applies [facility] (St to non-numeric [facility] results) Medical, ) MCHC 33.2 Normal (applies [facility] (St g/dL to non-numeric [facility] results) [facility], ) RDW 14.2 % Normal (applies [facility] (St to non-numeric [facility] results) [facility], ) Platelets 220 Normal (applies [facility] (St [#/area] in x10E3/uL to non-numeric [facility] Blood by results) Medical, ) Microscopy high power field Neutrophils [#] 63 % Normal (applies [facility] ( St in Body fluid by to non-numeric [facility] Manual count results) [facility], ) Monocytes 6 % Normal (applies [facility] (St [#/volume] in to non-numeric [facility] Cord blood results) [facility], ) Lymphs 29 % Normal (applies [facility] (St to non-numeric [facility] results) Medical, ) Eos 1 % Normal (applies [facility] (St to non-numeric [facility] results) [facility], ) Basos 1 % Normal (applies [facility] (St to non-numeric [facility] results) [facility], ) Lymphs 2.4 Normal (applies [facility] (St (Absolute) x10E3/uL to non-numeric [facility] results) Medical, PC) Neutrophils 5.1 Normal (applies [facility] (St (Absolute) x10E3/uL to non-numeric [facility] results) Medical, PC) Monocytes(Absolu 0.5 Normal (applies [facility] (St te) x10E3/uL to non-numeric [facility] results) Medical, PC) Eos (Absolute) 0.1 Normal (applies [facility] (S t x10E3/uL to non-numeric [facility] results) Medical, PC) Baso (Absolute) 0.0 Normal (applies [facility] ( St x10E3/uL to non-numeric [facility] results) Medical, PC) Immature 0 % Normal (applies [facility] (St Granulocytes to non-numeric [facility] results) Medical, PC) Immature Grans 0.0 Normal (applies [facility] (S t (Abs) x10E3/uL to non-numeric [facility] results) Medical, PC) ID Date Data Source [id number] 08/03/2017 12:00:00 AM EDT [facility] ([facility], ) Name Value Range Interpretation Code Description Data Sita rce(s) Supporting Document(s ) Result 1 No growth Normal (applies to [facility] (St non-numeric [facility] results) Medical, PC) ID Date Data Source [id number] 08/03/2017 12:00:00 AM EDT [facility] ([facility], ) Name Value Range Interpretation Description Data Sup porting Code Source(s) Document(s ) Urine Final Normal (applies to [facility] (St Culture, report non-numeric [facility] Routine results) Medical, PC) ID Date Data Source [id number] 08/03/2017 12:00:00 AM EDT [facility] ([facility], ) Name Value Range Interpretation Description Data Sup porting Code Source(s) Document(s ) Specific gravity >=1.030 Abnormal (applies [facility] N (St of Pericardial to non-numeric [facility] fluid by results) [facility], [facility]) Urine-Color Yellow Normal (applies [facility] (St to non-numeric [facility] results) Medical, PC) pH of Lower 5.0 Normal (applies [facility] (St respiratory to non-numeric [facility] specimen results) Medical, PC) Appearance of Clear Normal (applies [facility] (St Abdomen to non-numeric [facility] results) Medical, PC) Protein Negative Normal (applies [facility] (St [Mass/volume] in to non-numeric [facility] Lower results) Medical, respiratory PC) specimen WBC Esterase Negative Normal (applies [facility] (St to non-numeric [facility] results) Medical, PC) Glucose Abnormal (applies [facility] (St [Mass/volume] in to non-numeric [facility] Urine collected results) Medical, for unspecified PC) duration Ketones Negative Normal (applies [facility] (St [Presence] in to non-numeric [facility] Blood by Tablet results) Medical, PC) Bilirubin Negative Normal (applies [facility] (St [Presence] in to non-numeric [facility] Peritoneal fluid results) Medical, PC) Occult Blood Negative Normal (applies [facility] (St to non-numeric [facility] results) Medical, PC) Urobilinogen,Robert 0.2 EU/dL Normal (applies [facility] (St i-Qn to non-numeric [facility] results) Medical, PC) Nitrite, Urine Negative Normal (applies [facility] (S t to non-numeric [facility] results) Medical, PC) ID Date Data Source [id number] 07/31/2017 12:00:00 AM EDT [facility] ([facility], ) Name Value Range Interpretation Description Data Sup porting Code Source(s) Document(s ) INR 0.9 Normal (applies to [facility] (St non-numeric [facility] results) Medical, PC) Prothrombin 9.7 sec Normal (applies to [facility] (S t Time non-numeric [facility] results) Medical, PC) aPTT 32 sec Normal (applies to [facility] (St non-numeric [facility] results) Medical, ) ID Date Data Source [id number] 07/31/2017 12:00:00 AM EDT [facility] ([facility], ) Name Value Range Interpretation Description Data Sup porting Code Source(s) Document(s ) Specific gravity 1.026 Normal (applies [facility] (St of Pericardial to non-numeric [facility] fluid by results) Medical, Refractometry PC) pH of Lower 7.0 Normal (applies [facility] (St respiratory to non-numeric [facility] specimen results) Medical, PC) Urine-Color Yellow Normal (applies [facility] (St to non-numeric [facility] results) Medical, PC) Appearance of Clear Normal (applies [facility] (St Abdomen to non-numeric [facility] results) Medical, ) WBC Esterase Negative Normal (applies [facility] (St to non-numeric [facility] results) Medical, ) Protein Negative Normal (applies [facility] (St [Mass/volume] in to non-numeric [facility] Lower results) Medical, respiratory PC) specimen Glucose Abnormal (applies [facility] (St [Mass/volume] in to non-numeric [facility] Urine collected results) Medical, for unspecified PC) duration Occult Blood Negative Normal (applies [facility] (St to non-numeric [facility] results) Medical, ) Ketones Negative Normal (applies [facility] (St [Presence] in to non-numeric [facility] Blood by Tablet results) Medical, ) Bilirubin Negative Normal (applies [facility] (St [Presence] in to non-numeric [facility] Peritoneal fluid results) Medical, ) Urobilinogen,Robert 1.0 EU/dL Normal (applies [facility] (St i-Qn to non-numeric [facility] results) Medical, ) Nitrite, Urine Negative Normal (applies [facility] (S t to non-numeric [facility] results) Medical, ) ID Date Data Source [id number] 07/28/2017 12:00:00 AM EDT [facility] ([facility]) Name Value Range Interpretation Code Description Data Sita rce(s) Supporting Document(s ) ID Date Data Source [id number] 07/28/2017 12:00:00 AM EDT [facility] ([facility]) Name Value Range Interpretation Code Description Data Sita rce(s) Supporting Document(s ) PDF Image . Normal (applies to [facility] (St non-numeric results) [facility], ) ID Date Data Source [id number] 07/28/2017 12:00:00 AM EDT [facility] ([facility]) Name Value Range Interpretation Description Data Sup porting Code Source(s) Document(s ) Hemoglobin 10.2 % Above high normal [facility] (St A1c/Hemoglobin [facility] .total in Medical, ) Blood ID Date Data Source [id number] 07/28/2017 12:00:00 AM EDT [facility] ([facility]) Name Value Range Interpretation Description Data Sup porting Code Source(s) Document(s ) Bilirubin.c 0.11 mg/dL Normal (applies to [facility] ( St onjugated non-numeric [facility] [Mass/volum results) Medical, ) e] in Serum or Plasma ID Date Data Source [id number] 07/28/2017 12:00:00 AM EDT [facility] [place] [place] Name Value Range Interpretation Description Data Sup porting Code Source(s) Document(s ) Cholesterol 141 Normal (applies [facility] (St [Mass/volume] in mg/dL to non-numeric [facility] Serum or Plasma results) Medical, ) Triglyceride 146 Normal (applies [facility] (St [Mass/volume] in mg/dL to non-numeric [facility] Serum or Plasma results) Medical, ) HDL Cholesterol 28 mg/dL Below low normal [facility] ([facility] [place], ) VLDL Cholesterol 29 mg/dL Normal (applies [facility] (St Zoie to non-numeric [facility] results) Medical, ) LDL Cholesterol 84 mg/dL Normal (applies [facility] ( St Calc to non-numeric [facility] results) Medical, ) ID Date Data Source [id number] 07/28/2017 12:00:00 AM EDT [facility] ([facility] [place] ) Name Value Range Interpretation Description Data Sup porting Code Source(s) Document(s ) Glucose 231 Above high [facility] (St [Mass/volume] in mg/dL normal [facility] Urine collected for Medical, unspecified PC) duration Urea nitrogen 14 mg/dL Normal (applies [facility] (St [Mass/volume] in to non-numeric [facility] Serum or Plasma results) Medical, ) Creatinine 0.77 Normal (applies [facility] (St [Interpretation] in mg/dL to non-numeric [facility] Urine results) Medical, ) eGFR If NonAfricn 104 Normal (applies [facility] (St Am mL/min/1 to non-numeric [facility] .73 results) Medical, ) eGFR If Africn Am 120 Normal (applies [facility] (St mL/min/1 to non-numeric [facility] .73 results) Medical, ) BUN/Creatinine 18 Normal (applies [facility] (S t Ratio to non-numeric [facility] results) Medical, ) Sodium 136 Normal (applies [facility] (St [Moles/volume] in mmol/L to non-numeric [facility] Serum or Plasma results) Medical, PC) Potassium 4.2 Normal (applies [facility] (St [Mass/volume] in mmol/L to non-numeric [facility] Blood results) Medical, PC) Chloride 94 Below low normal [facility] (St [Moles/volume] in mmol/L [facility] Serum or Plasma Medical, ) Carbon dioxide, 23 Normal (applies [facility] ( St total mmol/L to non-numeric [facility] [Moles/volume] in results) Medical, Serum or Plasma PC) Calcium 10.1 Normal (applies [facility] (St [Moles/volume] in mg/dL to non-numeric [facility] Urine collected for results) Medical, unspecified PC) duration Protein 6.9 g/dL Normal (applies [facility] (St [Mass/volume] in to non-numeric [facility] Serum or Plasma results) Medical, ) Microalbumin 4.1 g/dL Normal (applies [facility] (St [Mass/time] in to non-numeric [facility] Urine collected for results) Medical, unspecified PC) duration Globulin, Total 2.8 g/dL Normal (applies [facility] ( St to non-numeric [facility] results) Medical, PC) A/G Ratio 1.5 Normal (applies [facility] (St to non-numeric [facility] results) Medical, PC) Bilirubin.total 0.3 Normal (applies [facility] ( St [Mass/volume] in mg/dL to non-numeric [facility] Serum or Plasma results) Medical, ) Alkaline 99 IU/L Normal (applies [facility] (St phosphatase to non-numeric [facility] [Enzymatic results) Medical, activity/volume] in PC) Serum, Plasma or Blood Alanine 23 IU/L Normal (applies [facility] (St aminotransferase to non-numeric [facility] [Enzymatic results) Medical, activity/volume] in PC) Serum or Plasma Aspartate 19 IU/L Normal (applies [facility] (St aminotransferase to non-numeric [facility] [Enzymatic results) Medical, activity/volume] in PC) Serum or Plasma ID Date Data Source [id number] 07/28/2017 12:00:00 AM EDT [facility] ([facility], ) Name Value Range Interpretation Description Data Sup porting Code Source(s) Document(s ) Leukocytes 10.1 Normal (applies [facility] (St [#/volume] in x10E3/uL to non-numeric [facility] Blood by results) [facility], ) Automated count Erythrocytes 5.35 Normal (applies [facility] (St [#/volume] in x10E6/uL to non-numeric [facility] Blood by results) [facility], ) Automated count Hemoglobin 16.4 Normal (applies [facility] (St [Mass/volume] in g/dL to non-numeric [facility] Blood results) [facility], ) Hematocrit 48.5 % Normal (applies [facility] (St [Volume to non-numeric [facility] Fraction] of results) [facility], ) Blood by Automated count MCV 91 fL Normal (applies [facility] (St to non-numeric [facility] results) [facility], ) MCHC 33.8 Normal (applies [facility] (St g/dL to non-numeric [facility] results) [facility], ) MCH 30.7 pg Normal (applies [facility] (St to non-numeric [facility] results) [facility], ) RDW 14.1 % Normal (applies [facility] (St to non-numeric [facility] results) [facility], ) Platelets 292 Normal (applies [facility] (St [#/area] in x10E3/uL to non-numeric [facility] Blood by results) [facility], ) Microscopy high power field Neutrophils [#] 73 % Normal (applies [facility] ( St in Body fluid by to non-numeric [facility] Manual count results) [facility], ) Lymphs 22 % Normal (applies [facility] (St to non-numeric [facility] results) [facility], ) Monocytes 5 % Normal (applies [facility] (St [#/volume] in to non-numeric [facility] Cord blood results) [facility], ) Eos 0 % Normal (applies [facility] (St to non-numeric [facility] results) [facility], ) Basos 0 % Normal (applies [facility] (St to non-numeric [facility] results) [facility], ) Neutrophils 7.2 Above high normal [facility] (St (Absolute) x10E3/uL [facility], ) Lymphs 2.2 Normal (applies [facility] (St (Absolute) x10E3/uL to non-numeric [facility] results) [facility], ) Eos (Absolute) 0.0 Normal (applies [facility] (S t x10E3/uL to non-numeric [facility] results) [facility], ) Monocytes(Absolu 0.5 Normal (applies [facility] (St te) x10E3/uL to non-numeric [facility] results) Medical, ) Baso (Absolute) 0.0 Normal (applies [facility] ( St x10E3/uL to non-numeric [facility] results) Medical, ) Immature Grans 0.0 Normal (applies [facility] (S t (Abs) x10E3/uL to non-numeric [facility] results) Medical, ) Immature 0 % Normal (applies [facility] (St Granulocytes to non-numeric [facility] results) Medical, ) ID Date Data Source [id number] 02/27/2017 12:00:00 AM EST [facility] ([facility], ) Name Value Range Interpretation Code Description Data Sita rce(s) Supporting Document(s ) ID Date Data Source [id number] 02/27/2017 12:00:00 AM EST [facility] ([facility], ) Name Value Range Interpretation Code Description Data Sita rce(s) Supporting Document(s ) PDF Image . Normal (applies to [facility] (St non-numeric results) [facility] Me dical, ) ID Date Data Source [id number] 02/27/2017 12:00:00 AM EST [facility] ([facility], ) Name Value Range Interpretation Description Data Sup porting Code Source(s) Document(s ) Hemoglobin 11.2 % Above high normal [facility] (St A1c/Hemoglobin [facility] .total in [facility], ) Blood ID Date Data Source [id number] 02/27/2017 12:00:00 AM EST [facility] ([facility], ) Name Value Range Interpretation Description Data Sup porting Code Source(s) Document(s ) Bilirubin.c 0.09 mg/dL Normal (applies to [facility] ( St onjugated non-numeric [facility] [Mass/volum results) Medical, ) e] in Serum or Plasma ID Date Data Source [id number] 02/27/2017 12:00:00 AM EST [facility] ([facility], ) Name Value Range Interpretation Description Data Sup porting Code Source(s) Document(s ) Cholesterol 173 Normal (applies [facility] (St [Mass/volume] in mg/dL to non-numeric [facility] Serum or Plasma results) Medical, ) Triglyceride 141 Normal (applies [facility] (St [Mass/volume] in mg/dL to non-numeric [facility] Serum or Plasma results) Medical, ) HDL Cholesterol 31 mg/dL Below low normal [facility] [place], ) VLDL Cholesterol 28 mg/dL Normal (applies [facility] (St Zoie to non-numeric [facility] results) Medical, ) LDL Cholesterol 114 Above high normal [facility] (St Calc mg/dL [facility]) ID Date Data Source [id number] 02/27/2017 12:00:00 AM EST [facility] ([facility] [place] Name Value Range Interpretation Description Data Sup porting Code Source(s) Document(s ) Glucose, Serum 258 Above high [facility] (St mg/dL normal [facility], ) Urea nitrogen 13 mg/dL Normal (applies [facility] (St [Mass/volume] in to non-numeric [facility] Serum or Plasma results) Medical, ) Creatinine, Serum 0.84 Normal (applies [facility] (St mg/dL to non-numeric [facility] results) Medical, ) eGFR If NonAfricn 100 Normal (applies [facility] (St Am mL/min/1 to non-numeric [facility] .73 results) Medical, ) eGFR If Africn Am 116 Normal (applies [facility] (St mL/min/1 to non-numeric [facility] .73 results) Medical, ) BUN/Creatinine 15 Normal (applies [facility] (S t Ratio to non-numeric [facility] results) Medical, ) Potassium, Serum 4.3 Normal (applies [facility] (St mmol/L to non-numeric [facility] results) Medical, ) Sodium 136 Normal (applies [facility] (St [Moles/volume] in mmol/L to non-numeric [facility] Serum or Plasma results) Medical, ) Chloride 97 Normal (applies [facility] (St [Moles/volume] in mmol/L to non-numeric [facility] Serum or Plasma results) Medical, ) Carbon dioxide, 19 Normal (applies [facility] ( St total mmol/L to non-numeric [facility] [Moles/volume] in results) Medical, Serum or Plasma PC) Calcium, Serum 9.5 Normal (applies [facility] (S t mg/dL to non-numeric [facility] results) Medical, ) Protein 7.0 g/dL Normal (applies [facility] (St [Mass/volume] in to non-numeric [facility] Serum or Plasma results) Medical, ) Albumin, Serum 4.4 g/dL Normal (applies [facility] (S t to non-numeric [facility] results) Medical, ) Globulin, Total 2.6 g/dL Normal (applies [facility] ( St to non-numeric [facility] results) Medical, ) Bilirubin.total 0.4 Normal (applies [facility] ( St [Mass/volume] in mg/dL to non-numeric [facility] Serum or Plasma results) Medical, ) A/G Ratio 1.7 Normal (applies [facility] (St to non-numeric [facility] results) Medical, ) Alkaline 101 IU/L Normal (applies [facility] (St Phosphatase, S to non-numeric [facility] results) [facility], ) Aspartate 8 IU/L Normal (applies [facility] (St aminotransferase to non-numeric [facility] [Enzymatic results) Medical, activity/volume] in PC) Serum or Plasma Alanine 21 IU/L Normal (applies [facility] (St aminotransferase to non-numeric [facility] [Enzymatic results) Medical, activity/volume] in PC) Serum or Plasma ID Date Data Source [id number] 08/01/2016 12:00:00 AM EDT [facility] ([facility], ) Name Value Range Interpretation Code Description Data Sita rce(s) Supporting Document(s ) ID Date Data Source [id number] 08/01/2016 12:00:00 AM EDT [facility] ([facility], ) Name Value Range Interpretation Code Description Data Sita rce(s) Supporting Document(s ) PDF Image . Normal (applies to [facility] (St non-numeric results) [facility], ) ID Date Data Source [id number] 08/01/2016 12:00:00 AM EDT [facility] ([facility]) Name Value Range Interpretation Description Data Sup porting Code Source(s) Document(s ) Hemoglobin 10.2 % Above high normal [facility] (St A1c/Hemoglobin [facility] .total in Medical, ) Blood ID Date Data Source [id number] 08/01/2016 12:00:00 AM EDT [facility] ([facility]) Name Value Range Interpretation Description Data Sup porting Code Source(s) Document(s ) Bilirubin.c 0.10 mg/dL Normal (applies to [facility] ( St onjugated non-numeric [facility] [Mass/volum results) [facility], ) e] in Serum or Plasma ID Date Data Source [id number] 08/01/2016 12:00:00 AM EDT [facility] [place] Value Range Interpretation Description Data Sup porting Code Source(s) Document(s ) Cholesterol 164 Normal (applies [facility] (St [Mass/volume] in mg/dL to non-numeric [facility] Serum or Plasma results) [facility], ) Triglyceride 280 Above high normal [facility] (S t [Mass/volume] in mg/dL [facility] Serum or Plasma [facility]) HDL Cholesterol 27 mg/dL Below low normal [facility] ([facility]) VLDL Cholesterol 56 mg/dL Above high normal [facility] N ([facility] [place]) LDL Cholesterol 81 mg/dL Normal (applies [facility] ( St Calc to non-numeric [facility] results) [facility], ) ID Date Data Source [id number] 08/01/2016 12:00:00 AM EDT [facility] [place] [place] Name Value Range Interpretation Description Data Sup porting Code Source(s) Document(s ) Glucose, Serum 297 Above high [facility] (St mg/dL normal [facility], ) Creatinine, Serum 1.06 Normal (applies [facility] (St mg/dL to non-numeric [facility] results) [facility], ) Urea nitrogen 18 mg/dL Normal (applies [facility] (St [Mass/volume] in to non-numeric [facility] Serum or Plasma results) [facility], ) eGFR If NonAfricn 80 Normal (applies [facility] (St Am mL/min/1 to non-numeric [facility] .73 results) Medical, ) eGFR If Africn Am 93 Normal (applies [facility] (St mL/min/1 to non-numeric [facility] .73 results) Medical, ) Sodium 138 Normal (applies [facility] (St [Moles/volume] in mmol/L to non-numeric [facility] Serum or Plasma results) [facility], ) BUN/Creatinine 17 Normal (applies [facility] (S t Ratio to non-numeric [facility] results) [facility], ) Potassium, Serum 3.9 Normal (applies [facility] (St mmol/L to non-numeric [facility] results) [facility], ) Chloride 97 Normal (applies [facility] (St [Moles/volume] in mmol/L to non-numeric [facility] Serum or Plasma results) [facility], ) Carbon dioxide, 21 Normal (applies [facility] ( St total mmol/L to non-numeric [facility] [Moles/volume] in results) Medical, Serum or Plasma [facility]) Calcium, Serum 9.6 Normal (applies [facility] (S t mg/dL to non-numeric [facility] results) [facility], ) Protein 6.8 g/dL Normal (applies [facility] (St [Mass/volume] in to non-numeric [facility] Serum or Plasma results) [facility], ) Globulin, Total 2.4 g/dL Normal (applies [facility] ( St to non-numeric [facility] results) [facility], ) Albumin, Serum 4.4 g/dL Normal (applies [facility] (S t to non-numeric [facility] results) [facility], ) A/G Ratio 1.8 Normal (applies [facility] (St to non-numeric [facility] results) [facility], ) Alkaline 72 IU/L Normal (applies [facility] (St Phosphatase, S to non-numeric [facility] results) [facility], ) Bilirubin.total 0.2 Normal (applies [facility] ( St [Mass/volume] in mg/dL to non-numeric [facility] Serum or Plasma results) [facility], ) Aspartate 16 IU/L Normal (applies [facility] (St aminotransferase to non-numeric [facility] [Enzymatic results) Medical, activity/volume] in ) Serum or Plasma Alanine 28 IU/L Normal (applies [facility] (St aminotransferase to non-numeric [facility] [Enzymatic results) Medical, activity/volume] in ) Serum or Plasma Procedure Social History Code Duration Value Status Description Data Source(s ) Smoking 10/25/2019 smoking no completed smoking no drinking [facility] N (St 12:00:00 AM EDT drinking [facility], ) Smoking 10/25/2019 Unknown if ever completed Unknown if ever MED[facility] EN (St 12:00:00 AM EDT smoked smoked [facility]) Smoking Unknown if ever completed Unknown if ever Kerry Aguilar smoked smoked [facility] Vital Signs ID Date Data Source UNK Name Value Range Interpretation Code Description Data Source(s) Heart rate 87 /min 87 /min [facility] ([facility]) Inhaled oxygen 95 % 95 % [facility] ([facility]) Body mass index 31 kg/m2 31 kg/m2 [facility] (S t (BMI) [Ratio] [facility]) Diastolic blood 72 mm[Hg] 72 mm[Hg] [facility] ([facility]) Systolic blood 140 mm[Hg] 140 mm[Hg] [facility] [place] Body weight 175 lb 175 lb [facility] ([facility]) Body height 63 in 63 in [facility] ([facility]) Body mass index 31.9 kg/m2 31.9 kg/m2 [facility] (S t (BMI) [Ratio] [facility]) Diastolic blood 82 mm[Hg] 82 mm[Hg] [facility] ([facility]) Systolic blood 160 mm[Hg] 160 mm[Hg] [facility] [place] Body weight 180 lb 180 lb [facility] ([facility]) Body height 63 in 63 [facility] Body mass index 31.5 kg/m2 31.5 kg/m2 [facility] (S t (BMI) [Ratio] [facility]) Diastolic blood 84 mm[Hg] 84 mm[Hg] [facility] ([facility]) Systolic blood 160 mm[Hg] 160 mm[Hg] [facility] [place] Body weight 178 lb 178 lb [facility] ([facility]) Body height 63 in 63 in [facility] ([facility]) Body mass index 31 kg/m2 31 kg/m2 [facility] (S t (BMI) [Ratio] [facility]) Diastolic blood 82 mm[Hg] 82 mm[Hg] [facility] ([facility]) Systolic blood 138 mm[Hg] 138 mm[Hg] [facility] [place] Body weight 175 lb 175 lb [facility] ([facility]) Body height 63 in 63 in [facility] ([facility]) Body mass index 31.4 kg/m2 31.4 kg/m2 [facility] (S t (BMI) [Ratio] [facility]) Diastolic blood 82 mm[Hg] 82 mm[Hg] [facility] (S t [facility]) Systolic blood 110 mm[Hg] 110 mm[Hg] [facility] [place] Body weight 177 lb 177 lb [facility] ([facility]) Body height 63 in 63 in [facility] ([facility]) Heart rate 87 /min 87 /min [facility] ([facility]) Respiratory rate 14 /min 14 /min [facility] ( [facility]) Inhaled oxygen 98 % 98 % [facility] ([facility]) Body mass index 30.6 kg/m2 30.6 kg/m2 [facility] (S t (BMI) [Ratio] [facility]) Diastolic blood 70 mm[Hg] 70 mm[Hg] [facility] (S t [facility]) Systolic blood 140 mm[Hg] 140 mm[Hg] [facility] Body weight 173 lb 173 lb [facility] Body height 63 in 63 in [facility] ([facility]) Body mass index 30.6 kg/m2 30.6 kg/m2 [facility] (S t (BMI) [Ratio] [facility]) Diastolic blood 72 mm[Hg] 72 mm[Hg] [facility] ([facility]) Systolic blood 150 mm[Hg] 150 mm[Hg] [facility] [place] Body weight 173 lb 173 lb [facility] Body height 63 in 63 in [facility] Body mass index 29.2 kg/m2 29.2 kg/m2 [facility] (S t (BMI) [Ratio] [facility]) Diastolic blood 84 mm[Hg] 84 mm[Hg] [facility] (S t [facility]) Systolic blood 170 mm[Hg] 170 mm[Hg] [facility] Body weight 165 lb 165 lb [facility] ([facility]) Body height 63 in 63 in [facility] ([facility]) Body mass index 29.6 kg/m2 29.6 kg/m2 [facility] (S t (BMI) [Ratio] [facility]) Diastolic blood 72 mm[Hg] 72 mm[Hg] [facility] (S t [facility]) Systolic blood 130 mm[Hg] 130 mm[Hg] [facility] Body weight 167 lb 167 lb [facility] ([facility]) Body height 63 in 63 in [facility] ([facility]) Body mass index 29.6 kg/m2 29.6 kg/m2 [facility] (S t (BMI) [Ratio] [facility]) Diastolic blood 70 mm[Hg] 70 mm[Hg] [facility] ([facility]) Systolic blood 140 mm[Hg] 140 mm[Hg] [facility] Body weight 167 lb 167 lb [facility] ([facility]) Body height 63 in 63 in [facility] ([facility]) Heart rate 106 /min 106 /min [facility] ([facility]) Inhaled oxygen 94 % 94 % [facility] ([facility]) Body mass index 29 kg/m2 29 kg/m2 [facility] (S t (BMI) [Ratio] [facility]) Diastolic blood 60 mm[Hg] 60 mm[Hg] [facility] (S t [facility]) Systolic blood 124 mm[Hg] 124 mm[Hg] [facility] Body weight 164 lb 164 lb [facility] ([facility]) Body height 63 in 63 in [facility] Body mass index 28.9 kg/m2 28.9 kg/m2 [facility] (S t (BMI) [Ratio] [facility]) Diastolic blood 70 mm[Hg] 70 mm[Hg] [facility] ([facility]) Systolic blood 130 mm[Hg] 130 mm[Hg] [facility] Body weight 163 lb 163 lb [facility] ([facility]) Body height 63 in 63 in [facility] ([facility]) Body mass index 28.3 kg/m2 28.3 kg/m2 [facility] (S t (BMI) [[facility]] [facility], ) Diastolic blood 90 mm[Hg] 90 mm[Hg] [facility] (S t pressure [facility]) Systolic blood 140 mm[Hg] 140 mm[Hg] [facility] Body weight 160 lb 160 lb [facility] ([facility]) Body height 63 in 63 in [facility] ([facility]) Systolic blood 130 mm[Hg] 130 mm[Hg] [facility] [place] Body weight 160 lb 160 lb [facility] ([facility]) Body height 63 in 63 in [facility] ([facility]) Body mass index 28.3 kg/m2 28.3 kg/m2 [facility] (S t (BMI) [Ratio] [facility], ) Diastolic blood 82 mm[Hg] 82 mm[Hg] [facility] (S t pressure [facility]) Body mass index 29.8 kg/m2 29.8 kg/m2 [facility] (S t (BMI) [Ratio] [facility], ) Diastolic blood 92 mm[Hg] 92 mm[Hg] [facility] ([facility]) Systolic blood 150 mm[Hg] 150 mm[Hg] [facility] [place] [place] Body weight 168 lb 168 lb [facility] ([facility]) Body height 63 in 63 in [facility] ([facility]) Body mass index 29.8 kg/m2 29.8 kg/m2 [facility] (S t (BMI) [Ratio] [facility], ) Diastolic blood 66 mm[Hg] 66 mm[Hg] [facility] (S t pressure [facility] [place]) Systolic blood 134 mm[Hg] 134 mm[Hg] [facility] [place] [place] Body weight 168 lb 168 lb [facility] ([facility]) Body height 63 in 63 in [facility] ([facility]) Body mass index 30.1 kg/m2 30.1 kg/m2 [facility] (S t (BMI) [Ratio] [facility], ) Diastolic blood 80 mm[Hg] 80 mm[Hg] [facility] (S t pressure [facility] [place]) Systolic blood 140 mm[Hg] 140 mm[Hg] [facility] Body weight 170 lb 170 lb [facility] ([facility]) Body height 63 in 63 in [facility] ([facility]) Body mass index 30.8 kg/m2 30.8 kg/m2 [facility] (S t (BMI) [Ratio] [facility], ) Diastolic blood 74 mm[Hg] 74 mm[Hg] [facility] (S t pressure [facility]) Systolic blood 120 mm[Hg] 120 mm[Hg] [facility] Body weight 174 lb 174 lb [facility] ([facility]) Body height 63 in 63 in [facility] ([facility]) Body mass index 31 kg/m2 31 kg/m2 [facility] (S t (BMI) [Ratio] [facility], ) Diastolic blood 82 mm[Hg] 82 mm[Hg] [facility] (S t pressure [facility] [place]) Systolic blood 180 mm[Hg] 180 mm[Hg] [facility] Body weight 175 lb 175 lb [facility] ([facility]) Body height 63 in 63 in [facility] ([facility]) Body mass index 31.9 kg/m2 31.9 kg/m2 [facility] (S t (BMI) [Ratio] [facility], ) Diastolic blood 82 mm[Hg] 82 mm[Hg] [facility] (S t pressure [facility] [place]) Systolic blood 130 mm[Hg] 130 mm[Hg] [facility] Body weight 180 lb 180 lb [facility] ([facility]) Body height 63 in 63 in [facility] ([facility]) Body mass index 33.3 kg/m2 33.3 kg/m2 [facility] (S t (BMI) [Ratio] [facility], ) Diastolic blood 80 mm[Hg] 80 mm[Hg] [facility]) Systolic blood 140 mm[Hg] 140 mm[Hg] [facility] Body weight 188 lb 188 lb [facility]) Body height 63 in 63 in [facility] ([facility]) Body mass index 33.3 kg/m2 33.3 kg/m2 [facility] (S t (BMI) [Ratio] [facility], ) Diastolic blood 84 mm[Hg] 84 mm[Hg] [facility] (S t pressure [facility] [place]) Systolic blood 146 mm[Hg] 146 mm[Hg] [facility] Body weight 188 lb 188 lb [facility]) Body height 63 in 63 in [facility] ([facility]) Body mass index 33.7 kg/m2 33.7 kg/m2 [facility] (S t (BMI) [Ratio] [facility], ) Diastolic blood 92 mm[Hg] 92 mm[Hg] [facility] (S t pressure [facility]) Systolic blood 130 mm[Hg] 130 mm[Hg] [facility] Body weight 190 lb 190 lb [facility]) Body height 63 in 63 in [facility] ([facility])
--- NOTE | 2020-01-21 22:03 | PDOC ---
History of Present Illness - General Chief Complaint: Wound Stated Complaint: PAIN/LEFT LEG Time Seen by Provider: 01/21/20 20:48 History Source: Patient - History of Present Illness Initial Comments: 01/21/20 22:55 54-year-old male with history of diabetes and hypertension complaining of left foot redness, infection worsening the last 2 to 3 days. Patient reports pain to the left foot. Patient reports that he is followed by Dr. Esqueda and had a stent placed. Most recently was told that he has a clot in the stent. 01/21/20 22:56 Past medical history left leg weakness history of clubfoot and surgery Past History - Medical History Allergies/Adverse Reactions: Allergies Allergy/AdvReac Type Severity Reaction Status Date / Time codeine [Codeine] Allergy Verified 05/29/19 17:33 Home Medications: Ambulatory Orders metFORMIN HCL [Glucophage] 1,000 mg PO BID 06/19/12 Atorvastatin Ca [Lipitor] 80 mg PO HS 08/07/17 Glipizide 10 mg PO BID 10/20/17 Amlodipine Besylate [Norvasc -] 10 mg PO DAILY 05/22/18 Aspirin [Aspirin EC] 81 mg PO DAILY 05/22/18 Clopidogrel Bisulfate [Plavix -] 75 mg PO DAILY #30 tablet 03/21/19 Metoprolol Succinate 1 tab PO DAILY 05/06/19 Olmesartan/Hydrochlorothiazide [Benicar Hct 40-25 mg Tablet] 1 each PO DAILY 01/22/20 Pantoprazole Sodium 40 mg PO DAILY 01/22/20 Anemia: No Asthma: No Cancer: No Cardiac Disorders: Yes CVA: No COPD: No CHF: No Dementia: No Diabetes: Yes (niddm) GI Disorders: No Disorders: No HTN: Yes Hypercholesterolemia: Yes Liver Disease: No Seizures: No Thyroid Disease: No - Surgical History Abdominal Surgery: No Appendectomy: No Cardiac Surgery: No Cholecystectomy: No Lung Surgery: No Neurologic Surgery: No Orthopedic Surgery: Yes (corrective sx club feet, cervical fusion) - Psycho-Social/Smoking History Smoking Status: Yes Smoking History: Current every day smoker Have you smoked in the past 12 months: Yes Number of Cigarettes Smoked Daily: 10 Information on smoking cessation initiated: Yes 'Breaking Loose' booklet given: 05/30/19 - Substance Abuse Hx (Audit-C & DAST Scrn) How often the patient has a drink containing alcohol: Never Score: In Men: 4 or > Positive; In Women: 3 or > Positive: 0 Screen Result (Pos requires Nsg. Audit-10AR): Negative *Physical Exam - Vital Signs Last Vital Signs Temp Pulse Resp BP Pulse Ox 98.5 F 73 20 160/66 100 01/21/20 20:48 01/21/20 20:48 01/21/20 20:48 01/21/20 20:48 01/21/20 20:48 - Physical Exam General Appearance: Yes: Appropriately Dressed Extremity: positive: Swelling (left foot erythematous, pain to touch with abscess. no left pedal pulse appreciated) Integumentary: positive: Normal Color, Dry, Warm Neurologic: positive: Fully Oriented, Alert ED Treatment Course - LABORATORY CBC & Chemistry Diagram: 01/21/20 22:00 01/21/20 22:00 ED Progress Note - Progress Note Progress Note: A: diabetic foot infection P: US labs Xray IV antibiotics 01/22/20 01:42 patient to be admitted under hospitalist service 01/22/20 05:53 Medical Decision Making - Medical Decision Making 01/22/20 01:[address] esqueda will consult inpatient. patient is currently on plavix 01/22/20 01:40 Discharge - Discharge Information Problems reviewed: Yes Clinical Impression/Diagnosis: Femoral artery occlusion, left Diabetes mellitus Qualifiers: Diabetes mellitus type: type 2 Diabetes mellitus termite helper insulin use: unspecified termite helper insulin use status Diabetes mellitus complication status: without complication Qualified Code(s): E11.9 - Type 2 diabetes mellitus without complications Diabetic foot ulcer Qualifiers: Diabetic foot ulcer location: heel Diabetes mellitus type: type 2 Laterality: left Non-pressure ulcer stage: unspecified non-pressure ulcer stage Qualified Code(s): E11.621 - Type 2 diabetes mellitus with foot ulcer - Admission Yes - Follow up/Referral - Patient Discharge Instructions - Post Discharge Activity
[2020-01-21] MEDS ORDERED: VANCOMYCIN 1,000 MG in DEXTROSE 5%-WATER - 250 ML IVPB ONE (22:10)
[2020-01-21] MEDS ORDERED: PIPERACILLIN/TAZOBACTAM 4.5 GM VIAL IVPB ONE (22:10)
[2020-01-21 22:28] LABS: BASO % 0.7 % (0-2.0); EOS % 1.1 % (0-4.5); HEMATOCRIT 43.9 % (35.4-49); HEMOGLOBIN 14.8 GM/dL (11.7-16.9); LYMPH % 34.5 % (8-40); MCH 30.4 pg (25.7-33.7); MCHC 33.8 g/dl (32.0-35.9); MEAN CELL VOLUME 89.9 fl (80-96); MEAN PLT VOLUME 6.9 fl (7.5-11.1); MONO % 7.1 % (3.8-10.2); NEUT % 56.6 % (42.8-82.8); PLATELET COUNT 350 K/MM3 (134-434); RBC 4.88 M/mm3 (4.00-5.60); RDW 14.8 % (11.9-15.9); WHITE BLOOD COUNT 9.1 K/mm3 (4.0-10.0)
[2020-01-21 22:34] LABS: INR 0.92 (0.83-1.09); PROTHROMBIN TIME (PATIENT) 10.9 SEC (9.7-13.0)
[2020-01-21] MEDS ORDERED: VANCOMYCIN 1 GRAM (PRE-DOCKED) 1,000 MG/250 ML BAG IVPB ONE (22:51)
[2020-01-21] MEDS ORDERED: PIPERACILLIN/TAZOB 4.5 GM 4.5 GM/100 ML BAG IVPB ONE (22:51)
[2020-01-21 22:56] LABS: ALBUMIN 3.5 g/dl (3.4-5.0); BILIRUBIN,TOTAL 0.2 mg/dL (0.2-1); BLOOD UREA NITROGEN 14.5 mg/dL (7-18); CALCIUM 9.3 mg/dL (8.5-10.1); CREATININE 0.9 mg/dL (0.55-1.3); POTASSIUM 3.9 mmol/L (3.5-5.1); TOT PROT 6.9 g/dl (6.4-8.2)
[2020-01-22 01:28] LABS: URINE APPEARANCE CLEAR; URINE BILIRUBIN NEGATIVE (NEGATIVE); URINE COLOR YELLOW; URINE GLUCOSE (UA) 3+ (NEGATIVE); URINE KETONE NEGATIVE (NEGATIVE); URINE LEUK ESTERASE NEGATIVE (NEGATIVE); URINE NITRITE NEGATIVE (NEGATIVE); URINE PROTEIN NEGATIVE (NEGATIVE); URINE UROBILINOGEN 0.2 mg/dL (0.2-1.0)
--- OUTSIDE RECORDS SUMMARY | 2020-01-22 02:06 | XMS ---
:1965 Author Organization [facility] Care Team Providers Name Role Phone Chumaceiro, [...] is protected by Article 27-F of the [facility] [place] [facility] law. If you continue you may haveaccess to information: Regarding HIV / AIDS; Provided by facilities licensed or operated by the [facility] Office of Mental Health; or Provided by the [facility] Office for People With Developmental Disabilities. If such information is present, then the following [facility] mandated warning applies: This information has been [...] law may result in a fine or alf sentence or both. A general authorization for the release of medical or other information is NOT sufficient authorization for further disclosure. Encounters Encounter Providers Location Date Indications Data Source(s ) Attender: Marcos 01/21/2020 [facility]) EDT Office Attender: Marcos 01/21/2020 12:00:00 AM EDT [facility] ([facility] Office Attender: Marcos 01/21/2020 12:00:00 AM EDT [facility] ([facility] Office Attender: Marcos 10/25/2019 12:00:00 AM EDT [facility] ([facility] Office Attender: Marcos 10/25/2019 12:00:00 AM EDT [facility] Office Immunizations Vaccine Date Status Description Data Source(s) New in 2011. IIV4 01/21/2020 completed [facility] ([facility] 12:00:00 AM EDT [facility]) pneumococcal 01/29/2018 completed [facility] ([facility] polysaccharide PPV23 12:00:00 AM EDT [facility]i [facility], PC) New in 2011. IIV4 01/29/2018 completed [facility] ([facility] 12:00:00 AM EDT Medical, PC) pneumococcal 01/29/2018 completed [facility] ([facility] polysaccharide PPV23 12:00:00 AM EDT [facility], PC) New in 2011. IIV4 01/29/2018 completed [facility] ([facility] 12:00:00 AM EDT Medical, PC) New in 2011. IIV4 02/27/2017 completed [facility] ([facility] 12:00:00 AM EST Medical, PC) New in 2011. IIV4 02/27/2017 completed [facility] ([facility] 12:00:00 AM EST Medical, PC) Medications Medication Brand Start Product Dose Route Administrative Pharmacy [facility] Indications Reaction Description Data Name Date Form Instructions Instructions Source(s) Losartan LOSART 04/17/ TABLET 30 complet LOSARTA N [facility] (St Potassium AN:979 2016 ed [facility] 25 MG Oral 485 12:00: Medical , Tablet 00 AM PC) LOSARTAN:97 EDT 9485 Losartan LOSART 04/17/ TABLET 30 complet LOSARTA N [facility] (St Potassium AN:979 2016 ed [facility] 25 MG Oral 485 12:00: Medical , Tablet 00 AM PC) LOSARTAN:97 EDT 9485 Glipizide GLIPIZ 04/17/ TABLET 30 complet GLIPIZ FIDE [facility] (St 10 MG Oral FIDE:2016 ed [facility] Tablet 0488 12:00: Medical, GLIPIZIDE:3 00 AM PC) 19822 EDT Glipizide GLIPIZ 04/17/ TABLET 30 complet GLIPIZ FIDE [facility] (St 10 MG Oral FIDE:2016 ed [facility] Tablet 0488 12:00: Medical, GLIPIZIDE:3 00 AM PC) 01084 EDT Aspirin 81 ASPIRI /17/ TABLET 30 complet ASPIR IN [facility] (St MG Oral N:2436 2016 ed [facility] Tablet 70 12:00: Medical, ASPIRIN:243 00 AM PC) 670 EDT pantoprazol PANTOP /17/ DELAYED 30 complet TOPETE TOPRAZOLE [facility] (St e 40 MG RAZOLE 2017 RELEASE ed [facility] Delayed :44877 12:00: TABLET Medica l, Release 0 00 AM PC) Oral Tablet EDT PANTOPRAZOL [id number] tramadol TRAMAD 04/17/ TABLET 30 complet TRAMADO L [facility] (St hydrochlori OL:835 2016 ed [facility] de 50 MG 603 12:00: Medical, Oral Tablet 00 AM PC) TRAMADOL:83 EDT 5603 tramadol TRAMAD 04/17/ TABLET 30 complet TRAMADO L [facility] (St hydrochlori OL:835 2016 ed [facility] de 50 MG 603 12:00: Medical, Oral Tablet 00 AM PC) TRAMADOL:83 EDT 5603 pantoprazol PANTOP /17/ DELAYED 30 complet TOPETE TOPRAZOLE [facility] (St e 40 MG RAZOLE 2017 RELEASE ed [facility] Delayed :03333 12:00: TABLET Medica l, Release 0 00 AM PC) Oral Tablet EDT PANTOPRAZOL E:[id number] Metformin METFOR 08/01/ TABLET 30 complet METFOR MIN [facility] (St hydrochlori MIN:86 2016 ed [facility] de 1000 MG 1004 12:00: Medical , Oral Tablet 00 AM PC) METFORMIN:8 EDT 69395 Metformin METFOR 08/01/ TABLET 30 complet METFOR MIN [facility] (St hydrochlori MIN:86 2016 ed [facility] de 1000 MG 1004 12:00: Medical , Oral Tablet 00 AM PC) METFORMIN:8 EDT 03626 Aspirin 81 ASPIRI 08/01/ TABLET 30 complet ASPIR IN [facility] (St MG Oral N:2436 2017 ed [facility] Tablet 70 12:00: Medical, ASPIRIN:243 00 AM PC) 670 EDT Insurance Providers Payer name Policy type Policy ID Covered Covered republican's Policy P azael / Coverage republican ID relationship to Niño Inf ormation type niño HIP MEDICARE [id number] SP [id number] [facility] [id number] [place] [id number] 1 [id number] [facility] [id number] VIP (HMO) HIP MEDICARE [id number] SP [id number] VIP HIP MEDICARE [id number] SP [id number] VIP HIP MEDICARE [id number] SP [id number] VIP Problems, Conditions, and Diagnoses Code Display Name Description Problem Effective Data Type Dates Source(s) Z01.818 Encounter for ENCOUNTER FOR OTHER Problem 05/24/2019 ME [facility] (St other PREPROCEDURAL 12:00:00 AM [facility] preprocedural EXAMINATION EST Medical, P C) examination Z01.818 Encounter for ENCOUNTER FOR OTHER Problem 05/24/2019 ME [facility] (St other PREPROCEDURAL 12:00:00 AM [facility] preprocedural EXAMINATION EST Medical, P C) examination Z23 Encounter for ENCOUNTER FOR Problem 01/29/2018 [facility] ( St immunization IMMUNIZATION 12:00:00 AM [facility] EDT Medical, PC) Z23 Encounter for ENCOUNTER FOR Problem 01/29/2018 [facility] ( St immunization IMMUNIZATION 12:00:00 AM [facility] EDT Medical, PC) M79.675 Pain in left PAIN IN LEFT TOE(S) Problem 10/19/2017 MED [facility] (St toe(s) 12:00:00 AM [facility], ) E08.621 Diabetes mellitus DIABETES MELLITUS DUE TO Problem 08/2017 [facility] (St due to underlying UNDERLYING CONDITION 12:00:00 AM [facility] condition with WITH FOOT ULCER EDT [facility], ) foot ulcer M79.675 Pain in left PAIN IN LEFT TOE(S) Problem 10/19/2017 MED [facility] (St toe(s) 12:00:00 AM [facility], ) E08.621 Diabetes mellitus DIABETES MELLITUS DUE TO Problem 08/2017 MED[facility] (St due to underlying UNDERLYING CONDITION 12:00:00 AM [facility] condition with WITH FOOT ULCER EDT [facility], ) foot ulcer L84 Corns and CORNS AND CALLOSITIES Problem 10/04/2017 MED [facility] (St callosities 12:00:00 AM [facility], ) M79.672 Pain in left foot PAIN IN LEFT FOOT Problem 10/04/2017 [facility] (St 12:00:00 AM [facility], ) M20.42 Other hammer OTHER HAMMER TOE(S) Problem 10/04/2017 MED [facility] (St toe(s) (ACQUIRED), LEFT FOOT 12:00:00 AM [facility] (acquired), [facility], ) foot E11.40 Type 2 diabetes TYPE 2 DIABETES MELLITUS Problem 2017 MED[facility] (St mellitus with WITH DIABETIC 12:00:00 AM [facility] diabetic NEUROPATHY, UNSPECIFIED EDT [facility], ) neuropathy, unspecified L84 Corns and CORNS AND CALLOSITIES Problem 10/04/2017 MED GEN (St callosities 12:00:00 AM [facility], ) M79.672 Pain in left foot PAIN IN LEFT FOOT Problem 10/04/2017 [facility] (St 12:00:00 AM [facility], ) M20.42 Other hammer OTHER HAMMER TOE(S) Problem 10/04/2017 MED [facility] (St toe(s) (ACQUIRED), LEFT FOOT 12:00:00 AM [facility] (acquired), [facility], ) foot E11.40 Type 2 diabetes TYPE 2 DIABETES MELLITUS Problem 2017 [facility] (St mellitus with WITH DIABETIC 12:00:00 AM [facility] diabetic NEUROPATHY, UNSPECIFIED EDT edical, PC) neuropathy, unspecified R30.0 Dysuria DYSURIA Problem 08/03/2017 [facility] (St 12:00:00 AM [facility] EDT Medical, PC) R30.0 Dysuria DYSURIA Problem 08/03/2017 [facility] (St 12:00:00 AM [facility] EDT Medical, PC) E11.621 Type 2 diabetes TYPE 2 DIABETES MELLITUS Problem 2017 [facility] (St mellitus with WITH FOOT ULCER 12:00:00 AM [facility] foot ulcer EDT Medical, PC) E11.69 Type 2 diabetes TYPE 2 DIABETES MELLITUS Problem 2017 [facility] (St mellitus with WITH OTHER SPECIFIED 12:00:00 AM [facility] other specified COMPLICATION EDT Medical , PC) complication E11.621 Type 2 diabetes TYPE 2 DIABETES MELLITUS Problem 2017 [facility] (St mellitus with WITH FOOT ULCER 12:00:00 AM [facility] foot ulcer EDT Medical, PC) E11.69 Type 2 diabetes TYPE 2 DIABETES MELLITUS Problem 2017 [facility] (St mellitus with WITH OTHER SPECIFIED 12:00:00 AM [facility] other specified COMPLICATION EDT Medical , PC) complication E78.00 Pure PURE Problem 08/01/2016 [facility] (St hypercholesterole HYPERCHOLESTEROLEMIA 12:00:00 AM [facility] nelida, unspecified EDT Medical, PC) I10 Essential ESSENTIAL (PRIMARY) Problem 08/01/2016 MED[facility] N (St (primary) HYPERTENSION 12:00:00 AM [facility] hypertension EDT Medical, PC) E11.9 Type 2 diabetes TYPE 2 DIABETES MELLITUS Problem 2016 [facility] (St mellitus without WITHOUT COMPLICATIONS 12:00:00 AM [facility] complications EDT Medical, PC ) E78.00 Pure PURE Problem 08/01/2016 [facility] (St hypercholesterole HYPERCHOLESTEROLEMIA 12:00:00 AM [facility] nelida, unspecified EDT Medical, PC) I10 Essential ESSENTIAL (PRIMARY) Problem 08/01/2016 MED[facility] N (St (primary) HYPERTENSION 12:00:00 AM [facility] hypertension EDT Medical, PC) E11.9 Type 2 diabetes TYPE 2 DIABETES MELLITUS Problem 04/17/ 2017 [facility] (St mellitus without WITHOUT COMPLICATIONS 12:00:00 AM [facility] complications [facility], ) Surgeries/Procedures Procedure Description Date Indications Data Source(s) Documentation of current 01/21/2020 [facility] ([facility] medications (procedure) 12:00:00 AM EDT [facility], ) Documentation of current 01/21/2020 [facility] ([facility] medications (procedure) 12:00:00 AM T [facility], ) OFFICE OUTPATIENT VISIT 15 01/21/2020 Brock EDGEN ([facility] MINUTES 12:00:00 AM [facility]) THERAPEUTIC 01/21/2020 [facility] ([facility] PROPHYLACTIC/DX INJECTION 12:00:00 AM [facility], ) SUBQ/IM FLU QUAD 36 MOS & ABOVE 01/21/2020 [facility] EN ([facility] 12:00:00 AM [facility]) Documentation of current 10/25/2019 MED [facility] ([facility] medications (procedure) 12:00:00 AM T [facility], ) OFFICE OUTPATIENT VISIT 15 10/25/2019 Brock BRUMFIELDN ([facility] MINUTES 12:00:00 AM [facility]) Documentation of current 10/25/2019 MED [facility] ([facility] medications (procedure) 12:00:00 AM T [facility], ) OFFICE OUTPATIENT VISIT 15 10/25/2019 Brock EDGEN ([facility] MINUTES 12:00:00 AM [facility], ) Documentation of current 08/29/2019 MED [facility] ([facility] medications (procedure) 12:00:00 AM T [facility], ) Documentation of current 08/29/2019 MED [facility] ([facility] medications (procedure) 12:00:00 AM T [facility], ) Documentation of current 08/29/2019 MED [facility] ([facility] medications (procedure) 12:00:00 AM EDT [facility], ) Documentation of current 08/29/2019 MED [facility] ([facility] medications (procedure) 12:00:00 AM T [facility], ) Documentation of current 08/29/2019 MED [facility] ([facility] medications (procedure) 12:00:00 AM EDT [facility], ) PHYSICIAN TELEPHONE 08/29/2019 [facility] ( [facility] EVALUATION 5-10 MIN 12:00:00 AM EDT [facility], PC) Documentation of current 08/29/2019 MED [facility] ([facility] medications (procedure) 12:00:00 AM EDT ELIEZER garcia) Documentation of current 08/29/2019 MED [facility] ([facility] medications (procedure) 12:00:00 AM EDT [facility]) Documentation of current 08/29/2019 MED [facility] ([facility] medications (procedure) 12:00:00 AM EDT [facility] PC) Documentation of current 08/29/2019 MED [facility] ([facility] medications (procedure) 12:00:00 AM EDT [facility] PC) Documentation of current 08/29/2019 [facility] ([facility] medications (procedure) 12:00:00 AM EDT [facility] PC) PHYSICIAN TELEPHONE 08/29/2019 [facility] ( [facility] EVALUATION 5-10 MIN 12:00:00 AM EDT Beau ramos, ) Documentation of current 08/21/2019 MED [facility] ([facility] medications (procedure) 12:00:00 AM EDT jose ) Documentation of current 08/21/2019 [facility] ([facility] medications (procedure) 12:00:00 AM EDT [facility]) Documentation of current 08/21/2019 [facility] ([facility] medications (procedure) 12:00:00 AM EDT [facility]) Documentation of current 08/21/2019 [facility] ([facility] medications (procedure) 12:00:00 AM EDT jose ) PHYSICIAN TELEPHONE 08/21/2019 [facility] ( [facility] EVALUATION 11-20 MIN 12:00:00 AM EDT [facility] ) Documentation of current 08/21/2019 MED [facility] ([facility] medications (procedure) 12:00:00 AM EDT [facility]) Documentation of current 08/21/2019 MED [facility] ([facility] medications (procedure) 12:00:00 AM EDT [facility] PC) Documentation of current 08/21/2019 [facility] ([facility] medications (procedure) 12:00:00 AM EDT [facility]) Documentation of current 08/21/2019 [facility] ([facility] medications (procedure) 12:00:00 AM EDT [facility], PC) PHYSICIAN TELEPHONE 08/21/2019 [facility] ( [facility] Documentation of current 06/21/2019 MED GEN ([facility] medications (procedure) 12:00:00 AM EST [facility], ) OFFICE OUTPATIENT VISIT 10 06/21/2019 M EDGEN ([facility] MINUTES 12:00:00 AM [facility], ) Documentation of current 06/21/2019 MED GEN ([facility] medications (procedure) 12:00:00 AM [facility]) OFFICE OUTPATIENT VISIT 10 06/21/2019 OCTAVIANON ([facility] MINUTES 12:00:00 AM [facility], ) Documentation of current 05/24/2019 MED GEN ([facility] medications (procedure) 12:00:00 AM [facility], ) Documentation of current 05/24/2019 MED GEN ([facility] medications (procedure) 12:00:00 AM [facility]) OFFICE OUTPATIENT VISIT 25 05/24/2019 Brock EDGEN ([facility] MINUTES 12:00:00 AM [facility], ) ECG ROUTINE ECG W/LEAST 12 05/24/2019 EDGEN ([facility] LDS W/I&R 12:00:00 AM [facility], ) COLLECTION VENOUS BLOOD 05/24/2019 MEDG EN ([facility] VENIPUNCTURE 12:00:00 AM [facility], ) Documentation of current 05/24/2019 MED [facility] ([facility] medications (procedure) 12:00:00 AM EST [facility], ) Documentation of current 05/24/2019 MED GEN ([facility] medications (procedure) 12:00:00 AM EST [facility]) OFFICE OUTPATIENT VISIT 25 05/24/2019 M EDGEN ([facility] MINUTES 12:00:00 AM [facility], ) ECG ROUTINE ECG W/LEAST 12 05/24/2019 EDGEN ([facility] LDS W/I&R 12:00:00 AM [facility], ) COLLECTION VENOUS BLOOD 05/24/2019 MEDG EN ([facility] VENIPUNCTURE 12:00:00 AM [facility], ) Documentation of current 03/05/2019 MED GEN ([facility] medications (procedure) 12:00:00 AM EST [facility], ) OFFICE OUTPATIENT VISIT 10 03/05/2019 M EDGEN ([facility] MINUTES 12:00:00 AM [facility], ) INFLUENZA VACCINE 03/05/2019 [facility] ([facility] 12:00:00 AM [facility], ) IMADM PRQ ID SUBQ/IM NJXS 03/05/2019 ME DGEN ([facility] 1 VACCINE 12:00:00 AM [facility], ) Documentation of current 03/05/2019 MED [facility] ([facility] medications (procedure) 12:00:00 AM EST [facility], ) OFFICE OUTPATIENT VISIT 10 03/05/2019 Brock EDGEN ([facility] MINUTES 12:00:00 AM [facility], ) INFLUENZA VACCINE 03/05/2019 [facility] ([facility] 12:00:00 AM [facility], ) IMADM PRQ ID SUBQ/IM NJXS 03/05/2019 ME DGEN ([facility] 1 VACCINE 12:00:00 AM [facility], ) Documentation of current 12/31/2018 MED GEN ([facility] medications (procedure) 12:00:00 AM EDT [facility], ) Documentation of current 12/31/2018 MED GEN ([facility] medications (procedure) 12:00:00 AM EDT [facility], ) Documentation of current 12/31/2018 MED GEN ([facility] medications (procedure) 12:00:00 AM EDT [facility], ) Documentation of current 12/31/2018 MED [facility] ([facility] medications (procedure) [facility] Documentation of current 12/31/2018 MED GEN ([facility] medications (procedure) 12:00:00 AM EDT [facility], ) OFFICE OUTPATIENT VISIT 15 12/31/2018 Brock EDGEN ([facility] MINUTES 12:00:00 AM [facility], ) COLLECTION VENOUS BLOOD 12/31/2018 MEDG EN ([facility] VENIPUNCTURE 12:00:00 AM [facility], ) Documentation of current 12/31/2018 MED [facility] ([facility] medications (procedure) 12[facility]00:[facility] ) Documentation of current 12/31/2018 MED [facility] ([facility] medications (procedure) 12:00:00 AM EDT [facility], ) Documentation of current 12/31/2018 MED GEN ([facility] medications (procedure) 12:00:00 AM EDT [facility], ) Documentation of current 12/31/2018 MED [facility] ([facility] medications (procedure) 12:00:00 AM EDT [facility], ) Documentation of current 12/31/2018 MED GEN ([facility] medications (procedure) 12:00:00 AM EDT [facility], ) OFFICE OUTPATIENT VISIT 15 12/31/2018 Brock JANE ([facility] MINUTES 12:00:00 AM [facility], ) COLLECTION VENOUS BLOOD 12/31/2018 MEDG EN ([facility] VENIPUNCTURE 12:00:00 AM [facility], ) Documentation of current 09/27/2018 MED GEN ([facility] medications (procedure) 12:00:00 AM T [facility], ) Documentation of current 09/27/2018 MED [facility] ([facility] medications (procedure) 12:00:00 AM EDT [facility], ) Documentation of current 09/27/2018 MED GEN ([facility] medications (procedure) 12:00:00 AM EDT [facility], ) OFFICE OUTPATIENT VISIT 15 09/27/2018 [place] JANE ([facility] MINUTES 12:00:00 AM [facility], ) GLUC BLD GLUC MNTR DEV 09/27/2018 MEDGE N ([facility] CLEARED FDA SPEC HOME [facility] COLLECTION CAPILLARY BLOOD 09/27/2018 [place] JANE ([facility] SPECIMEN 12:00:00 AM [facility], ) Documentation of current 09/27/2018 MED GEN ([facility] medications (procedure) 12:00:00 AM EDT [facility], ) Documentation of current 09/27/2018 MED GEN ([facility] medications (procedure) 12:00:00 AM EDT [facility], ) Documentation of current 09/27/2018 MED GEN ([facility] medications (procedure) 12:00:00 AM EDT [facility], ) OFFICE OUTPATIENT VISIT 15 09/27/2018 [place] JANE ([facility] MINUTES 12:00:00 AM [facility], ) GLUC BLD GLUC MNTR DEV 09/27/2018 MEDGE N ([facility] CLEARED FDA SPEC HOME USE 12:00:00 AM [facility], ) COLLECTION CAPILLARY BLOOD 09/27/2018 Brock BRUMFIELDN ([facility] SPECIMEN 12:00:00 AM [facility], ) Documentation of current 07/20/2018 MED [facility] Documentation of current 07/20/2018 MED GEN ([facility] medications (procedure) 12:00:00 AM [facility], ) OFFICE OUTPATIENT VISIT 15 07/20/2018 Brock LARA ([facility] MINUTES 12:00:00 AM [facility], ) GLUC BLD GLUC MNTR DEV 07/20/2018 MEDGE N ([facility] CLEARED FDA SPEC HOME USE 12:00:00 AM [facility], ) COLLECTION CAPILLARY BLOOD 07/20/2018 Brock LARA ([facility] SPECIMEN 12:00:00 AM [facility], ) Documentation of current 07/20/2018 MED [facility] Documentation of current 07/20/2018 MED GEN ([facility] medications (procedure) 12:00:00 AM EDT [facility], ) OFFICE OUTPATIENT VISIT 15 07/20/2018 Brock LARA ([facility] MINUTES 12:00:00 AM [facility], ) GLUC BLD GLUC MNTR DEV 07/20/2018 MEDGE N ([facility] CLEARED FDA SPEC HOME USE 12:00:00 AM [facility], ) COLLECTION CAPILLARY BLOOD 07/20/2018 Brock LARA ([facility] SPECIMEN 12:00:00 AM [facility], ) Documentation of current 06/08/2018 MED GEN ([facility] medications (procedure) 12:00:00 AM EST [facility], ) OFFICE OUTPATIENT VISIT 15 06/08/2018 Brock LARA ([facility] MINUTES 12:00:00 AM [facility], ) GLUC BLD GLUC MNTR DEV 06/08/2018 MEDGE N ([facility] CLEARED FDA SPEC HOME USE 12:00:00 AM [facility], ) COLLECTION CAPILLARY BLOOD 06/08/2018 M EDGEN ([facility] SPECIMEN 12:00:00 AM [facility], ) COLLECTION VENOUS BLOOD 06/08/2018 MEDG EN ([facility] VENIPUNCTURE 12:00:00 AM [facility], ) Documentation of current 06/08/2018 MED GEN ([facility] medications (procedure) 12:00:00 AM EST [facility], ) OFFICE OUTPATIENT VISIT 15 06/08/2018 Brock LARA ([facility] MINUTES 12:00:00 AM [facility], ) GLUC BLD GLUC MNTR DEV 06/08/2018 MEDGE N ([facility] CLEARED FDA SPEC HOME USE 12:00:00 AM [facility], ) COLLECTION CAPILLARY BLOOD 06/08/2018 Brock LARA ([facility] SPECIMEN 12:00:00 AM [facility], ) COLLECTION VENOUS BLOOD 06/08/2018 MEDG EN ([facility] VENIPUNCTURE 12:00:00 AM [facility], ) Documentation of current 04/02/2018 MED GEN ([facility] medications (procedure) 12:00:00 AM EST [facility], ) OFFICE OUTPATIENT VISIT 15 04/02/2018 Brock LARA ([facility] MINUTES 12:00:00 AM [facility], ) GLUC BLD GLUC MNTR DEV 04/02/2018 MEDGE N ([facility] CLEARED FDA SPEC HOME USE 12:00:00 AM [facility], ) COLLECTION CAPILLARY BLOOD 04/02/2018 Brock LARA ([facility] SPECIMEN 12:00:00 AM [facility], ) Documentation of current 04/02/2018 MED GEN ([facility] medications (procedure) 12:00:00 AM EST [facility], ) OFFICE OUTPATIENT VISIT 15 04/02/2018 Brock LARA ([facility] MINUTES 12:00:00 AM [facility], ) GLUC BLD GLUC MNTR DEV 04/02/2018 MEDGE N ([facility] CLEARED FDA SPEC HOME USE 12:00:00 AM [facility], ) COLLECTION CAPILLARY BLOOD 04/02/2018 Brock LARA ([facility] SPECIMEN 12:00:00 AM [facility], ) OFFICE OUTPATIENT VISIT 15 01/29/2018 Brock LARA ([facility] MINUTES 12:00:00 AM [facility], ) PNEUMOCOCCAL POLYSAC 01/29/2018 [facility] ([facility] VACCINE 23-V 2 />YR 12:00:00 AM EDT Medic id, ) SUBQ/IM INFLUENZA VACCINE 01/29/2018 MED[facility] ([facility] 12:00:00 AM EDT [facility], ) IMADM PRQ ID SUBQ/IM NJXS 01/29/2018 ME DGEN ([facility] EA VACCINE 12:00:00 AM [facility], ) IMADM PRQ ID SUBQ/IM NJXS 01/29/2018 ME DGEN ([facility] 1 VACCINE 12:00:00 AM EDT [facility], ) GLUC BLD GLUC MNTR DEV 01/29/2018 MEDGE N ([facility] CLEARED FDA SPEC HOME USE 12:00:00 AM [facility], ) COLLECTION CAPILLARY BLOOD 01/29/2018 Brock BRUMFIELDN ([facility] SPECIMEN 12:00:00 AM [facility], ) COLLECTION VENOUS BLOOD 01/29/2018 MEDG EN ([facility] VENIPUNCTURE 12:00:00 AM [facility], ) OFFICE OUTPATIENT VISIT 15 01/29/2018 Brock BRUMFIELDN ([facility] MINUTES 12:00:00 AM [facility], ) PNEUMOCOCCAL POLYSAC 01/29/2018 MEDGEN ([facility] VACCINE 23-V 2 />YR 12:00:00 AM EDT Medic id, ) SUBQ/IM INFLUENZA VACCINE 01/29/2018 MED[facility] ([facility] 12:00:00 AM EDT [facility], ) IMADM PRQ ID SUBQ/IM NJXS 01/29/2018 ME DGEN ([facility] EA VACCINE 12:00:00 AM EDT [facility], ) IMADM PRQ ID SUBQ/IM NJXS 01/29/2018 ME DGEN ([facility] 1 VACCINE 12:00:00 AM EDT [facility], ) GLUC BLD GLUC MNTR DEV 01/29/2018 MEDGE N ([facility] CLEARED FDA SPEC HOME USE 12:00:00 AM [facility], ) COLLECTION CAPILLARY BLOOD 01/29/2018 Brock BRUM[place]N ([facility] SPECIMEN 12:00:00 AM [facility], ) COLLECTION VENOUS BLOOD 01/29/2018 MEDG EN ([facility] VENIPUNCTURE 12:00:00 AM [facility], ) Documentation of current 11/29/2017 MED GEN ([facility] medications (procedure) 12:00:00 AM EDT [facility], ) OFFICE OUTPATIENT VISIT 25 11/29/2017 Brock LARA ([facility] MINUTES 12:00:00 AM EDT [facility], ) GLUC BLD GLUC MNTR DEV 11/29/2017 MEDGE N ([facility]'s CLEARED FDA SPEC HOME USE 12:00:00 AM EDT [facility], ) COLLECTION CAPILLARY BLOOD 11/29/2017 Brock BRUMFIELDN ([facility]'s SPECIMEN 12:00:00 AM EDT [facility], ) COLLECTION VENOUS BLOOD 11/29/2017 MEDG EN ([facility]'s VENIPUNCTURE 12:00:00 AM [facility], ) Documentation of current 11/29/2017 MED GEN (Luda's medications (procedure) 12:00:00 AM EDT [facility], ) OFFICE OUTPATIENT VISIT 25 11/29/2017 Brock LARA ([facility]'s MINUTES 12:00:00 AM [facility], ) GLUC BLD GLUC MNTR DEV 11/29/2017 MEDGE N ([facility] CLEARED FDA SPEC HOME [facility] COLLECTION CAPILLARY BLOOD 11/29/2017 Brock LARA ([facility] SPECIMEN [facility] COLLECTION VENOUS BLOOD 11/29/2017 MEDG EN ([facility]URE [facility] OFF[facility] OUTPATIENT VISIT 10 10/19/2017 Brock BRUMFIELDLuis Manuel ([facility]'s MINUTES 12:00:00 AM EDT [facility], ) INCISION & DRAINAGE 10/19/2017 MEDGEN ( [facility]'s ABSCESS SIMPLE/SINGLE 12:00:00 AM EDT [facility], ) OFFICE OUTPATIENT VISIT 10 10/19/2017 Brock BRUMFIELDLuis Manuel ([facility]'s MINUTES 12:00:00 AM EDT [facility], ) INCISION & DRAINAGE 10/19/2017 MEDGEN ( [facility]'s ABSCESS SIMPLE/SINGLE 12:00:00 AM EDT [facility], ) Documentation of current 10/04/2017 MED GEN (Luda's medications (procedure) 12:00:00 AM EDT [facility], ) OFFICE OUTPATIENT VISIT 15 10/04/2017 Brock JANE ([facility]'s MINUTES 12:00:00 AM EDT [facility], ) OFFICE OUTPATIENT NEW 30 10/04/2017 MED GEN (Luda's MINUTES 12:00:00 AM [facility], ) GLUC BLD GLUC MNTR DEV 10/04/2017 MEDGE N (Luda's CLEARED FDA SPEC HOME USE 12:00:00 AM [facility], ) COLLECTION CAPILLARY BLOOD 10/04/2017 Brock BRUMFIELDN ([facility]'s SPECIMEN 12:00:00 AM [facility], ) Documentation of current 10/04/2017 MED GEN (Luda's medications (procedure) 12:00:00 AM [facility]) OFFICE OUTPATIENT VISIT 15 10/04/2017 Brock BRUMFIELDN (Luda's MINUTES 12:00:00 AM [facility], ) OFFICE OUTPATIENT NEW 10/04/2017 MED GEN (Luda's MINUTES 12:00:00 AM [facility], ) GLUC BLD GLUC MNTR DEV 10/04/2017 MEDGE N (Luda's CLEARED FDA SPEC HOME USE 12:00:00 AM [facility], ) COLLECTION CAPILLARY BLOOD 10/04/2017 Brock BRUMFIELDN ([facility]'s SPECIMEN 12:00:00 AM [facility], ) Documentation of current 09/18/2017 MED GEN (Luda's medications (procedure) 12:00:00 AM [facility], ) OFFICE OUTPATIENT VISIT 09/18/2017 Brock LARA ([facility]uda's MINUTES 12:00:00 AM [facility], ) ECG ROUTINE ECG W/LEAST 12 09/18/2017 Brock BRUMFIELDLuis Manuel ([facility]uda's LDS W/I&R 12:00:00 AM [facility], ) GLUC BLD GLUC MNTR DEV 09/18/2017 MEDGE N (Luda's CLEARED FDA SPEC HOME USE 12:00:00 AM [facility], ) COLLECTION CAPILLARY BLOOD 09/18/2017 Brock BRUMFIELDN ([facility]'s SPECIMEN 12:00:00 AM [facility], ) COLLECTION VENOUS BLOOD 09/18/2017 MEDG EN ([facility]'s VENIPUNCTURE 12:00:00 AM [facility], ) Documentation of current 09/18/2017 MED GEN (Luda's medications (procedure) 12:00:00 AM [facility], ) OFFICE OUTPATIENT VISIT 25 09/18/2017 M EDGEN (Luda's MINUTES 12:00:00 AM [facility], ) ECG ROUTINE ECG W/LEAST 12 09/18/2017 Brock LARA ([facility]uda's LDS W/I&R 12:00:00 AM [facility], ) GLUC BLD GLUC MNTR DEV 09/18/2017 MEDGE N ([facility]uda's CLEARED FDA SPEC HOME USE 12:00:00 AM [facility], ) COLLECTION CAPILLARY BLOOD 09/18/2017 Brock LARA ([facility]'s SPECIMEN 12:00:00 AM [facility], ) COLLECTION VENOUS BLOOD 09/18/2017 MEDG EN ([facility]'s VENIPUNCTURE 12:00:00 AM [facility], ) Documentation of current 09/08/2017 MED GEN (Luda's medications (procedure) 12:00:00 AM [facility]) Documentation of current 09/08/2017 MED GEN (Luda's medications (procedure) 12:00:00 AM [facility]) OFFICE OUTPATIENT VISIT 15 09/08/2017 Brock LARA ([facility]uda's MINUTES 12:00:00 AM [facility], ) GLUC BLD GLUC MNTR DEV 09/08/2017 MEDGE N (Luda's CLEARED FDA SPEC HOME USE 12:00:00 AM [facility], ) COLLECTION CAPILLARY BLOOD 09/08/2017 Brock LARA ([facility]'s SPECIMEN 12:00:00 AM [facility], ) Documentation of current 09/08/2017 MED GEN (Luda's medications (procedure) 12:00:00 AM [facility]) Documentation of current 09/08/2017 MED GEN (Luda's medications (procedure) 12:00:00 AM [facility]) OFFICE OUTPATIENT VISIT 15 09/08/2017 Brock LARA ([facility]uda's MINUTES 12:00:00 AM [facility], ) GLUC BLD GLUC MNTR DEV 09/08/2017 MEDGE N ([facility]uda's CLEARED FDA SPEC HOME USE 12:00:00 AM [facility], ) COLLECTION CAPILLARY BLOOD 09/08/2017 Brock LARA ([facility]'s SPECIMEN 12:00:00 AM [facility], ) Documentation of current 08/03/2017 MED GEN (Luda's medications (procedure) 12:00:00 AM [facility] ) OFFICE OUTPATIENT VISIT 15 08/03/2017 Brock BRUMFIELDN (Luda's MINUTES 12:00:00 AM [facility], ) GLUC BLD GLUC MNTR DEV 08/03/2017 MEDGE N ([facility]uda's CLEARED FDA SPEC HOME USE 12:00:00 AM [facility], ) Documentation of current 08/03/2017 MED GEN (Luda's medications (procedure) 12:00:00 AM [facility], ) OFFICE OUTPATIENT VISIT 15 08/03/2017 Brock LARA ([facility]'s MINUTES 12:00:00 AM [facility], ) GLUC BLD GLUC MNTR DEV 08/03/2017 MEDGE N ([facility]uda's CLEARED FDA SPEC HOME USE 12:00:00 AM [facility], ) Documentation of current 07/31/2017 MED GEN (Luda's medications (procedure) 12:00:00 AM [facility], ) Documentation of current 07/31/2017 MED GEN (Luda's medications (procedure) 12:00:00 AM T [facility], ) OFFICE OUTPATIENT VISIT 07/31/2017 Brock LARA ([facility]uda's MINUTES 12:00:00 AM [facility], ) ECG ROUTINE ECG W/LEAST 12 07/31/2017 Brock LARA ([facility]uda's LDS W/I&R 12:00:00 AM [facility], ) GLUC BLD GLUC MNTR DEV 07/31/2017 MEDGE N ([facility]'s CLEARED FDA SPEC HOME USE 12:00:00 AM [facility], ) COLLECTION CAPILLARY BLOOD 07/31/2017 Brock LARA ([facility]'s SPECIMEN 12:00:00 AM [facility], ) Documentation of current 07/31/2017 MED GEN (Luda's medications (procedure) 12:00:00 AM T [facility], ) Documentation of current 07/31/2017 MED GEN (Luda's medications (procedure) 12:00:00 AM [facility], ) OFFICE OUTPATIENT VISIT 25 07/31/2017 Brock LARA ([facility]'s MINUTES 12:00:00 AM [facility], ) ECG ROUTINE ECG W/LEAST 12 07/31/2017 Brock BRUMFIELDN ([facility]uda's LDS W/I&R 12:00:00 AM [facility], ) GLUC BLD GLUC MNTR DEV 07/31/2017 MEDGE N ([facility]'s CLEARED FDA SPEC HOME USE 12:00:00 AM [facility], ) COLLECTION CAPILLARY BLOOD 07/31/2017 Brock LARA ([facility]'s SPECIMEN 12:00:00 AM [facility], ) Documentation of current 07/28/2017 MED GEN (Luda's medications (procedure) 12:00:00 AM [facility], ) OFFICE OUTPATIENT VISIT 25 07/28/2017 Brock LARA ([facility]uda's MINUTES 12:00:00 AM [facility], ) GLUC BLD GLUC MNTR DEV 07/28/2017 MEDGE N ([facility]uda's CLEARED FDA SPEC HOME USE 12:00:00 AM [facility], ) COLLECTION VENOUS BLOOD 07/28/2017 MEDG EN ([facility]'s VENIPUNCTURE 12:00:00 AM [facility], ) Documentation of current 07/28/2017 MED GEN (Luda's medications (procedure) 12:00:00 AM [facility], ) OFFICE OUTPATIENT VISIT 25 07/28/2017 Brock LARA ([facility]uda's MINUTES 12:00:00 AM [facility], ) GLUC BLD GLUC MNTR DEV 07/28/2017 MEDGE N ([facility]uda's CLEARED FDA SPEC HOME USE 12:00:00 AM [facility], ) COLLECTION VENOUS BLOOD 07/28/2017 MEDG EN ([facility]'s VENIPUNCTURE 12:00:00 AM [facility], ) Documentation of current 05/09/2017 MED GEN (Luda's medications (procedure) 12:00:00 AM EST [facility], ) Documentation of current 05/09/2017 MED GEN (Luda's medications (procedure) 12:00:00 AM [facility], ) OFFICE OUTPATIENT VISIT 15 05/09/2017 Brock BRUMFIELDLuis Manuel ([facility]uda's MINUTES 12:00:00 AM [facility], ) Documentation of current 05/09/2017 MED GEN (Luda's medications (procedure) 12:00:00 AM EST [facility], ) Documentation of current 05/09/2017 MED GEN (Luda's medications (procedure) 12:00:00 AM [facility], ) OFFICE OUTPATIENT VISIT 15 05/09/2017 Brock LARA (Luda's MINUTES 12:00:00 AM [facility], ) GLUC BLD GLUC MNTR DEV 04/25/2017 MEDGE N ([facility]uda's CLEARED FDA SPEC HOME USE 12:00:00 AM [facility], ) Documentation of current 04/25/2017 MED GEN (Luda's medications (procedure) 12:00:00 AM EST [facility], ) Documentation of current 04/25/2017 MED GEN (Luda's medications (procedure) 12:00:00 AM EST [facility], ) OFFICE OUTPATIENT VISIT 15 04/25/2017 Brock JANE ([facility]uda's MINUTES 12:00:00 AM [facility], ) GLUC BLD GLUC MNTR DEV 04/25/2017 MEDGE N (Luda's CLEARED FDA SPEC HOME USE 12:00:00 AM [facility], ) Documentation of current 04/25/2017 MED GEN (Luda's medications (procedure) 12:00:00 AM EST [facility], ) Documentation of current 04/25/2017 MED GEN (Luda's medications (procedure) 12:00:00 AM EST [facility], ) OFFICE OUTPATIENT VISIT 15 04/25/2017 Brock JANE ([facility]uda's MINUTES 12:00:00 AM [facility], ) Documentation of current 02/27/2017 MED GEN (Luda's medications (procedure) 12:00:00 AM EST [facility], ) Documentation of current 02/27/2017 MED GEN (Luda's medications (procedure) 12:00:00 AM EST [facility], ) Documentation of current 02/27/2017 MED GEN (Luda's medications (procedure) 12:00:00 AM EST [facility], ) Influenza virus vaccine, 02/27/2017 MED GEN (Luda's split virus, when 12:00:00 AM [facility] , ) administered to individuals 3 years of age and older, for intramuscular use (flulaval) Administration of 02/27/2017 MEDGEN ([facility] influenza virus vaccine [facility] OFF[facility] OUTPATIENT VISIT 25 02/27/2017 Brock JANE ([facility]uda's MINUTES 12:00:00 AM [facility], ) GLUC BLD GLUC MNTR DEV 02/27/2017 MEDGE N ([facility]uda's CLEARED FDA SPEC HOME USE 12:00:00 AM [facility], ) COLLECTION VENOUS BLOOD 02/27/2017 MEDG EN ([facility]uda's VENIPUNCTURE 12:00:00 AM [facility], ) Documentation of current 02/27/2017 MED GEN (Luda's medications (procedure) 12:00:00 AM EST [facility], ) Documentation of current 02/27/2017 MED GEN (Luda's medications (procedure) 12:00:00 AM EST [facility], ) Documentation of current 02/27/2017 MED GEN (Luda's medications (procedure) 12:00:00 AM EST [facility], ) Influenza virus vaccine, 02/27/2017 MED GEN (Luda's split virus, when 12:00:00 AM [facility] , ) administered to individuals 3 years of age and older, for intramuscular use (flulaval) Administration of 02/27/2017 MEDGEN (Luda's influenza virus vaccine 12:00:00 AM EST [facility], ) OFFICE OUTPATIENT VISIT 25 02/27/2017 Brock LARA ([facility]uda's MINUTES 12:00:00 AM [facility], ) GLUC BLD GLUC MNTR DEV 02/27/2017 MEDGE N (Luda's CLEARED FDA SPEC HOME USE 12:00:00 AM [facility], ) COLLECTION VENOUS BLOOD 02/27/2017 MEDG EN (Luda's VENIPUNCTURE 12:00:00 AM [facility], ) OFFICE OUTPATIENT VISIT 15 09/21/2016 Brock LARA ([facility]uda's MINUTES 12:00:00 AM [facility], ) OFFICE OUTPATIENT VISIT 15 09/21/2016 Brock LARA (Luda's MINUTES 12:00:00 AM [facility], ) Documentation of current 09/14/2016 MED GEN (Luda's medications (procedure) 12:00:00 AM EDT [facility], ) Documentation of current 09/14/2016 MED GEN ([facility]uda's medications (procedure) [facility] Documentation of current 09/14/2016 MED GEN (Luda's medications (procedure) 12:00:00 AM EDT [facility], ) Documentation of current 09/14/2016 MED GEN (Luda's medications (procedure) 12:00:00 AM EDT [facility], ) OFFICE OUTPATIENT VISIT 15 09/14/2016 Brock EDGEN (Luda's MINUTES 12:00:00 AM EDT [facility], ) Documentation of current 09/14/2016 MED GEN (Luda's medications (procedure) 12:00:00 AM EDT [facility], ) Documentation of current 09/14/2016 MED GEN (Luda's medications (procedure) 12:00:00 AM EDT [facility], ) Documentation of current 09/14/2016 MED GEN (Luda's medications (procedure) 12:00:00 AM EDT [facility], ) Documentation of current 09/14/2016 MED GEN (Luda's medications (procedure) 12:00:00 AM EDT [facility], ) OFFICE OUTPATIENT VISIT 15 09/14/2016 Brock BRUMFIELDN (Luda's MINUTES 12:00:00 AM EDT [facility], ) Documentation of current 08/01/2016 MED GEN (Luda's medications (procedure) 12:00:00 AM EDT [facility], ) Documentation of current 08/01/2016 MED GEN (Luda's medications (procedure) 12:00:00 AM EDT [facility], ) OFFICE OUTPATIENT VISIT 25 08/01/2016 Brock BRUMFIELDN ([facility]uda's MINUTES 12:00:00 AM EDT Medical, ) COLLECTION VENOUS BLOOD 08/01/2016 MEDG EN ([facility] VEN[facility]UNCTURE [facility] Documentation of current 08/01/2016 MED GEN (Luda's medications (procedure) 12:00:00 AM EDT [facility], ) Documentation of current 08/01/2016 MED GEN ([facility]uda's medications (procedure) 12:00:00 AM EDT [facility], ) OFFICE OUTPATIENT VISIT 25 08/01/2016 Brock BRUMFIELDN ([facility]uda's MINUTES 12:00:00 AM EDT Medical, ) COLLECTION VENOUS BLOOD 08/01/2016 MEDG EN ([facility] VENIPUNCTURE [facility] Results ID Date Data Source [id number] 12/25/2019 12:00:00 AM EDT [facility] Name Value Range Interpretation Code Description Data Sita rce(s) Supporting Document(s ) 2019-nCoV [facility] RNA XXX EVA+probe- Imp This lab was ordered by [facility] and reported by [facility]. ID Date Data Source [id number] 05/24/2019 12:00:00 AM EST [facility] ([facility]) Name Value Range Interpretation Description Data Sup porting Code Source(s) Document(s ) Hemoglobin A1c 9.6 % of Above high normal MEDGEN (St in Blood total [facility], ) ID Date Data Source [id number] 05/24/2019 12:00:00 AM EST [facility] ([facility]) Name Value Range Interpretation Description Data Sup porting Code Source(s) Document(s ) INR 1.0 Ratio Normal (applies [facility] (St to non-numeric [facility] results) [facility]) PROTHROMBIN 10.2 Normal (applies [facility] (St TIME Seconds to non-numeric [facility] results) [facility]) PTT, ACTIVATED 34 Seconds Normal (applies [facility]GEN ( St to non-numeric [facility] results) [facility]) ID Date Data Source [id number] 05/24/2019 12:00:00 AM EST [facility] ([facility]) Name Value Range Interpretation Description [...] high MEDGEN (St normal [facility]) COMMENTS Normal (applies [facility]GEN (St to non-numeric [facility] results) [facility], ) ID Date Data Source [id number] 05/24/2019 12:00:00 AM EST [facility] ([facility], ) Name Value Range Interpretation Description Data Sup porting Code Source(s) Document(s ) WBC 9.5 Normal (applies MEDGEN (St Thousand to non-numeric [facility] /uL results) [facility]) RBC 5.36 Normal (applies [facility] (St Million/ to non-numeric [facility] uL results) [facility]) Hemoglobin 16.0 Normal (applies MEDGEN (St [Mass/volume] in g/dL to non-numeric [facility] Mixed venous results) [facility]) blood by Oximetry Hematocrit [Pure 47.5 % Normal (applies MEDGEN (St volume fraction] to non-numeric [facility] of Blood by results) Medical, ) Automated count MCV 88.6 fL Normal (applies [facility] (St to non-numeric [facility] results) [facility]) MCH 29.9 pg Normal (applies MEDGEN (St to non-numeric [facility] results) [facility], ) MCHC 33.7 Normal (applies MEDGEN (St g/dL to non-numeric [facility] results) [facility], ) RDW 13.2 % Normal (applies MEDGEN (St to non-numeric [facility] results) [facility], ) PLATELET COUNT 397 Normal (applies MEDGEN (S t Thousand to non-numeric [facility] /uL results) Medical, ) MPV 9.0 fL Normal (applies MEDGEN (St to non-numeric [facility] results) [facility], ) TOTAL 49.4 % Normal (applies MEDGEN (St NEUTROPHILS,% to non-numeric [facility] results) [facility], ) TOTAL 41.7 % Normal (applies [facility]GEN (St LYMPHOCYTES,% to non-numeric [facility] results) [facility], ) MONOCYTES,% 6.4 % Normal (applies [facility]GEN (St to non-numeric [facility] results) [facility], ) EOSINOPHILS,% 1.6 % Normal (applies [facility]GEN (St to non-numeric [facility] results) [facility], ) BASOPHILS,% 0.9 % Normal (applies [facility] (St to non-numeric [facility] results) [facility], ) NEUTROPHILS,ABSO 4693 Normal (applies MEDGEN (St LUTE cells/uL to non-numeric [facility] results) [facility], ) LYMPHOCYTES,ABSO 3962 Above high normal MEDGE N (St LUTE cells/uL [facility], ) MONOCYTES,ABSOLU 608 Normal (applies MEDGEN (St TE cells/uL to non-numeric [facility] results) [facility], ) EOSINOPHILS,ABSO 152 Normal (applies MEDGEN (St LUTE cells/uL to non-numeric [facility] results) [facility], ) BASOPHILS,ABSOLU 86 Normal (applies [facility]GEN (St TE cells/uL to non-numeric [facility] results) [facility], ) DIFFERENTIAL Normal (applies [facility]GEN (St to non-numeric [facility] results) [facility], ) ID Date Data Source [id number] 05/24/2019 12:00:00 AM EST [facility] ([facility], ) Name Value Range Interpretation Description Data Sup porting Code Source(s) Document(s ) PROTEIN, TOTAL 7.1 g/dL Normal (applies [facility]GEN (S t to non-numeric [facility] results) [facility], ) Globulin 2.8 g/dL Normal (applies [facility] (St [Mass/time] in (calc) to non-numeric [facility] 24 hour Urine results) Medical, ) Microalbumin 4.3 g/dL Normal (applies MEDGEN (St [Mass/time] in to non-numeric [facility] Urine collected results) Medical, ) for unspecified duration ALBUMIN/GLOBULIN 1.5 Normal (applies MEDGEN (St RATIO (calc) to non-numeric [facility] results) [facility], ) BILIRUBIN,TOTAL 0.3 Normal (applies MEDGEN ( St mg/dL to non-numeric [facility] results) [facility], ) Alkaline 92 U/L Normal (applies MEDGEN (St phosphatase to non-numeric [facility] [Enzymatic results) [facility], ) activity/volume] in Serum, Plasma or Blood BILIRUBIN,DIRECT 0.0 Normal (applies MEDGEN (St mg/dL to non-numeric [facility] results) [facility], ) AST 12 U/L Normal (applies MEDGEN (St to non-numeric [facility] results) [facility], ) ALT 19 U/L Normal (applies MEDGEN (St to non-numeric [facility] results) [facility], ) BILIRUBIN,INDIRE 0.3 Normal (applies MEDGEN (St CT mg/dL to non-numeric [facility] results) [facility], ) ID Date Data Source [id number] 05/24/2019 12:00:00 AM EST [facility] ([facility], ) Name Value Range Interpretation Description Data Sup porting Code Source(s) Document(s ) Glucose 253 Above high normal MEDGEN (St [Mass/volume] in mg/dL [facility] Urine collected [facility], ) for unspecified duration Sodium 136 Normal (applies [facility]GEN (St [Moles/volume] mmol/L to non-numeric [facility] in Serum, Plasma results) Medical, ) or Blood Chloride 103 Normal (applies MEDGEN (St [Moles/volume] mmol/L to non-numeric [facility] in Serum, Plasma results) [facility], ) or Blood Potassium 4.0 Normal (applies [facility]GEN (St [Mass/volume] in mmol/L to non-numeric [facility] Blood results) Medical, ) Carbon dioxide 24 Normal (applies MEDGEN (S t [VFr/PPres] in mmol/L to non-numeric [facility] Gas delivery results) [facility], ) system Urea nitrogen 11 mg/dL Normal (applies MEDGEN (St [Moles/volume] to non-numeric [facility] in Blood results) [facility], ) Creatinine 0.75 Normal (applies MEDGEN (St [Interpretation] mg/dL to non-numeric [facility] in Urine results) [facility], ) BUN/CREATININE NOTE Normal (applies MEDGEN (S t RATIO to non-numeric [facility] results) [facility], ) Calcium 9.5 Normal (applies MEDGEN (St [Moles/volume] mg/dL to non-numeric [facility] in Urine results) [facility], ) collected for unspecified duration PROTEIN, TOTAL 7.1 g/dL Normal (applies MEDGEN (S t to non-numeric [facility] results) [facility], ) Microalbumin 4.3 g/dL Normal (applies MEDGEN (St [Mass/time] in to non-numeric [facility] Urine collected results) [facility], ) for unspecified duration Globulin 2.8 g/dL Normal (applies MEDGEN (St [Mass/time] in (calc) to non-numeric [facility] 24 hour Urine results) [facility], ) ALBUMIN/GLOBULIN 1.5 Normal (applies MEDGEN (St RATIO (calc) to non-numeric [facility] results) [facility], ) BILIRUBIN,TOTAL 0.3 Normal (applies MEDGEN ( St mg/dL to non-numeric [facility] results) [facility], ) Alkaline 92 U/L Normal (applies MEDGEN (St phosphatase to non-numeric [facility] [Enzymatic results) [facility], ) activity/volume] in Serum, Plasma or Blood AST 12 U/L Normal (applies MEDGEN (St to non-numeric [facility] results) [facility], ) ALT 19 U/L Normal (applies MEDGEN (St to non-numeric [facility] results) [facility], ) EGFR NON AFR 103 Normal (applies MEDGEN (St KITTITIAN mL/min/1 to non-numeric [facility] .73m2 results) [facility], ) EGFR 120 Normal (applies MEDGEN (St KITTITIAN mL/min/1 to non-numeric [facility] .73m2 results) [facility], ) ID Date Data Source [id number] 05/24/2019 12:00:00 AM EST [facility] ([facility], ) Name Value Range Interpretation Description Data Sup porting Code Source(s) Document(s ) Hemoglobin A1c 9.6 % of Above high normal MEDGEN (St in Blood total [facility], ) ID Date Data Source [id number] 05/24/2019 12:00:00 AM EST [facility] ([facility], ) Name Value Range Interpretation Description Data Sup porting Code Source(s) Document(s ) INR 1.0 Ratio Normal (applies [facility] (St to non-numeric [facility] results) [facility]) PROTHROMBIN 10.2 Normal (applies [facility] (St TIME Seconds to non-numeric [facility] results) [facility]) PTT, ACTIVATED 34 Seconds Normal (applies [facility]GEN ( St to non-numeric [facility] results) [facility]) ID Date Data Source [id number] 05/24/2019 12:00:00 AM EST [facility] ([facility] [...] esterase to non-numeric [facility] [Presence] in results) [facility], Body fluid by PC) Automated test strip WBC None Seen Normal (applies MEDGEN (St to non-numeric [facility] results) [facility], ) RBC 3-10 Above high MEDGEN (St normal [facility], ) SQUAMOUS None Seen Normal (applies MEDGEN (St EPITHELIAL CELLS to non-numeric [facility] results) [facility], ) Bacteria Few Above high MEDGEN (St [Presence] in normal [facility] Prostatic fluid [facility], by Light PC) microscopy Calcium oxalate Few Normal (applies MEDGEN ( St crystals to non-numeric [facility] [Presence] in results) [facility], Urine sediment ) by Light microscopy Amorphous Many Above high MEDGEN (St sediment normal [facility] [Presence] in [facility], Urine sediment PC) by Light microscopy HYALINE CAST 6-10 Above high MEDGEN (St normal [facility], ) ID Date Data Source [id number] 05/24/2019 12:00:00 AM EST [facility] ([facility], ) Name Value Range Interpretation Description Data Sup porting Code Source(s) Document(s ) WBC 9.5 Normal (applies to MEDGEN (St Thousand/ non-numeric [facility] uL results) Medical, ) RBC 5.36 Normal (applies to MEDGEN (St Million/u non-numeric Giovany's L results) [facility], ) Hemoglobin 16.0 g/dL Normal (applies to MEDGEN (St [Mass/volume] non-numeric Giovany's in Mixed results) Medical, ) venous blood by Oximetry Hematocrit 47.5 % Normal (applies to MEDGEN (St [Pure volume non-numeric Giovany's fraction] of results) [facility], ) Blood by Automated count MCV 88.6 fL Normal (applies to MEDGEN (St non-numeric Giovany's results) [facility], ) MCH 29.9 pg Normal (applies to MEDGEN (St non-numeric Giovany's results) [facility], ) MCHC 33.7 g/dL Normal (applies to MEDGEN (St non-numeric Giovany's results) [facility], ) RDW 13.2 % Normal (applies to MEDGEN (St non-numeric Giovany's results) [facility], ) PLATELET COUNT 397 Normal (applies to MEDGEN (St Thousand/ non-numeric Giovany's uL results) [facility], ) MPV 9.0 fL Normal (applies to MEDGEN (St non-numeric [facility]any's results) Medical, ) TOTAL 49.4 % Normal (applies to MEDGEN (St NEUTROPHILS,% non-numeric [facility]any's results) Medical, ) TOTAL 41.7 % Normal (applies to MEDGEN (St LYMPHOCYTES,% non-numeric [facility]'s results) Medical, ) EOSINOPHILS,% 1.6 % Normal (applies to MEDGEN (St non-numeric Giovany's results) [facility], ) MONOCYTES,% 6.4 % Normal (applies to MEDGEN (S t non-numeric Giovany's results) [facility], ) BASOPHILS,% 0.9 % Normal (applies to MEDGEN (S t non-numeric Giovany's results) [facility], ) NEUTROPHILS,AB 4693 Normal (applies to MEDGEN (St SOLUTE cells/uL non-numeric Giovany's results) [facility], ) LYMPHOCYTES,AB 3962 Above high normal MEDGEN (St SOLUTE cells/uL Giovany's [facility], ) MONOCYTES,ABSO 608 Normal (applies to MEDGEN (St LUTE cells/uL non-numeric Giovany's results) [facility], ) EOSINOPHILS,AB 152 Normal (applies to MEDGEN (St SOLUTE cells/uL non-numeric Giovany's results) [facility], ) BASOPHILS,ABSO 86 Normal (applies to MEDGEN (St LUTE cells/uL non-numeric Giovany's results) [facility], ) ID Date Data Source [id number] 05/24/2019 12:00:00 AM EST [facility] ([facility], ) Name Value Range Interpretation Description Data Sup porting Code Source(s) Document(s ) PROTEIN, TOTAL 7.1 g/dL Normal (applies MEDGEN (S t to non-numeric Giovany's results) [facility], ) Microalbumin 4.3 g/dL Normal (applies MEDGEN (St [Mass/time] in to non-numeric Giovany's Urine collected results) [facility], ) for unspecified duration Globulin 2.8 g/dL Normal (applies MEDGEN (St [Mass/time] in (calc) to non-numeric Giovany's 24 hour Urine results) [facility], ) ALBUMIN/GLOBULIN 1.5 Normal (applies MEDGEN (St RATIO (calc) to non-numeric Giovany's results) [facility], ) BILIRUBIN,TOTAL 0.3 Normal (applies MEDGEN ( St mg/dL to non-numeric Giovany's results) Medical, ) BILIRUBIN,DIRECT 0.0 Normal (applies MEDGEN (St mg/dL to non-numeric Giovany's results) [facility], ) Alkaline 92 U/L Normal (applies MEDGEN (St phosphatase to non-numeric Giovany's [Enzymatic results) [facility], ) activity/volume] in Serum, Plasma or Blood AST 12 U/L Normal (applies MEDGEN (St to non-numeric Giovany's results) [facility], ) ALT 19 U/L Normal (applies MEDGEN (St to non-numeric Giovany's results) [facility], ) BILIRUBIN,INDIRE 0.3 Normal (applies MEDGEN (St CT mg/dL to non-numeric Giovany's results) [facility], ) ID Date Data Source [id number] 05/24/2019 12:00:00 AM EST [facility] ([facility], ) Name Value Range Interpretation Description Data Sup porting Code Source(s) Document(s ) Sodium 136 Normal (applies MEDGEN (St [Moles/volume] mmol/L to non-numeric Giovany's in Serum, Plasma results) [facility], ) or Blood Glucose 253 Above high normal MEDGEN (St [Mass/volume] in mg/dL Giovany's Urine collected [facility], ) for unspecified duration Potassium 4.0 Normal (applies MEDGEN (St [Mass/volume] in mmol/L to non-numeric Giovany's Blood results) [facility], ) Chloride 103 Normal (applies MEDGEN (St [Moles/volume] mmol/L to non-numeric Giovany's in Serum, Plasma results) [facility], ) or Blood Carbon dioxide 24 Normal (applies MEDGEN (S t [VFr/PPres] in mmol/L to non-numeric Giovany's Gas delivery results) [facility], ) system Urea nitrogen 11 mg/dL Normal (applies MEDGEN (St [Moles/volume] to non-numeric Giovany's in Blood results) [facility], ) Creatinine 0.75 Normal (applies MEDGEN (St [Interpretation] mg/dL to non-numeric Giovany's in Urine results) [facility], ) BUN/CREATININE NOTE Normal (applies MEDGEN (S t RATIO to non-numeric Giovany's results) [facility], ) Calcium 9.5 Normal (applies MEDGEN (St [Moles/volume] mg/dL to non-numeric Giovany's in Urine results) [facility], ) collected for unspecified duration PROTEIN, TOTAL 7.1 g/dL Normal (applies MEDGEN (S t to non-numeric Giovany's results) [facility]) Microalbumin 4.3 g/dL Normal (applies MEDGEN (St [Mass/time] in to non-numeric Giovany's Urine collected results) [facility]) for unspecified duration Globulin 2.8 g/dL Normal (applies MEDGEN (St [Mass/time] in (calc) to non-numeric Giovany's 24 hour Urine results) [facility]) ALBUMIN/GLOBULIN 1.5 Normal (applies MEDGEN (St RATIO (calc) to non-numeric Giovany's results) [facility]) BILIRUBIN,TOTAL 0.3 Normal (applies MEDGEN ( St mg/dL to non-numeric Giovany's results) [facility]) Alkaline 92 U/L Normal (applies MEDGEN (St phosphatase to non-numeric Giovany's [Enzymatic results) [facility]) activity/volume] in Serum, Plasma or Blood ALT 19 U/L Normal (applies MEDGEN (St to non-numeric Giovany's results) [facility]) AST 12 U/L Normal (applies MEDGEN (St to non-numeric Giovany's results) [facility]) EGFR NON AFR 103 Normal (applies MEDGEN (St KITTITIAN mL/min/1 to non-numeric Giovany's .73m2 results) [facility]) EGFR 120 Normal (applies MEDGEN (St KITTITIAN mL/min/1 to non-numeric Giovany's .73m2 results) [facility]) ID Date Data Source [id number] 12/31/2018 12:00:00 AM EDT MED[facility] ([facility]) Name Value Range Interpretation Description Data Sup porting Code Source(s) Document(s ) Hemoglobin A1c 7.3 % of Above high normal MEDGEN (St in Blood total Hgb [facility]) ID Date Data Source [id number] 12/31/2018 12:00:00 AM EDT MED[facility] ([facility], ) Name Value Range Interpretation Description Data Sup porting Code Source(s) Document(s ) PROTEIN, TOTAL 6.9 g/dL Normal (applies MEDGEN (S t to non-numeric Giovany's results) Medical, ) Microalbumin 4.3 g/dL Normal (applies MEDGEN (St [Mass/time] in to non-numeric Giovany's Urine collected results) [facility], ) for unspecified duration Globulin 2.6 g/dL Normal (applies MEDGEN (St [Mass/time] in (calc) to non-numeric Giovany's 24 hour Urine results) [facility], ) ALBUMIN/GLOBULIN 1.7 Normal (applies MEDGEN (St RATIO (calc) to non-numeric Giovany's results) [facility], ) BILIRUBIN,TOTAL 0.4 Normal (applies MEDGEN ( St mg/dL to non-numeric Giovany's results) [facility], ) BILIRUBIN,DIRECT 0.1 Normal (applies MEDGEN (St mg/dL to non-numeric Giovany's results) [facility], ) Alkaline 84 U/L Normal (applies MEDGEN (St phosphatase to non-numeric Giovany's [Enzymatic results) [facility], ) activity/volume] in Serum, Plasma or Blood AST 14 U/L Normal (applies MEDGEN (St to non-numeric Giovany's results) [facility], ) ALT 17 U/L Normal (applies MEDGEN (St to non-numeric Giovany's results) [facility], ) BILIRUBIN,INDIRE 0.3 Normal (applies MEDGEN (St CT mg/dL to non-numeric Giovany's results) [facility], ) ID Date Data Source [id number] 12/31/2018 12:00:00 AM EDT MEDGEN ([facility], ) Name Value Range Interpretation Description Data Sup porting Code Source(s) Document(s ) CHOLESTEROL,TOTA 122 Normal (applies MEDGEN (St L mg/dL to non-numeric Giovany's results) [facility], ) HDL CHOLESTEROL 28 mg/dL Below low normal MEDGEN ([facility], ) CHOLESTEROL/HDL 4.4 calc Normal (applies MEDGEN ( St RATIO to non-numeric Giovany's results) [facility], ) LDL-CHOLESTEROL 72 mg/dL Normal (applies MEDGEN ( St (calc) to non-numeric Giovany's results) [facility], ) TRIGLYCERIDES 132 Normal (applies MEDGEN (St mg/dL to non-numeric Giovany's results) [facility], ) NON HDL 94 mg/dL Normal (applies MEDGEN (St CHOLESTEROL (calc) to non-numeric Giovany's results) [facility], ) ID Date Data Source [id number] 12/31/2018 12:00:00 AM EDT [facility] ([facility], ) Name Value Range Interpretation Description Data Sup porting Code Source(s) Document(s ) Glucose 202 Above high normal MEDGEN (St [Mass/volume] in mg/dL Giovany's Urine collected [facility], ) for unspecified duration Sodium 135 Normal (applies MEDGEN (St [Moles/volume] mmol/L to non-numeric Giovany's in Serum, Plasma results) [facility]) or Blood Potassium 3.7 Normal (applies MEDGEN (St [Mass/volume] in mmol/L to non-numeric Giovany's Blood results) [facility], ) Chloride 102 Normal (applies MEDGEN (St [Moles/volume] mmol/L to non-numeric Giovany's in Serum, Plasma results) [facility]) or Blood Carbon dioxide 24 Normal (applies MEDGEN (S t [VFr/PPres] in mmol/L to non-numeric Giovany's Gas delivery results) [facility], ) system Urea nitrogen 10 mg/dL Normal (applies MEDGEN (St [Moles/volume] to non-numeric Giovany's in Blood results) [facility], ) Creatinine 0.73 Normal (applies MEDGEN (St [Interpretation] mg/dL to non-numeric Giovany's in Urine results) [facility], ) Calcium 9.4 Normal (applies MEDGEN (St [Moles/volume] mg/dL to non-numeric Igovany's in Urine results) [facility], ) collected for unspecified duration BUN/CREATININE NOTE Normal (applies MEDGEN (S t RATIO to non-numeric Giovany's results) [facility], ) PROTEIN, TOTAL 6.9 g/dL Normal (applies MEDGEN (S t to non-numeric Giovany's results) [facility], ) Microalbumin 4.3 g/dL Normal (applies MEDGEN (St [Mass/time] in to non-numeric Giovany's Urine collected results) [facility], ) for unspecified duration Globulin 2.6 g/dL Normal (applies MEDGEN (St [Mass/time] in (calc) to non-numeric Giovany's 24 hour Urine results) [facility], ) ALBUMIN/GLOBULIN 1.7 Normal (applies MEDGEN (St RATIO (calc) to non-numeric Giovany's results) Medical, ) BILIRUBIN,TOTAL 0.4 Normal (applies MEDGEN ( St mg/dL to non-numeric Giovany's results) [facility]) Alkaline 84 U/L Normal (applies MEDGEN (St phosphatase to non-numeric Giovany's [Enzymatic results) [facility], ) activity/volume] in Serum, Plasma or Blood AST 14 U/L Normal (applies MEDGEN (St to non-numeric Giovany's results) [facility], ) ALT 17 U/L Normal (applies MEDGEN (St to non-numeric Giovany's results) [facility], ) EGFR NON AFR 104 Normal (applies MEDGEN (St KITTITIAN mL/min/1 to non-numeric Giovany's .73m2 results) [facility], ) EGFR 121 Normal (applies MEDGEN (St KITTITIAN mL/min/1 to non-numeric Giovany's .73m2 results) [facility]) ID Date Data Source [id number] 12/31/2018 12:00:00 AM EDT MEDGEN ([facility]) Name Value Range Interpretation Description Data Sup porting Code Source(s) Document(s ) Hemoglobin A1c 7.3 % of Above high normal MEDGEN (St in Blood total Hgb [facility] [place] [place]) ID Date Data Source [id number] 12/31/2018 12:00:00 AM EDT MEDGEN ([facility]) Name Value Range Interpretation Description Data Sup porting Code Source(s) Document(s ) PROTEIN, TOTAL 6.9 g/dL Normal (applies MEDGEN (S t to non-numeric Giovany's results) [facility], ) Microalbumin 4.3 g/dL Normal (applies MEDGEN (St [Mass/time] in to non-numeric Giovany's Urine collected results) [facility], ) for unspecified duration Globulin 2.6 g/dL Normal (applies MEDGEN (St [Mass/time] in (calc) to non-numeric Giovany's 24 hour Urine results) [facility], ) ALBUMIN/GLOBULIN 1.7 Normal (applies MEDGEN (St RATIO (calc) to non-numeric Giovany's results) [facility], ) BILIRUBIN,TOTAL 0.4 Normal (applies MEDGEN ( St mg/dL to non-numeric Giovany's results) [facility], ) Alkaline 84 U/L Normal (applies MEDGEN (St phosphatase to non-numeric Giovany's [Enzymatic results) [facility], ) activity/volume] in Serum, Plasma or Blood BILIRUBIN,DIRECT 0.1 Normal (applies MEDGEN (St mg/dL to non-numeric Giovany's results) [facility], ) AST 14 U/L Normal (applies MEDGEN (St to non-numeric Giovany's results) [facility], ) ALT 17 U/L Normal (applies MEDGEN (St to non-numeric Giovany's results) [facility], ) BILIRUBIN,INDIRE 0.3 Normal (applies MEDGEN (St CT mg/dL to non-numeric Giovany's results) [facility], ) ID Date Data Source [id number] 12/31/2018 12:00:00 AM EDT MEDGEN ([facility], ) Name Value Range Interpretation Description Data Sup porting Code Source(s) Document(s ) CHOLESTEROL,TOTA 122 Normal (applies MEDGEN (St L mg/dL to non-numeric Giovany's results) [facility], ) HDL CHOLESTEROL 28 mg/dL Below low normal MEDGEN ([facility], ) CHOLESTEROL/HDL 4.4 calc Normal (applies MEDGEN ( St RATIO to non-numeric Giovany's results) [facility], ) LDL-CHOLESTEROL 72 mg/dL Normal (applies MEDGEN ( St (calc) to non-numeric Giovany's results) [facility], ) TRIGLYCERIDES 132 Normal (applies MEDGEN (St mg/dL to non-numeric Giovany's results) [facility], ) NON HDL 94 mg/dL Normal (applies MEDGEN (St CHOLESTEROL (calc) to non-numeric Giovany's results) [facility], ) ID Date Data Source [id number] 12/31/2018 12:00:00 AM EDT MEDGEN ([facility], ) Name Value Range Interpretation Description Data Sup porting Code Source(s) Document(s ) Glucose 202 Above high normal MEDGEN (St [Mass/volume] in mg/dL Giovany's Urine collected [facility], ) for unspecified duration Sodium 135 Normal (applies MEDGEN (St [Moles/volume] mmol/L to non-numeric Giovany's in Serum, Plasma results) Medical, ) or Blood Potassium 3.7 Normal (applies MEDGEN (St [Mass/volume] in mmol/L to non-numeric Giovany's Blood results) Medical, ) Chloride 102 Normal (applies MEDGEN (St [Moles/volume] mmol/L to non-numeric Giovany's in Serum, Plasma results) [facility], ) or Blood Carbon dioxide 24 Normal (applies MEDGEN (S t [VFr/PPres] in mmol/L to non-numeric Giovany's Gas delivery results) [facility], ) system Urea nitrogen 10 mg/dL Normal (applies MEDGEN (St [Moles/volume] to non-numeric Giovany's in Blood results) [facility], ) Creatinine 0.73 Normal (applies MEDGEN (St [Interpretation] mg/dL to non-numeric Giovany's in Urine results) [facility], ) BUN/CREATININE NOTE Normal (applies MEDGEN (S t RATIO to non-numeric Giovany's results) [facility], ) Calcium 9.4 Normal (applies MEDGEN (St [Moles/volume] mg/dL to non-numeric Giovany's in Urine results) [facility], ) collected for unspecified duration PROTEIN, TOTAL 6.9 g/dL Normal (applies MEDGEN (S t to non-numeric Giovany's results) [facility], ) Microalbumin 4.3 g/dL Normal (applies MEDGEN (St [Mass/time] in to non-numeric Giovany's Urine collected results) [facility], ) for unspecified duration Globulin 2.6 g/dL Normal (applies MEDGEN (St [Mass/time] in (calc) to non-numeric Giovany's 24 hour Urine results) [facility], ) ALBUMIN/GLOBULIN 1.7 Normal (applies MEDGEN (St RATIO (calc) to non-numeric Giovany's results) [facility], ) BILIRUBIN,TOTAL 0.4 Normal (applies MEDGEN ( St mg/dL to non-numeric Giovany's results) [facility], ) Alkaline 84 U/L Normal (applies MEDGEN (St phosphatase to non-numeric Giovany's [Enzymatic results) [facility], ) activity/volume] in Serum, Plasma or Blood AST 14 U/L Normal (applies MEDGEN (St to non-numeric Giovany's results) [facility], ) EGFR NON AFR 104 Normal (applies MEDGEN (St KITTITIAN mL/min/1 to non-numeric Giovany's .73m2 results) [facility], ) ALT 17 U/L Normal (applies MEDGEN (St to non-numeric Giovany's results) [facility], ) EGFR 121 Normal (applies MEDGEN (St KITTITIAN mL/min/1 to non-numeric Giovany's .73m2 results) Medical, ) ID Date Data Source [id number] 06/08/2018 12:00:00 AM EST MEDGEN ([facility], ) Name Value Range Interpretation Code Description Data Sita rce(s) Supporting Document(s ) ID Date Data Source [id number] 06/08/2018 12:00:00 AM EST MEDGEN ([facility], ) Name Value Range Interpretation Code Description Data Sita rce(s) Supporting Document(s ) PDF Image . Normal (applies to MEDGEN (St non-numeric results) [facility], ) ID Date Data Source [id number] 06/08/2018 12:00:00 AM EST MEDGEN ([facility], ) Name Value Range Interpretation Description Data Sup porting Code Source(s) Document(s ) Vitamin D, 18.5 Below low normal MEDGEN (St 25-Hydroxy ng/mL [facility], ) ID Date Data Source [id number] 06/08/2018 12:00:00 AM EST MEDGEN ([facility], ) Name Value Range Interpretation Description Data Sup porting Code Source(s) Document(s ) Hemoglobin 7.9 % Above high normal MEDGEN (St A1c/Hemoglobin. Giovany's total in Blood [facility], ) ID Date Data Source [id number] 06/08/2018 12:00:00 AM EST MEDGEN ([facility], ) Name Value Range Interpretation Description Data Sup porting Code Source(s) Document(s ) Vitamin B12 561 pg/mL Normal (applies to MEDGEN (S t non-numeric Giovany's results) Medical, ) Folate 14.6 Normal (applies to MEDGEN (St (Folic ng/mL non-numeric Giovany's Acid), Serum results) [facility], ) ID Date Data Source [id number] 06/08/2018 12:00:00 AM EST MEDGEN ([facility], ) Name Value Range Interpretation Description Data Sup porting Code Source(s) Document(s ) Cholesterol 155 Normal (applies MEDGEN (St [Mass/volume] in mg/dL to non-numeric Giovany's Serum or Plasma results) [facility], ) Triglyceride 252 Above high normal MEDGEN (S t [Mass/volume] in mg/dL [facility] Serum or Plasma Medical, ) HDL Cholesterol 30 mg/dL Below low normal MEDGEN ([facility], ) VLDL Cholesterol 50 mg/dL Above high normal MEDGE N ([facility], ) LDL Cholesterol 75 mg/dL Normal (applies MEDGEN ( St Calc to non-numeric Giovany's results) [facility], ) ID Date Data Source [id number] 06/08/2018 12:00:00 AM EST MEDGEN ([facility], ) Name Value Range Interpretation Description Data [...] s Urine results) [facility], ) eGFR If Africn Am 119 Normal (applies MEDGEN (St mL/min/1 to non-numeric Giovany's .73 results) [facility], ) eGFR If NonAfricn 103 Normal (applies [...] to non-numeric [facility]'s Blood results) [facility], ) Chloride 101 Normal (applies MEDGEN (St [Moles/volume] in mmol/L to non-numeric Giovany's Serum or Plasma results) [facility], ) Carbon dioxide, 19 Below [...] [facility] Urine collected for results) [facility], unspecified ) duration Globulin, Total 3.0 g/dL Normal (applies [...] Serum or Plasma ID Date Data Source [id number] 06/08/2018 12:00:00 AM EST [facility] ([facility], ) Name Value Range Interpretation Description Data Sup porting Code Source(s) Document(s ) Leukocytes 11.3 Above high normal MEDGEN (St [#/volume] in x10E3/uL [facility] Blood by [facility], ) Automated count Erythrocytes 5.14 Normal (applies MEDGEN (St [#/volume] in x10E6/uL to non-numeric [facility]'s Blood by results) [facility], ) Automated count Hemoglobin 15.4 Normal (applies MEDGEN (St [Mass/volume] in g/dL to non-numeric [facility] Blood results) [facility], ) MCV 89 fL Normal (applies MEDGEN (St to non-numeric [facility]any's results) [facility], ) Hematocrit 45.6 % Normal (applies MEDGEN (St [Volume to non-numeric Giovany's Fraction] of results) [facility], ) Blood by Automated count MCH 30.0 pg Normal (applies MEDGEN (St to non-numeric Giovany's results) [facility], ) MCHC 33.8 Normal (applies MEDGEN (St g/dL to non-numeric [facility]'s results) [facility], ) Platelets 405 Above high normal MEDGEN (St [#/area] in x10E3/uL [facility] Blood by [facility], ) Microscopy high power field RDW 14.4 % Normal (applies MEDGEN (St to non-numeric Giovany's results) [facility], ) Neutrophils [#] 51 % Normal (applies MEDGEN ( St in Body fluid by to non-numeric [facility] Manual count results) [facility], ) Lymphs 40 % Normal (applies MEDGEN (St to non-numeric Giovany's results) [facility], ) Monocytes 7 % Normal (applies MEDGEN (St [#/volume] in to non-numeric Giovany's Cord blood results) Medical, ) Eos 1 % Normal (applies MEDGEN (St to non-numeric Giovany's results) [facility], ) Basos 1 % Normal (applies MEDGEN (St to non-numeric Gi[facility]any's results) [facility], ) Lymphs 4.6 Above high normal MEDGEN (St (Absolute) x10E3/uL [facility], ) Neutrophils 5.8 Normal (applies MEDGEN (St (Absolute) x10E3/uL to non-numeric [facility]'s results) Medical, ) Monocytes(Absolu 0.8 Normal (applies MEDGEN (St te) x10E3/uL to non-numeric Giovany's results) [facility], ) Eos (Absolute) 0.1 Normal (applies MEDGEN (S t x10E3/uL to non-numeric [facility]'s results) [facility], ) Immature 0 % Normal (applies MEDGEN (St Granulocytes to non-numeric [facility]'s results) [facility], ) Baso (Absolute) 0.1 Normal (applies MEDGEN ( St x10E3/uL to non-numeric [facility]'s results) [facility], ) Immature Grans 0.0 Normal (applies MEDGEN (S t (Abs) x10E3/uL to non-numeric [facility]any's results) [facility], ) ID Date Data Source [id number] 06/08/2018 12:00:00 AM EST [facility] ([facility], ) Name Value Range Interpretation Code Description Data Sita rce(s) Supporting Document(s ) ID Date Data Source [id number] 06/08/2018 12:00:00 AM EST MEDGEN ([facility], ) Name Value Range Interpretation Code Description Data Sita rce(s) Supporting Document(s ) PDF Image . Normal (applies to MEDGEN (St non-numeric results) [facility], ) ID Date Data Source [id number] 06/08/2018 12:00:00 AM EST MEDGEN ([facility], ) Name Value Range Interpretation Description Data Sup porting Code Source(s) Document(s ) Vitamin D, 18.5 Below low normal MEDGEN (St 25-Hydroxy ng/mL [facility], ) ID Date Data Source [id number] 06/08/2018 12:00:00 AM EST MEDGEN ([facility], ) Name Value Range Interpretation Description Data Sup porting Code Source(s) Document(s ) Hemoglobin 7.9 % Above high normal MEDGEN (St A1c/Hemoglobin. [facility] total in Blood [facility], ) ID Date Data Source [id number] 06/08/2018 12:00:00 AM EST MEDGEN ([facility], ) Name Value Range Interpretation Description Data Sup porting Code Source(s) Document(s ) Vitamin B12 561 pg/mL Normal (applies to MEDGEN (S t non-numeric [facility] results) [facility] [facility] ) Folate 14.6 Normal (applies to MEDGEN (St (Folic ng/mL non-numeric [facility] Acid), Serum results) [facility], ) ID Date Data Source [id number] 06/08/2018 12:00:00 AM EST MEDGEN ([facility], ) Name Value Range Interpretation Description Data Sup porting Code Source(s) Document(s ) Cholesterol 155 Normal (applies MEDGEN (St [Mass/volume] in mg/dL to non-numeric [facility] Serum or Plasma results) [facility], ) Triglyceride 252 Above high normal MEDGEN (S t [Mass/volume] in mg/dL [facility] Serum or Plasma [facility], ) VLDL Cholesterol 50 mg/dL Above high normal MEDGE N ([facility], ) HDL Cholesterol 30 mg/dL Below low normal MED[facility] ([facility]) LDL Cholesterol 75 mg/dL Normal (applies MEDGEN ( St Calc to non-numeric [facility] results) Medical, ) ID Date Data Source [id number] 06/08/2018 12:00:00 AM EST [facility] ([facility], ) Name Value Range Interpretation Description [...] Urine results) Medical, ) eGFR If NonAfricn 103 Normal (applies MEDGEN (St Am mL/min/1 to non-numeric [facility] .73 results) Medical, ) eGFR If Africn Am 119 Normal (applies MEDGEN (St mL/min/1 to non-numeric [facility] .73 results) Medical, ) BUN/Creatinine 18 Normal (applies MEDGEN (S t Ratio to non-numeric [facility] results) Medical, ) Sodium 142 Normal (applies MEDGEN (St [Moles/volume] in mmol/L to non-numeric [facility] Serum or Plasma results) [facility], [facility]) Chloride 101 Normal (applies MEDGEN (St [Moles/volume] [...] Serum or Plasma ID Date Data Source [id number] 06/08/2018 12:00:00 AM EST [facility] ([facility] [...] [Volume to non-numeric [facility] Fraction] of results) Medical, ) Blood by Automated count MCH 30.0 pg Normal (applies MEDGEN (St to non-numeric [facility] results) Medical, ) MCV 89 fL Normal (applies MEDGEN (St to non-numeric [facility] results) Medical, ) MCHC 33.8 Normal (applies MEDGEN (St g/dL to non-numeric [facility] results) Medical, ) RDW 14.4 % Normal (applies MEDGEN (St to non-numeric [facility] results) [facility], ) Neutrophils [#] 51 % Normal (applies MEDGEN ( St in Body fluid by to non-numeric [facility] Manual count results) [facility], ) Platelets 405 Above high normal MEDGEN (St [#/area] in x10E3/uL [facility] Blood by [facility], ) Microscopy high power field Lymphs 40 % Normal (applies MEDGEN (St to non-numeric [facility] results) [facility], ) Eos 1 % Normal (applies MEDGEN (St to non-numeric [facility] results) [facility], ) Monocytes 7 % Normal (applies MEDGEN (St [#/volume] in to non-numeric [facility] Cord blood results) [facility], ) Basos 1 % Normal (applies MEDGEN (St to non-numeric [facility] results) [facility], ) Lymphs 4.6 Above high normal MEDGEN (St (Absolute) x10E3/uL [facility], ) Neutrophils 5.8 Normal (applies MEDGEN (St (Absolute) x10E3/uL to non-numeric [facility] results) [facility], ) Monocytes(Absolu 0.8 Normal (applies MEDGEN (St te) x10E3/uL to non-numeric [facility] results) [facility], ) Eos (Absolute) 0.1 Normal (applies MEDGEN (S t x10E3/uL to non-numeric [facility] results) [facility], ) Baso (Absolute) 0.1 Normal (applies MEDGEN ( St x10E3/uL to non-numeric [facility] results) [facility], ) Immature 0 % Normal (applies [facility] (St Granulocytes to non-numeric [facility] results) [facility], ) Immature Grans 0.0 Normal (applies MEDGEN (S t (Abs) x10E3/uL to non-numeric [facility] results) [facility], ) ID Date Data Source [id number] 11/29/2017 12:00:00 AM EDT [facility] ([facility], ) Name Value Range Interpretation Code Description Data Sita rce(s) Supporting Document(s ) ID Date Data Source [id number] 11/29/2017 12:00:00 AM EDT [facility] ([facility], ) Name Value Range Interpretation Code Description Data Sita rce(s) Supporting Document(s ) PDF Image . Normal (applies to MEDGEN (St non-numeric results) [facility], ) ID Date Data Source [id number] 11/29/2017 12:00:00 AM EDT MEDGEN ([facility], ) Name Value Range Interpretation Description Data Sup porting Code Source(s) Document(s ) Hemoglobin 8.8 % Above high normal MEDGEN (St A1c/Hemoglobin. [facility] total in Blood [facility], ) ID Date Data Source [id number] 11/29/2017 12:00:00 AM EDT MEDGEN ([facility], ) Name Value Range Interpretation Description Data Sup porting Code Source(s) Document(s ) Bilirubin.c 0.08 mg/dL Normal (applies to MEDGEN ( St onjugated non-numeric [facility] [Mass/volum results) [facility], ) e] in Serum or Plasma ID Date Data Source [id number] 11/29/2017 12:00:00 AM EDT MEDGEN ([facility], ) Name Value Range Interpretation Description Data Sup porting Code Source(s) Document(s ) Cholesterol 142 Normal (applies MEDGEN (St [Mass/volume] in mg/dL to non-numeric [facility] Serum or Plasma results) Medical, ) Triglyceride 146 Normal (applies MEDGEN (St [Mass/volume] in mg/dL to non-numeric [facility] Serum or Plasma results) [facility], ) HDL Cholesterol 29 mg/dL Below low normal [facility] ([facility], ) VLDL Cholesterol 29 mg/dL Normal (applies MEDGEN (St Zoie to non-numeric [facility] results) [facility], ) LDL Cholesterol 84 mg/dL Normal (applies MEDGEN ( St Calc to non-numeric [facility] results) [facility], ) ID Date Data Source [id number] 11/29/2017 12:00:00 AM EDT MEDGEN ([facility], ) Name Value Range Interpretation Description Data [...] non-numeric [facility] Blood results) Medical, PC) Chloride 95 Below low normal MEDGEN (St [Moles/volume] in mmol/L [facility] Serum or Plasma [facility], PC) Carbon dioxide, 19 Below low normal MEDGEN (St total mmol/L [facility] [Moles/volume] in Medical, Serum or Plasma PC) Calcium 9.6 Normal (applies MEDGEN (St [...] non-numeric [facility] results) Medical, PC) A/G Ratio 1.7 Normal (applies MEDGEN (St to non-numeric [facility] results) [facility], PC) Bilirubin.total <0.2 Normal (applies MEDGEN ( St [Mass/volume] in to non-numeric [facility] Serum or Plasma results) [facility], PC) Alkaline 93 IU/L Normal (applies MEDGEN (St phosphatase to non-numeric [facility] [Enzymatic results) Medical, activity/volume] in PC) Serum, Plasma or Blood Aspartate 12 IU/L Normal (applies MEDGEN (St aminotransferase to non-numeric [facility] [Enzymatic results) Medical, activity/volume] in ) Serum or Plasma Alanine 12 IU/L Normal (applies MEDGEN (St aminotransferase to non-numeric [facility] [Enzymatic results) Medical, activity/volume] in ) Serum or Plasma ID Date Data Source [id number] 11/29/2017 12:00:00 AM EDT [facility] ([facility], ) Name Value Range Interpretation Code Description Data Sita rce(s) Supporting Document(s ) ID Date Data Source [id number] 11/29/2017 12:00:00 AM EDT MEDGEN ([facility], ) Name Value Range Interpretation Code Description Data Sita rce(s) Supporting Document(s ) PDF Image . Normal (applies to MEDGEN (St non-numeric results) [facility], ) ID Date Data Source [id number] 11/29/2017 12:00:00 AM EDT MED[facility] ([facility], ) Name Value Range Interpretation Description Data Sup porting Code Source(s) Document(s ) Hemoglobin 8.8 % Above high normal MEDGEN (St A1c/Hemoglobin. [facility] total in Blood [facility], ) ID Date Data Source [id number] 11/29/2017 12:00:00 AM EDT MED[facility] ([facility], ) Name Value Range Interpretation Description Data Sup porting Code Source(s) Document(s ) Bilirubin.c 0.08 mg/dL Normal (applies to MEDGEN ( St onjugated non-numeric [facility] [Mass/volum results) [facility], ) e] in Serum or Plasma ID Date Data Source [id number] 11/29/2017 12:00:00 AM EDT [facility] ([facility], ) Name Value Range Interpretation Description Data Sup porting Code Source(s) Document(s ) Cholesterol 142 Normal (applies MEDGEN (St [Mass/volume] in mg/dL to non-numeric [facility] Serum or Plasma results) [facility], ) HDL Cholesterol 29 mg/dL Below low normal MEDGEN ([facility], ) Triglyceride 146 Normal (applies MEDGEN (St [Mass/volume] in mg/dL to non-numeric [facility] Serum or Plasma results) [facility], PC) VLDL Cholesterol 29 mg/dL Normal (applies MEDGEN (St Zoie to non-numeric [facility] results) Medical, PC) LDL Cholesterol 84 mg/dL Normal (applies MEDGEN ( St Calc to non-numeric [facility] results) [facility], PC) ID Date Data Source [id number] 11/29/2017 12:00:00 AM EDT [facility] ([facility] [...] to non-numeric [facility] results) [facility], PC) Bilirubin.total <0.2 Normal (applies MEDGEN ( St [Mass/volume] in to non-numeric [facility] Serum or Plasma results) Medical, PC) A/G Ratio 1.7 Normal (applies MEDGEN (St to non-numeric [facility] results) [facility], PC) Alkaline 93 IU/L Normal (applies MEDGEN (St [...] Serum or Plasma ID Date Data Source [id number] 09/18/2017 12:00:00 AM EDT [facility] ([facility], ) Name Value Range Interpretation Code Description Data Sita rce(s) Supporting Document(s ) ID Date Data Source [id number] 09/18/2017 12:00:00 AM EDT [facility] ([facility], ) Name Value Range Interpretation Code Description Data Sita rce(s) Supporting Document(s ) PDF Image . Normal (applies to MEDGEN (St non-numeric results) [facility], ) ID Date Data Source [id number] 09/18/2017 12:00:00 AM EDT [facility] ([facility] [...] results) [facility], PC) ID Date Data Source [id number] 09/18/2017 12:00:00 AM EDT [facility] ([facility] Name Value Range Interpretation Description [...] collected results) Medical, for unspecified PC) duration Protein Negative Normal (applies MEDGEN (St [Mass/volume] in to non-numeric [facility] Lower results) Medical, respiratory PC) specimen Ketones Negative Normal (applies MEDGEN (St [Presence] in to non-numeric [facility] Blood by Tablet results) Medical, PC) Occult Blood Negative Normal (applies MEDGEN (St to non-numeric [facility] results) Medical, PC) Bilirubin Negative Normal (applies MEDGEN (St [Presence] in to non-numeric [facility] Peritoneal fluid results) Medical, PC) Nitrite, Urine Negative Normal (applies MEDGEN (S t to non-numeric [facility] results) Medical, PC) Urobilinogen,Robert 0.2 EU/dL Normal (applies MEDGEN (St i-Qn to non-numeric [facility] results) Medical, PC) Microscopic Normal (applies MEDGEN (St Examination to non-numeric [facility] results) Medical, PC) ID Date Data Source [id number] 09/18/2017 12:00:00 AM EDT [facility] ([facility] [...] to non-numeric [facility] results) Medical, PC) Sodium 138 Normal (applies MEDGEN (St [Moles/volume] in mmol/L to non-numeric [facility] Serum or Plasma results) Medical, PC) Potassium 4.1 Normal (applies [facility]GEN (St [Mass/volume] in mmol/L to non-numeric [facility] Blood results) Medical, ) Chloride 98 Normal (applies [facility]GEN (St [Moles/volume] in mmol/L to non-numeric [facility] Serum or Plasma results) Medical, PC) Carbon dioxide, 25 Normal (applies MEDGEN ( St total mmol/L to non-numeric [facility] [Moles/volume] in results) Medical, Serum or Plasma PC) Calcium 10.3 Above high MEDGEN (St [Moles/volume] in mg/dL normal [facility] Urine collected for Medical, unspecified PC) duration Protein 7.5 g/dL Normal (applies MEDGEN (St [Mass/volume] in to non-numeric [facility] Serum or Plasma results) Medical, PC) Globulin, Total 2.7 g/dL Normal (applies MEDGEN ( St to non-numeric [facility] results) Medical, PC) Microalbumin 4.8 g/dL Normal (applies MEDGEN (St [Mass/time] in to non-numeric [facility] Urine collected for results) Medical, unspecified PC) duration A/G Ratio 1.8 Normal (applies [facility] (St to non-numeric [facility] results) Medical, PC) Bilirubin.total 0.3 Normal (applies MEDGEN ( St [Mass/volume] in mg/dL to non-numeric [facility] Serum or Plasma results) Medical, PC) Aspartate 16 IU/L Normal (applies MEDGEN (St aminotransferase to non-numeric [facility] [Enzymatic results) Medical, activity/volume] in ) Serum or Plasma Alkaline 86 IU/L Normal (applies MEDGEN (St phosphatase to non-numeric [facility] [Enzymatic results) Medical, activity/volume] in ) Serum, Plasma or Blood Alanine 21 IU/L Normal (applies MEDGEN (St aminotransferase to non-numeric [facility] [Enzymatic results) Medical, activity/volume] in ) Serum or Plasma ID Date Data Source [id number] 09/18/2017 12:00:00 AM EDT [facility] ([facility], ) Name Value Range Interpretation Description Data Sup porting Code Source(s) Document(s ) Leukocytes 8.2 Normal (applies MEDGEN (St [#/volume] in x10E3/uL to non-numeric [facility] Blood by results) Medical, ) Automated count Erythrocytes 5.09 Normal (applies MEDGEN (St [#/volume] in x10E6/uL to non-numeric [facility] Blood by results) Medical, ) Automated count Hemoglobin 15.6 Normal (applies MEDGEN (St [Mass/volume] in g/dL to non-numeric [facility] Blood results) Medical, ) Hematocrit 47.0 % Normal (applies MEDGEN (St [Volume to non-numeric [facility] Fraction] of results) [facility], ) Blood by Automated count MCV 92 fL Normal (applies MEDGEN (St to non-numeric [facility] results) Medical, ) MCH 30.6 pg Normal (applies MEDGEN (St to non-numeric [facility] results) Medical, ) MCHC 33.2 Normal (applies MEDGEN (St g/dL to non-numeric [facility] results) Medical, ) RDW 14.2 % Normal (applies MEDGEN (St to non-numeric [facility] results) Medical, ) Platelets 220 Normal (applies MEDGEN (St [#/area] in x10E3/uL to non-numeric [facility] Blood by results) [facility], ) Microscopy high power field Neutrophils [#] 63 % Normal (applies MEDGEN ( St in Body fluid by to non-numeric [facility] Manual count results) [facility], ) Lymphs 29 % Normal (applies MEDGEN (St to non-numeric [facility] results) Medical, ) Monocytes 6 % Normal (applies MEDGEN (St [#/volume] in to non-numeric [facility] Cord blood results) Medical, ) Eos 1 % Normal (applies MEDGEN (St to non-numeric [facility] results) Medical, ) Neutrophils 5.1 Normal (applies MEDGEN (St (Absolute) x10E3/uL to non-numeric [facility] results) Medical, ) Basos 1 % Normal (applies MEDGEN (St to non-numeric [facility] results) Medical, ) Lymphs 2.4 Normal (applies MEDGEN (St (Absolute) x10E3/uL to non-numeric [facility] results) Medical, ) Monocytes(Absolu 0.5 Normal (applies MEDGEN (St te) x10E3/uL to non-numeric [facility] results) Medical, ) Eos (Absolute) 0.1 Normal (applies MEDGEN (S t x10E3/uL to non-numeric [facility] results) Medical, ) Baso (Absolute) 0.0 Normal (applies MEDGEN ( St x10E3/uL to non-numeric [facility] results) Medical, ) Immature 0 % Normal (applies MEDGEN (St Granulocytes to non-numeric [facility] results) Medical, ) Immature Grans 0.0 Normal (applies MEDGEN (S t (Abs) x10E3/uL to non-numeric [facility] results) [facility], ) ID Date Data Source [id number] 09/18/2017 12:00:00 AM EDT [facility] ([facility], ) Name Value Range Interpretation Code Description Data Sita rce(s) Supporting Document(s ) ID Date Data Source [id number] 09/18/2017 12:00:00 AM EDT [facility] ([facility], ) Name Value Range Interpretation Code Description Data Sita rce(s) Supporting Document(s ) PDF Image . Normal (applies to MEDGEN (St non-numeric results) [facility]) ID Date Data Source [id number] 09/18/2017 12:00:00 AM EDT [facility] ([facility], ) Name Value Range Interpretation Description Data Sup porting Code Source(s) Document(s ) INR 0.9 Normal (applies to MEDGEN (St non-numeric [facility] results) Medical, ) Prothrombin 9.7 sec Normal (applies to MEDGEN (S t Time non-numeric [facility] results) Medical, PC) aPTT 32 sec Normal (applies to MEDGEN (St non-numeric [facility] results) Medical, PC) ID Date Data Source [id number] 09/18/2017 12:00:00 AM EDT [facility] ([facility] [...] [facility] Blood by Tablet results) Medical, PC) Glucose Abnormal (applies MEDGEN (St [Mass/volume] in to non-numeric [facility] Urine collected results) Medical, for unspecified PC) duration Occult Blood Negative Normal (applies MEDGEN (St to non-numeric [facility] results) Medical, PC) Bilirubin Negative Normal (applies MEDGEN (St [Presence] in to non-numeric [facility] Peritoneal fluid results) Medical, PC) Urobilinogen,Robert 0.2 EU/dL Normal (applies MEDGEN (St i-Qn to non-numeric [facility] results) Medical, PC) Nitrite, Urine Negative Normal (applies MEDGEN (S t to non-numeric [facility] results) Medical, PC) ID Date Data Source [id number] 09/18/2017 12:00:00 AM EDT [facility] ([facility] [...] non-numeric [facility] .73 results) Medical, ) BUN/Creatinine 19 Normal (applies MEDGEN (S t [...] to non-numeric [facility] Blood results) Medical, ) Chloride 98 Normal (applies MEDGEN (St [Moles/volume] in mmol/L to non-numeric [facility] Serum or Plasma results) Medical, ) Carbon dioxide, 25 Normal (applies MEDGEN ( [...] [facility] Serum or Plasma results) Medical, ) Globulin, Total 2.7 g/dL Normal (applies MEDGEN ( St to non-numeric [facility] results) Medical, PC) Bilirubin.total 0.3 Normal (applies MEDGEN ( St [Mass/volume] in mg/dL to non-numeric [facility] Serum or Plasma results) Medical, ) A/G Ratio 1.8 Normal (applies MEDGEN (St to non-numeric [facility] results) Medical, ) Alkaline 86 IU/L Normal (applies MEDGEN (St phosphatase to non-numeric [facility] [Enzymatic results) Medical, activity/volume] in ) Serum, Plasma or Blood Alanine 21 IU/L Normal (applies MEDGEN (St aminotransferase to non-numeric [facility] [Enzymatic results) Medical, activity/volume] in ) Serum or Plasma Aspartate 16 IU/L Normal (applies MEDGEN (St aminotransferase to non-numeric [facility] [Enzymatic results) Medical, activity/volume] in ) Serum or Plasma ID Date Data Source [id number] 09/18/2017 12:00:00 AM EDT [facility] ([facility], ) Name Value Range Interpretation Description Data Sup porting Code Source(s) Document(s ) Leukocytes 8.2 Normal (applies MEDGEN (St [#/volume] in x10E3/uL to non-numeric [facility] Blood by results) Medical, ) Automated count Hemoglobin 15.6 Normal (applies MEDGEN (St [Mass/volume] in g/dL to non-numeric [facility] Blood results) Medical, ) Erythrocytes 5.09 Normal (applies MEDGEN (St [#/volume] in x10E6/uL to non-numeric [facility] Blood by results) Medical, ) Automated count Hematocrit 47.0 % Normal (applies MEDGEN (St [Volume to non-numeric [facility] Fraction] of results) [facility], ) Blood by Automated count MCH 30.6 pg Normal (applies MEDGEN (St to non-numeric [facility] results) Medical, ) MCV 92 fL Normal (applies MEDGEN (St to non-numeric [facility] results) Medical, ) MCHC 33.2 Normal (applies MEDGEN (St g/dL to non-numeric [facility] results) Medical, ) RDW 14.2 % Normal (applies MEDGEN (St to non-numeric [facility] results) Medical, ) Platelets 220 Normal (applies MEDGEN (St [#/area] in x10E3/uL to non-numeric [facility] Blood by results) Medical, ) Microscopy high power field Neutrophils [#] 63 % Normal (applies MEDGEN ( St in Body fluid by to non-numeric [facility] Manual count results) [facility], ) Monocytes 6 % Normal (applies MEDGEN (St [#/volume] in to non-numeric [facility] Cord blood results) Medical, ) Lymphs 29 % Normal (applies MEDGEN (St to non-numeric [facility] results) Medical, ) Eos 1 % Normal (applies MEDGEN (St to non-numeric [facility] results) Medical, ) Basos 1 % Normal (applies MEDGEN (St to non-numeric [facility] results) Medical, ) Lymphs 2.4 Normal (applies MEDGEN (St (Absolute) x10E3/uL to non-numeric [facility] results) Medical, ) Neutrophils 5.1 Normal (applies MEDGEN (St (Absolute) x10E3/uL to non-numeric [facility] results) Medical, ) Monocytes(Absolu 0.5 Normal (applies MEDGEN (St te) x10E3/uL to non-numeric [facility] results) Medical, ) Eos (Absolute) 0.1 Normal (applies MEDGEN (S t x10E3/uL to non-numeric [facility] results) Medical, ) Baso (Absolute) 0.0 Normal (applies MEDGEN ( St x10E3/uL to non-numeric [facility] results) Medical, ) Immature 0 % Normal (applies MEDGEN (St Granulocytes to non-numeric [facility] results) Medical, ) Immature Grans 0.0 Normal (applies MEDGEN (S t (Abs) x10E3/uL to non-numeric [facility] results) Medical, ) ID Date Data Source [id number] 08/03/2017 12:00:00 AM EDT [facility] ([facility], ) Name Value Range Interpretation Code Description Data Sita rce(s) Supporting Document(s ) Result 1 No growth Normal (applies to MEDGEN (St non-numeric [facility] results) Medical, ) ID Date Data Source [id number] 08/03/2017 12:00:00 AM EDT [facility] ([facility], ) Name Value Range Interpretation Description Data Sup porting Code Source(s) Document(s ) Urine Final Normal (applies to MEDGEN (St Culture, report non-numeric [facility] Routine results) Medical, ) ID Date Data Source [id number] 08/03/2017 12:00:00 AM EDT [facility] ([facility], ) Name Value Range Interpretation Description Data Sup porting Code Source(s) Document(s ) pH of Lower 5.0 Normal (applies MEDGEN (St respiratory to non-numeric [facility] specimen results) Medical, PC) Specific gravity >=1.030 Abnormal (applies MEDGE N (St of Pericardial to non-numeric [facility] fluid by results) Medical, Refractometry PC) Urine-Color Yellow Normal (applies MEDGEN (St to non-numeric [facility] results) Medical, ) Appearance of Clear Normal (applies MEDGEN (St [...] [facility] Blood by Tablet results) Medical, ) Occult Blood Negative Normal (applies MEDGEN (St to non-numeric [facility] results) Medical, PC) Bilirubin Negative Normal (applies MEDGEN (St [Presence] in to non-numeric [facility] Peritoneal fluid results) Medical, PC) Urobilinogen,Robert 0.2 EU/dL Normal (applies MEDGEN (St i-Qn to non-numeric [facility] results) Medical, PC) Nitrite, Urine Negative Normal (applies MEDGEN (S t to non-numeric [facility] results) Medical, ) Microscopic Normal (applies MEDGEN (St Examination to non-numeric [facility] results) Medical, ) ID Date Data Source [id number] 08/03/2017 12:00:00 AM EDT [facility] ([facility], ) Name Value Range Interpretation Code Description Data Sita rce(s) Supporting Document(s ) Result 1 No growth Normal (applies to MEDGEN (St non-numeric [facility] results) Medical, ) ID Date Data Source [id number] 08/03/2017 12:00:00 AM EDT [facility] ([facility], ) Name Value Range Interpretation Description Data Sup porting Code Source(s) Document(s ) Urine Final Normal (applies to MEDGEN (St Culture, report non-numeric [facility] Routine results) Medical, ) ID Date Data Source [id number] 08/03/2017 12:00:00 AM EDT [facility] ([facility], ) Name Value Range Interpretation Description Data Sup porting Code Source(s) Document(s ) Specific gravity >=1.030 Abnormal (applies MEDGE N (St of Pericardial to non-numeric [facility] fluid by results) Medical, Refractometry PC) Urine-Color Yellow Normal (applies MEDGEN (St to non-numeric [facility] results) Medical, PC) pH of Lower 5.0 Normal (applies MEDGEN (St respiratory to non-numeric [facility] specimen results) Medical, ) Appearance of Clear Normal (applies MEDGEN (St [...] results) Medical, ) ID Date Data Source [id number] 07/31/2017 12:00:00 AM EDT [facility] ([facility] [...] results) Medical, ) ID Date Data Source [id number] 07/31/2017 12:00:00 AM EDT [facility] ([facility] [...] [facility] Blood by Tablet results) Medical, PC) Occult Blood Negative Normal (applies MEDGEN (St to non-numeric [facility] results) Medical, PC) Bilirubin Negative Normal (applies MEDGEN (St [Presence] in to non-numeric [facility] Peritoneal fluid results) Medical, PC) Urobilinogen,Robert 1.0 EU/dL Normal (applies MEDGEN (St i-Qn to non-numeric [facility] results) Medical, PC) Microscopic Normal (applies MEDGEN (St Examination to non-numeric [facility] results) Medical, PC) Nitrite, Urine Negative Normal (applies MEDGEN (S t to non-numeric [facility] results) Medical, ) ID Date Data Source [id number] 07/31/2017 12:00:00 AM EDT [facility] ([facility] [...] results) [facility]) ID Date Data Source [id number] 07/31/2017 12:00:00 AM EDT [facility] ([facility] [...] (St to non-numeric [facility] results) [facility]) Ketones Negative Normal (applies [facility] (St [Presence] in to non-numeric [facility] Blood by Tablet results) [facility], [facility]) Bilirubin Negative Normal (applies [facility] (St [Presence] in to non-numeric [facility] Peritoneal fluid results) Medical, PC) Urobilinogen,Robert 1.0 EU/dL Normal (applies [facility] (St i-Qn to non-numeric [facility] results) [facility], [facility]) Nitrite, Urine Negative Normal (applies [facility] (S t to non-numeric [facility] results) [facility], [facility]) ID Date Data Source [id number] 07/28/2017 12:00:00 AM EDT [facility] ([facility] Name Value Range Interpretation Code Description Data Sita rce(s) Supporting Document(s ) ID Date Data Source [id number] 07/28/2017 12:00:00 AM EDT [facility] ([facility], ) Name Value Range Interpretation Code Description Data Sita rce(s) Supporting Document(s ) PDF Image . Normal (applies to MED[facility] (St non-numeric results) [facility] Me dical, ) ID Date Data Source [id number] 07/28/2017 12:00:00 AM EDT [facility] ([facility], ) Name Value Range Interpretation Description Data Sup porting Code Source(s) Document(s ) Hemoglobin 10.2 % Above high normal MED[facility] (St A1c/Hemoglobin [facility] .total in [facility], ) Blood ID Date Data Source [id number] 07/28/2017 12:00:00 AM EDT [facility] ([facility], ) Name Value Range Interpretation Description Data Sup porting Code Source(s) Document(s ) Bilirubin.c 0.11 mg/dL Normal (applies to MEDGEN ( St onjugated non-numeric [facility] [Mass/volum results) [facility], ) e] in Serum or Plasma ID Date Data Source [id number] 07/28/2017 12:00:00 AM EDT [facility] ([facility], ) Name Value Range Interpretation Description Data Sup porting Code Source(s) Document(s ) Cholesterol 141 Normal (applies MED[facility] (St [Mass/volume] in mg/dL to non-numeric [facility] Serum or Plasma results) [facility], ) Triglyceride 146 Normal (applies MED[facility] (St [Mass/volume] in mg/dL to non-numeric [facility] Serum or Plasma results) [facility], ) HDL Cholesterol 28 mg/dL Below low normal [facility] ([facility], ) VLDL Cholesterol 29 mg/dL Normal (applies MED[facility] (St Zoie to non-numeric [facility] results) [facility], ) LDL Cholesterol 84 mg/dL Normal (applies [facility] ( St Calc to non-numeric [facility] results) [facility], ) ID Date Data Source [id number] 07/28/2017 12:00:00 AM EDT [facility] ([facility], ) Name Value Range Interpretation Description Data Sup porting Code Source(s) Document(s ) Glucose 231 Above high MEDGEN (St [Mass/volume] in mg/dL normal [facility] Urine collected for Medical, unspecified PC) duration Urea nitrogen 14 mg/dL Normal (applies [facility] (St [Mass/volume] in to non-numeric [facility] Serum or Plasma results) Medical, PC) Creatinine 0.77 Normal (applies [facility] (St [Interpretation] in mg/dL to non-numeric [facility] Urine results) [facility], [facility]) eGFR If NonAfricn 104 Normal (applies MEDGEN (St Am mL/min/1 to non-numeric [facility] .73 results) Medical, PC) eGFR If Africn Am 120 Normal (applies [facility] (St mL/min/1 to non-numeric [facility] .73 results) Medical, PC) BUN/Creatinine 18 Normal (applies [facility] (S t Ratio to non-numeric [facility] results) [facility], [facility]) Sodium 136 Normal (applies [facility] (St [Moles/volume] in mmol/L to non-numeric [facility] Serum or Plasma results) [facility], [facility]) Potassium 4.2 Normal (applies [facility] (St [Mass/volume] in mmol/L to non-numeric [facility] Blood results) [facility], [facility]) Carbon dioxide, 23 Normal (applies [facility] ( St total mmol/L to non-numeric [facility] [Moles/volume] in results) Medical, Serum or Plasma PC) Chloride 94 Below low normal [facility] (St [Moles/volume] in mmol/L [facility] Serum or Plasma Medical, PC) Calcium 10.1 Normal (applies [facility] (St [Moles/volume] in mg/dL to non-numeric [facility] Urine collected for results) Medical, unspecified PC) duration Protein 6.9 g/dL Normal (applies [facility] (St [Mass/volume] in to non-numeric [facility] Serum or Plasma results) [facility], [facility]) Microalbumin 4.1 g/dL Normal (applies [facility] (St [...] [facility] [Enzymatic results) Medical, activity/volume] in ) Serum, Plasma or Blood Aspartate 19 IU/L Normal (applies [facility] (St aminotransferase to non-numeric [facility] [Enzymatic results) Medical, activity/volume] in ) Serum or Plasma Alanine 23 IU/L Normal (applies [facility] (St aminotransferase to non-numeric [facility] [Enzymatic results) Medical, activity/volume] in ) Serum or Plasma ID Date Data Source [id number] 07/28/2017 12:00:00 AM EDT [facility] ([facility], ) Name Value Range Interpretation Description Data Sup porting Code Source(s) Document(s ) Leukocytes 10.1 Normal (applies [facility] (St [#/volume] in x10E3/uL to non-numeric [facility] Blood by results) Medical, ) Automated count Erythrocytes 5.35 Normal (applies [facility] (St [#/volume] in x10E6/uL to non-numeric [facility] Blood by results) Medical, ) Automated count Hemoglobin 16.4 Normal (applies [facility] (St [Mass/volume] in g/dL to non-numeric [facility] Blood results) [facility], ) Hematocrit 48.5 % Normal (applies [facility] (St [Volume to non-numeric [facility] Fraction] of results) [facility], ) Blood by Automated count MCV 91 fL Normal (applies [facility] (St to non-numeric [facility] results) Medical, ) MCH 30.7 pg Normal (applies [facility] (St to non-numeric [facility] results) Medical, ) MCHC 33.8 Normal (applies [facility] (St g/dL to non-numeric [facility] results) [facility], ) RDW 14.1 % Normal (applies [facility] (St to non-numeric [facility] results) [facility], ) Platelets 292 Normal (applies MED[facility] (St [#/area] in x10E3/uL to non-numeric [facility] Blood by results) [facility], ) Microscopy high power field Lymphs 22 % Normal (applies [facility] (St to non-numeric [facility] results) Medical, ) Neutrophils [#] 73 % Normal (applies MED[facility] ( St in Body fluid by to non-numeric [facility] Manual count results) Medical, ) Monocytes 5 % Normal (applies [facility] (St [#/volume] in to non-numeric [facility] Cord blood results) Medical, ) Eos 0 % Normal (applies [facility] (St to non-numeric [facility] results) Medical, ) Neutrophils 7.2 Above high normal [facility] (St (Absolute) x10E3/uL [facility], ) Basos 0 % Normal (applies [facility] (St to non-numeric [facility] results) Medical, ) Lymphs 2.2 Normal (applies MEDGEN (St (Absolute) x10E3/uL to non-numeric [facility] results) [facility], ) Monocytes(Absolu 0.5 Normal (applies MEDGEN (St te) x10E3/uL to non-numeric [facility] results) [facility], ) Eos (Absolute) 0.0 Normal (applies [facility] (S t x10E3/uL to non-numeric [facility] results) [facility], ) Baso (Absolute) 0.0 Normal (applies [facility] ( St x10E3/uL to non-numeric [facility] results) Medical, ) Immature 0 % Normal (applies [facility] (St Granulocytes to non-numeric [facility] results) [facility], ) Immature Grans 0.0 Normal (applies [facility] (S t (Abs) x10E3/uL to non-numeric [facility] results) [facility], ) ID Date Data Source [id number] 07/28/2017 12:00:00 AM EDT [facility] ([facility], ) Name Value Range Interpretation Code Description Data Sita rce(s) Supporting Document(s ) ID Date Data Source [id number] 07/28/2017 12:00:00 AM EDT [facility] ([facility], ) Name Value Range Interpretation Code Description Data Sita rce(s) Supporting Document(s ) PDF Image . Normal (applies to [facility] (St non-numeric results) [facility], ) ID Date Data Source [id number] 07/28/2017 12:00:00 AM EDT [facility] ([facility], ) Name Value Range Interpretation Description Data Sup porting Code Source(s) Document(s ) Hemoglobin 10.2 % Above high normal [facility] (St A1c/Hemoglobin [facility] .total in [facility], ) Blood ID Date Data Source [id number] 07/28/2017 12:00:00 AM EDT [facility] ([facility]) Name Value Range Interpretation Description Data Sup porting Code Source(s) Document(s ) Bilirubin.c 0.11 mg/dL Normal (applies to [facility] ( St onjugated non-numeric [facility] [Mass/volum results) Medical, ) e] in Serum or Plasma ID Date Data Source [id number] 07/28/2017 12:00:00 AM EDT [facility] ([facility], ) Name Value Range Interpretation Description Data Sup porting Code Source(s) Document(s ) Cholesterol 141 Normal (applies MEDGEN (St [Mass/volume] in mg/dL to non-numeric [facility] Serum or Plasma results) [facility], ) Triglyceride 146 Normal (applies [facility]GEN (St [Mass/volume] in mg/dL to non-numeric [facility] Serum or Plasma results) [facility], ) HDL Cholesterol 28 mg/dL Below low normal [facility] ([facility], ) VLDL Cholesterol 29 mg/dL Normal (applies [facility] (St Zoie to non-numeric [facility] results) [facility], ) LDL Cholesterol 84 mg/dL Normal (applies MEDGEN ( St Calc to non-numeric [facility] results) [facility], ) ID Date Data Source [id number] 07/28/2017 12:00:00 AM EDT [facility] ([facility], ) Name Value Range Interpretation Description Data [...] mg/dL to non-numeric [facility] Urine results) [facility], ) eGFR If NonAfricn 104 Normal (applies MEDGEN (St Am mL/min/1 to non-numeric [facility] .73 results) Medical, PC) eGFR If Africn Am 120 Normal (applies [facility] (St mL/min/1 to non-numeric [facility] .73 results) Medical, PC) BUN/Creatinine 18 Normal (applies [facility] (S t Ratio to non-numeric [facility] results) Medical, PC) Sodium 136 Normal (applies [facility] (St [Moles/volume] in mmol/L to non-numeric [facility] Serum or Plasma results) Medical, ) Potassium 4.2 Normal (applies [facility] (St [Mass/volume] in mmol/L to non-numeric [facility] Blood results) Medical, ) Chloride 94 Below low normal MED[facility] (St [...] to non-numeric [facility] results) Medical, ) Bilirubin.total 0.3 Normal (applies MED[facility] ( St [...] Serum or Plasma ID Date Data Source [id number] 07/28/2017 12:00:00 AM EDT [facility] ([facility], ) Name Value Range Interpretation Description Data Sup porting Code Source(s) Document(s ) Leukocytes 10.1 Normal (applies MED[facility] (St [#/volume] in x10E3/uL to non-numeric [facility] Blood by results) Medical, ) Automated count Erythrocytes 5.35 Normal (applies [facility] (St [#/volume] in x10E6/uL to non-numeric [facility] Blood by results) Medical, ) Automated count Hemoglobin 16.4 Normal (applies [facility] (St [Mass/volume] in g/dL to non-numeric [facility] Blood results) Medical, ) Hematocrit 48.5 % Normal (applies [facility] (St [Volume to non-numeric [facility] Fraction] of results) Medical, ) Blood by Automated count MCV 91 fL Normal (applies [facility] (St to non-numeric [facility] results) Medical, ) MCHC 33.8 Normal (applies [facility] (St g/dL to non-numeric [facility] results) Medical, ) MCH 30.7 pg Normal (applies MED[facility] (St to non-numeric [facility] results) Medical, ) RDW 14.1 % Normal (applies [facility] (St to non-numeric [facility] results) Medical, ) Platelets 292 Normal (applies MEDGEN (St [#/area] in x10E3/uL to non-numeric [facility] Blood by results) Medical, ) Microscopy high power field Neutrophils [#] 73 % Normal (applies MED[facility] ( St in Body fluid by to non-numeric [facility] Manual count results) Medical, ) Lymphs 22 % Normal (applies [facility] (St to non-numeric [facility] results) Medical, ) Monocytes 5 % Normal (applies MED[facility] (St [#/volume] in to non-numeric [facility] Cord blood results) Medical, ) Eos 0 % Normal (applies MED[facility] (St to non-numeric [facility] results) Medical, ) Basos 0 % Normal (applies MEDGEN (St to non-numeric [facility] results) Medical, ) Neutrophils 7.2 Above high normal [facility] (St (Absolute) x10E3/uL [facility], ) Lymphs 2.2 Normal (applies MED[facility] (St (Absolute) x10E3/uL to non-numeric [facility] results) Medical, ) Eos (Absolute) 0.0 Normal (applies MEDGEN (S t x10E3/uL to non-numeric [facility] results) Medical, ) Monocytes(Absolu 0.5 Normal (applies MED[facility] (St [...] results) Medical, ) ID Date Data Source [id number] 02/27/2017 12:00:00 AM EST [facility] ([facility], ) Name Value Range Interpretation Code Description Data Sita rce(s) Supporting Document(s ) ID Date Data Source [id number] 02/27/2017 12:00:00 AM EST [facility] ([facility], ) Name Value Range Interpretation Code Description Data Sita rce(s) Supporting Document(s ) PDF Image . Normal (applies to [facility] (St non-numeric results) [facility] Me dicid, ) ID Date Data Source [id number] 02/27/2017 12:00:00 AM EST [facility] ([facility], ) Name Value Range Interpretation Description Data Sup porting Code Source(s) Document(s ) Hemoglobin 11.2 % Above high normal [facility] (St A1c/Hemoglobin [facility] .total in Medical, ) Blood ID Date Data Source [id number] 02/27/2017 12:00:00 AM EST [facility] ([facility], ) Name Value Range Interpretation Description Data Sup porting Code Source(s) Document(s ) Bilirubin.c 0.09 mg/dL Normal (applies to MED[facility] ( St onjugated non-numeric [facility] [Mass/volum results) Medical, ) e] in Serum or Plasma ID Date Data Source [id number] 02/27/2017 12:00:00 AM EST [facility] ([facility]) Name Value Range Interpretation Description Data Sup porting Code Source(s) Document(s ) Cholesterol 173 Normal (applies MEDGEN (St [Mass/volume] in mg/dL to non-numeric [facility] Serum or Plasma results) [facility], ) Triglyceride 141 Normal (applies MEDGEN (St [Mass/volume] in mg/dL to non-numeric [facility] Serum or Plasma results) [facility], ) HDL Cholesterol 31 mg/dL Below low normal [facility] LDL Cholesterol 114 Above high normal MEDGEN (St Calc mg/dL [facility] [place] [place]) VLDL Cholesterol 28 mg/dL Normal (applies MEDGEN (St Zoie to non-numeric [facility] results) [facility], ) ID Date Data Source [id number] 02/27/2017 12:00:00 AM EST [facility] ([facility]) Name Value Range Interpretation Description Data Sup porting Code Source(s) Document(s ) Glucose, Serum 258 Above high MEDGEN (St mg/dL normal [facility], ) Urea nitrogen 13 mg/dL Normal (applies MEDGEN (St [Mass/volume] in to non-numeric [facility] Serum or Plasma results) [facility], ) Creatinine, Serum 0.84 Normal (applies MEDGEN (St mg/dL to non-numeric [facility] results) [facility], ) eGFR If Africn Am 116 Normal (applies MEDGEN (St mL/min/1 to non-numeric [facility] .73 results) Medical, ) eGFR If NonAfricn 100 Normal (applies MEDGEN (St Am mL/min/1 to non-numeric [facility] .73 results) [facility], ) BUN/Creatinine 15 Normal (applies MEDGEN (S t Ratio to non-numeric [facility] results) [facility], ) Sodium 136 Normal (applies MEDGEN (St [Moles/volume] in mmol/L to non-numeric [facility] Serum or Plasma results) Medical, ) Chloride 97 Normal (applies [facility]GEN (St [Moles/volume] in mmol/L to non-numeric [facility] Serum or Plasma results) Medical, ) Potassium, Serum 4.3 Normal (applies [facility]GEN (St mmol/L to non-numeric [facility] results) Medical, ) Carbon dioxide, 19 Normal [...] non-numeric [facility] results) Medical, ) A/G Ratio 1.7 Normal (applies MEDGEN (St to non-numeric [facility] results) Medical, ) Alkaline 101 IU/L Normal (applies MEDGEN (St Phosphatase, S to non-numeric [facility] results) Medical, ) Bilirubin.total 0.4 Normal (applies [facility] ( St [Mass/volume] in mg/dL to non-numeric [facility] Serum or Plasma results) Medical, ) Aspartate 8 IU/L Normal (applies MEDGEN (St aminotransferase to non-numeric [facility] [Enzymatic results) Medical, activity/volume] in PC) Serum or Plasma Alanine 21 IU/L Normal (applies [facility] (St aminotransferase to non-numeric [facility] [Enzymatic results) Medical, activity/volume] in PC) Serum or Plasma ID Date Data Source [id number] 02/27/2017 12:00:00 AM EST [facility]) Name Value Range Interpretation Code Description Data Sita rce(s) Supporting Document(s ) ID Date Data Source [id number] 02/27/2017 12:00:00 AM EST [facility]) Name Value Range Interpretation Code Description Data Sita rce(s) Supporting Document(s ) PDF Image . Normal (applies to [facility] (St non-numeric results) [facility] Me [facility]ical, ) ID Date Data Source [id number] 02/27/2017 12:00:00 AM EST [facility]) Name Value Range Interpretation Description Data Sup porting Code Source(s) Document(s ) Hemoglobin 11.2 % Above high normal [facility] (St A1c/Hemoglobin [facility] .total in [facility]) Blood ID Date Data Source [id number] 02/27/2017 12:00:00 AM EST [facility] ([facility]) Name Value Range Interpretation Description Data Sup porting Code Source(s) Document(s ) Bilirubin.c 0.09 mg/dL Normal (applies to MED[facility] ( St onjugated non-numeric [facility] [Mass/volum results) [facility]) e] in Serum or Plasma ID Date Data Source [id number] 02/27/2017 12:00:00 AM EST [facility] ([facility]) Name Value Range Interpretation Description Data Sup porting Code Source(s) Document(s ) Cholesterol 173 Normal (applies MEDGEN (St [Mass/volume] in mg/dL to non-numeric [facility] Serum or Plasma results) [facility], ) Triglyceride 141 Normal (applies MEDGEN (St [Mass/volume] in mg/dL to non-numeric [facility] Serum or Plasma results) [facility]) HDL Cholesterol 31 mg/dL Below low normal [facility] [place] [place] VLDL Cholesterol 28 mg/dL Normal (applies MED[facility] (St Zoie to non-numeric [facility] results) [facility]) LDL Cholesterol 114 Above high normal [facility] (St Calc mg/dL [facility] [place] [place]) ID Date Data Source [id number] 02/27/2017 12:00:00 AM EST [facility] ([facility]) Name Value Range Interpretation Description Data Sup porting Code Source(s) Document(s ) Glucose, Serum 258 Above high MEDGEN (St mg/dL normal [facility] [place] [place]) Urea nitrogen 13 mg/dL Normal (applies MEDGEN (St [Mass/volume] in to non-numeric [facility] Serum or Plasma results) [facility], ) Creatinine, Serum 0.84 Normal (applies MEDGEN (St mg/dL to non-numeric [facility] results) [facility]) eGFR If NonAfricn 100 Normal (applies MEDGEN (St Am mL/min/1 to non-numeric [facility] .73 results) [facility]) eGFR If Africn Am 116 Normal (applies [...] MEDGEN ( St to non-numeric [facility] results) [facility], ) Bilirubin.total 0.4 Normal (applies MEDGEN ( St [Mass/volume] in mg/dL to non-numeric [facility] Serum or Plasma results) [facility], ) A/G Ratio 1.7 Normal (applies [facility]GEN (St to non-numeric [facility] results) Medical, ) Alkaline 101 IU/L Normal (applies MEDGEN (St Phosphatase, S to non-numeric [facility] results) Medical, ) Aspartate 8 IU/L Normal (applies MEDGEN (St aminotransferase to non-numeric [facility] [Enzymatic results) Medical, activity/volume] in PC) Serum or Plasma Alanine 21 IU/L Normal (applies MEDGEN (St aminotransferase to non-numeric [facility] [Enzymatic results) Medical, activity/volume] in ) Serum or Plasma ID Date Data Source [id number] 08/01/2016 12:00:00 AM EDT [facility] ([facility], ) Name Value Range Interpretation Code Description Data Sita rce(s) Supporting Document(s ) ID Date Data Source [id number] 08/01/2016 12:00:00 AM EDT [facility] ([facility], ) Name Value Range Interpretation Code Description Data Sita rce(s) Supporting Document(s ) PDF Image . Normal (applies to MEDGEN (St non-numeric results) [facility] Md [facility]ical, ) ID Date Data Source [id number] 08/01/2016 12:00:00 AM EDT [facility] ([facility], ) Name Value Range Interpretation Description Data Sup porting Code Source(s) Document(s ) Hemoglobin 10.2 % Above high normal [facility] (St A1c/Hemoglobin [facility] .total in [facility], ) Blood ID Date Data Source [id number] 08/01/2016 12:00:00 AM EDT [facility] ([facility], ) Name Value Range Interpretation Description Data Sup porting Code Source(s) Document(s ) Bilirubin.c 0.10 mg/dL Normal (applies to MEDGEN ( St onjugated non-numeric [facility] [Mass/volum results) [facility], ) e] in Serum or Plasma ID Date Data Source [id number] 08/01/2016 12:00:00 AM EDT [facility] ([facility], ) Name Value Range Interpretation Description Data Sup porting Code Source(s) Document(s ) Cholesterol 164 Normal (applies MEDGEN (St [Mass/volume] in mg/dL to non-numeric [facility] Serum or Plasma results) [facility], ) Triglyceride 280 Above high normal MEDGEN (S t [Mass/volume] in mg/dL [facility] Serum or Plasma [facility], ) HDL Cholesterol 27 mg/dL Below low normal [facility] ([facility], ) VLDL Cholesterol 56 mg/dL Above high normal MEDGE N ([facility], ) LDL Cholesterol 81 mg/dL Normal (applies MEDGEN ( St Calc to non-numeric [facility] results) [facility], ) ID Date Data Source [id number] 08/01/2016 12:00:00 AM EDT [facility] ([facility], ) Name Value Range Interpretation Description Data Sup porting Code Source(s) Document(s ) Glucose, Serum 297 Above high MEDGEN (St mg/dL normal [facility], ) Urea nitrogen 18 mg/dL Normal (applies MEDGEN (St [Mass/volume] in to non-numeric [facility] Serum or Plasma results) Medical, ) Creatinine, Serum 1.06 Normal (applies MEDGEN (St mg/dL to non-numeric [facility] results) Medical, ) eGFR If NonAfricn 80 Normal (applies MEDGEN (St Am mL/min/1 to non-numeric [facility] .73 results) Medical, ) eGFR If Africn Am 93 Normal (applies MEDGEN (St mL/min/1 to non-numeric [facility] .73 results) Medical, ) BUN/Creatinine 17 Normal (applies MEDGEN (S t Ratio to non-numeric [facility] results) Medical, ) Sodium 138 Normal (applies MEDGEN (St [Moles/volume] in mmol/L to non-numeric [facility] Serum or Plasma results) Medical, ) Potassium, Serum 3.9 Normal (applies MEDGEN (St mmol/L to non-numeric [facility] results) Medical, ) Chloride 97 Normal (applies MEDGEN (St [Moles/volume] in mmol/L to non-numeric [facility] Serum or Plasma results) Medical, ) Carbon dioxide, 21 Normal (applies MEDGEN ( St total mmol/L to non-numeric [facility] [Moles/volume] in results) Medical, Serum or Plasma PC) Calcium, Serum 9.6 Normal (applies MEDGEN (S t mg/dL to non-numeric [facility] results) Medical, ) Protein 6.8 g/dL Normal (applies MEDGEN (St [Mass/volume] in to non-numeric [facility] Serum or Plasma results) Medical, ) Albumin, Serum 4.4 g/dL Normal (applies MEDGEN (S t to non-numeric [facility] results) Medical, ) Globulin, Total 2.4 g/dL Normal (applies MEDGEN ( St to non-numeric [facility] results) Medical, ) A/G Ratio 1.8 Normal (applies MEDGEN (St to non-numeric [facility] results) Medical, ) Bilirubin.total 0.2 Normal (applies MEDGEN ( St [Mass/volume] in mg/dL to non-numeric [facility] Serum or Plasma results) Medical, ) Alkaline 72 IU/L Normal (applies MEDGEN (St Phosphatase, S to non-numeric [facility] results) [facility], ) Aspartate 16 IU/L Normal (applies MEDGEN (St aminotransferase to non-numeric [facility] [Enzymatic results) Medical, activity/volume] in ) Serum or Plasma Alanine 28 IU/L Normal (applies MEDGEN (St aminotransferase to non-numeric [facility] [Enzymatic results) Medical, activity/volume] in ) Serum or Plasma ID Date Data Source [id number] 08/01/2016 12:00:00 AM EDT MEDGEN ([facility], ) Name Value Range Interpretation Code Description Data Sita rce(s) Supporting Document(s ) ID Date Data Source [id number] 08/01/2016 12:00:00 AM EDT MEDGEN ([facility], ) Name Value Range Interpretation Code Description Data Sita rce(s) Supporting Document(s ) PDF Image . Normal (applies to MEDGEN (St non-numeric results) [facility], ) ID Date Data Source [id number] 08/01/2016 12:00:00 AM EDT MEDGEN ([facility], ) Name Value Range Interpretation Description Data Sup porting Code Source(s) Document(s ) Hemoglobin 10.2 % Above high normal MEDGEN (St A1c/Hemoglobin [facility] .total in [facility], ) Blood ID Date Data Source [id number] 08/01/2016 12:00:00 AM EDT MEDGEN ([facility], ) Name Value Range Interpretation Description Data Sup porting Code Source(s) Document(s ) Bilirubin.c 0.10 mg/dL Normal (applies to MEDGEN ( St onjugated non-numeric [facility] [Mass/volum results) [facility], ) e] in Serum or Plasma ID Date Data Source [id number] 08/01/2016 12:00:00 AM EDT MEDGEN ([facility], ) Name Value Range Interpretation Description Data Sup porting Code Source(s) Document(s ) Cholesterol 164 Normal (applies MEDGEN (St [Mass/volume] in mg/dL to non-numeric [facility] Serum or Plasma results) [facility], ) Triglyceride 280 Above high normal MEDGEN (S t [Mass/volume] in mg/dL [facility] Serum or Plasma [facility], ) HDL Cholesterol 27 mg/dL Below low normal MEDGEN ([facility], ) VLDL Cholesterol 56 mg/dL Above high normal MEDGE N ([facility], ) LDL Cholesterol 81 mg/dL Normal (applies MEDGEN ( St Calc to non-numeric [facility] results) [facility], ) ID Date Data Source [id number] 08/01/2016 12:00:00 AM EDT MEDGEN ([facility], ) Name Value Range Interpretation Description Data Sup porting Code Source(s) Document(s ) Glucose, Serum 297 Above high MEDGEN (St mg/dL normal [facility], ) Creatinine, Serum 1.06 Normal (applies MEDGEN (St mg/dL to non-numeric [facility] results) Medical, ) Urea nitrogen 18 mg/dL Normal (applies MEDGEN (St [Mass/volume] in to non-numeric [facility] Serum or Plasma results) Medical, ) eGFR If NonAfricn 80 Normal (applies MEDGEN (St Am mL/min/1 to non-numeric [facility] .73 results) Medical, ) eGFR If Africn Am 93 Normal (applies MEDGEN (St mL/min/1 to non-numeric [facility] .73 results) Medical, ) Sodium 138 Normal (applies MEDGEN (St [Moles/volume] in mmol/L to non-numeric [facility] Serum or Plasma results) Medical, ) BUN/Creatinine 17 Normal (applies MEDGEN (S t Ratio to non-numeric [facility] results) Medical, ) Potassium, Serum 3.9 Normal (applies MEDGEN (St mmol/L to non-numeric [facility] results) Medical, ) Chloride 97 Normal (applies MEDGEN (St [Moles/volume] in mmol/L to non-numeric [facility] Serum or Plasma results) Medical, ) Carbon dioxide, 21 Normal (applies MEDGEN ( St total mmol/L to non-numeric [facility] [Moles/volume] in results) Medical, Serum or Plasma ) Calcium, Serum 9.6 Normal (applies MEDGEN (S t mg/dL to non-numeric [facility] results) Medical, ) Protein 6.8 g/dL Normal (applies MEDGEN (St [Mass/volume] in to non-numeric [facility] Serum or Plasma results) Medical, ) Globulin, Total 2.4 g/dL Normal (applies MEDGEN ( St to non-numeric [facility] results) [facility], ) Albumin, Serum 4.4 g/dL Normal (applies MEDGEN (S t to non-numeric [facility] results) [facility], ) A/G Ratio 1.8 Normal (applies MEDGEN (St to non-numeric [facility] results) [facility], ) Alkaline 72 IU/L Normal (applies MEDGEN (St Phosphatase, S to non-numeric [facility] results) [facility], ) Bilirubin.total 0.2 Normal (applies MEDGEN ( St [Mass/volume] in mg/dL to non-numeric [facility] Serum or Plasma results) [facility], ) Aspartate 16 IU/L Normal (applies MEDGEN (St aminotransferase to non-numeric [facility] [Enzymatic results) Medical, activity/volume] in ) Serum or Plasma Alanine 28 IU/L Normal (applies MEDGEN (St aminotransferase to non-numeric [facility] [Enzymatic results) Medical, activity/volume] in ) Serum or Plasma Procedure Social History Code Duration Value Status Description Data Source(s ) Smoking 01/21/2020 smoking no completed smoking no drinking MEDGE N (St 12:00:00 AM EDT drinking [facility], ) Smoking 01/21/2020 Unknown if ever completed Unknown if ever MEDG EN (St 12:00:00 AM EDT smoked smoked [facility]) Smoking 10/25/2019 smoking no completed smoking no drinking MEDGE N (St 12:00:00 AM EDT drinking [facility]) Smoking 10/25/2019 Unknown if ever completed Unknown if ever MEDG EN (St 12:00:00 AM EDT smoked smoked [facility]) Smoking Unknown if ever completed Unknown if ever Kerry Aguilar smoked smoked [facility] Vital Signs ID Date Data Source UNK Name Value Range Interpretation Code Description Data Source(s) Body mass index 30.5 kg/m2 30.5 kg/m2 MEDGEN (S t (BMI) [Ratio] [facility], ) Diastolic blood 70 mm[Hg] 70 mm[Hg] MEDGEN (S t pressure [facility] , ) Systolic blood 130 mm[Hg] 130 mm[Hg] MEDGEN (St pressure [facility] , ) Body weight 172 lb 172 lb MEDGEN ([facility]) Body height 63 in 63 in MEDGEN ([facility]) Heart rate 87 /min 87 /min MEDGEN ([facility]) Inhaled oxygen 95 % 95 % MEDGEN ([facility]) Body mass index 31 kg/m2 31 kg/m2 MEDGEN (S t (BMI) [Ratio] [facility], ) Diastolic blood 72 mm[Hg] 72 mm[Hg] MEDGEN (S t [facility]) Systolic blood 140 mm[Hg] 140 mm[Hg] MEDGEN ([facility]) Body weight 175 lb 175 lb MEDGEN ([facility]) Body height 63 in 63 in MEDGEN ([facility]) Heart rate 87 /min 87 /min MEDGEN ([facility]) Inhaled oxygen 95 % 95 % MEDGEN ([facility], ) Body mass index 31 kg/m2 31 kg/m2 MEDGEN (S t (BMI) [Ratio] [facility], ) Diastolic blood 72 mm[Hg] 72 mm[Hg] MEDGEN (S t [facility]) Systolic blood 140 mm[Hg] 140 mm[Hg] MEDGEN ([facility]) Body weight 175 lb 175 lb MEDGEN ([facility]) Body height 63 in 63 in MEDGEN ([facility]) Body mass index 31.9 kg/m2 31.9 kg/m2 MEDGEN (S t (BMI) [Ratio] [facility], ) Diastolic blood 82 mm[Hg] 82 mm[Hg] MEDGEN (S t [facility]) Systolic blood 160 mm[Hg] 160 mm[Hg] MEDGEN ([facility]) Body weight 180 lb 180 lb MEDGEN ([facility]) Body height 63 in 63 in MEDGEN ([facility]) Body mass index 31.9 kg/m2 31.9 kg/m2 MEDGEN (S t (BMI) [Ratio] [facility]) Diastolic blood 82 mm[Hg] 82 mm[Hg] MEDGEN (S t pressure [facility]) Systolic blood 160 mm[Hg] 160 mm[Hg] MEDGEN ([facility]) Body weight 180 lb 180 lb MEDGEN ([facility]) Body height 63 in 63 in [facility] ([facility]) Body mass index 31.5 kg/m2 31.5 kg/m2 MEDGEN (S t (BMI) [Ratio] [facility], ) Diastolic blood 84 mm[Hg] 84 mm[Hg] MEDGEN (S t pressure [facility]) Systolic blood 160 mm[Hg] 160 mm[Hg] MEDGEN ([facility]) Body weight 178 lb 178 lb MEDGEN ([facility]) Body height 63 in 63 in [facility] ([facility]) Body mass index 31.5 kg/m2 31.5 kg/m2 MEDGEN (S t (BMI) [Ratio] [facility], ) Diastolic blood 84 mm[Hg] 84 mm[Hg] MEDGEN (S t pressure [facility]) Systolic blood 160 mm[Hg] 160 mm[Hg] MEDGEN ([facility]) Body weight 178 lb 178 lb MEDGEN ([facility]) Body height 63 in 63 in MEDGEN ([facility]) Body mass index 31 kg/m2 31 kg/m2 MEDGEN (S t (BMI) [Ratio] [facility], ) Diastolic blood 82 mm[Hg] 82 mm[Hg] MEDGEN (S t pressure [facility]) Systolic blood 138 mm[Hg] 138 mm[Hg] MEDGEN ([facility]) Body weight 175 lb 175 lb MEDGEN ([facility]) Body height 63 in 63 in MEDGEN ([facility]) Body mass index 31 kg/m2 31 kg/m2 MEDGEN (S t (BMI) [Ratio] [facility]) Diastolic blood 82 mm[Hg] 82 mm[Hg] MEDGEN (S t pressure [facility]) Systolic blood 138 mm[Hg] 138 mm[Hg] MEDGEN ([facility]) Body weight 175 lb 175 lb MEDGEN ([facility]) Body height 63 in 63 in MEDGEN ([facility]) Body mass index 31.4 kg/m2 31.4 kg/m2 MEDGEN (S t (BMI) [Ratio] [facility]) Diastolic blood 82 mm[Hg] 82 mm[Hg] MEDGEN (S t [facility]) Systolic blood 110 mm[Hg] 110 mm[Hg] MEDGEN ([facility]) Body weight 177 lb 177 lb MEDGEN ([facility]) Body height 63 in 63 in MEDGEN ([facility]) Body mass index 31.4 kg/m2 31.4 kg/m2 MEDGEN (S t (BMI) [Ratio] [facility]) Diastolic blood 82 mm[Hg] 82 mm[Hg] MEDGEN (S t [facility]) Systolic blood 110 mm[Hg] 110 mm[Hg] MEDGEN ([facility]) Body weight 177 lb 177 lb MEDGEN ([facility]) Body height 63 in 63 in MEDGEN ([facility]) Body height 63 in 63 in MEDGEN ([facility]) Heart rate 87 /min 87 /min MEDGEN ([facility]) Respiratory rate 14 /min 14 /min MEDGEN ( [facility]) Inhaled oxygen 98 % 98 % MEDGEN ([facility]) Body mass index 30.6 kg/m2 30.6 kg/m2 MEDGEN (S t (BMI) [Ratio] [facility]) Diastolic blood 70 mm[Hg] 70 mm[Hg] MEDGEN (S t [facility]) Systolic blood 140 mm[Hg] 140 mm[Hg] MEDGEN ([facility]) Body weight 173 lb 173 lb MEDGEN ([facility]) Heart rate 87 /min 87 /min MEDGEN ([facility]) Respiratory rate 14 /min 14 /min MEDGEN ( [facility]) Inhaled oxygen 98 % 98 % MEDGEN ([facility]) Body mass index 30.6 kg/m2 30.6 kg/m2 MEDGEN (S t (BMI) [Ratio] [facility], ) Diastolic blood 70 mm[Hg] 70 mm[Hg] MEDGEN (S t pressure [facility]) Systolic blood 140 mm[Hg] 140 mm[Hg] MEDGEN (St [facility]) Body weight 173 lb 173 lb MEDGEN ([facility]) Body height 63 in 63 in MEDGEN ([facility]) Body mass index 30.6 kg/m2 30.6 kg/m2 MEDGEN (S t (BMI) [Ratio] [facility], ) Diastolic blood 72 mm[Hg] 72 mm[Hg] MEDGEN (S t pressure [facility]) Systolic blood 150 mm[Hg] 150 mm[Hg] MEDGEN ([facility]) Body weight 173 lb 173 lb MEDGEN ([facility]) Body height 63 in 63 in MEDGEN ([facility]) Body mass index 30.6 kg/m2 30.6 kg/m2 MEDGEN (S t (BMI) [Ratio] [facility], ) Diastolic blood 72 mm[Hg] 72 mm[Hg] MEDGEN (S t pressure [facility]) Systolic blood 150 mm[Hg] 150 mm[Hg] MEDGEN ([facility]) Body weight 173 lb 173 lb MEDGEN ([facility]) Body height 63 in 63 in MEDGEN ([facility]) Body mass index 29.2 kg/m2 29.2 kg/m2 MEDGEN (S t (BMI) [Ratio] [facility], ) Diastolic blood 84 mm[Hg] 84 mm[Hg] MEDGEN (S t pressure [facility]) Systolic blood 170 mm[Hg] 170 mm[Hg] MEDGEN ([facility]) Body weight 165 lb 165 lb MEDGEN ([facility]) Body height 63 in 63 in MEDGEN ([facility]) Body mass index 29.2 kg/m2 29.2 kg/m2 MEDGEN (S t (BMI) [Ratio] [facility], ) Diastolic blood 84 mm[Hg] 84 mm[Hg] MEDGEN (S t pressure [facility]) Systolic blood 170 mm[Hg] 170 mm[Hg] MEDGEN ([facility]) Body weight 165 lb 165 lb MEDGEN ([facility]) Body height 63 in 63 in [facility] ([facility]) Body mass index 29.6 kg/m2 29.6 kg/m2 MEDGEN (S t (BMI) [Ratio] [facility], ) Diastolic blood 72 mm[Hg] 72 mm[Hg] MEDGEN (S t pressure [facility]) Systolic blood 130 mm[Hg] 130 mm[Hg] MEDGEN ([facility]) Body weight 167 lb 167 lb [facility]) Body height 63 in 63 in [facility] ([facility]) Body mass index 29.6 kg/m2 29.6 kg/m2 MEDGEN (S t (BMI) [Ratio] [facility], ) Diastolic blood 72 mm[Hg] 72 mm[Hg] MEDGEN (S t pressure [facility]) Systolic blood 130 mm[Hg] 130 mm[Hg] MEDGEN ([facility]) Body weight 167 lb 167 lb MEDGEN ([facility]) Body height 63 in 63 in [facility] ([facility]) Body mass index 29.6 kg/m2 29.6 kg/m2 MEDGEN (S t (BMI) [Ratio] [facility], ) Diastolic blood 70 mm[Hg] 70 mm[Hg] MEDGEN (S t pressure [facility]) Systolic blood 140 mm[Hg] 140 mm[Hg] MEDGEN ([facility]) Body weight 167 lb 167 lb MEDGEN ([facility]) Body height 63 in 63 in [facility] ([facility]) Body mass index 29.6 kg/m2 29.6 kg/m2 MEDGEN (S t (BMI) [Ratio] [facility]) Diastolic blood 70 mm[Hg] 70 mm[Hg] MEDGEN (S t pressure [facility]) Systolic blood 140 mm[Hg] 140 mm[Hg] MEDGEN ([facility]) Body weight 167 lb 167 lb MEDGEN ([facility]) Body height 63 in 63 in MEDGEN ([facility]) Heart rate 106 /min 106 /min MEDGEN ([facility]) Inhaled oxygen 94 % 94 % MEDGEN ([facility], ) Body mass index 29 kg/m2 29 kg/m2 MEDGEN (S t (BMI) [Ratio] [facility], ) Diastolic blood 60 mm[Hg] 60 mm[Hg] MEDGEN (S t pressure [facility]) Systolic blood 124 mm[Hg] 124 mm[Hg] MEDGEN ([facility]) Body weight 164 lb 164 lb MEDGEN ([facility]) Body height 63 in 63 in MEDGEN ([facility]) Heart rate 106 /min 106 /min MEDGEN ([facility]) Inhaled oxygen 94 % 94 % MEDGEN ([facility], ) Body mass index 29 kg/m2 29 kg/m2 MEDGEN (S t (BMI) [Ratio] [facility], ) Diastolic blood 60 mm[Hg] 60 mm[Hg] MEDGEN (S t [facility]) Systolic blood 124 mm[Hg] 124 mm[Hg] MEDGEN ([facility]) Body weight 164 lb 164 lb MEDGEN ([facility]) Body height 63 in 63 in MEDGEN ([facility]) Body mass index 28.9 kg/m2 28.9 kg/m2 MEDGEN (S t (BMI) [Ratio] [facility], ) Diastolic blood 70 mm[Hg] 70 mm[Hg] MEDGEN (S [facility]) Systolic blood 130 mm[Hg] 130 mm[Hg] MEDGEN ([facility]) Body weight 163 lb 163 lb MEDGEN ([facility]) Body height 63 in 63 in MEDGEN ([facility]) Body mass index 28.9 kg/m2 28.9 kg/m2 MEDGEN (S t (BMI) [Ratio] [facility], ) Diastolic blood 70 mm[Hg] 70 mm[Hg] MEDGEN (S t pressure [facility]) Systolic blood 130 mm[Hg] 130 mm[Hg] MEDGEN (St [facility]) Body weight 163 lb 163 lb MEDGEN ([facility]) Body height 63 in 63 in MEDGEN ([facility]) Body mass index 28.3 kg/m2 28.3 kg/m2 MEDGEN (S t (BMI) [Ratio] [facility], ) Diastolic blood 90 mm[Hg] 90 mm[Hg] MEDGEN (S t pressure [facility]) Systolic blood 140 mm[Hg] 140 mm[Hg] MEDGEN ([facility]) Body weight 160 lb 160 lb MEDGEN ([facility]) Body height 63 in 63 in MEDGEN ([facility]) Body mass index 28.3 kg/m2 28.3 kg/m2 MEDGEN (S t (BMI) [Ratio] [facility], ) Diastolic blood 90 mm[Hg] 90 mm[Hg] MEDGEN (S t pressure [facility]) Systolic blood 140 mm[Hg] 140 mm[Hg] MEDGEN ([facility]) Body weight 160 lb 160 lb MEDGEN ([facility]) Body height 63 in 63 in MEDGEN ([facility]) Body mass index 28.3 kg/m2 28.3 kg/m2 MEDGEN (S t (BMI) [Ratio] [facility], ) Diastolic blood 82 mm[Hg] 82 mm[Hg] MEDGEN (S t pressure [facility]) Systolic blood 130 mm[Hg] 130 mm[Hg] MEDGEN ([facility]) Body weight 160 lb 160 lb MEDGEN ([facility]) Body height 63 in 63 in MEDGEN ([facility]) Systolic blood 130 mm[Hg] 130 mm[Hg] MEDGEN ([facility]) Body weight 160 lb 160 lb MEDGEN ([facility]) Body height 63 in 63 in MEDGEN ([facility]) Body mass index 28.3 kg/m2 28.3 kg/m2 MEDGEN (S t (BMI) [Ratio] [facility], ) Diastolic blood 82 mm[Hg] 82 mm[Hg] MEDGEN (S t pressure [facility]) Body mass index 29.8 kg/m2 29.8 kg/m2 MEDGEN (S t (BMI) [Ratio] [facility], ) Diastolic blood 92 mm[Hg] 92 mm[Hg] MEDGEN (S t pressure [facility]) Systolic blood 150 mm[Hg] 150 mm[Hg] MEDGEN ([facility]) Body weight 168 lb 168 lb MEDGEN ([facility]) Body height 63 in 63 in [facility] ([facility]) Body mass index 29.8 kg/m2 29.8 kg/m2 MEDGEN (S t (BMI) [Ratio] [facility], ) Diastolic blood 92 mm[Hg] 92 mm[Hg] MEDGEN (S [facility]) Systolic blood 150 mm[Hg] 150 mm[Hg] MEDGEN ([facility]) Body weight 168 lb 168 lb MEDGEN ([facility]) Body height 63 in 63 in MEDGEN ([facility]) Body mass index 29.8 kg/m2 29.8 kg/m2 MEDGEN (S t (BMI) [Ratio] [facility], ) Diastolic blood 66 mm[Hg] 66 mm[Hg] MEDGEN (S [facility]) Systolic blood 134 mm[Hg] 134 mm[Hg] MEDGEN ([facility]) Body weight 168 lb 168 lb MEDGEN ([facility]) Body height 63 in 63 in MEDGEN ([facility]) Body mass index 29.8 kg/m2 29.8 kg/m2 MEDGEN (S t (BMI) [Ratio] [facility], ) Diastolic blood 66 mm[Hg] 66 mm[Hg] MEDGEN (S t pressure [facility]) Systolic blood 134 mm[Hg] 134 mm[Hg] MEDGEN ([facility]) Body weight 168 lb 168 lb MEDGEN ([facility]) Body height 63 in 63 in MEDGEN ([facility]) Body mass index 30.1 kg/m2 30.1 kg/m2 MEDGEN (S t (BMI) [Ratio] [facility], ) Diastolic blood 80 mm[Hg] 80 mm[Hg] MEDGEN (S t pressure [facility]) Systolic blood 140 mm[Hg] 140 mm[Hg] MEDGEN ([facility]) Body weight 170 lb 170 lb MEDGEN ([facility]) Body height 63 in 63 in [facility] ([facility]) Body mass index 30.1 kg/m2 30.1 kg/m2 MEDGEN (S t (BMI) [Ratio] [facility], ) Diastolic blood 80 mm[Hg] 80 mm[Hg] MEDGEN (S t [facility]) Systolic blood 140 mm[Hg] 140 mm[Hg] MEDGEN ([facility]) Body weight 170 lb 170 lb MEDGEN ([facility]) Body height 63 in 63 in MEDGEN ([facility]) Body mass index 30.8 kg/m2 30.8 kg/m2 MEDGEN (S t (BMI) [Ratio] [facility], ) Diastolic blood 74 mm[Hg] 74 mm[Hg] MEDGEN (S [facility]) Systolic blood 120 mm[Hg] 120 mm[Hg] MEDGEN ([facility]) Body weight 174 lb 174 lb MEDGEN ([facility]) Body height 63 in 63 in MEDGEN ([facility]) Body mass index 30.8 kg/m2 30.8 kg/m2 MEDGEN (S t (BMI) [Ratio] [facility]) Diastolic blood 74 mm[Hg] 74 mm[Hg] MEDGEN (S [facility]) Systolic blood 120 mm[Hg] 120 mm[Hg] MEDGEN ([facility]) Body weight 174 lb 174 lb MEDGEN ([facility]) Body height 63 in 63 in MEDGEN ([facility]) Body mass index 31 kg/m2 31 kg/m2 MEDGEN (S t (BMI) [Ratio] [facility], ) Diastolic blood 82 mm[Hg] 82 mm[Hg] MEDGEN (S t pressure [facility]) Systolic blood 180 mm[Hg] 180 mm[Hg] MEDGEN ([facility]) Body weight 175 lb 175 lb MEDGEN ([facility]) Body height 63 in 63 in MEDGEN ([facility]) Body mass index 31 kg/m2 31 kg/m2 MEDGEN (S t (BMI) [Ratio] [facility], ) Diastolic blood 82 mm[Hg] 82 mm[Hg] MEDGEN (S t pressure [facility]) Systolic blood 180 mm[Hg] 180 mm[Hg] MEDGEN ([facility]) Body weight 175 lb 175 lb MEDGEN ([facility] [facility]) Body height 63 in 63 in MEDGEN ([facility]) Body mass index 31.9 kg/m2 31.9 kg/m2 MEDGEN (S t (BMI) [Ratio] [facility], ) Diastolic blood 82 mm[Hg] 82 mm[Hg] MEDGEN (S t pressure [facility]) Systolic blood 130 mm[Hg] 130 mm[Hg] MEDGEN ([facility]) Body weight 180 lb 180 lb MEDGEN ([facility]) Body height 63 in 63 in MEDGEN ([facility]) Body mass index 31.9 kg/m2 31.9 kg/m2 MEDGEN (S t (BMI) [Ratio] [facility], ) Diastolic blood 82 mm[Hg] 82 mm[Hg] MEDGEN (S t pressure [facility]) Systolic blood 130 mm[Hg] 130 mm[Hg] MEDGEN ([facility]) Body weight 180 lb 180 lb MEDGEN ([facility]) Body height 63 in 63 in MEDGEN ([facility]) Body mass index 33.3 kg/m2 33.3 kg/m2 MEDGEN (S t (BMI) [Ratio] [facility], ) Diastolic blood 80 mm[Hg] 80 mm[Hg] MEDGEN (S t pressure [facility]) Systolic blood 140 mm[Hg] 140 mm[Hg] MEDGEN ([facility]) Body weight 188 lb 188 lb MEDGEN ([facility]) Body height 63 in 63 in [facility] ([facility]) Body mass index 33.3 kg/m2 33.3 kg/m2 MEDGEN (S t (BMI) [Ratio] [facility], ) Diastolic blood 80 mm[Hg] 80 mm[Hg] MEDGEN (S t pressure [facility]) Systolic blood 140 mm[Hg] 140 mm[Hg] MEDGEN ([facility]) Body weight 188 lb 188 lb [facility] ([facility]) [facility] Body mass index 33.3 kg/m2 33.3 kg/m2 MEDGEN (S t (BMI) [Ratio] [facility], ) Diastolic blood 84 mm[Hg] 84 mm[Hg] MEDGEN (S t pressure [facility]) Systolic blood 146 mm[Hg] 146 mm[Hg] MEDGEN ([facility]) Body weight 188 lb 188 lb MEDGEN ([facility]) Body height 63 in 63 in MEDGEN ([facility]) Body mass index 33.3 kg/m2 33.3 kg/m2 MEDGEN (S t (BMI) [Ratio] [facility], ) Diastolic blood 84 mm[Hg] 84 mm[Hg] MEDGEN (S t pressure [facility]) Systolic blood 146 mm[Hg] 146 mm[Hg] MEDGEN ([facility]) Body weight 188 lb 188 lb MEDGEN ([facility]) Body height 63 in 63 in MEDGEN ([facility]) Body mass index 33.7 kg/m2 33.7 kg/m2 MEDGEN (S t (BMI) [Ratio] [facility]) Diastolic blood 92 mm[Hg] 92 mm[Hg] MEDGEN (S t pressure [facility]) Systolic blood 130 mm[Hg] 130 mm[Hg] MEDGEN ([facility]) Body weight 190 lb 190 lb [facility] ([facility]) Body height 63 in 63 in [facility] ([facility]) Body mass index 33.7 kg/m2 33.7 kg/m2 [facility] (S t (BMI) [Ratio] [facility]) Diastolic blood 92 mm[Hg] 92 mm[Hg] [facility] (S t pressure [facility]) Systolic blood 130 mm[Hg] 130 mm[Hg] [facility] ([facility]) Body weight 190 lb 190 lb [facility] ([facility]) Body height 63 in 63 in [facility] ([facility])
--- NOTE | 2020-01-22 02:11 | HP ---
CHIEF COMPLAINT: PCP: HISTORY OF PRESENT ILLNESS: Mr. Mackay is a 54M w a pmh of IDDM, HTN, HLD presenting to the emergency department for an evaluation of a left heel wound that has persisted for 3 days. The patient reports that his had noted a small crease on the bridge of his right foot extending to the heel. It was noted to have been red and mildly tender to touch. The patient has a frequent history of hospital visits for foot ulcers. When asked about further hospitalization the patient endorses that he had recieved a stent placement in his left leg by Dr. Carmona with an atherectomy with left superficial femoral artery stent, with two vessel runoff into foot. On observation the patient has increased redness to right foot w possible abscess that is not draining. US shows - occlusion of the L femoral artery stent on plavix for the stent. In the emergency department the patient was given zosyn and vanc. Patient denies fever, chills, sweating, diarrhea, nausea, vomiting. The patient endorses numbness in his left foot metatarsal digits. Recent Travel: [place] in december (quarentined for 2 weeks after) PAST MEDICAL HISTORY: PAST SURGICAL HISTORY: Social History: Smoking: since he was 01/05 pack a day Alcohol: no Drugs: no Allergies codeine [Codeine] Allergy (Verified 05/29/19 17:33) HOME MEDICATIONS: Home Medications Medication Instructions Recorded metFORMIN HCL [Glucophage] 1,000 mg PO BID 06/19/12 Atorvastatin Ca [Lipitor] 80 mg PO HS 08/07/17 Glipizide 10 mg PO BID 10/20/17 Amlodipine Besylate [Norvasc -] 10 mg PO DAILY 05/22/18 Aspirin [Aspirin EC] 81 mg PO DAILY 05/22/18 Clopidogrel Bisulfate [Plavix -] 75 mg PO DAILY #30 tablet 03/21/19 Metoprolol Succinate 1 tab PO DAILY 05/06/19 Olmesartan/Hydrochlorothiazide 1 each PO DAILY 01/22/20 [Benicar Hct 40-25 mg Tablet] Pantoprazole Sodium 40 mg PO DAILY 01/22/20 REVIEW OF SYSTEMS see above PHYSICAL EXAMINATION Vital Signs - 24 hr 01/21/20 01/22/20 20:48 01:48 Temperature 98.5 F 98.1 F Pulse Rate 73 Pulse Rate [ 66 Left Radial] Respiratory 20 18 Rate Blood Pressure 160/66 Blood Pressure 123/70 [Right Arm] O2 Sat by Pulse 100 96 Oximetry (%) GENERAL: Awake, alert, and fully oriented, in no acute distress. HEAD: Normal with no signs of trauma. EYES: Pupils equal, round and reactive to light, extraocular movements intact, sclera anicteric, conjunctiva clear. No lid lag. EARS, NOSE, THROAT: Ears normal, nares patent, oropharynx clear without exudates. Moist mucous membranes. NECK: Normal range of motion, supple without lymphadenopathy, JVD, or masses. LUNGS: Breath sounds equal, clear to auscultation bilaterally. No wheezes, and no crackles. No accessory muscle use. HEART: Regular rate and rhythm, normal S1 and S2 without murmur, rub or gallop. ABDOMEN: Soft, nontender, not distended, normoactive bowel sounds, no guarding, no rebound, no masses. No hepatomegaly or splenomegaly. MUSCULOSKELETAL: Normal range of motion at all joints. No bony deformities or tenderness. No CVA tenderness. UPPER EXTREMITIES: 2+ pulses, warm, well-perfused. No cyanosis. No clubbing. No peripheral edema. LOWER EXTREMITIES: 2+ pulses, warm, well-perfused. No calf tenderness. No peripheral edema. NEUROLOGICAL: Cranial nerves II-XII intact. Normal speech. Normal gait. PSYCHIATRIC: Cooperative. Good eye contact. Appropriate mood and affect. SKIN: Warm, dry, normal turgor, no rashes or lesions noted, normal capillary refill. Laboratory Results - last 24 hr 01/21/20 01/21/20 01/21/20 22:00 22:00 22:00 WBC 9.1 RBC 4.88 Hgb 14.8 Hct 43.9 MCV 89.9 MCH 30.4 MCHC 33.8 RDW 14.8 Plt Count 350 MPV 6.9 L Absolute Neuts (auto) 5.1 Neutrophils % 56.6 D Lymphocytes % 34.5 D Monocytes % 7.1 Eosinophils % 1.1 Basophils % 0.7 Nucleated RBC % 0 PT with INR 10.90 INR 0.92 Sodium 136 Potassium 3.9 Chloride 103 Carbon Dioxide 25 Anion Gap 8 BUN 14.5 Creatinine 0.9 Est GFR (CKD-EPI)AfAm 110.27 Est GFR (CKD-EPI)NonAf 95.14 Random Glucose 355 H Calcium 9.3 Total Bilirubin 0.2 AST 11 L ALT 20 Alkaline Phosphatase 84 Total Protein 6.9 Albumin 3.5 Urine Color Urine Appearance Urine pH Ur Specific Nunn Urine Protein Urine Glucose (UA) Urine Ketones Urine Blood Urine Nitrite Urine Bilirubin Urine Urobilinogen Ur Leukocyte Esterase 01/21/20 22:00 WBC RBC Hgb Hct MCV MCH MCHC RDW Plt Count MPV Absolute Neuts (auto) Neutrophils % Lymphocytes % Monocytes % Eosinophils % Basophils % Nucleated RBC % PT with INR INR Sodium Potassium Chloride Carbon Dioxide Anion Gap BUN Creatinine Est GFR (CKD-EPI)AfAm Est GFR (CKD-EPI)NonAf Random Glucose Calcium Total Bilirubin AST ALT Alkaline Phosphatase Total Protein Albumin Urine Color Yellow Urine Appearance Clear Urine pH 5.0 Ur Specific Nunn 1.036 H Urine Protein Negative Urine Glucose (UA) 3+ H Urine Ketones Negative Urine Blood Negative Urine Nitrite Negative Urine Bilirubin Negative Urine Urobilinogen 0.2 Ur Leukocyte Esterase Negative ASSESSMENT/PLAN: Mr. Mackay is a 54M w a pmh of IDDM, HTN, HLD presenting to the emergency department for an evaluation of a left heel wound that has persisted for 3 days. The patient reports that his had noted a small crease on the bridge of his right foot extending to the heel. #diabetic foot ulcer good wound care with debridement if needed revascularization if needed mechanical offloading with methods like cast walkers and wedge shoes improved glycemic control consult dr washburn - ordering LDH, ESR, CRP - Ordering foot xray - ordering ultrasound of food wound #L SFA stent occlusion - Dr. Carmona already aware - Currently watching and patient placed on asa and plavix #IDDM - ISS - A1C - Better glycemic control #HTN - COntinue home meds #HLD - Continue home statin #DVT ppx - lovenox sq #Advanced directive - full code #DISPO - Med surg #FEN - po hydration - monitor lytes - diabetic diet ATTENDING PHYSICIAN STATEMENT I saw and evaluated the patient. I reviewed the resident's note and discussed the case with the resident. I agree with the resident's findings and plan as documented. SUBJECTIVE: OBJECTIVE: ASSESSMENT AND PLAN:
--- NOTE | 2020-01-22 05:39 | PN ---
Teaching Attending Note Name of Resident: Deacon Salvador ATTENDING PHYSICIAN STATEMENT I saw and evaluated the patient. I reviewed the resident's note and discussed the case with the resident. I agree with the resident's findings and plan as documented. SUBJECTIVE: 54yoM with h/o T2DM on insulin, h/o diabetic ulcer, HTN, HLD, congenital foot deformity s/p corrective surgery, and PVD s/p left SFA stent by Dr. Carmona and known stent occlusion who presents with 3-4 days of worsening pain from a left foot wound. Patient states he has a skin fold from a prior surgery on his medial left foot arch. About 4 days ago the area around it started to swell and developed redness with worsening pain wtih ambulation. He denies purulent drainage, fevers, chills. Has been treating it at home with topical antibiotic ointment. Afebrile and hemodynamically stable in the ED. Labs unremarkable including WBC 9.1. Arterial duplex of the left lower leg showed occlusion of the SFA stent. ED discussed with vascular surgery, Dr. Carmona, and recommended no change to his current antiplatelet regimen. Patient received vancomycin and Zosyn and is admitted for further management. OBJECTIVE: Vital Signs - 24 hr 01/21/20 01/22/20 01/22/20 20:48 01:48 03:28 Temperature 98.5 F 98.1 F 98.0 F Pulse Rate 73 65 Pulse Rate [ 66 Left Radial] Respiratory 20 18 20 Rate Blood Pressure 160/66 142/60 Blood Pressure 123/70 [Right Arm] O2 Sat by Pulse 100 96 96 Oximetry (%) EXAM Gen: awake, alert, NAD HEENT: NC/AT, MMM CV: RRR, no MRG Resp: CTAB, unlabored Abd: Soft, NT, ND Ext: atrophy bilateral lower legs. Feet warm, well-perfused but left PT pulse not palpable. Medial left foot arch with fleshy protrusion and a crease that has white exudate, surrounding erythema. +fluctuance but unable to express pus. Point tenderness to medial left heel. No lymphangitic spread. Neuro: CN II-XII grossly intact Psych: AOx3 ASSESSMENT AND PLAN: 54yoM with h/o T2DM on insulin, h/o diabetic ulcer, HTN, HLD, congenital foot deformity s/p corrective surgery, and PVD s/p left SFA stent by Dr. Carmona and known stent occlusion who presented with 3-4 days of worsening pain from a left foot wound admitted with cellulitis, r/o abscess and osteomyelitis. Left medial foot wound Area of fluctuance, no pus expressed. Small amount of exudate at the site but may be the ointment patient has been applying Point tenderness on medial left heel as well, will w/u for osteomyelitis No evidence of sepsis currently - US to assess for abscess - check ESR, CRP, left foot XR - consider MRI to r/o osteo if inflammatory markers are elevated - f/u blood cultures - continue empiric vancomycin/Zosyn - ID PVD s/p left SFA stent complicated by occlusion PT pulse not palpable but foot is warm, well perfused Patient states he was already aware the stent was occluded, follows closely with Dr. Carmona as outpatient - Dr. Carmona aware, will follow - continue aspirin, Plavix DM: ISS HTN: continue home meds DVT ppx: Lovenox subq
[2020-01-22 08:22] LABS: BLOOD UREA NITROGEN 12.5 mg/dL (7-18); CALCIUM 9.2 mg/dL (8.5-10.1); CREATININE 0.7 mg/dL (0.55-1.3); MAGNESIUM 2.1 mg/dL (1.8-2.4); PHOSPHOROUS 4.2 mg/dL (2.5-4.9); POTASSIUM 4.2 mmol/L (3.5-5.1)
[2020-01-22 08:33] LABS: HEMATOCRIT 44.4 % (35.4-49); HEMOGLOBIN 14.8 GM/dL (11.7-16.9); MCH 29.8 pg (25.7-33.7); MCHC 33.4 g/dl (32.0-35.9); MEAN CELL VOLUME 89.1 fl (80-96); MEAN PLT VOLUME 6.9 fl (7.5-11.1); PLATELET COUNT 334 K/MM3 (134-434); RBC 4.99 M/mm3 (4.00-5.60); RDW 14.7 % (11.9-15.9); WHITE BLOOD COUNT 6.9 K/mm3 (4.0-10.0)
--- NOTE | 2020-01-22 08:47 | EKG ---
Test Reason : Blood Pressure : / mmHG Vent. Rate : 082 BPM Atrial Rate : 082 BPM P-R Int : 196 ms QRS Dur : 100 ms QT Int : 376 ms P-R-T Axes : 048 020 024 degrees QTc Int : 439 ms NORMAL SINUS RHYTHM INCOMPLETE RIGHT BUNDLE BRANCH BLOCK BORDERLINE ECG WHEN COMPARED WITH ECG OF 27-MAY-2018 00:40, NO SIGNIFICANT CHANGE WAS FOUND Confirmed by Bill Wong MD ([id number]) on 01/22/2020 8:46:30 AM Referred By: Confirmed By:Bill Wong MD
[2020-01-22] MEDS: PANTOPRAZOLE 40 MG TABLET PO SCH (09:26)
[2020-01-22] MEDS: amLODIPine BESYLATE 10 MG TABLET (FP) PO SCH (09:26)
[2020-01-22] MEDS: CLOPIDOGREL BISULFATE 75 MG TABLET (FP) PO SCH (09:26)
[2020-01-22] MEDS: ASPIRIN COATED 81 MG TABLET.EC PO SCH (09:26)
[2020-01-22] MEDS: ENOXAPARIN NA (PORCINE) 40 MG/0.4 ML DISP.SYRIN SQ SCH (09:27)
--- NOTE | 2020-01-22 11:53 | CONSULT ---
- Consultation REQUESTING PROVIDER: CONSULT REQUEST: We have been asked to surgically evaluate this patient for (specify). Hospitalist:TYSON Batista HISTORY OF PRESENT ILLNESS: 54yo M with PMH of IDDM, diabetic ulcer, HTN, HLD, PVD, foot deformity s/p re pair, hx osteomylelitis presents with left lower extremity pain and wound evaluation. Pt states recently returned from [place] on 01/10 and has been quarantined however states has been having some pressure like pain with ambulation past 2-3days. Pt states pain decreased when lying down. Pt ambulates without assistance; no cane or walker, unable to quantify how many blocks he can ambulate before onset of pain. Pt reports L foot previous surgical wound with erythema, denies: fevers, chills, purulenct, drainage, malodor, numbness, tingling, CP, SOB, PMHx: as per HPI PSHx: cervical fusion, R shoulder repair, Aortogram, LLE angiogram, SFA atherectomy with angioplasty on 05/30/19 SHx: smoker 10cigs per day, denies alcohol use Home Medications Medication Instructions Recorded metFORMIN HCL [Glucophage] 1,000 mg PO BID 06/19/12 Atorvastatin Ca [Lipitor] 80 mg PO HS 08/07/17 Glipizide 10 mg PO BID 10/20/17 Amlodipine Besylate [Norvasc -] 10 mg PO DAILY 05/22/18 Aspirin [Aspirin EC] 81 mg PO DAILY 05/22/18 Clopidogrel Bisulfate [Plavix -] 75 mg PO DAILY #30 tablet 03/21/19 Metoprolol Succinate 1 tab PO DAILY 05/06/19 Olmesartan/Hydrochlorothiazide 1 each PO DAILY 01/22/20 [Benicar Hct 40-25 mg Tablet] Pantoprazole Sodium 40 mg PO DAILY 01/22/20 Allergies Allergy/AdvReac Type Severity Reaction Status Date / Time codeine [Codeine] Allergy Verified 05/29/19 17:33 REVIEW OF SYSTEMS: all pertinent positives and negatives as per HPI. All other systems reviewed and negative. PHYSICAL EXAM: GENERAL: Awake, alert, and fully oriented, in no acute distress. unlabored breathing on RA RLE: warm, +fem/pop/DP/PT signals on doppler, +ROM, compartments soft/compressible/nontender LLE: warm, no palpable pulses, +DP signal, medial aspect of L foot angulated toes, with previous surgical flap noted on medial foot arch, no induration, malodor, nontender, small area of fibrinous exudate, nonfluctant, venous stasis, sensation intact per baseline Vital Signs Temperature 98 F 01/22/20 07:21 Pulse Rate 65 01/22/20 07:21 Respiratory Rate 20 01/22/20 07:21 Blood Pressure 124/65 01/22/20 07:21 O2 Sat by Pulse Oximetry (%) 97 01/22/20 07:21 Lab Results WBC 6.9 K/mm3 (4.0-10.0) 01/22/20 06:25 RBC 4.99 M/mm3 (4.00-5.60) 01/22/20 06:25 Hgb 14.8 GM/dL (11.7-16.9) 01/22/20 06:25 Hct 44.4 % (35.4-49) 01/22/20 06:25 MCV 89.1 fl (80-96) 01/22/20 06:25 MCHC 33.4 g/dl (32.0-35.9) 01/22/20 06:25 RDW 14.7 % (11.9-15.9) 01/22/20 06:25 Plt Count 334 K/MM3 (134-434) 01/22/20 06:25 INR 0.92 (0.83-1.09) 01/21/20 22:00 Sodium 136 mmol/L (136-145) 01/22/20 06:25 Potassium 4.2 mmol/L (3.5-5.1) 01/22/20 06:25 Chloride 102 mmol/L (98-107) 01/22/20 06:25 Carbon Dioxide 27 mmol/L (21-32) 01/22/20 06:25 Anion Gap 7 MMOL/L (8-16) L 01/22/20 06:25 BUN 12.5 mg/dL (7-18) 01/22/20 06:25 Creatinine 0.7 mg/dL (0.55-1.3) 01/22/20 06:25 Random Glucose 241 mg/dL (74-106) H 01/22/20 06:25 Calcium 9.2 mg/dL (8.5-10.1) 01/22/20 06:25 Current Medications Imaging: LLE US/duplex art: -Stent in L SFA occluded at the mid and distal femoral artery level -monophasic waveform in the [employer], prox SFA at the level of the stent as well as in the pop and [employer]CH[employer]ICIAN compatible with mod to marked atherosclerotic disease. - no evidence of DVT of LLE FOOT X-ray: toes angulated, bunion formation by 1st MTP joint, loss of bone density and cystic changes, narrowing of interspace between talus and calcaneus, calcaneus has a chronic deformity as naviculat bone and talus. an acute process not appreciated. IF one is concerned about osteomyelitis, three-phase bone scan or NR may be of help A&P: 54yo M with PMH of IDDM, diabetic ulcer, HTN, HLD, PVD, foot deformity s/p repair, hx osteomylelitis presents with left lower extremity pain and wound evaluation. Found to have occluded L SFA at mid and distal femoral artery level. Vascular consulted for L SFA stent occlusion. Plan for angiogram 01/24/20: Pre-op: NPO@MN, medical clearance, cardiac clearance Continue ASA/Plavix labs: no leukocytosis WBC 6.9, H&H stable Continue Vanc/Zosyn rest of care per primary team will d/w Dr. Carmona
[2020-01-22] MEDS ORDERED: INSULIN (NOVOLOG) ASPART 100 UNITS/ML 10ML VIAL ONE ×2 (11:58→21:40)
[2020-01-22] MEDS: INSULIN SLIDING SCALE (NOVOLOG) 1 VIAL SQ SCH ×3 (12:00→23:01)
--- NOTE | 2020-01-22 13:15 | CONSULT ---
Consult Consult Specialty:: Podiatry Reason for Consultation:: wound left arch of foot - History of Present Illness History of Present Illness: chronic wound left with pvd that is painful - History Source History Provided By: Patient - Past Medical History Cardio/Vascular: Yes: HTN, Hyperlipdemia Endocrine: Yes: Diabetes Mellitus - Alcohol/Substance Use Hx Alcohol Use: No - Smoking History Smoking history: Current every day smoker Have you smoked in the past 12 months: Yes Aproximately how many cigarettes per day: 10 Home Medications - Allergies Allergies/Adverse Reactions: Allergies Allergy/AdvReac Type Severity Reaction Status Date / Time codeine [Codeine] Allergy Verified 05/29/19 17:33 - Home Medications Home Medications: Ambulatory Orders metFORMIN HCL [Glucophage] 1,000 mg PO BID 06/19/12 Atorvastatin Ca [Lipitor] 80 mg PO HS 08/07/17 Glipizide 10 mg PO BID 10/20/17 Amlodipine Besylate [Norvasc -] 10 mg PO DAILY 05/22/18 Aspirin [Aspirin EC] 81 mg PO DAILY 05/22/18 Clopidogrel Bisulfate [Plavix -] 75 mg PO DAILY #30 tablet 03/21/19 Metoprolol Succinate 1 tab PO DAILY 05/06/19 Olmesartan/Hydrochlorothiazide [Benicar Hct 40-25 mg Tablet] 1 each PO DAILY 01/22/20 Pantoprazole Sodium 40 mg PO DAILY 01/22/20 Physical Exam Vital Signs: Vital Signs Temperature 98 F 01/22/20 07:21 Pulse Rate 65 01/22/20 07:21 Respiratory Rate 20 01/22/20 07:21 Blood Pressure 124/65 01/22/20 07:21 O2 Sat by Pulse Oximetry (%) 97 01/22/20 07:21 Wound/Incision: Yes: Other (+wound left arch, +tender, +non healing, +fissure seconday to skin redundency) Labs: CBC, BMP 01/22/20 06:25 01/22/20 06:25 Assessment/Plan pvd? grade 2 wound left If pt has vascular clearance would attemp revision of redundancy of skin causing problem and close wound again to improve pain. Santyl to wound today. Will discuss with vascular. Rest as per team.
--- NOTE | 2020-01-22 14:33 | CON.ID ---
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 left rotator cuff surgery - Alcohol/Substance Use Hx Alcohol Use: No - Smoking History Smoking history: Current every day smoker Have you smoked in the past 12 months: Yes Aproximately how many cigarettes per day: 10 - Social History Usual Living Arrangement: With Spouse ADL: Independent Place of : Other ([place]) History of Recent Travel: Yes ([place] in December) Home Medications - Allergies Allergies/Adverse Reactions: Allergies Allergy/AdvReac Type Severity Reaction Status Date / Time codeine [Codeine] Allergy Verified 05/29/19 17:33 - Home Medications Home Medications: Ambulatory Orders metFORMIN HCL [Glucophage] 1,000 mg PO BID 06/19/12 Atorvastatin Ca [Lipitor] 80 mg PO HS 08/07/17 Glipizide 10 mg PO BID 10/20/17 Amlodipine Besylate [Norvasc -] 10 mg PO DAILY 05/22/18 Aspirin [Aspirin EC] 81 mg PO DAILY 05/22/18 Clopidogrel Bisulfate [Plavix -] 75 mg PO DAILY #30 tablet 03/21/19 Metoprolol Succinate 1 tab PO DAILY 05/06/19 Olmesartan/Hydrochlorothiazide [Benicar Hct 40-25 mg Tablet] 1 each PO DAILY 01/22/20 Pantoprazole Sodium 40 mg PO DAILY 01/22/20 Family Medical History Family History: Denies Review of Systems - Review of Systems Constitutional: reports: No Symptoms Eyes: reports: No Symptoms HENT: reports: No Symptoms Neck: reports: No Symptoms Cardiovascular: reports: No Symptoms Respiratory: reports: No Symptoms Gastrointestinal: reports: No Symptoms Genitourinary: reports: No Symptoms Breasts: reports: No Symptoms Reported Musculoskeletal: reports: Other (per HPI) Neurological: reports: No Symptoms Physical Exam Vital Signs: Vital Signs Temperature 98 F 01/22/20 07:21 Pulse Rate 65 01/22/20 07:21 Respiratory Rate 20 01/22/20 07:21 Blood Pressure 124/65 01/22/20 07:21 O2 Sat by Pulse Oximetry (%) 94 L 01/22/20 09:00 Constitutional: Yes: No Distress, Calm Eyes: Yes: Conjunctiva Clear HENT: Yes: Atraumatic, Normocephalic Neck: Yes: Supple Cardiovascular: Yes: Regular Rate and Rhythm Respiratory: Yes: Regular, CTA Bilaterally Gastrointestinal: Yes: Normal Bowel Sounds Extremities: Yes: Other (minimal erythema plantar surface of left foot- multiple scars from prior surgery, no drainage, nofluctuance noted) Edema: No Psychiatric: Yes: Alert, Oriented Labs: CBC, BMP 01/22/20 06:25 01/22/20 06:25 esr 9, crp 1.1 Imaging - Results X-ray: Report Reviewed Ultrasound: Report Reviewed (no dvt) Problem List - Problems (1) Cellulitis of left foot Code(s): L03.116 - CELLULITIS OF LEFT LOWER LIMB (2) PAD (peripheral artery disease) Code(s): I73.9 - PERIPHERAL VASCULAR DISEASE, UNSPECIFIED (3) Poorly controlled diabetes mellitus Code(s): E11.65 - TYPE 2 DIABETES MELLITUS WITH HYPERGLYCEMIA Assessment/Plan cellulitis improving will switch to cefazolin vascular to see for PAD needs better diabetes control-
--- NOTE | 2020-01-22 15:34 | HOSP ---
Subjective - Review of Symptoms Events since last encounter: Seen and examined in bed. Foul smelling drainage from left foot-small open area noted. Vascular/podiatry following and plan for angio on 01/23. Other Systems: Integumentary: RLE: warm, +fem/pop/DP/PT signals on doppler, +ROM, compartments soft/compressible/nontender LLE: warm, no palpable pulses, +DP signal, medial aspect of L foot angulated toes, with previous surgical flap noted on medial foot arch, no induration, malodor, nontender, small area of fibrinous exudate, nonfluctant, venous stasis, sensation intact per baseline Physical Examination Vital Signs: Vital Signs Temperature 98 F 01/22/20 07:21 Pulse Rate 65 01/22/20 07:21 Respiratory Rate 20 01/22/20 07:21 Blood Pressure 124/65 01/22/20 07:21 O2 Sat by Pulse Oximetry (%) 94 L 01/22/20 09:00 Constitutional: Yes: Well Nourished, No Distress, Calm Eyes: Yes: WNL, Conjunctiva Clear, EOM Intact HENT: Yes: WNL, Atraumatic, Normocephalic Neck: Yes: WNL, Supple, Trachea Midline Cardiovascular: Yes: WNL, Regular Rate and Rhythm Respiratory: Yes: WNL, Regular, CTA Bilaterally Gastrointestinal: Yes: WNL, Normal Bowel Sounds ...Rectal Exam: Yes: Deferred Renal/: Yes: WNL Breast(s): Yes: WNL Musculoskeletal: Yes: WNL Edema: No Integumentary: Yes: Other (RLE: warm, +fem/pop/DP/PT signals on doppler, +ROM, compartments soft/compressible/nontender LLE: warm, no palpable pulses, +DP signal, medial aspect of L foot angulated toes, with previous surgical flap noted on medial foot arch, no induration, malodor, nontender, small area of fibrinous exudate, nonfluctant, venous stasis, sensation intact per baseline) Neurological: Yes: WNL, Alert, Oriented ...Motor Strength: WNL Psychiatric: Yes: WNL Labs: CBC, BMP 01/22/20 06:25 01/22/20 06:25 Hospitalist Encounter Assessment: Plan for angiogram 01/24/20 Pre-op: NPO@MN will obtain cardiac clearance Continue ASA/Plavix Continue Vanc/Zosyn Full note to follow tomorrow
[2020-01-22] MEDS ORDERED: ceFAZolin SODIUM 1 GM VIAL ONE (17:05)
[2020-01-22] MEDS ORDERED: DEXTROSE 5%-WATER - 50 ML IVPB ONE (17:06)
[2020-01-22] MEDS: CEFAZOLIN 1 GM in DEXTROSE 5%-WATER - 50 ML IVPB SCH (17:12)
[2020-01-22] MEDS: ATORVASTATIN CA 80 MG TABLET (FP) PO SCH (23:01)
[2020-01-23] MEDS ORDERED: ceFAZolin SODIUM 1 GM VIAL ONE ×3 (02:00→17:41)
[2020-01-23] MEDS ORDERED: DEXTROSE 5%-WATER - 50 ML IVPB ONE ×3 (02:01→17:41)
[2020-01-23] MEDS: CEFAZOLIN 1 GM in DEXTROSE 5%-WATER - 50 ML IVPB SCH ×3 (02:10→18:08)
[2020-01-23] MEDS: INSULIN SLIDING SCALE (NOVOLOG) 1 VIAL SQ SCH ×4 (06:44→21:07)
--- NOTE | 2020-01-23 08:54 | PN ---
Progress Note, Physician Chief Complaint: Seen and examined in bed.Left lower extrem with dressing intact. Seen by vascular and plan for angiogram and angioplasty tomorrow. TTE and Cardiac clearance requested. History of Present Illness: 54M w a pmh of IDDM, HTN, HLD presenting to the emergency department for an freda luation of a left heel wound that has persisted for 3 days. - Current Medication List Current Medications: Active Medications Amlodipine Besylate (Norvasc -) 10 mg PO DAILY [facility] Last Admin: 01/22/20 09:26 Dose: 10 mg Documented by: Aspirin (Ecotrin -) 81 mg PO DAILY [facility] Last Admin: 01/22/20 09:26 Dose: 81 mg Documented by: Atorvastatin Calcium (Lipitor -) 80 mg PO HS [facility] Last Admin: 01/22/20 23:01 Dose: 80 mg Documented by: Clopidogrel Bisulfate (Plavix -) 75 mg PO DAILY [facility] Last Admin: 01/22/20 09:26 Dose: 75 mg Documented by: Collagenase (Santyl -) 1 applic TP DAILY [facility]; Protocol Enoxaparin Sodium (Lovenox -) 40 mg SQ DAILY [facility] Last Admin: 01/22/20 09:27 Dose: 40 mg Documented by: Cefazolin Sodium 1 gm/ (Dextrose) 50 mls @ 100 mls/hr IVPB Q8H-IV [facility] Last Admin: 01/23/20 02:10 Dose: 100 mls/hr Documented by: Insulin Aspart (Novolog Vial Sliding Scale -) 1 vial SQ ACHS [facility]; Protocol Last Admin: 01/23/20 06:44 Dose: 4 units Documented by: Insulin Detemir (Levemir Vial) 5 units SQ BIDI [facility] Metoprolol Succinate (Toprol Xl -) 50 mg PO DAILY [facility] Last Admin: 01/22/20 09:27 Dose: 50 mg Documented by: Pantoprazole Sodium (Protonix -) 40 mg PO DAILY [facility] Last Admin: 01/22/20 09:26 Dose: 40 mg Documented by: - Objective Vital Signs: Vital Signs Temperature 98 F 01/23/20 06:54 Pulse Rate 61 01/23/20 06:54 Respiratory Rate 20 01/23/20 06:54 Blood Pressure 140/61 01/23/20 06:54 O2 Sat by Pulse Oximetry (%) 93 L 01/23/20 06:54 Additional Findings/Remarks: Constitutional: Yes: Well Nourished, No Distress, Calm Eyes: Yes: WNL, Conjunctiva Clear, EOM Intact HENT: Yes: WNL, Atraumatic, Normocephalic Neck: Yes: WNL, Supple, Trachea Midline Cardiovascular: Yes: WNL, Regular Rate and Rhythm Respiratory: Yes: WNL, Regular, CTA Bilaterally Gastrointestinal: Yes: WNL, Normal Bowel Sounds ...Rectal Exam: Yes: Deferred Renal/: Yes: WNL Breast(s): Yes: WNL Musculoskeletal: Yes: WNL Edema: No Integumentary: Yes: Other (RLE: warm, +fem/pop/DP/PT signals on doppler, +ROM, compartments soft/compressible/nontender LLE: warm, no palpable pulses, +DP signal, medial aspect of L foot angulated toes, with previous surgical flap noted on medial foot arch, no induration, malodor, nontender, small area of fibrinous exudate, nonfluctant, venous stasis, sensation intact per baseline) Neurological: Yes: WNL, Alert, Oriented ...Motor Strength: WNL Psychiatric: Yes: WNL Labs: CBC, BMP 01/22/20 06:25 01/22/20 06:25 INR, PTT INR 0.92 (0.83-1.09) 01/21/20 22:00 Problem List - Problems (1) HTN (hypertension) Assessment/Plan: normotenmsive c/w metoprolol, narvasc Code(s): I10 - ESSENTIAL (PRIMARY) HYPERTENSION (2) Prophylactic measure Assessment/Plan: FEN Fluids: adequate PO intake Electrolytes: monitor & replete as needed Nutrition: diabetic diet DVT moderate risk sq lovenox Dispo Maintain as inpatient full code discharge planning Code(s): Z29.9 - ENCOUNTER FOR PROPHYLACTIC MEASURES, UNSPECIFIED (3) Suspected COVID-19 virus infection Assessment/Plan: COVID Suspicion low On RA strict airborne/droplet precautions until resulted Code(s): Z20.828 - CONTACT W AND EXPOSURE TO OTH VIRAL COMMUNICABLE DISEASES (4) Diabetes mellitus Assessment/Plan: BGM AC/HS with novolog sliding scale diabetic diet c/w levemir Code(s): E11.9 - TYPE 2 DIABETES MELLITUS WITHOUT COMPLICATIONS Qualifiers: Diabetes mellitus type: type 2 Diabetes mellitus province archivist insulin use: unspecified province archivist insulin use status Diabetes mellitus complication status: without complication Qualified Code(s): E11.9 - Type 2 diabetes mellitus without complications (5) Diabetic foot ulcer Assessment/Plan: podiatery and vascular following Left foot cellulitis improving over the arch as per vasc c/w ancef Code(s): E11.621 - TYPE 2 DIABETES MELLITUS WITH FOOT ULCER; L97.509 - NON- PRESSURE CHRONIC ULCER OTH PRT UNSP FOOT W UNSP SEVERITY Qualifiers: Diabetic foot ulcer location: heel Diabetes mellitus type: type 2 Laterality: left Non-pressure ulcer stage: unspecified non-pressure ulcer stage Qualified Code(s): E11.621 - Type 2 diabetes mellitus with foot ulcer; L97.429 - Non-pressure chronic ulcer of left heel and midfoot with unspecified severity (6) Femoral artery occlusion, left Assessment/Plan: US done shows stents in left SFA to be closed. angiogram, angioplasty tmrw to open stents. with Dr Carmona Code(s): I70.202 - UNSP ATHSCL [place] ARTERIES OF EXTREMITIES, LEFT LEG (7) PAD (peripheral artery disease) Code(s): I73.9 - PERIPHERAL VASCULAR DISEASE, UNSPECIFIED (8) Smoking Assessment/Plan: c/t smoke despite stents re-occluding Code(s): F17.200 - NICOTINE DEPENDENCE, UNSPECIFIED, UNCOMPLICATED (9) HLD (hyperlipidemia) Assessment/Plan: c/w statin Code(s): E78.5 - HYPERLIPIDEMIA, UNSPECIFIED Visit type - Emergency Visit Emergency Visit: Yes ED Registration Date: 01/22/20 Care time: The patient presented to the Emergency Department on the above date and was hospitalized for further evaluation of their emergent condition. - New Patient This patient is new to me today: No - Critical Care Critical Care patient: No - Discharge Referral Referred to [facility] Med P.C.: No
[2020-01-23] MEDS: CLOPIDOGREL BISULFATE 75 MG TABLET (FP) PO SCH (09:03)
[2020-01-23] MEDS: PANTOPRAZOLE 40 MG TABLET PO SCH (09:03)
[2020-01-23] MEDS: ENOXAPARIN NA (PORCINE) 40 MG/0.4 ML DISP.SYRIN SQ SCH (09:03)
[2020-01-23] MEDS: ASPIRIN COATED 81 MG TABLET.EC PO SCH (09:03)
[2020-01-23] MEDS: INSULIN (LEVEMIR) 100 UNITS/ML UNITS SQ SCH ×2 (09:03→17:12)
[2020-01-23] MEDS: amLODIPine BESYLATE 10 MG TABLET (FP) PO SCH (09:03)
--- NOTE | 2020-01-23 12:22 | PN ---
Progress Note (short form) - Note Progress Note: Vascular Surgery Pt seen and examined. Doing well. Left foot cellulitis getting better over the arch. US done shows stents in left sfa to be closed. Will do angiogram, angioplasty teresa to open stents. Pt continues to smoke, despite understanding that if he smokes his stents will close. Sonido Carmona DO
--- NOTE | 2020-01-23 14:03 | ECHO ---
Name: BHAVESH DANAY Exam:Adult Echocardiogram Study Date: 01/23/2020 09:52 AM Age: 54 yrs Reason For Study: Pre-op Height: 63 in Weight: 171 lb BSA: 1.8 m2 MMode/2D Measurements & Calculations IVSd: 1.2 cm Ao root diam: 3.0 cm LVIDd: 4.1 cm LA dimension: 3.8 cm LVIDs: 2.7 cm ACS: 1.9 cm LVPWd: 1.2 cm EDV(Teich): 72.7 ml LVOT diam: 2.0 cm ESV(Teich): 27.1 ml LAV (MOD-bp): 50.1 ml TAPSE: 2.3 cm RV S Santiago: 12.7 cm/sec Doppler Measurements & Calculations MV E max santiago: 90.2 cm/sec Ao V2 max: 139.8 cm/sec MV A max santiago: 77.1 cm/sec Ao max P.8 mmHg MV E/A: 1.2 Ao V2 mean: 97.0 cm/sec MV dec time: 0.19 sec Ao mean P.2 mmHg Ao V2 VTI: 29.7 cm EVANS(I,D): 2.1 cm2 EVANS(V,D): 1.9 cm2 LV V1 max P.1 mmHg SV(LVOT): 61.4 ml LV V1 mean P.5 mmHg LV V1 max: 87.8 cm/sec LV V1 mean: 55.6 cm/sec LV V1 VTI: 20.0 cm TR max santiago: 181.9 cm/sec PA V2 max: 88.2 cm/sec TR max P.2 mmHg PA max P.1 mmHg PA acc time: 0.16 sec Med Peak E' Santiago: 6.5 cm/sec PA pr(Accel): 7.7 mmHg Med E/e': 13.8 Lat Peak E' Santiago: 11.3 cm/sec Lat E/e': 8.0 Procedure A complete two-dimensional transthoracic echocardiogram was performed (2D, M-mode, Doppler and color flow Doppler). Left Ventricle The left ventricular size, thickness and function are normal. The left ventricular ejection fraction is normal. Ejection Fraction = 55-60%. The left ventricular wall motion is normal. Right Ventricle The right ventricle is normal in size and function. Atria Normal left and right atrial size and function. Mitral Valve There is no mitral regurgitation noted. Tricuspid Valve There is trace tricuspid regurgitation. There was insufficient TR detected to calculate RV systolic p ressure. Aortic Valve No hemodynamically significant valvular aortic stenosis. No aortic regurgitation is present. Pulmonic Valve There is no pulmonic valvular regurgitation. Great Vessels The aortic root is normal size. Pericardium/Pleura There is no pericardial effusion. Interpretation Summary The left ventricular size, thickness and function are normal The right ventricle is normal in size and function. There is trace tricuspid regurgitation. MD Ruy Hidalgo 01/23/2020 02:03 PM
[2020-01-23] MEDS ORDERED: PT OWN MED DRAWER 7, Y5N ONE (15:13)
[2020-01-23] MEDS: COLLAGENASE CLOSTRIDIUM HIST. 30 GRAMS TUBE TP SCH (15:15)
--- NOTE | 2020-01-23 15:59 | PN ---
Progress Note, Physician Chief Complaint: FUV left - Current Medication List Current Medications: Active Medications Amlodipine Besylate (Norvasc -) 10 mg PO DAILY [facility] Last Admin: 01/23/20 09:03 Dose: 10 mg Documented by: Aspirin (Ecotrin -) 81 mg PO DAILY [facility] Last Admin: 01/23/20 09:03 Dose: 81 mg Documented by: Atorvastatin Calcium (Lipitor -) 80 mg PO HS [facility] Last Admin: 01/22/20 23:01 Dose: 80 mg Documented by: Clopidogrel Bisulfate (Plavix -) 75 mg PO DAILY [facility] Last Admin: 01/23/20 09:03 Dose: 75 mg Documented by: Collagenase (Santyl -) 1 applic TP DAILY [facility]; Protocol Last Admin: 01/23/20 15:15 Dose: 1 applic Documented by: Enoxaparin Sodium (Lovenox -) 40 mg SQ DAILY [facility] Last Admin: 01/23/20 09:03 Dose: 40 mg Documented by: Cefazolin Sodium 1 gm/ (Dextrose) 50 mls @ 100 mls/hr IVPB Q8H-IV [facility] Last Admin: 01/23/20 09:02 Dose: 100 mls/hr Documented by: Insulin Aspart (Novolog Vial Sliding Scale -) 1 vial SQ ACHS [facility]; Protocol Last Admin: 01/23/20 11:29 Dose: 6 units Documented by: Insulin Detemir (Levemir Vial) 5 units SQ BIDI [facility] Last Admin: 01/23/20 09:03 Dose: 5 units Documented by: Metoprolol Succinate (Toprol Xl -) 50 mg PO DAILY [facility] Last Admin: 01/23/20 09:03 Dose: 50 mg Documented by: Pantoprazole Sodium (Protonix -) 40 mg PO DAILY [facility] Last Admin: 01/23/20 09:03 Dose: 40 mg Documented by: - Objective Vital Signs: Vital Signs Temperature 98 F 01/23/20 06:54 Pulse Rate 57 L 01/23/20 09:06 Respiratory Rate 18 01/23/20 09:06 Blood Pressure 146/74 01/23/20 09:06 O2 Sat by Pulse Oximetry (%) 96 01/23/20 09:06 Wound/Incision: Yes: Other (+wound tender medial left arch area) Labs: CBC, BMP 01/22/20 06:25 01/22/20 06:25 INR, PTT INR 0.92 (0.83-1.09) 01/21/20 22:00 Assessment/Plan pvd? grade 2 wound left Discussed with vascular will work up. If can get blood to foot more improved will excise and resuture wound to closure. Will follow. Continue Hilarioyl.
--- NOTE | 2020-01-23 16:20 | CON.CARD ---
Cardiology Consult (text) - Consultation Consultation Note: cc: foot pain hpi: 54 m hx htn, hld, dm, pad s/p le angio/stent here with moderate foot pain/non healing wound. No cp sob palps dizzy loc pnd orthopnea le edema. Pt denies hrt dz, reports nl cath 2-3 yrs ago. Planning for le angio here. pmh: per hpi psh: per hpi social: no tob fam: no premature cad,scd ros: per hpi; all others nl meds: Ambulatory Orders metFORMIN HCL [Glucophage] 1,000 mg PO BID 06/19/12 Atorvastatin Ca [Lipitor] 80 mg PO HS 08/07/17 Glipizide 10 mg PO BID 10/20/17 Amlodipine Besylate [Norvasc -] 10 mg PO DAILY 05/22/18 Aspirin [Aspirin EC] 81 mg PO DAILY 05/22/18 Clopidogrel Bisulfate [Plavix -] 75 mg PO DAILY #30 tablet 03/21/19 Metoprolol Succinate 1 tab PO DAILY 05/06/19 Olmesartan/Hydrochlorothiazide [Benicar Hct 40-25 mg Tablet] 1 each PO DAILY 01/22/20 Pantoprazole Sodium 40 mg PO DAILY 01/22/20 pe: Vital Signs Period Temp Pulse Resp BP Sys/Mills Pulse Ox Last 24 Hr 98 F-98.6 F 57-64 18-20 129-146/61-74 93-96 nad no jvd rrr s1s2 nomrg ctabl nl eff aao3 no le e/c/c abd nt nd pos bs no carotid bruits no jaundice diaphoresis Laboratory Last Values WBC 6.9 K/mm3 (4.0-10.0) 01/22/20 06:25 RBC 4.99 M/mm3 (4.00-5.60) 01/22/20 06:25 Hgb 14.8 GM/dL (11.7-16.9) 01/22/20 06:25 Hct 44.4 % (35.4-49) 01/22/20 06:25 MCV 89.1 fl (80-96) 01/22/20 06:25 MCH 29.8 pg (25.7-33.7) 01/22/20 06:25 MCHC 33.4 g/dl (32.0-35.9) 01/22/20 06:25 RDW 14.7 % (11.9-15.9) 01/22/20 06:25 Plt Count 334 K/MM3 (134-434) 01/22/20 06:25 MPV 6.9 fl (7.5-11.1) L 01/22/20 06:25 Absolute Neuts (auto) 5.1 K/mm3 (1.5-8.0) 01/21/20 22:00 Neutrophils % 56.6 % (42.8-82.8) D 01/21/20 22:00 Lymphocytes % 34.5 % (8-40) D 01/21/20 22:00 Monocytes % 7.1 % (3.8-10.2) 01/21/20 22:00 Eosinophils % 1.1 % (0-4.5) 01/21/20 22:00 Basophils % 0.7 % (0-2.0) 01/21/20 22:00 Nucleated RBC % 0 % (0-0) 01/21/20 22:00 ESR 9 mm/hr (0-20) 01/22/20 06:25 PT with INR 10.90 SEC (9.7-13.0) 01/21/20 22:00 INR 0.92 (0.83-1.09) 01/21/20 22:00 Sodium 136 mmol/L (136-145) 01/22/20 06:25 Potassium 4.2 mmol/L (3.5-5.1) 01/22/20 06:25 Chloride 102 mmol/L (98-107) 01/22/20 06:25 Carbon Dioxide 27 mmol/L (21-32) 01/22/20 06:25 Anion Gap 7 MMOL/L (8-16) L 01/22/20 06:25 BUN 12.5 mg/dL (7-18) 01/22/20 06:25 Creatinine 0.7 mg/dL (0.55-1.3) 01/22/20 06:25 Est GFR (CKD-EPI)AfAm 122.27 01/22/20 06:25 Est GFR (CKD-EPI)NonAf 105.50 01/22/20 06:25 POC Glucometer 261 UNITS (80-120) 01/23/20 11:27 Random Glucose 241 mg/dL (74-106) H 01/22/20 06:25 Hemoglobin A1c % 8.3 % (4.2-6.3) H 01/22/20 06:25 Calcium 9.2 mg/dL (8.5-10.1) 01/22/20 06:25 Phosphorus 4.2 mg/dL (2.5-4.9) 01/22/20 06:25 Magnesium 2.1 mg/dL (1.8-2.4) 01/22/20 06:25 Total Bilirubin 0.2 mg/dL (0.2-1) 01/21/20 22:00 AST 11 U/L (15-37) L 01/21/20 22:00 ALT 20 U/L (13-61) 01/21/20 22:00 Alkaline Phosphatase 84 U/L (45-117) 01/21/20 22:00 LD Total 114 U/L (87-246) 01/22/20 06:25 C-Reactive Protein 1.1 MG/DL (0.00-0.3) H 01/22/20 06:25 Total Protein 6.9 g/dl (6.4-8.2) 01/21/20 22:00 Albumin 3.5 g/dl (3.4-5.0) 01/21/20 22:00 Urine Color Yellow 01/21/20 22:00 Urine Appearance Clear 01/21/20 22:00 Urine pH 5.0 (5.0-8.0) 01/21/20 22:00 Ur Specific [place] 1.036 (1.010-1.035) H 01/21/20 22:00 Urine Protein Negative (NEGATIVE) 01/21/20 22:00 Urine Glucose (UA) 3+ (NEGATIVE) H 01/21/20 22:00 Urine Ketones Negative (NEGATIVE) 01/21/20 22:00 Urine Blood Negative (NEGATIVE) 01/21/20 22:00 Urine Nitrite Negative (NEGATIVE) 01/21/20 22:00 Urine Bilirubin Negative (NEGATIVE) 01/21/20 22:00 Urine Urobilinogen 0.2 mg/dL (0.2-1.0) 01/21/20 22:00 Ur Leukocyte Esterase Negative (NEGATIVE) 01/21/20 22:00 COVID-19 (EVA) Not detected (Not Detected) 01/21/20 23:00 ecg: sr nl intervals no ischemic changes echo 01/2020: nl lv/rv, no sig valve path a/p: 54 m hx htn, hld, dm, pad s/p le angio/stent here with foot pain/non healing wound. htn: -stable on current meds hld: -stable on statin pad, preop: -vascular following, plans for le angio tomorrow -pt has unremarkable echo and ecg here, no cardiac symptoms, no unstable cardiac issues. No cardiac contraindications to planned le angio. dm: -per primary
[2020-01-23] MEDS ORDERED: INSULIN (NOVOLOG) ASPART 100 UNITS/ML 10ML VIAL ONE (20:54)
[2020-01-23] MEDS: ATORVASTATIN CA 80 MG TABLET (FP) PO SCH (21:07)
[2020-01-24] MEDS ORDERED: ACETAMINOPHEN 1000 MG/100 ML VIAL (NON FORMULARY) IVPB PRN (00:06)
[2020-01-24] MEDS ORDERED: DEXTROSE 5%-WATER - 50 ML IVPB ONE ×3 (01:12→17:53)
[2020-01-24] MEDS ORDERED: ceFAZolin SODIUM 1 GM VIAL ONE ×4 (01:12→19:50)
[2020-01-24] MEDS: CEFAZOLIN 1 GM in DEXTROSE 5%-WATER - 50 ML IVPB SCH ×3 (01:30→18:06)
[2020-01-24] MEDS: INSULIN (LEVEMIR) 100 UNITS/ML UNITS SQ SCH ×2 (07:32→17:50)
[2020-01-24] MEDS: INSULIN SLIDING SCALE (NOVOLOG) 1 VIAL SQ SCH ×4 (07:32→22:36)
[2020-01-24 08:54] LABS: BASO % 0.7 % (0-2.0); EOS % 1.7 % (0-4.5); HEMATOCRIT 43.1 % (35.4-49); HEMOGLOBIN 14.6 GM/dL (11.7-16.9); LYMPH % 42.8 % (8-40); MCHC 33.8 g/dl (32.0-35.9); MEAN CELL VOLUME 88.6 fl (80-96); MEAN PLT VOLUME 6.8 fl (7.5-11.1); MONO % 7.9 % (3.8-10.2); NEUT % 46.9 % (42.8-82.8); PLATELET COUNT 324 K/MM3 (134-434); RBC 4.86 M/mm3 (4.00-5.60); RDW 14.6 % (11.9-15.9); WHITE BLOOD COUNT 5.9 K/mm3 (4.0-10.0)
[2020-01-24 09:06] LABS: INR 0.94 (0.83-1.09); PROTHROMBIN TIME (PATIENT) 11.1 SEC (9.7-13.0)
--- NOTE | 2020-01-24 09:11 | PN ---
Progress Note (short form) - Note Progress Note: seen in [facility] feels well no foot pain no fevers Vital Signs Period Temp Pulse Resp BP Sys/Mills Pulse Ox Last 24 Hr 98.0 F-98.6 F 59-62 18-20 131-138/65-74 95-97 cor-rrr lungs clear ext no drainage from foot, minimal erythema, chronic fissure no drainage noted or fluctuance meds reviewed, labs reviewed a/p cellulitis- continue cefazolin PAD-for vascular intervention Problem List - Problems (1) Cellulitis of left foot Code(s): L03.116 - CELLULITIS OF LEFT LOWER LIMB (2) PAD (peripheral artery disease) Code(s): I73.9 - PERIPHERAL VASCULAR DISEASE, UNSPECIFIED (3) Poorly controlled diabetes mellitus Code(s): E11.65 - TYPE 2 DIABETES MELLITUS WITH HYPERGLYCEMIA
[2020-01-24 09:23] LABS: ALBUMIN 3.3 g/dl (3.4-5.0); BILIRUBIN,TOTAL 0.4 mg/dL (0.2-1); BLOOD UREA NITROGEN 14.4 mg/dL (7-18); CALCIUM 8.8 mg/dL (8.5-10.1); CREATININE 0.7 mg/dL (0.55-1.3); MAGNESIUM 2.4 mg/dL (1.8-2.4); POTASSIUM 4.4 mmol/L (3.5-5.1); TOT PROT 6.7 g/dl (6.4-8.2)
[2020-01-24] MEDS: amLODIPine BESYLATE 10 MG TABLET (FP) PO SCH (10:18)
[2020-01-24] MEDS: PANTOPRAZOLE 40 MG TABLET PO SCH (10:18)
[2020-01-24] MEDS: COLLAGENASE CLOSTRIDIUM HIST. 30 GRAMS TUBE TP SCH (11:40)
[2020-01-24] MEDS ORDERED: LIDOCAINE HCL 1%, 10 MG/ML (20ML VIAL) ONE (15:24)
[2020-01-24] MEDS ORDERED: HEPARIN NA (PORCINE) 5,000 UNITS/ML 1ML VIAL ONE (15:24)
--- NOTE | 2020-01-24 18:04 | PN ---
Progress Note, Physician Chief Complaint: Seen and examined in bed.Left lower extrem with dressing intact.Angiogram and angioplasty today. No medical or cardiac contraindication to proceed with surgery.NPO for surgery History of Present Illness: 54M w a pmh of IDDM, HTN, HLD presenting to the emergency department for an evaluation of a left heel wound that has persisted for 3 days. - Current Medication List Current Medications: Active Medications Acetaminophen (Ofirmev Injection -) 1,000 mg IVPB Q6H PRN PRN Reason: PAIN LEVEL 4 - 6 Last Admin: 01/24/20 00:08 Dose: 1,000 mg Documented by: Amlodipine Besylate (Norvasc -) 10 mg PO DAILY [facility] Last Admin: 01/24/20 10:18 Dose: 10 mg Documented by: Aspirin (Ecotrin -) 81 mg PO DAILY [facility] Last Admin: 01/23/20 09:03 Dose: 81 mg Documented by: Atorvastatin Calcium (Lipitor -) 80 mg PO HS [facility] Last Admin: 01/23/20 21:07 Dose: 80 mg Documented by: Clopidogrel Bisulfate (Plavix -) 75 mg PO DAILY [facility] Last Admin: 01/23/20 09:03 Dose: 75 mg Documented by: Collagenase (Santyl -) 1 applic TP DAILY [facility]; Protocol Last Admin: 01/24/20 11:40 Dose: 1 applic Documented by: Enoxaparin Sodium (Lovenox -) 40 mg SQ DAILY [facility] Last Admin: 01/23/20 09:03 Dose: 40 mg Documented by: Cefazolin Sodium 1 gm/ (Dextrose) 50 mls @ 100 mls/hr IVPB Q8H-IV [facility] Last Admin: 01/24/20 10:18 Dose: 100 mls/hr Documented by: Insulin Aspart (Novolog Vial Sliding Scale -) 1 vial SQ ACHS [facility]; Protocol Last Admin: 01/24/20 17:51 Dose: Not Given Documented by: Insulin Detemir (Levemir Vial) 5 units SQ BIDI [facility] Last Admin: 01/24/20 17:50 Dose: Not Given Documented by: Metoprolol Succinate (Toprol Xl -) 50 mg PO DAILY [facility] Last Admin: 01/24/20 10:18 Dose: 50 mg Documented by: Pantoprazole Sodium (Protonix -) 40 mg PO DAILY [facility] Last Admin: 01/24/20 10:18 Dose: 40 mg Documented by: - Objective Vital Signs: Vital Signs Temperature 97.6 F 01/24/20 14:36 Pulse Rate 54 L 01/24/20 14:36 Respiratory Rate 20 01/24/20 14:36 Blood Pressure 134/58 L 01/24/20 14:36 O2 Sat by Pulse Oximetry (%) 91 L 01/24/20 14:36 Additional Findings/Remarks: Constitutional: Yes: Well Nourished, No Distress, Calm Eyes: Yes: WNL, Conjunctiva Clear, EOM Intact HENT: Yes: WNL, Atraumatic, Normocephalic Neck: Yes: WNL, Supple, Trachea Midline Cardiovascular: Yes: WNL, Regular Rate and Rhythm Respiratory: Yes: WNL, Regular, CTA Bilaterally Gastrointestinal: Yes: WNL, Normal Bowel Sounds ...Rectal Exam: Yes: Deferred Renal/: Yes: WNL Breast(s): Yes: WNL Musculoskeletal: Yes: WNL Edema: No Integumentary: Yes: Other (RLE: warm, +fem/pop/DP/PT signals on doppler, +ROM, compartments soft/compressible/nontender LLE: warm, no palpable pulses, +DP signal, medial aspect of L foot angulated toes, with previous surgical flap noted on medial foot arch, no induration, malodor, nontender, small area of fibrinous exudate, nonfluctant, venous stasis, sensation intact per baseline) Neurological: Yes: WNL, Alert, Oriented ...Motor Strength: WNL Psychiatric: Yes: WNL Labs: CBC, BMP 01/24/20 06:50 01/24/20 06:50 INR, PTT INR 0.94 (0.83-1.09) 01/24/20 06:50 Problem List - Problems (1) HTN (hypertension) Assessment/Plan: normotenmsive c/w metoprolol, norvasc Code(s): I10 - ESSENTIAL (PRIMARY) HYPERTENSION (2) Prophylactic measure Assessment/Plan: FEN Fluids: adequate PO intake Electrolytes: monitor & replete as needed Nutrition: NPO-diabetic diet post-op DVT moderate risk sq lovenox Dispo Maintain as inpatient full code discharge planning Code(s): Z29.9 - ENCOUNTER FOR PROPHYLACTIC MEASURES, UNSPECIFIED (3) Diabetes mellitus Assessment/Plan: BGM AC/HS with novolog sliding scale diabetic diet c/w levemir Code(s): E11.9 - TYPE 2 DIABETES MELLITUS WITHOUT COMPLICATIONS Qualifiers: Diabetes mellitus type: type 2 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 insulin use status Diabetes mellitus complication status: without complication Qualified Code(s): E11.9 - Type 2 diabetes mellitus without complications (4) Diabetic foot ulcer Assessment/Plan: podiatry and vascular following Left foot cellulitis improving over the arch as per vasc c/w ancef Code(s): E11.621 - TYPE 2 DIABETES MELLITUS WITH FOOT ULCER; L97.509 - NON- PRESSURE CHRONIC ULCER OTH PRT UNSP FOOT W UNSP SEVERITY Qualifiers: Diabetic foot ulcer location: heel Diabetes mellitus type: type 2 Laterality: left Non-pressure ulcer stage: unspecified non-pressure ulcer stage Qualified Code(s): E11.621 - Type 2 diabetes mellitus with foot ulcer; L97.429 - Non-pressure chronic ulcer of left heel and midfoot with unspecified severity (5) Femoral artery occlusion, left Assessment/Plan: US done shows stents in left SFA to be closed. angiogram, angioplasty today with Dr Carmona Code(s): I70.202 - UNSP ATHSCL [place] ARTERIES OF EXTREMITIES, LEFT LEG (6) PAD (peripheral artery disease) Code(s): I73.9 - PERIPHERAL VASCULAR DISEASE, UNSPECIFIED (7) Smoking Assessment/Plan: c/t smoke despite stents re-occluding counseled again on cessation Problems reviewed: Yes Code(s): F17.200 - NICOTINE DEPENDENCE, UNSPECIFIED, UNCOMPLICATED (8) HLD (hyperlipidemia) Assessment/Plan: c/w statin Code(s): E78.5 - HYPERLIPIDEMIA, UNSPECIFIED (9) COVID-19 ruled out Assessment/Plan: negative pcr Code(s): Z03.818 - ENCNTR FOR OBS FOR SUSP EXPSR TO OTH BIOLG AGENTS RULED OUT Visit type - Emergency Visit Emergency Visit: Yes ED Registration Date: 01/22/20 Care time: The patient presented to the Emergency Department on the above date and was hospitalized for further evaluation of their emergent condition. - New Patient This patient is new to me today: No - Critical Care Critical Care patient: No - Discharge Referral Referred to [facility] No
[2020-01-24] MEDS ORDERED: MIDAZOLAM HCL 2 MG/2 ML SINGLE DOSE VIAL ONE ×2 (19:23→19:46)
[2020-01-24] MEDS ORDERED: PROPOFOL 20 ML ONE ×2 (19:25→19:50)
[2020-01-24] MEDS ORDERED: ceFAZolin 2 GRAM PREMIX BAG IVPB ONE (19:40)
[2020-01-24] MEDS ORDERED: HEPARIN NA (PORCINE) 5,000 UNITS/ML 1ML VIAL SQ ONE (19:44)
[2020-01-24] MEDS ORDERED: LIDOCAINE HCL 1% PRESERVATIVE FREE - 30ML VIAL IJ ONE (19:44)
[2020-01-24] MEDS ORDERED: GLYCOPYRROLATE 0.2 MG/1 ML VIAL ONE (19:50)
[2020-01-24] MEDS ORDERED: LIDOCAINE HCL/PF 2% SDV 5ML VIAL ONE (19:50)
--- NOTE | 2020-01-24 20:25 | OP ---
Operative Note - Note: Operative Date: 01/24/20 Pre-Operative Diagnosis: left lower extremity claudication Operation: Aortogram, LLE angiogram, SFA angioplasty Findings: sfa stent occlusion Post-Operative Diagnosis: Same as Pre-op Surgeon: Sonido Carmona Anesthesia: MAC Estimated Blood Loss (mls): 50 Operative Report Dictated: Yes
[2020-01-24] MEDS: ACETAMINOPHEN 1000 MG/100 ML VIAL (NON FORMULARY) IVPB PRN (21:15)
[2020-01-24] MEDS ORDERED: ACETAMINOPHEN INJECTION 100 ML IVPB ONE (21:52)
[2020-01-24] MEDS: ATORVASTATIN CA 80 MG TABLET (FP) PO SCH (22:37)
[2020-01-25] MEDS ORDERED: DEXTROSE 5%-WATER - 50 ML IVPB ONE ×3 (01:34→17:50)
[2020-01-25] MEDS ORDERED: ceFAZolin SODIUM 1 GM VIAL ONE ×3 (01:34→17:50)
[2020-01-25] MEDS: CEFAZOLIN 1 GM in DEXTROSE 5%-WATER - 50 ML IVPB SCH ×3 (02:28→17:52)
[2020-01-25] MEDS: ACETAMINOPHEN 1000 MG/100 ML VIAL (NON FORMULARY) IVPB PRN ×2 (02:39→11:05)
[2020-01-25] MEDS: INSULIN SLIDING SCALE (NOVOLOG) 1 VIAL SQ SCH ×4 (06:24→21:34)
[2020-01-25] MEDS ORDERED: INSULIN (LEVEMIR) 100 UNITS/ML UNITS SQ SCH (07:00)
[2020-01-25 08:26] LABS: BASO % 0.5 % (0-2.0); EOS % 0.8 % (0-4.5); HEMATOCRIT 43.7 % (35.4-49); HEMOGLOBIN 14.7 GM/dL (11.7-16.9); LYMPH % 23.2 % (8-40); MCH 30.1 pg (25.7-33.7); MCHC 33.5 g/dl (32.0-35.9); MEAN CELL VOLUME 89.7 fl (80-96); MONO % 6.2 % (3.8-10.2); NEUT % 69.3 % (42.8-82.8); PLATELET COUNT 321 K/MM3 (134-434); RBC 4.87 M/mm3 (4.00-5.60); RDW 14.3 % (11.9-15.9); WHITE BLOOD COUNT 9.6 K/mm3 (4.0-10.0)
[2020-01-25 08:39] LABS: ALBUMIN 3.4 g/dl (3.4-5.0); BILIRUBIN,TOTAL 0.9 mg/dL (0.2-1); BLOOD UREA NITROGEN 14.3 mg/dL (7-18); CALCIUM 8.6 mg/dL (8.5-10.1); CREATININE 0.7 mg/dL (0.55-1.3); MAGNESIUM 2.3 mg/dL (1.8-2.4); POTASSIUM 4.5 mmol/L (3.5-5.1); TOT PROT 6.5 g/dl (6.4-8.2)
--- NOTE | 2020-01-25 08:52 | PN ---
Progress Note, Physician Chief Complaint: Seen and examined in bed.S/p angio- SFA stent occlusion. Pending podiatriac procedure with Dr Gunderson now that angio is done. BS remain high-non compliant with diet History of Present Illness: 54M w a pmh of IDDM, HTN, HLD presenting to the emergency department for an eval uation of a left heel wound that has persisted for 3 days. - Current Medication List Current Medications: Active Medications Acetaminophen (Ofirmev Injection -) 1,000 mg IVPB Q6H PRN PRN Reason: PAIN LEVEL 4 - 6 Last Admin: 01/25/20 02:39 Dose: 1,000 mg Documented by: Amlodipine Besylate (Norvasc -) 10 mg PO DAILY [facility] Aspirin (Ecotrin -) 81 mg PO DAILY [facility] Atorvastatin Calcium (Lipitor -) 80 mg PO HS [facility] Last Admin: 01/24/20 22:37 Dose: 80 mg Documented by: Clopidogrel Bisulfate (Plavix -) 75 mg PO DAILY [facility] Collagenase (Santyl -) 1 applic TP DAILY [facility]; Protocol Enoxaparin Sodium (Lovenox -) 40 mg SQ DAILY [facility] Cefazolin Sodium 1 gm/ (Dextrose) 50 mls @ 100 mls/hr IVPB Q8H-IV [facility] Last Admin: 01/25/20 02:28 Dose: 100 mls/hr Documented by: Insulin Aspart (Novolog Vial Sliding Scale -) 1 vial SQ ACHS [facility]; Protocol Last Admin: 01/25/20 06:24 Dose: 4 units Documented by: Insulin Detemir (Levemir Vial) 5 units SQ BIDI [facility] Last Admin: 01/25/20 06:24 Dose: 5 units Documented by: Metoprolol Succinate (Toprol Xl -) 50 mg PO DAILY [facility] Pantoprazole Sodium (Protonix -) 40 mg PO DAILY [facility] - Objective Vital Signs: Vital Signs Temperature 97.8 F 01/25/20 06:26 Pulse Rate 55 L 01/25/20 06:26 Respiratory Rate 20 01/25/20 06:26 Blood Pressure 126/60 01/25/20 06:26 O2 Sat by Pulse Oximetry (%) 96 01/25/20 06:26 Additional Findings/Remarks: Constitutional: Yes: Well Nourished, No Distress, Calm Eyes: Yes: WNL, Conjunctiva Clear, EOM Intact HENT: Yes: WNL, Atraumatic, Normocephalic Neck: Yes: WNL, Supple, Trachea Midline Cardiovascular: Yes: WNL, Regular Rate and Rhythm Respiratory: Yes: WNL, Regular, CTA Bilaterally Gastrointestinal: Yes: WNL, Normal Bowel Sounds ...Rectal Exam: Yes: Deferred Renal/: Yes: WNL Breast(s): Yes: WNL Musculoskeletal: Yes: WNL Edema: No Integumentary: Yes: dressing c/d/i Neurological: Yes: WNL, Alert, Oriented ...Motor Strength: WNL Psychiatric: Yes: WNL Labs: CBC, BMP 01/25/20 06:25 01/25/20 06:25 INR, PTT INR 0.94 (0.83-1.09) 01/24/20 06:50 Problem List - Problems (1) HTN (hypertension) Assessment/Plan: normotenmsive c/w metoprolol, norvasc Code(s): I10 - ESSENTIAL (PRIMARY) HYPERTENSION (2) Prophylactic measure Assessment/Plan: FEN Fluids: adequate PO intake Electrolytes: monitor & replete as needed Nutrition: diabetic diet DVT moderate risk sq lovenox Dispo Maintain as inpatient full code discharge planning Code(s): Z29.9 - ENCOUNTER FOR PROPHYLACTIC MEASURES, UNSPECIFIED (3) Diabetes mellitus Assessment/Plan: BGM AC/HS with novolog sliding scale diabetic diet c/w levemir at increased dose- 10u bid Code(s): E11.9 - TYPE 2 DIABETES MELLITUS WITHOUT COMPLICATIONS Qualifiers: Diabetes mellitus type: type 2 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 insulin use status Diabetes mellitus complication status: without complication Qualified Code(s): E11.9 - Type 2 diabetes mellitus without complications (4) Diabetic foot ulcer Assessment/Plan: podiatry and vascular following Left foot cellulitis improving over the arch as per vasc c/w ancef as per Dr Diaz will attempt revision of redundancy of skin causing problem and close wound again to improve pain c/w Santyl to wound Code(s): E11.621 - TYPE 2 DIABETES MELLITUS WITH FOOT ULCER; L97.509 - NON- PRESSURE CHRONIC ULCER OTH PRT UNSP FOOT W UNSP SEVERITY Qualifiers: Diabetic foot ulcer location: heel Diabetes mellitus type: type 2 Laterality: left Non-pressure ulcer stage: unspecified non-pressure ulcer stage Qualified Code(s): E11.621 - Type 2 diabetes mellitus with foot ulcer; L97.429 - Non-pressure chronic ulcer of left heel and midfoot with unspecified severity (5) Femoral artery occlusion, left Assessment/Plan: s/p angio SFA stent occlusion Code(s): I70.202 - UNSP ATHSCL [place] ARTERIES OF EXTREMITIES, LEFT LEG (6) PAD (peripheral artery disease) Code(s): I73.9 - PERIPHERAL VASCULAR DISEASE, UNSPECIFIED (7) Smoking Assessment/Plan: c/t smoke despite stents re-occluding counseled again on cessation Code(s): F17.200 - NICOTINE DEPENDENCE, UNSPECIFIED, UNCOMPLICATED (8) HLD (hyperlipidemia) Assessment/Plan: c/w statin Code(s): E78.5 - HYPERLIPIDEMIA, UNSPECIFIED (9) COVID-19 ruled out Assessment/Plan: negative pcr Code(s): Z03.818 - ENCNTR FOR OBS FOR SUSP EXPSR TO OTH BIOLG AGENTS RULED OUT Visit type - Emergency Visit Emergency Visit: Yes ED Registration Date: 01/22/20 Care time: The patient presented to the Emergency Department on the above date and was hospitalized for further evaluation of their emergent condition. - New Patient This patient is new to me today: No - Critical Care Critical Care patient: No - Discharge Referral Referred to [facility] Med P.C.: No
[2020-01-25] MEDS: COLLAGENASE CLOSTRIDIUM HIST. 30 GRAMS TUBE TP SCH (10:04)
[2020-01-25] MEDS: ENOXAPARIN NA (PORCINE) 40 MG/0.4 ML DISP.SYRIN SQ SCH (10:05)
[2020-01-25] MEDS: amLODIPine BESYLATE 10 MG TABLET (FP) PO SCH (10:06)
[2020-01-25] MEDS: ASPIRIN COATED 81 MG TABLET.EC PO SCH (10:06)
[2020-01-25] MEDS: CLOPIDOGREL BISULFATE 75 MG TABLET (FP) PO SCH (10:06)
[2020-01-25] MEDS: PANTOPRAZOLE 40 MG TABLET PO SCH (10:06)
[2020-01-25] MEDS ORDERED: INSULIN (NOVOLOG) ASPART 100 UNITS/ML 10ML VIAL ONE (11:55)
--- NOTE | 2020-01-25 13:13 | PN ---
Progress Note (short form) - Note Progress Note: cc: foot pain s: no chest pain, palps, dizziness, dyspnea. s/p LE angio Current Medications Generic Name Dose Route Start Last Admin Trade Name Robert PRN Reason Stop Dose Admin Amlodipine Besylate 10 mg 01/25/20 10:00 01/25/20 10:06 Norvasc - PO 10 mg DAILY [facility] Administration Aspirin 81 mg 01/25/20 10:00 01/25/20 10:06 Ecotrin - PO 81 mg DAILY [facility] Administration Atorvastatin Calcium 80 mg 01/24/20 22:00 01/24/20 22:37 Lipitor - PO 80 mg HS [facility] Administration Clopidogrel Bisulfate 75 mg 01/25/20 10:00 01/25/20 10:06 Plavix - PO 75 mg DAILY [facility] Administration Collagenase 1 applic 01/25/20 10:00 01/25/20 10:04 Santyl - TP 1 applic DAILY [facility] Administration Protocol Enoxaparin Sodium 40 mg 01/25/20 10:00 01/25/20 10:05 Lovenox - SQ 40 mg DAILY [facility] Administration Cefazolin Sodium 1 gm/ 50 mls @ 100 mls/hr 01/25/20 02:00 01/25/20 10:05 Dextrose IVPB 100 mls/hr Q8H-IV [facility] Administration Insulin Aspart 1 vial 01/24/20 22:00 01/25/20 11:59 Novolog Vial Sliding Scale - SQ 4 units ACHS [facility] Administration Protocol Insulin Detemir 10 units 01/25/20 08:53 Levemir Vial SQ BIDI [facility] Metoprolol Succinate 50 mg 01/25/20 10:00 01/25/20 11:19 Toprol Xl - PO Not Given DAILY [facility] Pantoprazole Sodium 40 mg 01/25/20 10:00 01/25/20 10:06 Protonix - PO 40 mg DAILY [facility] Administration Vital Signs Period Temp Pulse Resp BP Sys/Mills Pulse Ox Last 24 Hr 97.5 F-98.1 F 54-74 14-20 121-162/58-90 91-98 nad no jvd rrr s1s2 nomrg ctabl nl eff aao3 no le e/c/c abd nt nd pos bs no carotid bruits no jaundice diaphoresis Laboratory Last Values WBC 9.6 K/mm3 (4.0-10.0) 01/25/20 06:25 RBC 4.87 M/mm3 (4.00-5.60) 01/25/20 06:25 Hgb 14.7 GM/dL (11.7-16.9) 01/25/20 06:25 Hct 43.7 % (35.4-49) 01/25/20 06:25 MCV 89.7 fl (80-96) 01/25/20 06:25 MCH 30.1 pg (25.7-33.7) 01/25/20 06:25 MCHC 33.5 g/dl (32.0-35.9) 01/25/20 06:25 RDW 14.3 % (11.9-15.9) 01/25/20 06:25 Plt Count 321 K/MM3 (134-434) 01/25/20 06:25 MPV 7.0 fl (7.5-11.1) L 01/25/20 06:25 Absolute Neuts (auto) 6.6 K/mm3 (1.5-8.0) 01/25/20 06:25 Neutrophils % 69.3 % (42.8-82.8) D 01/25/20 06:25 Lymphocytes % 23.2 % (8-40) D 01/25/20 06:25 Monocytes % 6.2 % (3.8-10.2) 01/25/20 06:25 Eosinophils % 0.8 % (0-4.5) 01/25/20 06:25 Basophils % 0.5 % (0-2.0) 01/25/20 06:25 Nucleated RBC % 0 % (0-0) 01/25/20 06:25 ESR 9 mm/hr (0-20) 01/22/20 06:25 PT with INR 11.10 SEC (9.7-13.0) 01/24/20 06:50 INR 0.94 (0.83-1.09) 01/24/20 06:50 Sodium 136 mmol/L (136-145) 01/25/20 06:25 Potassium 4.5 mmol/L (3.5-5.1) 01/25/20 06:25 Chloride 104 mmol/L (98-107) 01/25/20 06:25 Carbon Dioxide 24 mmol/L (21-32) 01/25/20 06:25 Anion Gap 9 MMOL/L (8-16) 01/25/20 06:25 BUN 14.3 mg/dL (7-18) 01/25/20 06:25 Creatinine 0.7 mg/dL (0.55-1.3) 01/25/20 06:25 Est GFR (CKD-EPI)AfAm 122.27 01/25/20 06:25 Est GFR (CKD-EPI)NonAf 105.50 01/25/20 06:25 POC Glucometer 201 UNITS (80-120) 01/25/20 11:52 Random Glucose 235 mg/dL (74-106) H 01/25/20 06:25 Hemoglobin A1c % 8.3 % (4.2-6.3) H 01/22/20 06:25 Calcium 8.6 mg/dL (8.5-10.1) 01/25/20 06:25 Phosphorus 4.2 mg/dL (2.5-4.9) 01/22/20 06:25 Magnesium 2.3 mg/dL (1.8-2.4) 01/25/20 06:25 Total Bilirubin 0.9 mg/dL (0.2-1) 01/25/20 06:25 AST 16 U/L (15-37) 01/25/20 06:25 ALT 24 U/L (13-61) 01/25/20 06:25 Alkaline Phosphatase 80 U/L (45-117) 01/25/20 06:25 LD Total 114 U/L (87-246) 01/22/20 06:25 C-Reactive Protein 1.1 MG/DL (0.00-0.3) H 01/22/20 06:25 Total Protein 6.5 g/dl (6.4-8.2) 01/25/20 06:25 Albumin 3.4 g/dl (3.4-5.0) 01/25/20 06:25 Urine Color Yellow 01/21/20 22:00 Urine Appearance Clear 01/21/20 22:00 Urine pH 5.0 (5.0-8.0) 01/21/20 22:00 Ur Specific [place] 1.036 (1.010-1.035) H 01/21/20 22:00 Urine Protein Negative (NEGATIVE) 01/21/20 22:00 Urine Glucose (UA) 3+ (NEGATIVE) H 01/21/20 22:00 Urine Ketones Negative (NEGATIVE) 01/21/20 22:00 Urine Blood Negative (NEGATIVE) 01/21/20 22:00 Urine Nitrite Negative (NEGATIVE) 01/21/20 22:00 Urine Bilirubin Negative (NEGATIVE) 01/21/20 22:00 Urine Urobilinogen 0.2 mg/dL (0.2-1.0) 01/21/20 22:00 Ur Leukocyte Esterase Negative (NEGATIVE) 01/21/20 22:00 COVID-19 (EVA) Not detected (Not Detected) 01/21/20 23:00 ecg: sr nl intervals no ischemic changes echo 01/2020: nl lv/rv, no sig valve path a/p: 54 m hx htn, hld, dm, pad s/p le angio/stent here with foot pain/non healing wound. htn: -stable on current meds hld: -stable on statin pad, preop, s/p anio -plan per vascular dm: -per primary
[2020-01-25] MEDS ORDERED: PT OWN MED DRAWER 7, Y5N ONE (16:28)
[2020-01-25] MEDS: INSULIN (LEVEMIR) 100 UNITS/ML UNITS SQ SCH (16:35)
[2020-01-25] MEDS ORDERED: ACETAMINOPHEN 325 MG TABLET (FP) PO PRN (20:53)
[2020-01-25] MEDS: ATORVASTATIN CA 80 MG TABLET (FP) PO SCH (21:32)
[2020-01-26] MEDS ORDERED: ceFAZolin SODIUM 1 GM VIAL ONE ×2 (01:26→10:20)
[2020-01-26] MEDS ORDERED: DEXTROSE 5%-WATER - 50 ML IVPB ONE ×2 (01:27→10:20)
[2020-01-26] MEDS: CEFAZOLIN 1 GM in DEXTROSE 5%-WATER - 50 ML IVPB SCH ×2 (01:35→10:23)
[2020-01-26] MEDS: INSULIN SLIDING SCALE (NOVOLOG) 1 VIAL SQ SCH ×2 (06:11→12:07)
[2020-01-26] MEDS: INSULIN (LEVEMIR) 100 UNITS/ML UNITS SQ SCH (06:12)
[2020-01-26] MEDS ORDERED: INSULIN (NOVOLOG) ASPART 100 UNITS/ML 10ML VIAL ONE (06:28)
[2020-01-26] MEDS ORDERED: INSULIN (LEVEMIR) 100 UNITS/ML UNITS SQ ONE (06:29)
[2020-01-26 07:28] VITALS: TEMP 98.4
[2020-01-26 08:09] LABS: BASO % 0.6 % (0-2.0); EOS % 2.6 % (0-4.5); HEMATOCRIT 43.1 % (35.4-49); HEMOGLOBIN 14.2 GM/dL (11.7-16.9); LYMPH % 37.6 % (8-40); MCH 29.8 pg (25.7-33.7); MEAN CELL VOLUME 90.3 fl (80-96); MEAN PLT VOLUME 7.1 fl (7.5-11.1); MONO % 8.1 % (3.8-10.2); NEUT % 51.1 % (42.8-82.8); PLATELET COUNT 312 K/MM3 (134-434); RBC 4.77 M/mm3 (4.00-5.60); RDW 14.4 % (11.9-15.9); WHITE BLOOD COUNT 7.5 K/mm3 (4.0-10.0)
[2020-01-26 08:37] LABS: ALBUMIN 3.4 g/dl (3.4-5.0); BILIRUBIN,TOTAL 0.5 mg/dL (0.2-1); BLOOD UREA NITROGEN 12.3 mg/dL (7-18); CALCIUM 8.5 mg/dL (8.5-10.1); CREATININE 0.8 mg/dL (0.55-1.3); MAGNESIUM 2.2 mg/dL (1.8-2.4); POTASSIUM 4.7 mmol/L (3.5-5.1); TOT PROT 6.6 g/dl (6.4-8.2)
--- NOTE | 2020-01-26 08:37 | PN ---
Progress Note, Physician Chief Complaint: Seen and examined in bed.S/p angio- SFA stent occlusion. Pending podiatriac procedure with Dr Gunderson. BS remain high-levemit increased. Plan for dc tomorrow after podiatriac procedure History of Present Illness: 54M w a pmh of IDDM, HTN, HLD presenting to the emergency department for an evaluation of a left heel wound that has persisted for 3 days. - Current Medication List Current Medications: Active Medications Acetaminophen (Tylenol -) 650 mg PO Q6H PRN PRN Reason: PAIN LEVEL 1-5 Last Admin: 01/25/20 21:32 Dose: 650 mg Documented by: Amlodipine Besylate (Norvasc -) 10 mg PO DAILY [facility] Last Admin: 01/25/20 10:06 Dose: 10 mg Documented by: Aspirin (Ecotrin -) 81 mg PO DAILY [facility] Last Admin: 01/25/20 10:06 Dose: 81 mg Documented by: Atorvastatin Calcium (Lipitor -) 80 mg PO HS [facility] Last Admin: 01/25/20 21:32 Dose: 80 mg Documented by: Clopidogrel Bisulfate (Plavix -) 75 mg PO DAILY [facility] Last Admin: 01/25/20 10:06 Dose: 75 mg Documented by: Collagenase (Santyl -) 1 applic TP DAILY [facility]; Protocol Last Admin: 01/25/20 10:04 Dose: 1 applic Documented by: Enoxaparin Sodium (Lovenox -) 40 mg SQ DAILY [facility] Last Admin: 01/25/20 10:05 Dose: 40 mg Documented by: Cefazolin Sodium 1 gm/ (Dextrose) 50 mls @ 100 mls/hr IVPB Q8H-IV [facility] Last Admin: 01/26/20 01:35 Dose: 100 mls/hr Documented by: Insulin Aspart (Novolog Vial Sliding Scale -) 1 vial SQ ACHS [facility]; Protocol Last Admin: 01/26/20 06:11 Dose: 4 units Documented by: Insulin Detemir (Levemir Vial) 10 units SQ BIDI [facility] Last Admin: 01/26/20 06:12 Dose: 10 units Documented by: Metoprolol Succinate (Toprol Xl -) 50 mg PO DAILY [facility] Last Admin: 01/25/20 11:19 Dose: Not Given Documented by: Pantoprazole Sodium (Protonix -) 40 mg PO DAILY [facility] Last Admin: 01/25/20 10:06 Dose: 40 mg Documented by: - Objective Vital Signs: Vital Signs Temperature 98.4 F 01/26/20 07:00 Pulse Rate 57 L 01/26/20 07:00 Respiratory Rate 18 01/26/20 07:00 Blood Pressure 149/69 01/26/20 07:00 O2 Sat by Pulse Oximetry (%) 98 01/26/20 07:00 Additional Findings/Remarks: Constitutional: Yes: Well Nourished, No Distress, Calm Eyes: Yes: WNL, Conjunctiva Clear, EOM Intact HENT: Yes: WNL, Atraumatic, Normocephalic Neck: Yes: WNL, Supple, Trachea Midline Cardiovascular: Yes: WNL, Regular Rate and Rhythm Respiratory: Yes: WNL, Regular, CTA Bilaterally Gastrointestinal: Yes: WNL, Normal Bowel Sounds ...Rectal Exam: Yes: Deferred Renal/: Yes: WNL Breast(s): Yes: WNL Musculoskeletal: Yes: WNL Edema: No Integumentary: Yes: dressing c/d/i Neurological: Yes: WNL, Alert, Oriented ...Motor Strength: WNL Psychiatric: Yes: WNL Labs: CBC, BMP 01/26/20 06:40 01/26/20 06:40 INR, PTT INR 0.94 (0.83-1.09) 01/24/20 06:50 Problem List - Problems (1) HTN (hypertension) Assessment/Plan: normotenmsive c/w metoprolol, norvasc Code(s): I10 - ESSENTIAL (PRIMARY) HYPERTENSION (2) Prophylactic measure Assessment/Plan: FEN Fluids: adequate PO intake Electrolytes: monitor & replete as needed Nutrition: diabetic diet DVT moderate risk sq lovenox Dispo Maintain as inpatient full code discharge planning Code(s): Z29.9 - ENCOUNTER FOR PROPHYLACTIC MEASURES, UNSPECIFIED (3) Diabetes mellitus Assessment/Plan: BGM AC/HS with novolog sliding scale diabetic diet c/w levemir at increased dose- 20u bid Code(s): E11.9 - TYPE 2 DIABETES MELLITUS WITHOUT COMPLICATIONS Qualifiers: Diabetes mellitus type: type 2 Diabetes mellitus 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 Diabetes mellitus complication status: without complication Qualified Code(s): E11.9 - Type 2 diabetes mellitus without complications (4) Diabetic foot ulcer Assessment/Plan: podiatry and vascular following Left foot cellulitis improving over the arch as per vasc c/w ancef as per Dr Diaz will attempt revision of redundancy of skin causing problem and close wound again to improve pain c/w Santyl to wound Code(s): E11.621 - TYPE 2 DIABETES MELLITUS WITH FOOT ULCER; L97.509 - NON- PRESSURE CHRONIC ULCER OTH PRT UNSP FOOT W UNSP SEVERITY Qualifiers: Diabetic foot ulcer location: heel Diabetes mellitus type: type 2 Laterality: left Non-pressure ulcer stage: unspecified non-pressure ulcer stage Qualified Code(s): E11.621 - Type 2 diabetes mellitus with foot ulcer; L97.429 - Non-pressure chronic ulcer of left heel and midfoot with unspecified severity (5) Femoral artery occlusion, left Assessment/Plan: s/p angio SFA stent occlusion Code(s): I70.202 - UNSP ATHSCL [place] ARTERIES OF EXTREMITIES, LEFT LEG (6) PAD (peripheral artery disease) Code(s): I73.9 - PERIPHERAL VASCULAR DISEASE, UNSPECIFIED (7) Smoking Assessment/Plan: c/t smoke despite stents re-occluding counseled again on cessation Code(s): F17.200 - NICOTINE DEPENDENCE, UNSPECIFIED, UNCOMPLICATED (8) HLD (hyperlipidemia) Assessment/Plan: c/w statin Code(s): E78.5 - HYPERLIPIDEMIA, UNSPECIFIED (9) COVID-19 ruled out Assessment/Plan: negative pcr Code(s): Z03.818 - ENCNTR FOR OBS FOR SUSP EXPSR TO OTH BIOLG AGENTS RULED OUT Visit type - Emergency Visit Emergency Visit: Yes ED Registration Date: 01/22/20 Care time: The patient presented to the Emergency Department on the above date and was hospitalized for further evaluation of their emergent condition. - New Patient This patient is new to me today: No - Critical Care Critical Care patient: No - Discharge Referral Referred to [facility] Med P.C.: No
[2020-01-26] MEDS ORDERED: INSULIN (LEVEMIR) 100 UNITS/ML UNITS SQ SCH (08:38)
[2020-01-26] MEDS: ENOXAPARIN NA (PORCINE) 40 MG/0.4 ML DISP.SYRIN SQ SCH (10:23)
[2020-01-26] MEDS: CLOPIDOGREL BISULFATE 75 MG TABLET (FP) PO SCH (10:23)
[2020-01-26] MEDS: ASPIRIN COATED 81 MG TABLET.EC PO SCH (10:23)
[2020-01-26] MEDS: amLODIPine BESYLATE 10 MG TABLET (FP) PO SCH (10:23)
[2020-01-26] MEDS: PANTOPRAZOLE 40 MG TABLET PO SCH (10:23)
[2020-01-26] MEDS: COLLAGENASE CLOSTRIDIUM HIST. 30 GRAMS TUBE TP SCH (10:41)
--- NOTE | 2020-01-26 11:57 | PN ---
Progress Note (short form) - Note Progress Note: Vascular Surgery S/P angioplasty of sfa stent. cellulitus on foot is resolving. 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 Pt should continue plavix and follow in vascular clinic in one week. Sonido Carmona DO
--- NOTE | 2020-01-26 13:04 | PN ---
Progress Note (short form) - Note Progress Note: cc: foot pain s: no chest pain, palps, dizziness, dyspnea. Current Medications Generic Name Dose Route Start Last Admin Trade Name Freq PRN Reason Stop Dose Admin Acetaminophen 650 mg 01/25/20 20:53 01/25/20 21:32 Tylenol - PO 650 mg Q6H PRN Administration PAIN LEVEL 1-5 Amlodipine Besylate 10 mg 01/25/20 10:00 01/26/20 10:23 Norvasc - PO 10 mg DAILY [facility] Administration Aspirin 81 mg 01/25/20 10:00 01/26/20 10:23 Ecotrin - PO 81 mg DAILY [facility] Administration Atorvastatin Calcium 80 mg 01/24/20 22:00 01/25/20 21:32 Lipitor - PO 80 mg HS [facility] Administration Clopidogrel Bisulfate 75 mg 01/25/20 10:00 01/26/20 10:23 Plavix - PO 75 mg DAILY [facility] Administration Collagenase 1 applic 01/25/20 10:00 01/26/20 10:41 Santyl - TP 1 applic DAILY [facility] Administration Protocol Enoxaparin Sodium 40 mg 01/25/20 10:00 01/26/20 10:23 Lovenox - SQ 40 mg DAILY [facility] Administration Cefazolin Sodium 1 gm/ 50 mls @ 100 mls/hr 01/25/20 02:00 01/26/20 10:23 Dextrose IVPB 100 mls/hr Q8H-IV [facility] Administration Insulin Aspart 1 vial 01/24/20 22:00 01/26/20 12:07 Novolog Vial Sliding Scale - SQ 4 units ACHS [facility] Administration Protocol Insulin Detemir 20 units 01/26/20 08:38 Levemir Vial SQ BIDI [facility] Metoprolol Succinate 50 mg 01/25/20 10:00 01/26/20 10:41 Toprol Xl - PO Not Given DAILY [facility] Pantoprazole Sodium 40 mg 01/25/20 10:00 01/26/20 10:23 Protonix - PO 40 mg DAILY [facility] Administration Vital Signs Period Temp Pulse Resp BP Sys/Milsl Pulse Ox Last 24 Hr 98.2 F-98.6 F 56-61 18-18 129-149/66-69 96-98 nad no jvd rrr s1s2 nomrg ctabl nl eff aao3 no le e/c/c abd nt nd pos bs no carotid bruits no jaundice diaphoresis Laboratory Last Values WBC 7.5 K/mm3 (4.0-10.0) 01/26/20 06:40 RBC 4.77 M/mm3 (4.00-5.60) 01/26/20 06:40 Hgb 14.2 GM/dL (11.7-16.9) 01/26/20 06:40 Hct 43.1 % (35.4-49) 01/26/20 06:40 MCV 90.3 fl (80-96) 01/26/20 06:40 MCH 29.8 pg (25.7-33.7) 01/26/20 06:40 MCHC 33.0 g/dl (32.0-35.9) 01/26/20 06:40 RDW 14.4 % (11.9-15.9) 01/26/20 06:40 Plt Count 312 K/MM3 (134-434) 01/26/20 06:40 MPV 7.1 fl (7.5-11.1) L 01/26/20 06:40 Absolute Neuts (auto) 3.8 K/mm3 (1.5-8.0) 01/26/20 06:40 Neutrophils % 51.1 % (42.8-82.8) D 01/26/20 06:40 Lymphocytes % 37.6 % (8-40) D 01/26/20 06:40 Monocytes % 8.1 % (3.8-10.2) 01/26/20 06:40 Eosinophils % 2.6 % (0-4.5) D 01/26/20 06:40 Basophils % 0.6 % (0-2.0) 01/26/20 06:40 Nucleated RBC % 0 % (0-0) 01/26/20 06:40 ESR 9 mm/hr (0-20) 01/22/20 06:25 PT with INR 11.10 SEC (9.7-13.0) 01/24/20 06:50 INR 0.94 (0.83-1.09) 01/24/20 06:50 Sodium 137 mmol/L (136-145) 01/26/20 06:40 Potassium 4.7 mmol/L (3.5-5.1) 01/26/20 06:40 Chloride 105 mmol/L (98-107) 01/26/20 06:40 Carbon Dioxide 26 mmol/L (21-32) 01/26/20 06:40 Anion Gap 6 MMOL/L (8-16) L 01/26/20 06:40 BUN 12.3 mg/dL (7-18) 01/26/20 06:40 Creatinine 0.8 mg/dL (0.55-1.3) 01/26/20 06:40 Est GFR (CKD-EPI)AfAm 115.74 01/26/20 06:40 Est GFR (CKD-EPI)NonAf 99.86 01/26/20 06:40 POC Glucometer 237 UNITS (80-120) 01/26/20 12:01 Random Glucose 234 mg/dL (74-106) H 01/26/20 06:40 Hemoglobin A1c % 8.3 % (4.2-6.3) H 01/22/20 06:25 Calcium 8.5 mg/dL (8.5-10.1) 01/26/20 06:40 Phosphorus 4.2 mg/dL (2.5-4.9) 01/22/20 06:25 Magnesium 2.2 mg/dL (1.8-2.4) 01/26/20 06:40 Total Bilirubin 0.5 mg/dL (0.2-1) 01/26/20 06:40 AST 10 U/L (15-37) L 01/26/20 06:40 ALT 21 U/L (13-61) 01/26/20 06:40 Alkaline Phosphatase 82 U/L (45-117) 01/26/20 06:40 LD Total 114 U/L (87-246) 01/22/20 06:25 C-Reactive Protein 1.1 MG/DL (0.00-0.3) H 01/22/20 06:25 Total Protein 6.6 g/dl (6.4-8.2) 01/26/20 06:40 Albumin 3.4 g/dl (3.4-5.0) 01/26/20 06:40 Urine Color Yellow 01/21/20 22:00 Urine Appearance Clear 01/21/20 22:00 Urine pH 5.0 (5.0-8.0) 01/21/20 22:00 Ur Specific [place] 1.036 (1.010-1.035) H 01/21/20 22:00 Urine Protein Negative (NEGATIVE) 01/21/20 22:00 Urine Glucose (UA) 3+ (NEGATIVE) H 01/21/20 22:00 Urine Ketones Negative (NEGATIVE) 01/21/20 22:00 Urine Blood Negative (NEGATIVE) 01/21/20 22:00 Urine Nitrite Negative (NEGATIVE) 01/21/20 22:00 Urine Bilirubin Negative (NEGATIVE) 01/21/20 22:00 Urine Urobilinogen 0.2 mg/dL (0.2-1.0) 01/21/20 22:00 Ur Leukocyte Esterase Negative (NEGATIVE) 01/21/20 22:00 COVID-19 (EVA) Not detected (Not Detected) 01/21/20 23:00 ecg: sr nl intervals no ischemic changes echo 01/2020: nl lv/rv, no sig valve path a/p: 54 m hx htn, hld, dm, pad s/p le angio/stent here with foot pain/non healing wound. htn: -stable on current meds hld: -stable on statin pad, preop, s/p anio -plan per vascular, on plavix dm: -per primary
[2020-01-26 14:14] VITALS: BP 135/61; PULSE 64
--- NOTE | 2020-01-26 15:41 | DS ---
Physical Exam: SUBJECTIVE: Patient seen and examined OBJECTIVE: Vital Signs Period Temp Pulse Resp BP Sys/Mills Pulse Ox Last 24 Hr 98.4 F-98.6 F 56-64 18-18 129-149/61-69 96-98 PHYSICAL EXAM Constitutional: Yes: Well Nourished, No Distress, Calm Eyes: Yes: WNL, Conjunctiva Clear, EOM Intact HENT: Yes: WNL, Atraumatic, Normocephalic Neck: Yes: WNL, Supple, Trachea Midline Cardiovascular: Yes: WNL, Regular Rate and Rhythm Respiratory: Yes: WNL, Regular, CTA Bilaterally Gastrointestinal: Yes: WNL, Normal Bowel Sounds ...Rectal Exam: Yes: Deferred Renal/: Yes: WNL Breast(s): Yes: WNL Musculoskeletal: Yes: WNL Edema: No Integumentary: Yes: dressing c/d/i Neurological: Yes: WNL, Alert, Oriented ...Motor Strength: WNL Psychiatric: Yes: WNL LABS Laboratory Results - last 24 hr 01/25/20 01/25/20 01/26/20 16:25 21:33 06:11 WBC RBC Hgb Hct MCV MCH MCHC RDW Plt Count MPV Absolute Neuts (auto) Neutrophils % Lymphocytes % Monocytes % Eosinophils % Basophils % Nucleated RBC % Sodium Potassium Chloride Carbon Dioxide Anion Gap BUN Creatinine Est GFR (CKD-EPI)AfAm Est GFR (CKD-EPI)NonAf POC Glucometer 307 260 229 Random Glucose Calcium Magnesium Total Bilirubin AST ALT Alkaline Phosphatase Total Protein Albumin 01/26/20 01/26/20 01/26/20 06:40 06:40 12:01 WBC 7.5 RBC 4.77 Hgb 14.2 Hct 43.1 MCV 90.3 MCH 29.8 MCHC 33.0 RDW 14.4 Plt Count 312 MPV 7.1 L Absolute Neuts (auto) 3.8 Neutrophils % 51.1 D Lymphocytes % 37.6 D Monocytes % 8.1 Eosinophils % 2.6 D Basophils % 0.6 Nucleated RBC % 0 Sodium 137 Potassium 4.7 Chloride 105 Carbon Dioxide 26 Anion Gap 6 L BUN 12.3 Creatinine 0.8 Est GFR (CKD-EPI)AfAm 115.74 Est GFR (CKD-EPI)NonAf 99.86 POC Glucometer 237 Random Glucose 234 H Calcium 8.5 Magnesium 2.2 Total Bilirubin 0.5 AST 10 L ALT 21 Alkaline Phosphatase 82 Total Protein 6.6 Albumin 3.4 HOSPITAL COURSE: Date of Admission:01/22/20 Date of Discharge: 01/26/20 Problem List - Problems (1) HTN (hypertension) Assessment/Plan: normotenmsive c/w metoprolol, norvasc Code(s): I10 - ESSENTIAL (PRIMARY) HYPERTENSION (2) Prophylactic measure Assessment/Plan: FEN Fluids: adequate PO intake Nutrition: diabetic diet Dispo Maintain as inpatient full code discharge planning to home with f/u with podiatry Code(s): Z29.9 - ENCOUNTER FOR PROPHYLACTIC MEASURES, UNSPECIFIED (3) Diabetes mellitus Assessment/Plan: BGM AC/HS with novolog sliding scale diabetic diet c/w levemir at increased dose- 20u bid Code(s): E11.9 - TYPE 2 DIABETES MELLITUS WITHOUT COMPLICATIONS Qualifiers: Diabetes mellitus type: type 2 Diabetes mellitus terminal operations manager insulin use: unspecified terminal operations manager insulin use status Diabetes mellitus complication status: without complication Qualified Code(s): E11.9 - Type 2 diabetes mellitus without complications (4) Diabetic foot ulcer Assessment/Plan: podiatry and vascular following Left foot cellulitis improving over the arch as per vasc treated with ancef x 5 days c/w bacrim x [address] Diaz will attempt revision of redundancy of skin causing problem and close wound again to improve pain. To follow with Dr Baird as outpt c/w Allie to wound Code(s): E11.621 - TYPE 2 DIABETES MELLITUS WITH FOOT ULCER; L97.509 - NON- PRESSURE CHRONIC ULCER OTH PRT UNSP FOOT W UNSP SEVERITY Qualifiers: Diabetic foot ulcer location: heel Diabetes mellitus type: type 2 Laterality: left Non-pressure ulcer stage: unspecified non-pressure ulcer stage Qualified Code(s): E11.621 - Type 2 diabetes mellitus with foot ulcer; L97.429 - Non-pressure chronic ulcer of left heel and midfoot with unspecified severity (5) Femoral artery occlusion, left Assessment/Plan: s/p angio SFA stent occlusion Code(s): I70.202 - UNSP ATHSCL [place] ARTERIES OF EXTREMITIES, LEFT LEG (6) PAD (peripheral artery disease) Code(s): I73.9 - PERIPHERAL VASCULAR DISEASE, UNSPECIFIED (7) Smoking Assessment/Plan: c/t smoke despite stents re-occluding counseled again on cessation Code(s): F17.200 - NICOTINE DEPENDENCE, UNSPECIFIED, UNCOMPLICATED (8) HLD (hyperlipidemia) Assessment/Plan: c/w statin Code(s): E78.5 - HYPERLIPIDEMIA, UNSPECIFIED (9) COVID-19 ruled out Assessment/Plan: negative pcr Code(s): Z03.818 - ENCNTR FOR OBS FOR SUSP EXPSR TO OTH BIOLG AGENTS RULED OUT Minutes to complete discharge: 40 Discharge Summary Problems reviewed: Yes Reason For Visit: DIABETES MELLITUS, DIABETIC FOOT ULCER Current Active Problems COVID-19 ruled out (Acute) Cellulitis of left foot (Acute) Diabetes mellitus (Acute) Diabetic foot ulcer (Acute) Femoral artery occlusion, left (Acute) HLD (hyperlipidemia) (Acute) HTN (hypertension) (Acute) Poorly controlled diabetes mellitus (Acute) Prophylactic measure (Acute) Smoking (Acute) Suspected COVID-19 virus infection (Acute) Condition: Improved - Instructions Diet, Activity, Other Instructions: DISCHARGE YOUR VISIT You came to the hospital because you were having pain in the left heel wound. You were seen by Dr Carmona and an angiogram was done that show blood flow to the foot. The stents are occluding because you are still smoking. It is very important that you do not smoke. Your blood sugs are also elevated and youe levemir was increased. Follow with your primary provider to see if the dose of levimer needs to be adjusted. MEDICATIONS Please continue to take your home medications as prescribed. There was some changes Levemir increased to 20u twice a day DIET Continue your home diet ADDITIONAL CARE Please make an appointment to see your primary care provider, Dr Carranza 1 week from today. Follow with Dr Baird to have the excessive skin removed so the wound with heel better ADDITIONAL INFORMATION Please call 911 or come directly to the emergency department if you experience unusual headache, vision change, shortness of breath, chest pain, numbness, tingling, loss of alertness/awareness, loss of function, unusual bleeding or any alarming symptoms. Thank you for allowing me to care for you. Mahendra Brown, SHELDONP, [facility] [phone] Referrals: Marcos Shirley MD [Primary Care Provider] - Disposition: HOME - Home Medications Comprehensive Discharge Medication List: Ambulatory Orders metFORMIN HCL [Glucophage] 1,000 mg PO BID 06/19/12 Atorvastatin Ca [Lipitor] 80 mg PO HS 08/07/17 Glipizide 10 mg PO BID 10/20/17 Amlodipine Besylate [Norvasc -] 10 mg PO DAILY 05/22/18 Aspirin [Aspirin EC] 81 mg PO DAILY 05/22/18 Clopidogrel Bisulfate [Plavix -] 75 mg PO DAILY #30 tablet 03/21/19 Metoprolol Succinate 1 tab PO DAILY 05/06/19 Olmesartan/Hydrochlorothiazide [Benicar Hct 40-25 mg Tablet] 1 each PO DAILY Pantoprazole Sodium 40 mg PO DAILY 01/22/20 Acetaminophen [Tylenol .Regular Strength -] 650 mg PO Q6H PRN tablet 01/26/20 Collagenase Clostridium Hist. [Santyl -] 1 applic TP DAILY tube 01/26/20 Insulin (Levemir) [Levemir Vial] 20 units SQ BIDI units 01/26/20 Insulin Sliding Scale [Novolog Vial Sliding Scale -] 1 vial SQ ACHS units 01/26/20 Prescription Drug Monitoring Program (I-STOP) results: I-STOP not reviewed Problem List - Problems (1) HTN (hypertension) Code(s): I10 - ESSENTIAL (PRIMARY) HYPERTENSION (2) Prophylactic measure Code(s): Z29.9 - ENCOUNTER FOR PROPHYLACTIC MEASURES, UNSPECIFIED (3) Diabetes mellitus Code(s): E11.9 - TYPE 2 DIABETES MELLITUS WITHOUT COMPLICATIONS Qualifiers: Diabetes mellitus type: type 2 Diabetes mellitus mcc insulin use: unspecified mcc insulin use status Diabetes mellitus complication status: without complication Qualified Code(s): E11.9 - Type 2 diabetes mellitus without complications (4) Diabetic foot ulcer Code(s): E11.621 - TYPE 2 DIABETES MELLITUS WITH FOOT ULCER; L97.509 - NON- PRESSURE CHRONIC ULCER OTH PRT UNSP FOOT W UNSP SEVERITY Qualifiers: Diabetic foot ulcer location: heel Diabetes mellitus type: type 2 Laterality: left Non-pressure ulcer stage: unspecified non-pressure ulcer stage Qualified Code(s): E11.621 - Type 2 diabetes mellitus with foot ulcer; L97.429 - Non-pressure chronic ulcer of left heel and midfoot with unspecified severity (5) Femoral artery occlusion, left Code(s): I70.202 - UNSP ATHSCL [place] ARTERIES OF EXTREMITIES, LEFT LEG (6) PAD (peripheral artery disease) Code(s): I73.9 - PERIPHERAL VASCULAR DISEASE, UNSPECIFIED (7) Smoking Code(s): F17.200 - NICOTINE DEPENDENCE, UNSPECIFIED, UNCOMPLICATED (8) HLD (hyperlipidemia) Code(s): E78.5 - HYPERLIPIDEMIA, UNSPECIFIED (9) COVID-19 ruled out Code(s): Z03.818 - ENCNTR FOR OBS FOR SUSP EXPSR TO OTH BIOLG AGENTS RULED OUT This patient is new to me today: No Emergency Visit: Yes ED Registration Date: 01/22/20 Care time: The patient presented to the Emergency Department on the above date and was hospitalized for further evaluation of their emergent condition. Critical Care patient: No - Discharge Referral Referred to [facility] Med P.C.: No
[2020-01-26] MEDS ORDERED: SULFAMETHOXAZOLE/TRIMETHOPRIM 800MG/160MG D.S. TABLET PO SCH (22:00)
--- NOTE | 2020-01-28 18:38 | OP ---
DATE OF OPERATION: 02/03/2020 PREOPERATIVE DIAGNOSIS: Left lower extremity claudication. POSTOPERATIVE DIAGNOSIS: Left lower extremity claudication. PROCEDURE: Aortogram, left lower extremity angiogram, superficial femoral artery angioplasty. SURGEON: Sonido Hood MD. ANESTHESIA: Fractional. BLOOD LOSS: 50 mL. INDICATION: The patient is a 54-year-old male that comes in with cellulitis of his left foot and extremity. He had an ultrasound performed in the ER showing that his left SFA stents were occluded. The patient was admitted to the hospital. The patient was then thought to be COVID-19 negative. Patient was then consented for the procedure understanding all risks, benefits, and alternatives and was taken to the operating room. DESCRIPTION OF PROCEDURE: Once in the operating room, he was laid on the operating table in a supine manner, and the area of the left and right groin are prepped and draped in a sterile surgical manner. We then injected 10 mL of lidocaine 1% over the right groin. We then took a Micropuncture needle and punctured the right common femoral artery. A Micropuncture wire was inserted, Micropuncture sheath was inserted, and a traditional 5-[place] sheath was inserted. We then placed 0.035 floppy guidewire up into the aorta followed by an Omniflush catheter. We then shot an aortogram via hand injection showing that the aorta and the iliac arteries were without any disease. We then used our 0.035 floppy guidewire and went up and over to the left common femoral artery and our Omniflush catheter followed. We then shot an angiogram of the left lower extremity showing that the common femoral artery and the profunda were patent, proximal SFA is patent. However, the stents in the SFA are occluded all the way down to the above-knee popliteal artery. The below-knee popliteal artery was patent, and the patient had 2-vessel runoff into the foot. At this point, we placed our 0.035 stiff guidewire into the stents, removed the Omniflush catheter, and a 6 x 45 crossover sheath was placed. 5000 units of IV heparin were administered to the patient. We then used our Quick-Cross catheter and brought our wire down to the stent and placed our wire down into the anterior tibial artery. At this point, we went ahead and used a 6 x 150 Ultraverse balloon and performed angioplasty of the entire stent. Completion angiogram now showed good brisk flow in the SFA without any stenosis, and there was good 2-vessel runoff going into the foot. At this point, no more intervention was needed. The stents were patent. We brought our sheath up and over and a StarClose device was successfully deployed to the right common femoral artery no bleeding. Areas were then dried and Dermabond was placed. Patient tolerated the procedure with no complications. Patient was transferred to PACU in stable condition. SONIDO HOOD DO [id number]
== END 2020-01-26 17:01 | disposition home or self-care (01) | DRG 253 ==
LOC: JER 20:42 → JERBED 01-22 01:25 → J8W 01-22 02:35
PROVIDERS: ADMIT Hospitalist; ATTEND Nurse Practitioner Acute Care
PROC: 047Q3ZZ Dilation of Left Anterior Tibial Artery, Percutaneous Approach (ICD-10-PCS; 2020-01-24)
PROC: B41GZZZ Fluoroscopy of Left Lower Extremity Arteries (ICD-10-PCS; 2020-01-24)
PROC: B41DZZZ Fluoroscopy of Aorta and Bilateral Lower Extremity Arteries (ICD-10-PCS; 2020-01-24)
PROC: 3E033GC Introduction of Other Therapeutic Substance into Peripheral Vein, Percutaneous Approach (ICD-10-PCS; 2020-01-24)
PROC: 047L3ZZ Dilation of Left Femoral Artery, Percutaneous Approach (ICD-10-PCS; principal; 2020-01-24 14:30)
DX: T82.868A Thrombosis due to vascular prosthetic devices, implants and grafts, initial encounter (principal); L97.428 Non-pressure chronic ulcer of left heel and midfoot with other specified severity; L03.116 Cellulitis of left lower limb; I10 Essential (primary) hypertension; E78.5 Hyperlipidemia, unspecified; E11.621 Type 2 diabetes mellitus with foot ulcer; Q66.89 Other specified congenital deformities of feet; I25.10 Atherosclerotic heart disease of native coronary artery without angina pectoris; E11.51 Type 2 diabetes mellitus with diabetic peripheral angiopathy without gangrene; E11.65 Type 2 diabetes mellitus with hyperglycemia; F17.200 Nicotine dependence, unspecified, uncomplicated; Z79.4 Long term (current) use of insulin; Y83.8 Other surgical procedures as the cause of abnormal reaction of the patient, or of later complication, without mention of misadventure at the time of the procedure
CPT/HCPCS: 36415; 73630-TC-LT; 76882-TC-RT-FY; 80048; 80053; 81003; 82962; 83036; 83615; 83735; 84100; 85025; 85027; 85610; 85651; 86140; 87040; 93005; 93010; 93306-TC; 93926-TC; 93971-TC; 94760; 99285-25; C9803; J0131; J1644; U0003

== ENCOUNTER 2020-09-08 18:22 | Observation (INO) | payer OTHER ==
[2020-09-08 18:31] VITALS: BMI 30.1
[2020-09-08 20:57] LABS: BASO % 1.2 % (0-2.0); EOS % 1.8 % (0-4.5); HEMATOCRIT 43.7 % (35.4-49); HEMOGLOBIN 14.7 GM/dL (11.7-16.9); LYMPH % 43.7 % (8-40); MCH 29.7 pg (25.7-33.7); MCHC 33.6 g/dl (32.0-35.9); MEAN CELL VOLUME 88.3 fl (80-96); MEAN PLT VOLUME 6.9 fl (7.5-11.1); MONO % 7.1 % (3.8-10.2); NEUT % 46.2 % (42.8-82.8); PLATELET COUNT 371 K/MM3 (134-434); RBC 4.95 M/mm3 (4.00-5.60); RDW 14.3 % (11.9-15.9); WHITE BLOOD COUNT 8.3 K/mm3 (4.0-10.0)
[2020-09-08 21:03] LABS: INR 0.92 (0.83-1.09); PROTHROMBIN TIME (PATIENT) 11.2 SEC (9.7-13.0)
[2020-09-08 21:06] LABS: ACTIVATED PTT 33.7 SECONDS (25.2-36.5)
[2020-09-08 21:10] LABS: CHLORIDE 101 mmol/L (98-107); SODIUM 139 mmol/L (136-145)
[2020-09-08 21:13] LABS: ALBUMIN 3.7 g/dl (3.4-5.0); ANION GAP 9 MMOL/L (8-16); BLOOD UREA NITROGEN 12.5 mg/dL (7-18); CALCIUM 9.3 mg/dL (8.5-10.1); CO2 29 mmol/L (21-32)
[2020-09-08 21:14] LABS: GLUCOSE,RANDOM 221 mg/dL (74-106)
[2020-09-08 21:16] LABS: CHOLESTEROL 177 mg/dL (50-200); SGOT/AST 11 U/L (15-37); SGPT/ALT 23 U/L (13-61)
[2020-09-08 21:17] LABS: CREATININE 0.9 mg/dL (0.55-1.3); LDL CHOLESTEROL (ONLY SJRH) 104 mg/dL (5-100); TRIGLYCERIDES 242 mg/dL (0-150)
[2020-09-08 21:18] LABS: BILIRUBIN,TOTAL 0.2 mg/dL (0.2-1)
[2020-09-08 21:19] LABS: ALK PHOS 86 U/L (45-117); HDL CHOLESTEROL 26 mg/dL (40-60)
[2020-09-09 02:49] LABS: PH,URINE 5.5 (5.0-8.0); URINE APPEARANCE CLEAR; URINE BILIRUBIN NEGATIVE (NEGATIVE); URINE COLOR YELLOW; URINE GLUCOSE (UA) 3+ (NEGATIVE); URINE KETONE NEGATIVE (NEGATIVE); URINE LEUK ESTERASE NEGATIVE (NEGATIVE); URINE NITRITE NEGATIVE (NEGATIVE); URINE PROTEIN NEGATIVE (NEGATIVE)
[2020-09-09 07:20] LABS: HEMATOCRIT 43.6 % (35.4-49); MCH 30.4 pg (25.7-33.7); MCHC 34.5 g/dl (32.0-35.9); MEAN CELL VOLUME 88.2 fl (80-96); MEAN PLT VOLUME 6.8 fl (7.5-11.1); PLATELET COUNT 376 K/MM3 (134-434); RBC 4.95 M/mm3 (4.00-5.60); RDW 14.6 % (11.9-15.9); WHITE BLOOD COUNT 7.1 K/mm3 (4.0-10.0)
[2020-09-09 07:41] LABS: CALCIUM 9.2 mg/dL (8.5-10.1)
[2020-09-09 07:42] LABS: ALBUMIN 3.6 g/dl (3.4-5.0); BLOOD UREA NITROGEN 12.4 mg/dL (7-18)
[2020-09-09 07:45] LABS: CREATININE 0.8 mg/dL (0.55-1.3); PHOSPHOROUS 3.7 mg/dL (2.5-4.9)
[2020-09-09 07:46] LABS: BILIRUBIN,TOTAL 0.4 mg/dL (0.2-1)
[2020-09-09] MEDS: INSULIN SLIDING SCALE (NOVOLOG) 1 VIAL SQ SCH ×2 (07:53→13:07)
[2020-09-09] MEDS ORDERED: TAMSULOSIN HCL 0.4 MG CAP PO SCH (08:30)
[2020-09-09] MEDS ORDERED: CLOPIDOGREL BISULFATE 75 MG TABLET (FP) PO SCH (10:00)
[2020-09-09] MEDS ORDERED: PANTOPRAZOLE 40 MG TABLET PO SCH (10:00)
[2020-09-09] MEDS ORDERED: LOSARTAN POTASSIUM 50 MG TABLET PO SCH (10:00)
[2020-09-09] MEDS ORDERED: PATIENT'S OWN MEDICATION (NON-FORMULARY) (Olmesartan/Hydrochlorothiazide [Benicar Hct 40-2 PO SCH (10:00)
[2020-09-09] MEDS ORDERED: ENOXAPARIN NA (PORCINE) 40 MG/0.4 ML DISP.SYRIN SQ SCH (10:00)
[2020-09-09] MEDS ORDERED: HYDROCHLOROTHIAZIDE 25 MG TABLET (FP) PO SCH (10:00)
[2020-09-09] MEDS ORDERED: amLODIPine BESYLATE 10 MG TABLET (FP) PO SCH (10:00)
[2020-09-09] MEDS ORDERED: ASPIRIN COATED 81 MG TABLET.EC PO SCH (10:00)
[2020-09-09] MEDS ORDERED: ASPIRIN COATED 81 MG TABLET.EC ONE (10:16)
[2020-09-09] MEDS ORDERED: HYDROCHLOROTHIAZIDE 25 MG TABLET (FP) ONE (10:17)
[2020-09-09] MEDS ORDERED: CLOPIDOGREL BISULFATE 75 MG TABLET (FP) ONE (10:17)
[2020-09-09] MEDS ORDERED: PANTOPRAZOLE 40 MG TABLET ONE (10:17)
[2020-09-09] MEDS ORDERED: LOSARTAN POTASSIUM 50 MG TABLET ONE (10:17)
[2020-09-09] MEDS ORDERED: TAMSULOSIN HCL 0.4 MG CAP ONE (10:18)
[2020-09-09] MEDS ORDERED: ENOXAPARIN NA (PORCINE) 40 MG/0.4 ML DISP.SYRIN SQ ONE (10:18)
[2020-09-09 14:22] VITALS: BP 116/64; PULSE 61; TEMP 98.6
[2020-09-09] MEDS ORDERED: INSULIN (LEVEMIR) 100 UNITS/ML UNITS SQ SCH (22:00)
[2020-09-09] MEDS ORDERED: ATORVASTATIN CA 20 MG TABLET (FP) PO SCH (22:00)
== END 2020-09-09 14:27 | disposition home or self-care (01) ==
LOC: JER 18:22 → JERBED 21:55 → UNDOADMOB 21:55 → INTOOBSV 21:55 → JERBED 09-09 11:17
PROVIDERS: ADMIT Internal Medicine; ATTEND Nurse Practitioner Family
PROC: 3E023GC Introduction of Other Therapeutic Substance into Muscle, Percutaneous Approach (ICD-10-PCS; principal; 2020-09-09)
PROC: 3E013VG Introduction of Insulin into Subcutaneous Tissue, Percutaneous Approach (ICD-10-PCS; 2020-09-09)
DX: M48.02 Spinal stenosis, cervical region (principal); M54.9 Dorsalgia, unspecified; E34.9 Endocrine disorder, unspecified; M54.5 Low back pain; M54.2 Cervicalgia; E78.5 Hyperlipidemia, unspecified; I10 Essential (primary) hypertension; N40.0 Benign prostatic hyperplasia without lower urinary tract symptoms; F17.210 Nicotine dependence, cigarettes, uncomplicated; E11.65 Type 2 diabetes mellitus with hyperglycemia; Z29.9 Encounter for prophylactic measures, unspecified; Z88.6 Allergy status to analgesic agent; I73.9 Peripheral vascular disease, unspecified; H40.9 Unspecified glaucoma
CPT/HCPCS: 36415; 70450-TC; 70551-TC; 71045-TC-FY; 72141-TC; 80053; 80061; 81003; 82550; 82962; 83036; 83721; 83735; 84100; 84436; 84484; 85025; 85027; 85610; 85730; 86850; 86900; 86901; 93005; 93010; 96372; 99285-25; C9803; G0378; U0003; U0005

== ENCOUNTER 2020-12-10 19:53 | Emergency (ER) | payer OTHER ==
[2020-12-10 20:24] VITALS: BP 148/73; PULSE 84; TEMP 98; BMI 30.8
[2020-12-10 22:29] LABS: BASO % 0.6 % (0-2.0); EOS % 1.4 % (0-4.5); HEMATOCRIT 41.4 % (35.4-49); LYMPH % 37.1 % (8-40); MCHC 33.9 g/dl (32.0-35.9); MEAN CELL VOLUME 88.5 fl (80-96); MEAN PLT VOLUME 6.1 fl (7.5-11.1); NEUT % 52.9 % (42.8-82.8); PLATELET COUNT 405 10^3/uL (134-434); RBC 4.68 M/mm3 (4.00-5.60); RDW 14.7 % (11.9-15.9); WHITE BLOOD COUNT 11.9 K/mm3 (4.0-10.0)
[2020-12-10 22:52] LABS: CALCIUM 9.5 mg/dL (8.5-10.1)
[2020-12-10 22:53] LABS: ALBUMIN 3.7 g/dl (3.4-5.0); BLOOD UREA NITROGEN 16.8 mg/dL (7-18)
[2020-12-10 23:10] LABS: BILIRUBIN,TOTAL 0.2 mg/dL (0.2-1); TOT PROT 7.1 g/dl (6.4-8.2)
== END 2020-12-11 00:26 | disposition home or self-care (01) ==
LOC: JER 19:53
DX: E11.621 Type 2 diabetes mellitus with foot ulcer (principal)
CPT/HCPCS: 36415; 73630-TC-LT; 80053; 85025; 99284-25

== ENCOUNTER 2020-12-31 04:20 | Day surgery (SDC) | payer OTHER ==
[2020-12-29 14:01] VITALS: BMI 30.1
[~2020-12-31 04:20] MED LIST changes: +HEPARIN NA (PORCINE) 5,000 UNITS/ML 1ML VIAL SQ ONE; +IOVERSOL 320 MG/ML ML IV ONE; +LIDOCAINE HCL 1%, 10 MG/ML (20ML VIAL) NR ONE; -ceFAZolin SODIUM 1 GM VIAL IVPB ONE
[2020-12-31] MEDS ORDERED: HEPARIN NA (PORCINE) 5,000 UNITS/ML 1ML VIAL ONE (10:13)
[2020-12-31] MEDS ORDERED: LIDOCAINE HCL 1%, 10 MG/ML (20ML VIAL) ONE (10:13)
[2020-12-31] MEDS ORDERED: ACETAMINOPHEN 325 MG TABLET (FP) PO PRN (11:27)
[2020-12-31] MEDS ORDERED: PROPOFOL 20 ML ONE ×3 (11:36→12:29)
[2020-12-31] MEDS ORDERED: MIDAZOLAM HCL 2 MG/2 ML SINGLE DOSE VIAL ONE (11:42)
[2020-12-31] MEDS ORDERED: LIDOCAINE HCL 1%, 10 MG/ML (20ML VIAL) NR ONE (11:59)
[2020-12-31] MEDS ORDERED: IOVERSOL 320 MG/ML ML IV ONE (12:00)
[2020-12-31] MEDS ORDERED: HEPARIN NA (PORCINE) 5,000 UNITS/ML 1ML VIAL SQ ONE (12:00)
[2020-12-31] MEDS ORDERED: ONDANSETRON 4 MG/2 ML VIAL ONE (12:40)
[2020-12-31] MEDS ORDERED: oxyCODONE HCL 5 MG TABLET PO PRN ×2 (13:50)
[2020-12-31] MEDS ORDERED: ONDANSETRON 4 MG/2 ML VIAL IVPUSH PRN (13:50)
[2020-12-31] MEDS ORDERED: LACTATED RINGERS SOLUTION 1,000 ML IV SCH (14:00)
[2020-12-31 14:34] VITALS: PULSE 58
[2020-12-31 15:11] VITALS: BP 148/67; TEMP 97.8
[2020-12-31] MEDS ORDERED: glipiZIDE 10 MG TABLET (FP) PO SCH (16:30)
[2020-12-31] MEDS ORDERED: metFORMIN HCL 500 MG TABLET (FP) PO SCH (16:30)
[2020-12-31] MEDS ORDERED: ATORVASTATIN CA 20 MG TABLET (FP) PO SCH (22:00)
[2021-01-01] MEDS ORDERED: PANTOPRAZOLE 40 MG TABLET PO SCH (10:00)
[2021-01-01] MEDS ORDERED: amLODIPine BESYLATE 5 MG TABLET (FP) PO SCH (10:00)
[2021-01-01] MEDS ORDERED: ASPIRIN COATED 81 MG TABLET.EC PO SCH (10:00)
[2021-01-01] MEDS ORDERED: CLOPIDOGREL BISULFATE 75 MG TABLET (FP) PO SCH (10:00)
== END 2020-12-31 16:45 | disposition home or self-care (01) ==
LOC: JASU-SURG 04:20
PROVIDERS: ATTEND Surgery Vascular Surgery
PROC: B41DZZZ Fluoroscopy of Aorta and Bilateral Lower Extremity Arteries (ICD-10-PCS; 2020-12-31)
PROC: 047L3Z1 Dilation of Left Femoral Artery using Drug-Coated Balloon, Percutaneous Approach (ICD-10-PCS; principal; 2020-12-31 10:30)
DX: I70.212 Atherosclerosis of native arteries of extremities with intermittent claudication, left leg (principal); Z72.0 Tobacco use; E11.9 Type 2 diabetes mellitus without complications; I10 Essential (primary) hypertension; Z79.84 Long term (current) use of oral hypoglycemic drugs
CPT/HCPCS: 37224; 75710; C2623; 76000-TC-FY; 82962; 94760; J1644

== ENCOUNTER 2023-01-02 10:31 | Day surgery (SDC) | payer OTHER ==
[2022-12-29 10:14] VITALS: BMI 30.2
[2023-01-02] MEDS ORDERED: HEPARIN NA (PORCINE) 5,000 UNITS/ML 1ML VIAL ONE ×2 (13:15→14:24)
[2023-01-02] MEDS ORDERED: LIDOCAINE HCL 1%, 10 MG/ML (20ML VIAL) ONE (13:15)
[2023-01-02] MEDS ORDERED: MIDAZOLAM HCL 2 MG/2 ML SINGLE DOSE VIAL ONE (13:27)
[2023-01-02] MEDS ORDERED: PROPOFOL 20 ML ONE (13:27)
[2023-01-02] MEDS ORDERED: ceFAZolin SODIUM 1 GM VIAL IVPB ONE ×2 (13:41)
[2023-01-02] MEDS ORDERED: LIDOCAINE HCL 1%, 10 MG/ML (20ML VIAL) INF ONE (14:19)
[2023-01-02] MEDS ORDERED: ceFAZolin SODIUM 1 GM VIAL ONE (14:24)
[2023-01-02] MEDS ORDERED: ONDANSETRON 4 MG/2 ML VIAL IVPUSH PRN (14:34)
[2023-01-02] MEDS ORDERED: LACTATED RINGERS SOLUTION 1,000 ML IV SCH (14:45)
[2023-01-02 15:37] VITALS: RESP 16
[2023-01-02 17:16] VITALS: BP 133/63; PULSE 52; TEMP 97.2
== END 2023-01-02 17:20 | disposition home or self-care (01) ==
LOC: JASU-SURG 10:31
PROVIDERS: ATTEND Surgery Vascular Surgery
PROC: 047L3Z1 Dilation of Left Femoral Artery using Drug-Coated Balloon, Percutaneous Approach (ICD-10-PCS; principal; 2023-01-02 13:00)
DX: E11.51 Type 2 diabetes mellitus with diabetic peripheral angiopathy without gangrene (principal); Z79.4 Long term (current) use of insulin
CPT/HCPCS: 37224; C2623; 76000-TC-FY; 94760; C1760; C1769; J1644

== ENCOUNTER 2023-05-25 06:29 | Emergency (ER) | payer OTHER ==
[2023-05-25 06:43] VITALS: RESP 20; BMI 30.1
[2023-05-25] MEDS ORDERED: oxyCODONE HCL 5 MG TABLET ONE (08:42)
[2023-05-25] MEDS: oxyCODONE HCL 5 MG TABLET PO ONE (08:51)
[2023-05-25 09:06] LABS: BASO % 1.2 % (0-2.0); EOS % 0.9 % (0-4.5); HEMATOCRIT 34.7 % (35.4-49); HEMOGLOBIN 11.6 GM/dL (11.7-16.9); LYMPH % 24.6 % (8-40); MCHC 33.6 g/dl (32.0-35.9); MEAN CELL VOLUME 77.5 fl (80-96); MONO % 7.3 % (3.8-10.2); PLATELET COUNT 749 10^3/uL (134-434); RBC 4.48 M/mm3 (4.00-5.60); RDW 17.2 % (11.9-15.9); WHITE BLOOD COUNT 10.8 K/mm3 (4.0-10.0)
[2023-05-25 09:10] LABS: INR 1.01 (0.83-1.09); PROTHROMBIN TIME (PATIENT) 11.7 SEC (9.7-13.0)
[2023-05-25 09:13] LABS: ACTIVATED PTT 34.4 SECONDS (25.2-36.5)
[2023-05-25 09:29] LABS: POTASSIUM 4.2 mmol/L (3.5-5.1)
[2023-05-25 09:31] LABS: ALBUMIN 2.7 g/dl (3.4-5.0); BLOOD UREA NITROGEN 10.9 mg/dL (7-18); CALCIUM 9.3 mg/dL (8.5-10.1)
[2023-05-25 09:34] LABS: CREATININE 0.7 mg/dL (0.55-1.3)
[2023-05-25 09:36] LABS: BILIRUBIN,TOTAL 0.2 mg/dL (0.2-1); TOT PROT 7.1 g/dl (6.4-8.2)
[2023-05-25] MEDS ORDERED: METOCLOPRAMIDE HCL INJECTION 10 MG/2 ML VIAL ONE (10:59)
[2023-05-25] MEDS: METOCLOPRAMIDE HCL INJECTION 10 MG/2 ML VIAL IVPB ONE (11:05)
[2023-05-25] MEDS ORDERED: ACETAMINOPHEN INJECTION 100 ML IVPB ONE (14:18)
[2023-05-25] MEDS: ACETAMINOPHEN 1000 MG/100 ML BAG IVPB ONE (14:25)
[2023-05-25] MEDS ORDERED: HYDROmorphone HCl 2 MG/ML VIAL ONE (17:44)
[2023-05-25] MEDS ORDERED: KETOROLAC TROMETHAMINE 15 MG/ML VIAL ONE (17:44)
[2023-05-25 17:50] VITALS: BP 170/68; PULSE 86; TEMP 98.5
[2023-05-25] MEDS: KETOROLAC TROMETHAMINE 15 MG/ML VIAL IVPUSH ONE (17:53)
[2023-05-25] MEDS: HYDROmorphone HCl 2 MG/ML VIAL IVPUSH ONE (17:53)
== END 2023-05-25 18:57 | disposition home or self-care (01) ==
LOC: JER 06:29
PROC: 3E033NZ Introduction of Analgesics, Hypnotics, Sedatives into Peripheral Vein, Percutaneous Approach (ICD-10-PCS; principal; 2023-05-25)
PROC: 3E0333Z Introduction of Anti-inflammatory into Peripheral Vein, Percutaneous Approach (ICD-10-PCS; 2023-05-25)
PROC: 3E033GC Introduction of Other Therapeutic Substance into Peripheral Vein, Percutaneous Approach (ICD-10-PCS; 2023-05-25)
PROC: 3E033GC Introduction of Other Therapeutic Substance into Peripheral Vein, Percutaneous Approach (ICD-10-PCS; 2023-05-25)
DX: R07.9 Chest pain, unspecified (principal); R22.2 Localized swelling, mass and lump, trunk; R51.9 Headache, unspecified; M54.9 Dorsalgia, unspecified; R05.9 Cough, unspecified; I10 Essential (primary) hypertension; R07.0 Pain in throat; Z20.822 Contact with and (suspected) exposure to COVID-19
CPT/HCPCS: 0241U-QW; 36415; 70450-TC; 71045-TC-FY; 71275-TC; 74174-TC; 80053; 82962; 84484; 85025; 85610; 85730; 87651; 93005; 93010; 99285-25; J0131; Q9967

== ENCOUNTER 2024-04-28 21:11 | Emergency (ER) | payer OTHER ==
[2024-04-28 21:17] VITALS: BP 145/73; PULSE 96; RESP 17; TEMP 98.5; BMI 27.6
[2024-04-28 22:02] LABS: BASO % 1.6 % (0-2.0); EOS % 2.5 % (0-4.5); HEMATOCRIT 28.4 % (35.4-49); HEMOGLOBIN 8.8 GM/dL (11.7-16.9); LYMPH % 19.3 % (8-40); MCH 22.7 pg (25.7-33.7); MEAN CELL VOLUME 73.1 fl (80-96); MONO % 8.5 % (3.8-10.2); NEUT % 68.1 % (42.8-82.8); PLATELET COUNT 874 10^3/uL (134-434); RBC 3.89 M/mm3 (4.00-5.60); RDW 18.8 % (11.9-15.9); WHITE BLOOD COUNT 9.3 K/mm3 (4.0-10.0)
[2024-04-28 22:11] LABS: INR 1.01 (0.83-1.09); PROTHROMBIN TIME (PATIENT) 11.6 SEC (9.7-13.0)
[2024-04-28 22:13] LABS: ACTIVATED PTT 37.7 SECONDS (25.2-36.5)
[2024-04-28 22:19] LABS: ALBUMIN 2.7 g/dl (3.4-5.0); BLOOD UREA NITROGEN 13.6 mg/dL (7-18); CALCIUM 9.7 mg/dL (8.5-10.1); MAGNESIUM 1.7 mg/dL (1.8-2.4)
[2024-04-28 22:23] LABS: CREATININE 0.8 mg/dL (0.55-1.3)
[2024-04-28 22:24] LABS: BILIRUBIN,TOTAL 0.2 mg/dL (0.2-1); TOT PROT 7.1 g/dl (6.4-8.2)
== END 2024-04-29 03:14 | disposition home or self-care (01) ==
LOC: JER 21:11
DX: S01.112A Laceration without foreign body of left eyelid and periocular area, initial encounter (principal); R55 Syncope and collapse; M54.2 Cervicalgia; R05.9 Cough, unspecified; W22.8XXA Striking against or struck by other objects, initial encounter; Z20.822 Contact with and (suspected) exposure to COVID-19
CPT/HCPCS: 0241U-QW; 36415; 70450-TC; 71045-TC-FY; 71275-TC; 72125-TC; 80053; 83735; 84484; 85025; 85610; 85730; 93005; 93010; 99285-25; Q9967

== ENCOUNTER 2024-05-03 11:33 | Emergency (ER) | payer OTHER ==
[2024-05-03 12:06] VITALS: BP 137/65; PULSE 90; RESP 20; TEMP 98; BMI 27.6
== END 2024-05-03 12:49 | disposition home or self-care (01) ==
LOC: JERFT 11:33
DX: Z48.02 Encounter for removal of sutures (principal)
CPT/HCPCS: 99281-25